=== PATIENT | male | born 1940 | race Caucasian/White ===

== ENCOUNTER 2017-11-25 04:02 | Inpatient (IN) | payer MEDICARE, OTHER ==
[~2017-11-25] VITALS: Ht 172.7 cm; Wt 97.3 kg
[~2017-11-25 04:02] MED LIST: ADVAIR HFA 230M12 GM INH; ALAVERT10 MG PO; ALBUTEROL2.5 MG/31 INH; ARTIFICIAL TEAR15 M2 OPHTHALMIC; ASPIR 8181 MG PO; ASPIRIN EC81 M1 PO; ATIVAN0.5 MG PO; AUGMENTIN 875875 MG PO; B-100 COMPLEX1 EAC1 PO; BUDESONIDE0.5 MG/2 M IH; BUMETANIDE0.25 MG/1 PO; CALCIUM + VIT1 EACH PO; CALCIUM 600 +1 EAC1 PO; CALCIUM PO; CARDIZEM CD240 MG PO; CARDIZEM CD360 MG PO; CEFPODOXIME PR200 M1 PO; CENTRUM SILVER1 EAC2 PO; COMPLETE M9 MG/15 ML PO; COUMADIN 2.5MG2.5 M1 PO; COUMADIN 3 MG TA3 MG PO; COUMADIN 5 MG TA5 M1 PO; COUMADIN7.5 MG PO; CRESTOR10 MG PO; CRESTOR20 MG PO; DEXILANT60 MG PO; DUONEB 2.5-0.5 M3 ML INH; ELIQUIS2.5 MG PO; FISH OIL 1,001000 M1 PO; FISH OIL SOFTG1 EACH PO; FLONASE 0.05%50 MCG NASAL; FLORASTOR250 MG PO; FLUNISOLIDE25 M1 NS; FUROSEMIDE 40 M40 M1 PO; GEMFIBROZIL 60600 MG PO; GLUCAGEN1 MG/1 ML IM; GLUCOSAMINE HC500 MG PO; GLUCOSAMINE-CH1 EA40 PO; GLUCOTROL5 MG PO; HUMALOG100 UNIT/1 SUBQ; HYDROCODONE-AP1 EA15 PO; HYDROCODONE-AP1 EAC6 PO; IBUPROFEN 200200 M1 PO; K-DUR 20 MEQ T20 MEQ PO; LANOXIN 0.250.25 M1 PO; LEVAQUIN 500 M500 M2 PO; LEVEMIR SUBQ; LORTAB 7.5-3251 EACH PO; LORTAB 7.5/5001 TA1 PO; LOSARTAN POTAS100 MG PO; LUBRICANT EYE D15 ML OPHTHALMIC; METAMUCIL PO; METFORMIN HCL500 MG PO; MUCINEX TA600 MG/TA1 PO; NEURONTIN600 MG PO; NEXIUM40 MG PO; NIASPAN 500 MG500 M1 PO; NIFEDIPINE PO; NORCO 7.5-3251 EACH PO; NOVOLIN R100 UNIT/1 SUBQ; OMEGA-31000 M1 PO; ONDANSETRON HCL4 M2 PO; POTASSIUM CHLO10 ME1 PO; PREDNISONE 10 M10 M1; PREDNISONE 10 M10 M1 PO; PREDNISONE 10 M10 MG PO; PREDNISONE 20 M20 MG PO; PRILOSEC 20 MG20 MG PO; PROTONIX40 M1 PO; PULMICORT0.5 MG/22 INH; REFRESH OPTIVE10 ML OP; ROCEPHIN 11 GM/1001 IV; SAW PALMETTO C1 EACH PO; SIMVASTATIN40 MG PO; SINGULAIR 10 MG10 M1 PO; SORINE 80 MG TA80 M1 PO; SUPER THERAVIT1 EACH PO; SYNTHROID125 MC1 PO; THERA-M CAPLET1 EAC1 PO; TRICOR145 MG PO; TYLENOL325 MG PO; VITAMIN B COMP1 EAC7 PO; VITAMIN C500 M1 PO; VITAMINC500 PO; VITCB500GO PO; ZOFRAN ODT4 MG DISSOLVE; ZYVOX600 MG PO
[2017-11-25 04:04] VITALS: BP 110/62
--- NOTE | 2017-11-25 04:11 | NUR ---
ACCUCHECK LEFT FOREFINGER - 61
[2017-11-25] MEDS ORDERED: SAW PALMETTO160 MG PO (04:26)
[2017-11-25] MEDS ORDERED: GEMFIBROZIL 60600 MG PO (04:27)
[2017-11-25] MEDS ORDERED: LANTUS SUBQ (04:27)
[2017-11-25] MEDS ORDERED: MAGNESIUM250 M1 PO (04:27)
[2017-11-25 04:28] LABS: HEMATOCRIT 39.7 % (42.0-52.0); HEMOGLOBIN 13.1 gm/dL (14.0-18.0); MCH 25.9 pg (26.0-34.0); MCHC 32.9 g/dL (28.0-37.0); MCV 78.7 fL (80.0-100.0); MPV 7.3 fl. (7.2-11.1); NUCLEATED RBCS 0 /100WBC; PLATELET COUNT* 493 thou/uL (150-400); RBC 5.05 mil/uL (4.50-6.00); RDW-CV 17.1 % (10.5-14.5); WBC 18.7 thou/uL (4.0-11.0)
[2017-11-25] MEDS ORDERED: OXYGEN MISCELL (04:28)
[2017-11-25] MEDS ORDERED: APIDRA100 U/ML SUBQ (04:28)
[2017-11-25] MEDS ORDERED: COUMADIN 1MG TAB1 M1 PO (04:29)
[2017-11-25] MEDS ORDERED: MUCINEX600 MG PO (04:29)
[2017-11-25] MEDS ORDERED: FLOMAX0.4 MG PO (04:29)
[2017-11-25] MEDS ORDERED: LASIX 80 MG TAB80 MG PO (04:29)
[2017-11-25 04:45] LABS: APTT 47.6 Seconds (25.0-31.3); PROTIME 28.4 Seconds (9.20-11.50)
[2017-11-25 05:04] LABS: ANION GAP 8 mmol/L (7-16); BUN 20 mg/dL (7-18); CALCIUM 9.4 mg/dL (8.5-10.1); CHLORIDE 99 mmol/L (98-107); CO2 29 mmol/L (21-32); GLUCOSE 61 mg/dL (70-99); POTASSIUM 3.9 mmol/L (3.5-5.1); SODIUM 136 mmol/L (136-145)
[2017-11-25 05:13] LABS: ALKALINE PHOSPHATASE 115 U/L (46-116); NT-PRO BRAIN NAT PEPTIDE 1299 pg/mL (<300); SGOT 27 U/L (15-37); SGPT 17 U/L (30-65); TOTAL BILIRUBIN 0.9 mg/dL (<0.1-1.0); TOTAL PROTEIN 7.2 g/dL (6.4-8.2); TROPONIN-I LEVEL <0.06 ng/mL (<0.06)
[2017-11-25 06:10] LABS: ABSOLUTE LYMPHOCYTES 2.2 thou/uL (0.8-5.3); ABSOLUTE MONOCYTES 0.6 thou/uL (0.0-1.2); ABSOLUTE NEUTROPHILS 15.9 thou/uL (1.6-8.1); ANISOCYTOSIS 1+; PLATELET ESTIMATE INCREASED
[2017-11-25 06:11] LABS: POIKILOCYTOSIS 1+
[2017-11-25 06:12] VITALS: BP 101/65
[2017-11-25 06:20] VITALS: BP 147/75
[2017-11-25 07:50] VITALS: BP 131/71
[2017-11-25 08:08] LABS: URINE BILIRUBIN NEGATIVE (Negative); URINE BLOOD NEGATIVE (Negative); URINE CLARITY CLEAR; URINE COLOR YELLOW; URINE GLUCOSE-RANDOM NEGATIVE (Negative); URINE KETONES NEGATIVE (Negative); URINE LEUKOCYTES-REFLEX NEGATIVE (Negative); URINE NITRITE-REFLEX NEGATIVE (Negative); URINE PROTEIN 1+ (Negative); URINE UROBILINOGEN 0.2 E.U./dl (0.2-1.0)
[2017-11-25 08:18] LABS: BACTERIA-REFLEX 1-9 Few /HPF (None Seen); CASTS None Seen /LPF (None Seen); MUCUS 0-3 Light strn/LPF (None Seen); SQUAMOUS 0-3 Few /LPF (0-3); URINE RBC 0-2 Rare /HPF (0-2); URINE WBC-REFLEX 0-5 Rare /HPF (0-5)
[2017-11-25 08:19] LABS: CRYSTALS None Seen /LPF (None Seen)
--- NOTE | 2017-11-25 12:07 | NUR ---
SW met with pt to complete initial assessment, introduce self, and SW role. Pt was sleeping soundly, unable to awaken after calling name and hello several times. SW called pt son Fritz who provided information. Pt have lives at home with son since last March and pt son is hopeful that pt will be able to return home with son again at dc. Pt has cane, RW, and Trilogy. Pt has hx of SNF at [facility]; pt/family preference would be [facility] if SNF needed. SW to continue to follow to assist with safe dc planning.
--- NOTE | 2017-11-25 15:25 | EKG ---
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: : 1940 Requested By: Beni Boyd Order Number: [id number] MD: Jam Cosby Measurements Intervals [place] Rate: 81 P: NM: QRS: -21 QRSD: 91 T: 7 QT: 340 QTc: 395 Interpretive Statements Atrial fibrillation Borderline left axis deviation Anterior infarct, old Baseline wander in lead(s) V2,V3,V4 Compared to ECG 01/24/2017 10:00:16 Early repolarization no longer present Myocardial infarct finding still present Electronically Signed On 11-25-2017 15:24:58 CDT by Jam Cosby [email or web address] <ELECTRONICALLY SIGNED> By: Jam Cosby MD, FACC 11/25/17 1524 0429 0429 Jam Cosby MD, FAC /EPI
[2017-11-25 16:00] VITALS: BP 112/58
--- NOTE | 2017-11-25 16:40 | NUR ---
PATIENT A&OX4, ON 2L O2 NC, HOME TRILOGY UNIT BROUGHT IN TO BE WORN AT NIGHT. MACHINE HAVING ISSUES, SPOKE WITH RT AND COMPANY WITH TRILOGY, WILL BE TAKING CARE OF ISSUE. IV LEFT HAND, INFILTRATED. IV NOW IN RIGHT AC, FLUIDS INFUSSING. PATIENT LETHARGIC, EASILY ARROUSABLE. UP WITH MAX ASSISTX1 WITH WALKER AND GAITBELT. PATIENT REFUSING TO TURN TODAY. C/O PAIN IN LEFT LEG, BEDSIDE ASPIRATION, FLUID SENT TO LAB. NO OTHER CONCERNS AT THIS TIME. APPROPRAITE AND COOPORATIVE WITH CARE.
[2017-11-25 20:00] VITALS: BP 104/59
--- NOTE | 2017-11-26 00:51 | NUR ---
ALERT AND ORIENTED WITH SOME STM LOSS. CONT. TO MONITOR LT ANKLE AND FOOT PAIN. ON SCHEDULED NARCOTIC WITH EFFECTIVE RELIEF. BED IN LOW POSIION, CALL LIGHT IN REACH. BED ALARM ON. NO SIGN OF DISTRESS AT THIS TIME.
[2017-11-26 04:02] LABS: HEMATOCRIT 35.6 % (42.0-52.0); HEMOGLOBIN 11.6 gm/dL (14.0-18.0); MCHC 32.6 g/dL (28.0-37.0); MCV 79.6 fL (80.0-100.0); MPV 8.1 fl. (7.2-11.1); RBC 4.46 mil/uL (4.50-6.00); WBC 14.2 thou/uL (4.0-11.0)
[2017-11-26 04:04] LABS: INR 2.7; PROTIME 25.9 Seconds (9.20-11.50)
[2017-11-26 04:15] LABS: ALBUMIN 2.5 g/dL (3.4-5.0); CALCIUM 9.2 mg/dL (8.5-10.1); CREATININE 1.4 mg/dL (0.6-1.3); MAGNESIUM 2.5 mg/dL (1.8-2.4); TOTAL BILIRUBIN 0.4 mg/dL (<0.1-1.0); TOTAL PROTEIN 6.9 g/dL (6.4-8.2)
[2017-11-26 04:18] LABS: POTASSIUM 5.2 mmol/L (3.5-5.1)
[2017-11-26 07:40] VITALS: BP 118/58
--- NOTE | 2017-11-26 09:56 | CON ---
[address] [address] CONSULTATION Name: ELLIOTT VALERA Room: [address] IN .R.#: [id number] Admission: 11/25/17 Attend Phys: Ramon Neal MD Discharge: Date of : 38 Report #: [id number] THIS REPORT FOR: //name// CC: Vineet Neal DATE OF SERVICE: 11/25/2017 HISTORY OF PRESENT ILLNESS: The patient at this point in time is a 77-year-old gentleman at [facility], was admitted through the Emergency Room of this institution, complaining of ankle pain on that left side, rather significant in nature. The patient, at this point in time, said it really started Friday, but it progressed where he had a very significant amount of difficulty walking on Friday, which was yesterday. Today, he cannot even barely put any weight or motion of his ankle. The patient says that he potentially twisted this ankle, although he is not quite sure as well when he was at home or out by the driveway. He only complains that this joint bother him. No other joints are bothering him when asked and he has not had any major other recent injuries prior to this. He does demonstrate on his physical examination, otherwise he shows pain is about 6/10 currently. PAST MEDICAL HISTORY: Remarkable for diabetes mellitus, COPD. He has a history of atrial fibrillation, hypertension. He has a history of arthritis and hypercholesterolemia as well. PAST SURGICAL HISTORY: This gentleman does demonstrate he has had previous hernia repair, right shoulder surgery x 3, right and left total knee arthroplasty, pilonidal cyst. He has had history of cataract surgery. MEDICATIONS: He is on multiple medication list. Digoxin. He is on hydrocodone, prednisone. He is on pantoprazole, ondansetron, aspirin, calcium supplementation. He is on gabapentin, Pulmicort inhalers. He is on Zofran p.r.n., insulin. At current time, he is on levothyroxine, glucagon, glipizide, montelukast, saw palmetto, gemfibrozil, magnesium, warfarin, Lasix, oxygen supplementation. ALLERGIES: He has allergies including EDIE INHIBITORS, LISINOPRIL, SULFA, MORPHINE. SOCIAL HISTORY: Otherwise, he used to smoke tobacco in the past. No alcohol consumption socially, is unremarkable. REVIEW OF SYSTEMS: Pain in the left ankle, otherwise he is normocephalic. His sclerae white. Mucous membranes are moist. Shows appropriate affect and judgment today. EYES: He demonstrates [place] [address] CONSULTATION Name: ELLIOTT VALERA Room: [address] IN ..#: [id number] Admission: 11/25/17 Attend Phys: Ramon Neal MD Discharge: Date of : 36 Report #: [id number] HEENT: Demonstrates no congestion or headaches currently. RESPIRATORY: Denies any cough, but he does have chronic COPD. CARDIOVASCULAR: He denies any chest pain history. GASTROINTESTINAL: Denies any abdominal pain or nausea. GENITOURINARY: There is no frequency or bloody hematuria. MUSCULOSKELETAL: He does have the musculoskeletal pain in the left inguinal region. Denies any other extremity or joint pains. SKIN: Warm and dry. LABORATORY DATA: The patient does demonstrate to show on his admission that he did have a white count of 18,700. Showing also an initial admit hemoglobin of 13.1, hematocrit of 39.7. His neutrophil count was up at 15.9. PHYSICAL EXAMINATION: VITAL SIGNS: He shows a BP of 110/62, his temperature is 37.1, pulse 84, respirations 16. GENERAL: The patient does demonstrate physically otherwise to be alert, oriented and cooperative. Shows appropriate affect and judgment. HEENT: Normocephalic. Sclerae white. Mucous membranes are moist. LUNGS: Does demonstrate no audible wheezes. ABDOMEN: Flat. EXTREMITIES: Demonstrates cicatrix to the right and left knees from previous total joint arthroplasty. Does demonstrate also to show full motion of the knees and hips without pain. The ankle on the left is extremely painful. It shows an effusion present to the ankle. Sensation is intact. Good pulses of the ankle bilaterally. His calves are soft posteriorly. NEUROLOGIC: Cranial nerves intact. IMAGING: X-ray of ankle demonstrates no gross bony destructive process changes. Alignment is appropriate. IMPRESSION: Left ankle pain with effusion. He does have an elevated uric acid, so he potentially has gout versus septic ankle. RECOMMENDATION: Simply go ahead and aspirate the ankle. Further recommendations pending that. The patient will have stat labs on that as well. The patient did sign a permit for aspiration of this left ankle, which was verified. The patient had a chlorhexidine prep of the left ankle. Timeout was called and verified. I aspirated with an 18 gauge needle, aspirated 4 mL of yellow synovial fluid, was appropriately sent off to the lab. Compression dressing was placed on the ankle. The patient tolerated the procedure well. A note was written for this as well. The patient will be followed in the hospital stay for results, possible [place] [address] CONSULTATION Name: ELLIOTT VALERA Carmen Room: [address]#: [id number] Admission: 11/25/17 Attend Phys: Ramon Neal MD Discharge: Date of : 38 Report #: [id number] All questions were answered, otherwise our pleasure seeing and taking care of the patient today. <ELECTRONICALLY SIGNED> By: Earnest Holm DO 11/26/17 0956 1051 1142Cemily Holm DO /nt
[2017-11-26 12:23] LABS: POTASSIUM 5.1 mmol/L (3.5-5.1)
--- NOTE | 2017-11-26 16:07 | NUR ---
ALVIN A&OX4, AWAKE, ALERT, PLEASANT. ON ROOM AIR, IV RIGHT OUTER AC, FLUIDS INFUSSING. UP WITH ASSISTX1 WITH WALKER AND GAITBELT. STEADY GAIT. C/O PAIN IN LEFT ANKLE, REPORTS PAIN IS DECREASING AND MOVEMENT IS INCREASING. NO OTHER CONCERNS AT THIS TIME. APPROPRIATE AND COOPORATIVE WITH CARE.
[2017-11-26 16:16] VITALS: BP 124/63
[2017-11-26 21:00] VITALS: BP 128/62
[2017-11-27 04:15] LABS: HEMATOCRIT 34.2 % (42.0-52.0); HEMOGLOBIN 11.1 gm/dL (14.0-18.0); MCH 25.8 pg (26.0-34.0); MCHC 32.4 g/dL (28.0-37.0); MCV 79.5 fL (80.0-100.0); MPV 7.7 fl. (7.2-11.1); RBC 4.3 mil/uL (4.50-6.00); WBC 12.9 thou/uL (4.0-11.0)
[2017-11-27 04:23] LABS: PROTIME 39.7 Seconds (9.20-11.50)
[2017-11-27 04:32] LABS: ALBUMIN 2.5 g/dL (3.4-5.0); CREATININE 1.2 mg/dL (0.6-1.3); MAGNESIUM 2.4 mg/dL (1.8-2.4); POTASSIUM 4.9 mmol/L (3.5-5.1); TOTAL BILIRUBIN 0.3 mg/dL (<0.1-1.0); TOTAL PROTEIN 6.7 g/dL (6.4-8.2)
[2017-11-27 04:41] LABS: INR 4.2
--- NOTE | 2017-11-27 05:18 | NUR ---
PATIENT SLEPT WELL DURING THIS SHIFT. PT IS ON ROOM AIR. PT USES HOME TRILOGY AT NIGHT. PT WITH FLUIDS INFUSING PER DR ORDER. PT WITH 2100 BLOOD SUGAR OF 274; HUMALOG 17 UNITS AND LANTUS 50 UNITS GIVEN. PT IN ISOLATION FOR MRSA. PT VOIDS PER URINAL. PT UP WITH STANDBY AND WALKER TO BATHROOM FOR BM. PT HAD LARGE, FIRM BOWEL MOVEMENT AT BEGINNING OF SHIFT. PT ABLE TO REPOSITION HIMSELF IN BED. FREQUENTLY USED ITEMS AND CALL LIGHT WITHIN REACH. SIDERAILS UPX3 AND BED ALARM ON. WILL CONTINUE TO MONITOR.
[2017-11-27 07:35] VITALS: BP 158/74
--- NOTE | 2017-11-27 10:44 | NUR ---
Possibility for need for SNF. Dr Shay anticipating pt to dc Wednesday 11/29. CLAUDIA faxed referral for SNF to pt/family preference of [facility] fax number [phone]. CLAUDIA spoke with Lily from [facility] admissions who will review the referral ph [phone]. CLAUDIA to continue to follow to assist with safe dc planning.
[2017-11-27 16:31] VITALS: BP 129/63
--- NOTE | 2017-11-27 18:52 | NUR ---
PATIENT RESTING UP IN RECLINER. PATIENT IS UP IN ROOM STANDBY ASSIST. PATIENT HAS HAD PAIN TO LEFT FOOT, TREATED ADEQUATELY WITH MEDICATION. PATIENT WORKED WITH PHYSICAL AND OCCUPATIONAL THERAPIES TODAY. PATIENT HAS GOOD APPETITE. PATIENT DENIES ANY NEEDS AT THIS TIME. CALL LIGHT WITHIN REACH. WILL CONTINUE TO MONITOR.
[2017-11-27 19:50] VITALS: BP 139/67
[2017-11-28 04:22] LABS: HEMOGLOBIN 11.6 gm/dL (14.0-18.0); MCH 25.6 pg (26.0-34.0); MCHC 32.3 g/dL (28.0-37.0); MCV 79.4 fL (80.0-100.0); MPV 7.6 fl. (7.2-11.1); RBC 4.54 mil/uL (4.50-6.00); RDW-CV 16.7 % (10.5-14.5); WBC 8.8 thou/uL (4.0-11.0)
[2017-11-28 04:35] LABS: PROTIME 26.1 Seconds (9.20-11.50)
[2017-11-28 04:38] LABS: CALCIUM 9.1 mg/dL (8.5-10.1); CREATININE 0.9 mg/dL (0.6-1.3); POTASSIUM 4.5 mmol/L (3.5-5.1)
[2017-11-28 04:44] LABS: INR 2.7
--- NOTE | 2017-11-28 05:10 | NUR ---
PT SLEPT AT INTERVALS DURING THE NIGHT, IV SALINE LOCKED, WORE CPAP WHILE SLEEPING, PLEASANT, PAIN PILL AT HS, USED URINAL AT BEDSIDE, BED ALARM ON FOR SAFETY, CALL LIGHT IN REACH, WILL CONTINUE TO MONITOR
[2017-11-28 08:00] VITALS: BP 159/75
--- NOTE | 2017-11-28 14:54 | NUR ---
SW followed up with admissions at [facility] and pt has been accepted for SNF for Friday if final recommendation is for SNF and if pt/pt son final choice is SNF vs home with HH. Final orders to be faxed to [phone]. To call Charge Nurse Iveth on Friday to finalize transition to SNF at phone number [phone].
[2017-11-28 17:09] VITALS: BP 143/71
--- NOTE | 2017-11-28 19:29 | NUR ---
RECEIVED REPORT. ASSUMED CARE AT 0730. PT A&O X4. VSS. O2 SAT 97% ON RA. AM ASSESSMENT AND VITALS COMPLETED CHARTED. IV SALINE LOCKED. PT HAS REPORTED LEFT FOOT/LEG AND RIGHT SHOULDER PAIN THROUGHOUT THE SHIFT THAT HAS BEEN MANAGED WITH PO PAIN MEDICATION WITH PARTIAL RELIEF. PT EATING AND DRINKING WITHOUT ISSUE THIS SHIFT. PT ABLE TO WORK WITH P.T. THIS AFTERNOON - WALKED UP AND DOWN SEVERAL STAIRS WITHOUT ISSUE, MUCH IMPROVED FROM YESTERDAY ACCODRING TO P.T. PT HAS SAT IN BEDSIDE CHAIR MOST OF SHIFT. PT VOIDING PER URINAL WITHOUT ISSUE. PT LOOKING FORWARD TO MAYBE GOING HOME TOMORROW. PT CURRENRTLY RESTING IN BED. FALL PRECAUTIONS ARE IN PLACE. CALL LIGHT IS WITHIN REACH. HOURLY ROUNDING PERFORMED.
[2017-11-28 20:00] VITALS: BP 131/60
[2017-11-29 04:43] LABS: INR 1.8; PROTIME 17.7 Seconds (9.20-11.50)
--- NOTE | 2017-11-29 05:14 | NUR ---
PT SLEPT AT INTERVALS DURING THE NIGHT, IV SALINE LOCKED, TRILOGY WHILE SLEEPING, BREATHING TREATMENTS BY RT, PLEASANT, PAIN MED GIVEN LAST NIGHT, UP SBA TO THE CHAIR, VOIDED PER URINAL. CALL LIGHT IN REACH, BED ALARM ON FOR SAFETY, WILL CONTINUE TO MONITOR
[2017-11-29] MEDS ORDERED: PREDNISONE 10 M10 MG PO (11:13)
--- NOTE | 2017-11-29 11:23 | NUR ---
ORDERS NOTED FOR DC HOME WITH HH. MET WITH PT, HE PREFERS TO GO HOME, NOT SNF. DISCUSSED HH OPTIONS AND CHOSE [facility]. CALLED AND FAXED ORDERS TO [facility]. PT STATES HIS SON WILL BE HERE TO PICK HIM UP. DISCUSSED [facility]ERSON RN
[2017-11-29 11:25] VITALS: BP 131/60
== END 2017-11-29 15:30 | disposition home health service (06) | DRG 553 ==
LOC: M.ERS 04:02 → M.TBA-ER 05:34 → M.3W 05:34
PROVIDERS: Family Medicine; Internal Medicine; ADMIT Internal Medicine
PROC: 0S9G0ZX Drainage of Left Ankle Joint, Open Approach, Diagnostic (ICD-10-PCS; principal; 2017-11-25)
DX: M11.272 Other chondrocalcinosis, left ankle and foot (principal); R65.11 Systemic inflammatory response syndrome (SIRS) of non-infectious origin with acute organ dysfunction; N17.9 Acute kidney failure, unspecified; E44.1 Mild protein-calorie malnutrition; M25.472 Effusion, left ankle; E78.5 Hyperlipidemia, unspecified; M19.90 Unspecified osteoarthritis, unspecified site; I48.91 Unspecified atrial fibrillation; J44.9 Chronic obstructive pulmonary disease, unspecified; G47.33 Obstructive sleep apnea (adult) (pediatric); Z87.891 Personal history of nicotine dependence; M10.9 Gout, unspecified; E78.00 Pure hypercholesterolemia, unspecified; Z96.653 Presence of artificial knee joint, bilateral; D72.829 Elevated white blood cell count, unspecified; I12.9 Hypertensive chronic kidney disease with stage 1 through stage 4 chronic kidney disease, or unspecified chronic kidney disease; E11.22 Type 2 diabetes mellitus with diabetic chronic kidney disease; N18.2 Chronic kidney disease, stage 2 (mild); M25.872 Other specified joint disorders, left ankle and foot; Z98.42 Cataract extraction status, left eye; Z98.41 Cataract extraction status, right eye; Z99.81 Dependence on supplemental oxygen; Z79.899 Other long term (current) drug therapy; Z79.82 Long term (current) use of aspirin; Z79.4 Long term (current) use of insulin; Z88.6 Allergy status to analgesic agent; Z88.2 Allergy status to sulfonamides; Z88.8 Allergy status to other drugs, medicaments and biological substances; Z68.32 Body mass index [BMI] 32.0-32.9, adult

== ENCOUNTER 2018-01-04 12:44 | Inpatient (IN) | payer MEDICARE, OTHER ==
[~2018-01-04] VITALS: Ht 172.7 cm; Wt 96.0 kg
[~2018-01-04 12:44] MED LIST changes: +APIDRA100 U/ML SUBQ; +COUMADIN 1MG TAB1 M1 PO; +FLOMAX0.4 MG PO; +LANTUS SUBQ; +LASIX 80 MG TAB80 MG PO; +MAGNESIUM250 M1 PO; +MUCINEX600 MG PO; +OXYGEN MISCELL; +SAW PALMETTO160 MG PO
[2018-01-04 12:46] VITALS: BP 96/47
[2018-01-04 13:07] LABS: HEMATOCRIT 36.2 % (42.0-52.0); HEMOGLOBIN 11.7 gm/dL (14.0-18.0); MCH 25.6 pg (26.0-34.0); MCHC 32.4 g/dL (28.0-37.0); MCV 79.2 fL (80.0-100.0); MPV 7.2 fl. (7.2-11.1); NUCLEATED RBCS 0 /100WBC; PLATELET COUNT* 373 thou/uL (150-400); RBC 4.58 mil/uL (4.50-6.00); RDW-CV 19.9 % (10.5-14.5); WBC 16.8 thou/uL (4.0-11.0)
[2018-01-04 13:19] LABS: APTT 39.7 Seconds (25.0-31.3); INR 1.9; PROTIME 18.1 Seconds (9.20-11.50)
[2018-01-04 13:22] LABS: ANION GAP 9 mmol/L (7-16); BUN 29 mg/dL (7-18); CALCIUM 8.7 mg/dL (8.5-10.1); CHLORIDE 97 mmol/L (98-107); CO2 31 mmol/L (21-32); CREATININE 1.4 mg/dL (0.6-1.3); GLUCOSE 191 mg/dL (70-99); POTASSIUM 3.8 mmol/L (3.5-5.1); SODIUM 137 mmol/L (136-145)
[2018-01-04 13:32] LABS: ALBUMIN 2.8 g/dL (3.4-5.0); ALKALINE PHOSPHATASE 95 U/L (46-116); LIPASE 63 U/L (73-393); MAGNESIUM 2.3 mg/dL (1.8-2.4); NT-PRO BRAIN NAT PEPTIDE 1379 pg/mL (<300); SGOT 13 U/L (15-37); SGPT 11 U/L (30-65); TOTAL BILIRUBIN 1.1 mg/dL (<0.1-1.0); TOTAL PROTEIN 7.4 g/dL (6.4-8.2); TROPONIN-I LEVEL <0.06 ng/mL (<0.06)
[2018-01-04 13:51] LABS: ABSOLUTE BASOPHILS 0.2 thou/uL (0.0-0.2); ABSOLUTE MONOCYTES 1.7 thou/uL (0.0-1.2); ABSOLUTE NEUTROPHILS 13.9 thou/uL (1.6-8.1)
[2018-01-04 13:52] LABS: ANISOCYTOSIS 1+; PLATELET ESTIMATE ADEQUATE
[2018-01-04 15:48] VITALS: BP 105/58; BP 118/57
--- NOTE | 2018-01-04 16:28 | NUR ---
PT ADMITTED TO UNIT AROUND 1600 PT IS ALERT AND ORIENTED X 4 PT IS UP WITH ASSIST X 1-2 WITH WALKER PT GAIT UNSTEADY PT USES URINAL PT IS A FALL RISK BED ALARM IS ON, PT IS ON 3L/NC NO SOA NOTED PT C/O CHRONIC PAIN IN FEET BILAT HAS PAIN MEDS SCHEDULED, PT IS AFIB ON THE MONITOR, PT HAS BREATHING TREATMENTS, WILL CONTINUE TO MONITOR
[2018-01-04] MEDS ORDERED: NEURONTIN600 MG PO (16:43)
[2018-01-04 20:29] VITALS: BP 121/52
[2018-01-04 23:33] VITALS: BP 107/50
[2018-01-05 03:46] VITALS: BP 120/60
--- NOTE | 2018-01-05 04:32 | NUR ---
Pt expressed concern over high BG (445 at 2030). Inquired if he had been given steroids, which he had and is getting q8h. Paged Dr. Shay, orders received. Pt uses Trilogy at home, and sone to bring machine in today. Pt on BIPAP overnight, tolerated well. VSS. Will continue to montior.
[2018-01-05 05:04] LABS: HEMATOCRIT 34.8 % (42.0-52.0); HEMOGLOBIN 11.1 gm/dL (14.0-18.0); MCH 25.4 pg (26.0-34.0); MCV 79.3 fL (80.0-100.0); MPV 7.8 fl. (7.2-11.1); RBC 4.39 mil/uL (4.50-6.00); RDW-CV 20.2 % (10.5-14.5); WBC 11.9 thou/uL (4.0-11.0)
[2018-01-05 05:10] LABS: INR 2.6; PROTIME 25.4 Seconds (9.20-11.50)
[2018-01-05 05:19] LABS: ALBUMIN 2.6 g/dL (3.4-5.0); CALCIUM 9.4 mg/dL (8.5-10.1); CREATININE 1.6 mg/dL (0.6-1.3); MAGNESIUM 2.5 mg/dL (1.8-2.4); POTASSIUM 4.2 mmol/L (3.5-5.1); TOTAL BILIRUBIN 0.5 mg/dL (<0.1-1.0); TOTAL PROTEIN 7.4 g/dL (6.4-8.2)
[2018-01-05 08:00] VITALS: BP 115/50
--- NOTE | 2018-01-05 10:33 | NUR ---
ASSUMED CARE OF PT AT 0730. PT SITTING UP IN THE CHAIR WAITING FOR BREAKFAST. PT A&0X4, [place], DENIES ANY PAIN OR SHORTNESS OF BREATH AT THIS TIME. PT IN CONTACT ISOLATION FOR HISTORY MRSA. 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 RATE CONTROLLED IN THE 70'S. PT ON 3L NC SAT 97%. PT WEARS OXYGEN AT HOME. PT HAS HOME TRILOGY AT [facility]. SON IS TO BRING TRILOGY IN. PT UP WITH 1 ASSIST AND WALKER TO BATHROOM, WEAKNESS NOTED. BLOOD SUGAR REMAINS IN THE 300'S. PT RECEIVING STEROIDS. PT STARTED ON LISPRO HIGH DOSE SSI ALONG WITH HOME INSULIN 10 UNITS WITH EACH MEAL. PT GOAL FOR TODAY IS TO INCREASE ACTIVITY, MAINTAIN BLOOD GLUCOSE BELOW 250 AND UP TO CHAIR FOR MEALS. AM ASSESSMENT CHARTED. MEDICATIONS PER OCT. SCHEDULED MAGNESIUM HELD MAGNESIUM 2.5 THIS AM. PT REPOSITIONS SELF IN BED WITH REMINDERS. HOURLY ROUNDING OBSERVED. BED IN LOW POSITION. BED ALARM IN PLACE. FALL PRECAUTIONS IN PLACE. CALL LIGHT WITHIN REACH. WILL CONTINUE PLAN OF CARE.
--- NOTE | 2018-01-05 11:23 | NUR ---
Pt is A&O. Resides at home with his son. States that he is independent with ADLs. Pt has a cane, walker and Trilogy at home. Pt wears home o2 also through [employer]. Hx of skilled at [facility]. Hx of [facility]. Pt is currently receiving outpt therapy at [facility] [phone], CM called and updated that Pt is currently inpt. Following for disposition.
[2018-01-05 11:36] VITALS: BP 144/59
--- NOTE | 2018-01-05 14:08 | EKG ---
[place] [address] ELECTROCARDIOGRAM REPORT Name: ELLIOTT VALERA Room: [address] IN R.#: [id number] Admission: 01/04/18 Attend Phys: Flavia Shay MD Discharge: Date of : 36 Report #: [id number] THIS REPORT FOR: //name// [facility] ED Test Date: 2018-01-04 Test Time: 12:49:48 Pat Name: ELLIOTT DAVEG Department: Room: Gender: Brass Sorter: Rocky HOWARD : 1940 Requested By: Beni Boyd Order Number: [id number] MD: Napoleon Danielle Measurements Intervals [employer] Rate: 90 P: CO: QRS: -26 QRSD: 93 T: 159 QT: 296 QTc: 362 Interpretive Statements Atrial fibrillation Ventricular premature complex Inferior infarct, old Anterior infarct, old Lateral leads are also involved Compared to ECG 11/25/2017 04:29:19 Ventricular premature complex(es) now present Myocardial infarct finding still present Electronically Signed On 01-05-2018 14:08:01 CDT by Napoleon Danielle [email or web address] <ELECTRONICALLY SIGNED> By: Napoleon Danielle MD, [facility] 01/05/18 1408 1249 1249 Napoleon Danielle MD, [facility] /EPI
--- NOTE | 2018-01-05 18:03 | NUR ---
NO ACUTE CHANGES THROUGHOUT SHIFT. REFER TO CHARTING. PT MADE MED SURG, TELEMETRY STOPPED PER DR KINCAID. CONTACT ISOLATION DISCONTINUED WELL PER INFECTION CONTROL NURSE. PT WORKED WITH PHYSICAL THERAPY TODAY, TOLERATED WELL. PT SAT UP IN CHAIR THROUGHOUT MOST OF DAY, TOLERATED WELL. PT SON AT BEDSIDE THROUGHOUT AFTERNOON. PT CONTINUES TO BE ON 3L NC SAT UPPER 90'S. PT UP WITH 1 ASSIST AND WALKER TO BATHROOM. PT BLOOD GLUCOSE SLOWLY TRENDING DOWN WITH ADDITION OF LISPRO SLIDING SCALE. PT SON BROUGHT HOME TRILOGY FOR PT TONIGHT. MEDICATIONS PER OCT. PT SLOWLY PROGRESSING TOWARDS GOALS. HOURLY ROUNDING OBSERVED. BED IN LOW POSITION. BED ALARM IN PLACE. FALL PRECAUTIONS IN PLACE. CALL LIGHT WITHIN REACH. WILL CONTINUE PLAN OF CARE.
[2018-01-05 21:30] VITALS: BP 127/65
[2018-01-06 04:26] LABS: PROTIME 39.8 Seconds (9.20-11.50)
[2018-01-06 04:40] LABS: INR 4.2
--- NOTE | 2018-01-06 05:48 | NUR ---
PT TRANSFERED UP TO ROOM 311 FROM TELE, PT ORIENTED TO ROOM, CALL LIGHT SHOWN. PT SLEPT ON AND OFF THIS SHIFT. ASSESSMENT DOCUMENTED. MEDS GIVEN PER E-MAR. NEW IV STARTED IN LEFT AC. PT VOIDING PER URINAL THIS SHIFT. PT STATES THAT HE WANTS TO MAKE SURE HE IS BETTER BEFORE HE IS DISCHARGED, PT STATES THAT HE IS AFRAID THE DOCTOR WANTS TO SEND HIM HOME TOO SOON.
[2018-01-06 07:30] VITALS: BP 120/60
[2018-01-06 16:00] VITALS: BP 120/56
--- NOTE | 2018-01-06 17:11 | NUR ---
PATEINT A&OX4, ON 3L O2 VIA NC, IV LT AC INFILTRATED. NEW IV IN RIGHT AC 2OG SALINE LOCK. UP WITH ASSISTX1 WITH WALKER AND GAITBELT. PT AND OT ORDERED. C/O PAIN GENERALIZED/FEET, PARTIAL RELEIF WITH MEDICATION. PATEINT AND FAMILY REQUESTING FOR PATIENT NOT TO BE D/C UNTIL HEALTH IMPROVES. STATES PREVIOUS HOSPITAL STAYS PATIENT IS D/C THEN IMMEDIATELY RIGHT BACK. NO OTHER CONCERNS AT THIS TIME. APPROPRAITE AND COOPORATIVE WITH CARE.
[2018-01-06 23:39] VITALS: BP 109/63
[2018-01-07 04:39] LABS: HEMATOCRIT 31.2 % (42.0-52.0); HEMOGLOBIN 10.3 gm/dL (14.0-18.0); MCH 26.3 pg (26.0-34.0); MCHC 33.1 g/dL (28.0-37.0); MCV 79.4 fL (80.0-100.0); MPV 8.4 fl. (7.2-11.1); RBC 3.94 mil/uL (4.50-6.00); RDW-CV 19.9 % (10.5-14.5); WBC 10.2 thou/uL (4.0-11.0)
[2018-01-07 04:51] LABS: INR 3.5; PROTIME 33.5 Seconds (9.20-11.50)
[2018-01-07 05:00] LABS: ALBUMIN 2.5 g/dL (3.4-5.0); CALCIUM 8.8 mg/dL (8.5-10.1); CREATININE 1.2 mg/dL (0.6-1.3); MAGNESIUM 2.3 mg/dL (1.8-2.4); POTASSIUM 4.9 mmol/L (3.5-5.1); TOTAL BILIRUBIN 0.3 mg/dL (<0.1-1.0)
--- NOTE | 2018-01-07 06:13 | NUR ---
ASSESSMENT COMPLETE. PT SLEPT MOST OF THE NIGHT WITHOUT ANY CONCERNS. PRN PAIN MEDICATION GIVEN TWICE DURING THE NIGHT FOR LEG PAIN. PT TITRATED TO ROOM AIR WITH JUNIOR BACK, HOME TRILOGY ON AT HS. PT USES URINAL NEEDED AND TURNS SELF IN BED. PT IS FALL RISK, BED ALARM ON. SEE ASSESSMENT AND VITALS FOR OTHER DETAILS. CALL LIGHT WITHIN REACH, WILL CONTINUE PLAN OF CARE
[2018-01-07 08:00] VITALS: BP 121/63
[2018-01-07 15:35] VITALS: BP 101/50
--- NOTE | 2018-01-07 19:52 | NUR ---
PATIENT A&OX4, ROOM AIR, IV RIGHT AC SALINE LOCK. UP WITH ASSISTX1 WITH WALKER, ENCOURAGED TO WALK IN HALLWAY WITH ASSIST, VERBALIZES UNDERSTANDING. C/O GENERALIZED PAIN, PARTIAL RELIEF WITH MEDICATION. REPEAT CHEST XRAY TODAY, NO IMPROVEMENT FROM THE 6TH. NO OTHER CONCERNS AT THIS TIME. APPROPRIATE AND COOPORATIVE WITH CARE.
[2018-01-08 00:23] VITALS: BP 128/62
[2018-01-08 04:40] LABS: INR 2.3
--- NOTE | 2018-01-08 05:56 | NUR ---
PATIENT SLEPT MOST OF THE NIGHT. IV REMAINS SALINE LOCKED. PATIENT WAS GIVEN PAIN MEDICINE ONCE THIS SHIFT. PATIENT WEARS TRILIOGY AT NIGHT. WILL CONTINUE TO MONITOR.
[2018-01-08 07:54] VITALS: BP 159/82
--- NOTE | 2018-01-08 09:02 | NUR ---
ASSUMED CARE AROUND 0730 THIS AM. REFER TO ASSESSMENT. PT CONTINUES ON RA WITH NO REPORTED SOA. C/O PAIN TO BLE FEET THAT IS CHRONIC. PT STATES HE DOESN'T FEEL READY TO DC HOME TODAY AND STATES THAT EVEN THOUGH HE IS DOING BETTER, HE COULD GET WORST AGAIN. NO OTHER CONCERNS AT THIS TIME. CLWR. WCTM.
[2018-01-08 15:35] VITALS: BP 144/48
--- NOTE | 2018-01-08 15:52 | NUR ---
CONTINUE TO FOLLOW, PT STILL PLANS TO RETURN HOME AT DC AND RESUME HIS OUTPT THERAPY AT [facility]. STATES FEELING SOME BETTER TODAY
--- NOTE | 2018-01-08 16:02 | NUR ---
PT PROGRESSING TOWARDS GOALS THIS SHIFT. CONTINUES ON RA. C/O COUGH. NO SOA NOTED. PAIN MANAGED WITH PRN HYDROCODONE AND PT STARTED ON GOUT MEDICATION THIS SHIFT. NO OTHER CONCERNS AT THIS TIME. CLWR. WCTM.
[2018-01-08 20:00] VITALS: BP 127/72
[2018-01-09] VITALS: BP 118/59
[2018-01-09 03:55] VITALS: BP 124/66
[2018-01-09 04:16] LABS: INR 1.8
--- NOTE | 2018-01-09 05:10 | NUR ---
PT CARE ASSUMED AFTER REPORT. ASSESSMENT COMPLETE. DENIES PAIN. TRILOGY IN PLACE WHILE RESTING. CALL LIGHT IN REACH. BED IN LOWEST POSITION. FALL PRECAUTIONS IN PLACE INCLUDING BED ALARM. PROGRESSING TOWARDS GOALS.
[2018-01-09 08:00] VITALS: BP 121/81
--- NOTE | 2018-01-09 12:12 | NUR ---
ASSUMED CARE OF PATIENT THIS AM AT 0730. PATIENT IS ALERT AND ORIENTED. HE C/O GENERALIZED PAIN THIS AM. HIS BLOOD SUGARS WERE LOW THIS AM. PATIENT ASSISTED UP TO THE CHAIR. MEDICATED FOR PAIN EARLY THIS AM, THEN REMEDICATED FOR C/O CONTINUED PAIN PER DR ORDER. PATIENT STATED. I THINK I WATED TO LONG TO TAKE SOMETHING FOR PAIN. PATIENT REMAINS UP IN THE CHAIR AT THIS TIME. HE SAID THAT PAIN WAS LESS AT THIS TIME. PATIENT HAS BEEN UP IN THE HALLS WITH PT TODAY. HE IS TAKING HIS DIET WELL.
[2018-01-09 15:36] VITALS: BP 102/51
[2018-01-09 23:22] VITALS: BP 128/72
[2018-01-10] VITALS: BP 135/79
[2018-01-10 05:25] LABS: INR 1.3; PROTIME 12.7 Seconds (9.20-11.50)
--- NOTE | 2018-01-10 06:06 | NUR ---
ASSESSMENT COMPLETE. PT SLEPT THROUGH THE NIGHT WITHOUT ANY CONCERNS. PRN PAIN MEDICATION GIVEN ONCE PER PT REQUEST. PT IS FALL RISK, BED ALARM ON. PT WEARS HOME TRILOGY AT HS, ROOM AIR DURING THE DAY WITH [place] SATS. PT IS UP STANDBY ASSIST WITH WALKER. PT HAS IV IN RIGHT AC, SALINE LOCKED AND FLUSHES WITHOUT DIFFICULTY. PT TURNS SELF DURING THE NIGHT. SEE ASSESSMENT AND VITALS FOR OTHER DETAILS. CALL LIGHT WITHIN REACH, WILL CONTINUE PLAN OF CARE
[2018-01-10 08:00] VITALS: BP 138/49
--- NOTE | 2018-01-10 12:34 | NUR ---
Pt plans to resume outpt therapy at [facility] at [place], outpt PT orders will need to be faxed to [phone]. Plan [place] tomorrow.
[2018-01-10 14:25] LABS: HEMATOCRIT 42.1 % (42.0-52.0); HEMOGLOBIN 13.6 gm/dL (14.0-18.0); MCH 25.7 pg (26.0-34.0); MCHC 32.3 g/dL (28.0-37.0); MCV 79.4 fL (80.0-100.0); MPV 7.8 fl. (7.2-11.1); RBC 5.3 mil/uL (4.50-6.00); RDW-CV 19.5 % (10.5-14.5); WBC 11.3 thou/uL (4.0-11.0)
[2018-01-10 14:35] LABS: CALCIUM 8.9 mg/dL (8.5-10.1); CREATININE 1.3 mg/dL (0.6-1.3); MAGNESIUM 2.2 mg/dL (1.8-2.4); POTASSIUM 4.6 mmol/L (3.5-5.1)
[2018-01-10 16:00] VITALS: BP 103/53
--- NOTE | 2018-01-10 19:23 | NUR ---
RESUMED CARE THIS AM. A/O X 4, PAIN CONTROLLED WITH NARCOTIC MEDICATION, ENEDINA DIET WELL, GLUCOSE LOW THIS AM, WNL THROUGHOUT SHIFT. WORKED WELL WITH THERAPY, MEETING DISCHARGE GOALS. DR. PIZARRO WANTS TO HOLD DISCHARGE UNTIL BLOOD SUGARS ARE MORE IN CONTROL. CALL LIGHT IN REACH, CONT POC.
[2018-01-10 20:00] VITALS: BP 125/69
[2018-01-10 23:30] VITALS: BP 108/61
[2018-01-11 03:45] LABS: HEMATOCRIT 39.4 % (42.0-52.0); HEMOGLOBIN 12.8 gm/dL (14.0-18.0); MCH 25.6 pg (26.0-34.0); MCHC 32.4 g/dL (28.0-37.0); MPV 7.3 fl. (7.2-11.1); RBC 4.99 mil/uL (4.50-6.00); WBC 12.7 thou/uL (4.0-11.0)
[2018-01-11 03:54] LABS: INR 1.2; PROTIME 12.1 Seconds (9.20-11.50)
[2018-01-11 04:08] LABS: CALCIUM 8.9 mg/dL (8.5-10.1); CREATININE 1.1 mg/dL (0.6-1.3); MAGNESIUM 2.5 mg/dL (1.8-2.4); POTASSIUM 4.5 mmol/L (3.5-5.1)
--- NOTE | 2018-01-11 05:14 | NUR ---
PATIENT HAS BEEL ASLEEP MOST OF THE NIGHT WEARS TRILOGY. VITAL SIGNS HAVE BEEN STABLE ON ROOM AIR. SOME COMPLAINTS OF PAIN THIS EVENING THAT WAS CONTROLLED WITH ORAL PAIN MEDICATIONS. CALL LIGHT IS IN REACH, WILL CONTINUE TO MONITOR.
[2018-01-11 08:00] VITALS: BP 114/66
[2018-01-11 16:25] VITALS: BP 117/63
--- NOTE | 2018-01-11 17:25 | NUR ---
RESUMED CARE THIS AM, CONT TO ATTEMPT TO NORMALIZE INR WITH COUMADIN AND LOVENOX, UP WITH WALKER, TOLERATING THERAPIES WELL, DENIES PAIN, VITALS STABLE, FAMILY AT BEDSIDE THIS AFTERNOON, SPOKE WITH DR. PIZARRO, PLAN IS TO RETURN TO HOME, POSSIBLY HOME HEALTH. CALL LIGHT IN REACH, CONT POC.
[2018-01-12 04:30] LABS: HEMOGLOBIN 12.4 gm/dL (14.0-18.0)
[2018-01-12 04:34] LABS: HEMATOCRIT 38.6 % (42.0-52.0); MCH 25.5 pg (26.0-34.0); MCHC 32.1 g/dL (28.0-37.0); MCV 79.3 fL (80.0-100.0); MPV 7.6 fl. (7.2-11.1); RBC 4.86 mil/uL (4.50-6.00); WBC 12.2 thou/uL (4.0-11.0)
[2018-01-12 04:40] LABS: CALCIUM 8.9 mg/dL (8.5-10.1); CREATININE 1.3 mg/dL (0.6-1.3); MAGNESIUM 2.4 mg/dL (1.8-2.4)
--- NOTE | 2018-01-12 05:58 | NUR ---
ASSESSMENT COMPLETE. PT SLEPT MOST OF THE NIGHT. PRN PAIN MEDICATION GIVEN NEEDED. PT WEARS HOME TRILOGY AT . PT TURNS SELF IN BED. USES URINAL NEEDED DURING THE NIGHT. PT IS FALL RISK, BED ALARM ON. SEE ASSESSMENT AND VITALS FOR OTHER DETAILS. CALL LIGHT WITHIN REACH, WILL CONTINUE PLAN OF CARE
[2018-01-12 08:00] VITALS: BP 126/69
[2018-01-12 11:14] LABS: INR 1.2; PROTIME 11.9 Seconds (9.20-11.50)
--- NOTE | 2018-01-12 13:33 | NUR ---
Nutrition: Pt seen for LOS. Possible discharge tomorrow. Pt was eating lunch at time of visit. Good appetite. Has had DM and low Na educ in past. H/o COPD, DM, HTN, gagandeep. CHO control diet ordered. Wt: 211#, usual wt is 200#. Low risk.
[2018-01-12 16:00] VITALS: BP 90/51
--- NOTE | 2018-01-12 16:38 | NUR ---
SW to continue to follow. Pt to dc home with son tomorrow and SW to fax orders to [facility] at fax [phone].
[2018-01-13 00:23] VITALS: BP 131/76
[2018-01-13 04:43] LABS: HEMATOCRIT 37.7 % (42.0-52.0); HEMOGLOBIN 12.3 gm/dL (14.0-18.0); MCH 25.8 pg (26.0-34.0); MCHC 32.5 g/dL (28.0-37.0); MCV 79.2 fL (80.0-100.0); MPV 7.6 fl. (7.2-11.1); RBC 4.75 mil/uL (4.50-6.00); RDW-CV 19.6 % (10.5-14.5); WBC 10.8 thou/uL (4.0-11.0)
[2018-01-13 04:46] LABS: INR 1.4; PROTIME 13.8 Seconds (9.20-11.50)
[2018-01-13 05:12] LABS: CREATININE 1.2 mg/dL (0.6-1.3); MAGNESIUM 2.4 mg/dL (1.8-2.4); POTASSIUM 4.4 mmol/L (3.5-5.1)
--- NOTE | 2018-01-13 05:48 | NUR ---
ASSESSMENT COMPLETE. PT SLEPT THROUGH MOST THE NIGHT, PRN PAIN MEDICATION GIVEN NEEDED. PT ON HOME TRILOGY AT . PT HAS [place] SATS, VITALS STABLE. PT UP ONE ASSIST. USES URINAL NEEDED. FALL RISK, BED ALARM ON. SEE ASSESSMENT AND VITALS FOR OTHER DETAILS. CALL LIGHT WITHIN REACH, WILL CONTINUE PLAN OF CARE
[2018-01-13 08:00] VITALS: BP 122/68; BP 131/76
[2018-01-13] MEDS ORDERED: LEVAQUIN 250 M250 MG PO (11:18)
[2018-01-13] MEDS ORDERED: PREDNISONE 10 M10 MG PO (11:18)
--- NOTE | 2018-01-13 13:33 | NUR ---
CLAUDIA received orders for HH for pt dc today. CLAUDIA spoke with pt about pt choice for HH services and then OP services after HH. Pt agreeable to HH and stated that he was aware wanted pt to have is INR checked by HH nursing for a while after pt dc home. Pt preference for [facility]. CLAUDIA called and spoke with [facility] regarding referral and faxed referral and orders to [facility], [facility] accepted referral. Pt family to provide pt ride home. No other dc needs expressed.
[2018-01-13 13:36] VITALS: BP 131/76
--- NOTE | 2018-01-13 16:38 | NUR ---
RESUMED CARE THIS AM, SEE ASSESSMENT FOR DETAILS. DISCHARGE ORDERS RECEIVED, DISCHARGE INSTRUCTIONS, FOLLOW UP APPOINTMENTS DISCUSSED WITH AND GIVEN TO PATIENT, DENIES QUESTIONS. IV ACCESS SITES REMOVED WITHOUT INCIDENT. PERSONAL EFFECTS GATHERED, ACCOUNTED FOR, IN COMPANY OF PATIENT. TRANSPORTED TO FRONT ENTRANCE VIA WHEELCHAIR IN STABLE CONDITION.
== END 2018-01-13 16:47 | disposition home health service (06) | DRG 177 ==
LOC: M.ERS 12:44 → M.TBA-ER 14:36 → M.2W 14:36 → M.3W 01-05 19:36
PROVIDERS: Family Medicine; ADMIT Internal Medicine
DX: J15.6 Pneumonia due to other Gram-negative bacteria (principal); J96.21 Acute and chronic respiratory failure with hypoxia; J44.1 Chronic obstructive pulmonary disease with (acute) exacerbation; J44.0 Chronic obstructive pulmonary disease with (acute) lower respiratory infection; N17.9 Acute kidney failure, unspecified; E78.5 Hyperlipidemia, unspecified; G47.33 Obstructive sleep apnea (adult) (pediatric); I48.91 Unspecified atrial fibrillation; I13.10 Hypertensive heart and chronic kidney disease without heart failure, with stage 1 through stage 4 chronic kidney disease, or unspecified chronic kidney disease; E11.22 Type 2 diabetes mellitus with diabetic chronic kidney disease; E11.649 Type 2 diabetes mellitus with hypoglycemia without coma; N18.9 Chronic kidney disease, unspecified; M10.9 Gout, unspecified; M19.90 Unspecified osteoarthritis, unspecified site; Z96.653 Presence of artificial knee joint, bilateral; Z90.49 Acquired absence of other specified parts of digestive tract; Z79.01 Long term (current) use of anticoagulants; Z98.42 Cataract extraction status, left eye; Z98.41 Cataract extraction status, right eye; Z98.890 Other specified postprocedural states; Z99.81 Dependence on supplemental oxygen; Z88.6 Allergy status to analgesic agent; Z88.2 Allergy status to sulfonamides; Z88.8 Allergy status to other drugs, medicaments and biological substances; Z87.891 Personal history of nicotine dependence; Z79.4 Long term (current) use of insulin; Z79.82 Long term (current) use of aspirin; Z79.899 Other long term (current) drug therapy

== ENCOUNTER 2018-01-23 21:16 | Inpatient (IN) | payer MEDICARE, OTHER ==
[~2018-01-23] VITALS: Ht 152.4 cm; Wt 92.9 kg
[~2018-01-23 21:16] MED LIST changes: +LEVAQUIN 250 M250 MG PO
[2018-01-23 21:26] VITALS: BP 131/65
[2018-01-23 21:54] LABS: HEMATOCRIT 36.4 % (42.0-52.0); HEMOGLOBIN 12.3 gm/dL (14.0-18.0); MCH 26.7 pg (26.0-34.0); MCHC 33.7 g/dL (28.0-37.0); MCV 79.3 fL (80.0-100.0); MPV 7.7 fl. (7.2-11.1); NUCLEATED RBCS 0 /100WBC; PLATELET COUNT* 252 thou/uL (150-400); RBC 4.58 mil/uL (4.50-6.00); RDW-CV 20.5 % (10.5-14.5); WBC 9.9 thou/uL (4.0-11.0)
[2018-01-23 21:58] LABS: ANION GAP 8 mmol/L (7-16); BUN 31 mg/dL (7-18); CALCIUM 8.8 mg/dL (8.5-10.1); CHLORIDE 95 mmol/L (98-107); CO2 31 mmol/L (21-32); CREATININE 1.2 mg/dL (0.6-1.3); GLUCOSE 287 mg/dL (70-99); POTASSIUM 4.4 mmol/L (3.5-5.1); SODIUM 134 mmol/L (136-145)
[2018-01-23 22:02] LABS: INR 2.4; PROTIME 22.7 Seconds (9.20-11.50)
[2018-01-23 22:09] LABS: ALBUMIN 2.7 g/dL (3.4-5.0); ALKALINE PHOSPHATASE 83 U/L (46-116); NT-PRO BRAIN NAT PEPTIDE 460 pg/mL (<300); SGOT 35 U/L (15-37); SGPT 18 U/L (30-65); TOTAL PROTEIN 6.7 g/dL (6.4-8.2); TROPONIN-I LEVEL <0.06 ng/mL (<0.06)
[2018-01-23 22:14] LABS: URINE BILIRUBIN NEGATIVE (Negative); URINE BLOOD NEGATIVE (Negative); URINE CLARITY CLEAR; URINE COLOR YELLOW; URINE GLUCOSE-RANDOM NEGATIVE (Negative); URINE KETONES NEGATIVE (Negative); URINE LEUKOCYTES-REFLEX NEGATIVE (Negative); URINE NITRITE-REFLEX NEGATIVE (Negative); URINE PROTEIN 1+ (Negative); URINE UROBILINOGEN 0.2 E.U./dl (0.2-1.0)
[2018-01-23 23:19] LABS: ABSOLUTE BASOPHILS 0.1 thou/uL (0.0-0.2); ABSOLUTE LYMPHOCYTES 0.2 thou/uL (0.8-5.3); ABSOLUTE MONOCYTES 0.1 thou/uL (0.0-1.2); ABSOLUTE NEUTROPHILS 9.5 thou/uL (1.6-8.1); PLATELET ESTIMATE ADEQUATE
[2018-01-23 23:20] LABS: ANISOCYTOSIS 2+
[2018-01-24] VITALS (7 sets, daily range): BP systolic 111–162; BP diastolic 44–69
--- NOTE | 2018-01-24 02:17 | NUR ---
PT IS ADMISTTED ON TELE FLOOR AT 0050 THIS AM. BROUGHT ON FLOOR ON A STRECHER ACCOMPANIED BY NURSE, ON 3 L NC SATURATION IS 95, PT HAS OWN TRIOLOGY MACHINE BROUGHT ALONG WITH HIM. VITAL SIGNS WITHIN NORMAL LIMIT. IRREGULAR HEART BEAT ON THE MONITOR CURRENTLY A FIB. CARDIAC SCRIPT WAS PRINTED AND PLACED IN CHART. HEART RATE IS CONTROLLED IN THE 70S. PT IS ALERT AWAKE ORIENTED X 4 HE SAYS THAT HE LIVES HOME WITH HIS TWO CHILDREN. THAT HE HAS BEEN FEELING SOB SINCE THIS AM, WHEN HE GOT HOME HE CHECKED HIS O2 SATURATION WHICH WAS IN THE 75S AND LOW 80S. SO HE DECIDED TO COME TO THE ER. PRESENTLY HIS RESPIRATORY PATTERN IS REGULAR, LUNG SOUNDS ARE CLEAR. FULL ADMISSION HX AND ASSESSMENT PERFORMED . REFER TO CHARTING. IV LINE IS PATENT, INFUSING NS AT 120CC/HR ALSO GETTING IV ANTIBIOTIC SCHEDULED. ORDERS PLACED ON THE COMPUTER. ON CARB CONTROL DIET. PT USES CANE TO AMBULATE. EEDUCATIO PROVIDED, SCDS ON, FALL PRECAUTION IN PLACE. PT CURRENTLY USING HIS TRILOGY MACHINE. LAYING IN BED. WILL CONTINUE TO MONITOR.
[2018-01-24 02:31] LABS: HEMOGLOBIN 11.4 gm/dL (14.0-18.0); MCH 26.5 pg (26.0-34.0); MCHC 33.5 g/dL (28.0-37.0); MCV 79.1 fL (80.0-100.0); MPV 7.5 fl. (7.2-11.1); RBC 4.29 mil/uL (4.50-6.00); RDW-CV 20.6 % (10.5-14.5); WBC 7.5 thou/uL (4.0-11.0)
[2018-01-24 02:50] LABS: CALCIUM 8.9 mg/dL (8.5-10.1); CREATININE 0.9 mg/dL (0.6-1.3); POTASSIUM 3.6 mmol/L (3.5-5.1)
--- NOTE | 2018-01-24 10:46 | NUR ---
RECEIVED REPORT FROM DANIEL AND ASSUMED CARE OF PT @ 1248.PT IS A/O X4,VSS,TRACING AFIB WITH PVC ON MONITOR.LUNG SOUNDS ARE CLEAR DIMINSHED.LAST BM WAS YESTERDAY.IV RIGHT HAND PATENT WITH NS RUNNING @ 120ML/HR.PT IS CALM AND COOPERATIVE BUT COMPLAINS ABOUT EVERYTHING.HAS C/O PAIN IN HANDS-MEDICATION GIVEN.PT IS UP WITH ONE ASSIST IN THE ROOM. LEFT RESTING IN BED WITH CALL LIGHT AND FALL PRECAUTIONS IN PLACE.WILL CONTINUE TO MONITOR.
--- NOTE | 2018-01-24 18:27 | NUR ---
VSS,CARDIAC MONITORING IN PLACE WITH NO CHANGES THIS SHIFT.PT REMAINS ON 3L O2 NC.PT PAIN MANAGED WELL WITH PAIN PO MEDICATIONS.IVF INFUSINGS PER ORDERS.PT INFORMED OF PLAN OF CARE AND COMMUNICATES UNDERSTANDING.HOURLY ROUNDING COMPLETED FOR PT SAFETY.CALL LIGHT AND FALL PRECAUTIONS IN PLACE. WILL CONTINUE TO MONITOR FOR DURATION OF SHIFT.
[2018-01-25] VITALS: BP 119/55
--- NOTE | 2018-01-25 01:13 | NUR ---
PT ALERT ORIENTED. UP AD COURT IN ROOM. PAIN MEDICATION GIVEN 5 XS TODAY WITH NONE LEFT FOR TUBE HEATER. DR PIZARRO NOTIFIED. ONE TIME HYDROCODON ORDER GIVEN FOR TONIGHT. TELMETRY SHOWS AFIB. O2 AT 3 LITERS NC DAY. TRILOGY FOR HS. VOIDS CL YELLOW. WILL CONTINUE TO MONITOR.
[2018-01-25 04:00] VITALS: BP 115/51
[2018-01-25 04:58] LABS: ABSOLUTE LYMPHOCYTES 0.3 thou/uL (0.8-5.3); ABSOLUTE MONOCYTES 0.1 thou/uL (0.0-1.2); BASOPHILS 0.1 %; EOSINOPHILS 0.1 %; HEMATOCRIT 32.5 % (42.0-52.0); HEMOGLOBIN 10.8 gm/dL (14.0-18.0); LYMPHOCYTES 3.8 %; MCH 26.2 pg (26.0-34.0); MCHC 33.1 g/dL (28.0-37.0); MONOCYTES 0.9 %; MPV 7.9 fl. (7.2-11.1); NUCLEATED RBCS 0 /100WBC; PLATELET COUNT* 212 thou/uL (150-400); POLYS 95.1 %; RBC 4.11 mil/uL (4.50-6.00); RDW-CV 20.5 % (10.5-14.5); WBC 7.3 thou/uL (4.0-11.0)
[2018-01-25 05:24] LABS: CALCIUM 8.7 mg/dL (8.5-10.1); POTASSIUM 4.8 mmol/L (3.5-5.1)
[2018-01-25 07:38] VITALS: BP 105/44
--- NOTE | 2018-01-25 11:02 | NUR ---
RECEIVED REPORT FROM JESSICA AND ASSUMED CARE OF PT @ 8961.PT IS A/O X4,BP SLIGHTLY LOW @ 105/44.TRACING AFIB ON THE MONITOR.LUNG SOUNDS ARE DIMINSHED.LAST BM WAS YESTERDAY.IV RIGHT HAND PATENT WITH NS RUNNING @ 120ML/HR.PT IS CALM AND COOPERATIVE WITH NO C/O PAIN AT TIME OF ASSESSMENT.PT IS UP WITH SBA TO BATHROOM.PT LEFT RESTING AT SIDE OF BED WITH CALL LIGHT AND FALL PRECAUTIONS IN PLACE.WILL CONTINUE TO MONITOR. PT ACCIDENTLY RIPPED IV OUT.NEW ONE STARTED.
[2018-01-25 13:14] LABS: INR 2.2; PROTIME 21.3 Seconds (9.20-11.50)
--- NOTE | 2018-01-25 15:49 | EKG ---
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: : 1940 Requested By: Portia Starr Order Number: [id number] MD: Jam Cosby Measurements Intervals [place] Rate: 89 P: CO: QRS: -14 QRSD: 90 T: 169 QT: 322 QTc: 392 Interpretive Statements Atrial fibrillation Probable anteroseptal infarct, recent Baseline wander in lead(s) V3,V4 Compared to ECG 01/04/2018 12:49:48 Ventricular premature complex(es) no longer present Myocardial infarct finding still present Electronically Signed On 01-25-2018 15:49:43 CDT by Jam Cosby [email or web address] <ELECTRONICALLY SIGNED> By: Jam Cosby MD, FACC 01/25/18 1549 28 28 Jam Cosby MD, [facility] /EPI
[2018-01-25 16:36] VITALS: BP 112/50
--- NOTE | 2018-01-25 18:44 | NUR ---
PT IS HAVING PICC LINE PLACED PER ORDERS.WORKED WITH PT TODAY WALKING IN HALLWAY.CARDIAC MONITORING IN PLACE STILL IN AFIB WITH EPISODES OF BRADYCARDIA IN THE 40'S.PT REMAINS ON 3L O2 NC.PT PAIN WELL MANAGED WITH PO MEDICATION.PT INFORMED OF PLAN OF CARE AND COMMUNICATES UNDERSTANDING.HOURLY ROUNDING COMPLETED FOR PT SAFETY.CALL LIGHT AND FALL PRECAUTIONS IN PLACE.WILL CONTINUE TO MONITOR FOR DURATION OF SHIFT.
--- NOTE | 2018-01-25 19:33 | NUR ---
NOTIFIED TO PLACE A PICC FOR PATIENT NEEDING ACCESS FOR IV MEDS AND ANTIBIOTICS. ORDER AND CONSENT NOTED. THE PROCEDURE WELL BENIFITS AND RISK FOR INFECTION AND DVT DISCUSSED WITH THE PATIENT AND HE VERBALIZED UNDERSTANDING. THE RIGHT UPPER ARM BASILIC WAS WIDLEY PATENT. A #5F DOUBLE LUMEN POWER PICC WAS PLACED AFTER A BEDSIDE TIMEOUT WAS COMPLETE PER HOSPITAL POLICY. LINE WAS TRIMMED TO 46CM AND ADVANCED WITHOUT DIFFICULTY TO 2 CM EXTERNAL. A LARGE HIDDEN PWAVE NOTED ON ECG, HOWEVER UNABLE TO PRINT FROM [address]. A STAT CHEST XRAY DONE TO VERIFY PLACEMENT. REPORT GIVEN TO RN- JORDAN RELEASED FOR USE
[2018-01-25 22:11] LABS: GLYCOHEMOGLOBIN (HGB A1C) 6.3 % (4.8-5.6)
--- NOTE | 2018-01-25 23:41 | NUR ---
PT ALERT ORIENTED. TELEMETRY SHOWS AFIB. PT TALKING OFTEN ABOUT PAIN MEDICATION AND WHEN HE HAD IT LAST AND WHEN HE CAN HAVE IT AGAIN. R UPPER ARM PICC WITH NS AT 120MLS/HR. VOIDS PER URINAL. WILL CONTINUE TO MONTIOR.
[2018-01-26 00:38] VITALS: BP 123/59
--- NOTE | 2018-01-26 03:39 | NUR ---
NO CHANGE IN PT STATUS. WILL CONTINUE TO MONITOR.
[2018-01-26 04:03] VITALS: BP 131/71
[2018-01-26 05:36] LABS: INR 2.8; PROTIME 26.8 Seconds (9.20-11.50)
[2018-01-26 08:00] VITALS: BP 138/57
[2018-01-26 11:20] VITALS: BP 117/55
[2018-01-26 15:19] VITALS: BP 110/52
--- NOTE | 2018-01-26 16:06 | NUR ---
ASSESSMENT COMPLETED REFER TO COMPUTER CHARTING. FIELD SERVICE SUPERVISOR TRACKINGS SR. PATIENT REPORTING NO PAIN, NAUSEA OR SHORTNESS OF BREATH. PATIENT RESTING IN BED. BED IN LOW AND LOCKED POSITION. CALL LIGHT WITHIN REACH. PATIENT UP TO A CHAIR WITH ASSISTANCE. IV SALINE LOCKED. ON O2 VIA NASAL CANNULA. PATIENT WORKING WITH THEARPY THIS SHIFT. WILL CONTINUE TO MONITOR.
[2018-01-26 20:00] VITALS: BP 100/53
[2018-01-27] VITALS: BP 160/80
[2018-01-27 04:00] VITALS: BP 125/45
--- NOTE | 2018-01-27 05:08 | NUR ---
ASSUMED PT CARE AT 19:15 REPORT RECEIVED FROM NURSE. PT ALERT AWAKE ORIENTED X 4. SITTING IN CHAIR WATCHING TV. ON O2 NC 1 L NC SAURATION IS 95 % ON RA, NO COMPLAIN ABOUT PAIN UNIL AFTER 22:00 WHEN PT ASKED FOR HIS PAIN. AFIB ON THE MONITOR WITH PVCS , HEART RATE IN CONTROLLED IN THE LOW 60S.. INSULIN WAS GIVEN 45 UNITS SCHEDULED. URINATED A LOT LAST NIGHT. SLEPT MOST OF THE [facility].
[2018-01-27 05:18] LABS: ABSOLUTE LYMPHOCYTES 0.7 thou/uL (0.8-5.3); ABSOLUTE MONOCYTES 0.4 thou/uL (0.0-1.2); ABSOLUTE NEUTROPHILS 5.6 thou/uL (1.6-8.1); BASOPHILS 0.1 %; EOSINOPHILS 0.5 %; HEMATOCRIT 32.8 % (42.0-52.0); HEMOGLOBIN 10.8 gm/dL (14.0-18.0); LYMPHOCYTES 10.5 %; MCH 26.5 pg (26.0-34.0); MCV 80.3 fL (80.0-100.0); MONOCYTES 6.4 %; MPV 7.8 fl. (7.2-11.1); NUCLEATED RBCS 0 /100WBC; PLATELET COUNT* 230 thou/uL (150-400); POLYS 82.5 %; RBC 4.08 mil/uL (4.50-6.00); RDW-CV 20.3 % (10.5-14.5); WBC 6.8 thou/uL (4.0-11.0)
[2018-01-27 05:33] LABS: PROTIME 43.8 Seconds (9.20-11.50)
[2018-01-27 05:36] LABS: ALBUMIN 2.7 g/dL (3.4-5.0); CALCIUM 9.1 mg/dL (8.5-10.1); CREATININE 1.1 mg/dL (0.6-1.3); POTASSIUM 3.8 mmol/L (3.5-5.1); TOTAL BILIRUBIN 0.4 mg/dL (<0.1-1.0); TOTAL PROTEIN 6.5 g/dL (6.4-8.2)
[2018-01-27 05:40] LABS: INR 4.6
[2018-01-27 06:26] LABS: ANISOCYTOSIS 1+; PLATELET ESTIMATE ADEQUATE
[2018-01-27 06:48] LABS: PROTIME 43.6 Seconds (9.20-11.50)
[2018-01-27 06:52] LABS: INR 4.6
[2018-01-27 08:00] VITALS: BP 176/92
--- NOTE | 2018-01-27 11:37 | NUR ---
Pt known to this CM from previous hospital stay. Pt recently dc on 01/13 to home with [facility], Pt is current with HH. Pt is A&O. Resides at home with his son, normally independent with ADLs. Pt has a cane, walker, home o2 and trilogy thru [employer]. Hx of skilled at [facility]. Pt plans to return home at tx. Supportive family that is involved in POC. CM to fax HH resumption orders at tx. p:[phone] f:[phone]
[2018-01-27 11:38] VITALS: BP 138/73
--- NOTE | 2018-01-27 11:49 | NUR ---
ASSUMED CARE OF PT AT 0730. PT SITTING UP IN THE CHAIR WAITING FOR BREAKFAST. PT A&0X4, COMPLAINS OF GENERALIZED PAIN 5/10. TREATED WITH SCHEDULED HYDROCODONE WITH PARTIAL RELIEF. PT STATES HE WOULD LIKE TO GET THIS PAIN MEDICATION SITUATION FIGURED OUT WITH THE DOCTOR, PT CLAIMS THAT HE IS NOT RECEIVING HIS MEDICATION WHEN HE WANTS/NEEDS IT. PT SPOKE WITH DR MEDLEY REGARDING SITUATION. WILL FOLLOW UP NEEDED. PT TRACING AFIB WITH PVC'S ON THE MACHINE OPERATOR GENERAL. ON 1L NC SAT 95%. PT DENIES ANY SHORTNESS OF BREATH. PT HAS HOME TRILOGY AT BEDSIDE. PT UP WITH 1 SBA AND CANE TO BATHROOM. PT INR THIS AM 4.6- COUMADIN DISCONTINUED. PT GOAL FOR TODAY IS TO MONITOR INR AND TITRATE OFF OXYGEN. AM ASSESSMENT CHARTED. MEDICATIONS PER MAR. PT REPOSITIONS SELF. HOURLY ROUNDING OBSERVED. BED IN LOW POSITION. CALL LIGHT WITHIN REACH. WILL CONTINUE PLAN OF CARE.
--- NOTE | 2018-01-27 16:42 | NUR ---
NO ACUTE CHANGES THROUGHOUT SHIFT. REFER TO CHARTING. PT TREATED FOR PAIN WITH HYDROCODONE WHEN HE REQUESTS. REFER TO EMAR. COUMADIN DISCONTINUED. PT WORKED WITH PHYSICAL AND OCCUPATIONAL THERAPY, AMBULATED IN THE HALLWAYS. TOLERATED WELL. CONTINUES TO TRACE AFIB WITH PVC'S ON THE DIRECTOR SPECIAL EDUCATION. TITRATED TO 1L NC SAT UPPER 90'S. DENIES ANY SHORTNESS OF BREATH. PT UP SBA TO BATHROOM WITH CANE. MEDICATIONS PER MAR. PT REPOSITIONS SELF. HOURLY ROUNDING OBSERVED. BED IN LOW POSITION. CALL LIGHT WITHIN REACH. WILL CONTINUE PLAN OF CARE.
--- NOTE | 2018-01-27 19:00 | NUR ---
SHILO, RECIEVED REPORT FROM BEKAH, WILL CONTIUNE WITH PLAN OF CARE AND REPORT.
[2018-01-27 20:00] VITALS: BP 130/79
[2018-01-28 00:16] VITALS: BP 126/67
[2018-01-28 04:26] VITALS: BP 138/69
[2018-01-28 05:43] LABS: PROTIME 43.4 Seconds (9.20-11.50)
[2018-01-28 05:48] LABS: INR 4.6
--- NOTE | 2018-01-28 06:49 | NUR ---
PATIENT PROGRESSING TOWARDS GOALS: PAIN MANAGED WITH HYDROCODONE PATIENT REQUESTS IT. PATIENT REMAINS ON 1L O2 NC WITH SATS >92%. PATIENT DENIES SHORTNESS OF AIR. COUMADIN CONTINUES TO BE DISCONTINUED DUE TO CRITICALLY HIGH INR AND PROTIME. HOURLY ROUNDING OBSERVED. CALL LIGHT WITHIN REACH.
[2018-01-28 08:00] VITALS: BP 153/75
--- NOTE | 2018-01-28 12:07 | NUR ---
ASSUMED CARE OF PATIENT THIS AM AT 0730. PATIENT IS ALERT AND ORIENTED X 4. HE C/O CONTINUED CHRONIC PAIN THIS AM. PATIENT IS TAKING HIS DIET WELL. TELE SHOWS AFIB WITH VENTRICULAR ECTOPIES. WILL CONTINUE TO MONITOR PATIENT COMFORT.
[2018-01-28 12:10] VITALS: BP 97/79
--- NOTE | 2018-01-28 13:27 | NUR ---
CONTINUE TO FOLLOW, PT STATES HE MAY BE READY TO GO HOME SOON, VOICED CONCERN ABOUT HIS HIGH INR AND PULMONARY CONSULT. STATES HE WAS DOING FAIRLY WELL AFTER DC BUT GOT SOB AFTER COMING HOME FROM GETTING A FEW GROCERIES AND SCRIPTS AT [facility]. PT HAS MACHINE TO CHECK HIS INR AT HOME AND CALLS IT TO DR LANE'S OFFICE. HE WOULD LIKE TO CONTINUE WITH [facility] AT [place]. HAS HOME O2 AND TRILOGY. WILL FOLLOW
--- NOTE | 2018-01-28 14:19 | NUR ---
Nutrition: Pt seen for high BMI. Wt: 206#. Admitted with pneumonia. H/o COPD, CHF, DJD. Eating well on CHO controlled diet. Has NC. Labs: BG 207-134, alb 2.7, prealb 36.6. BMI: 40.4 Consider low nutrition risk.
[2018-01-28 15:12] LABS: CALCIUM 8.9 mg/dL (8.5-10.1); CREATININE 1.3 mg/dL (0.6-1.3); MAGNESIUM 2.1 mg/dL (1.8-2.4); POTASSIUM 4.8 mmol/L (3.5-5.1)
--- NOTE | 2018-01-28 16:05 | 2DMMODE ---
[place] [address] 2 D/M-MODE ECHOCARDIOGRAM Name: ELLIOTT VALERA Room: [address] IN [facility]#: [id number] Admission: 01/23/18 Attend Phys: Jesu Coronado, Discharge: Date of : 36 Date of Service: 01/28/18 1605 Report #: [id number] THIS REPORT FOR: //name// APPROVED REPORT Study performed: 01/28/2018 14:28:25 EXAM: Comprehensive 2D, Doppler, and color-flow Echocardiogram Patient Location: In-Patient Room #: [facility] Status: routine BSA: 2.09 HR: 74 bpm BP: 97/79 mmHg Rhythm: Atrial Fibrillation Other Information Study Quality: Fair Indications Atrial Fibrillation Dyspnea S/P AVR 2D Dimensions IVSd: 14.10 (7-11mm) LVOT Diam: 21.74 (18-24mm) LVDd: 35.61 mm PWd: 12.31 (7-11mm) Ascending Ao: 32.87 (22-36mm) LVDs: 28.44 (25-40mm) Aortic Root: 35.56 mm Volumes Left Atrial Volume (Systole) LA ESV Index: 49.50 mL/m2 Aortic Valve AoV Peak Giacomo.: 1.68 m/s AO Peak Gr.: 11.30 mmHg LVOT Max P.16 mmHg AO Mean Gr.: 5.41 mmHg LVOT Mean P.23 mmHg LVOT Max V: 1.51 m/s AO V2 VTI: 26.09 cm LVOT Mean V: 0.94 m/s KESHIA (VTI): 3.22 cm2 LVOT V1 VTI: 22.61 cm Mitral Valve MV Decel. Time: 298.75 [place] [address] 2 D/M-MODE ECHOCARDIOGRAM Name: ELLIOTT VALERA Room: [address] IN ..#: [id number] Admission: 01/23/18 Attend Phys: Jesu Coronado, Discharge: Date of : 36 Date of Service: 01/28/18 1605 Report #: [id number] MV PHT: 86.64 ms MVA (PHT): 2.54 cm2 TDI Medial E' Giacomo.: 0.09 m/s Lateral E' Giacomo.: 0.14 m/s Pulmonary Valve PV Peak Giacomo.: 1.21 m/s PV Peak Gr.: 5.89 mmHg Left Ventricle The left ventricle is normal size. There is normal LV segmental wall motion. Mild concentric left ventricular hypertrophy. Left ventricular systolic function is normal. The left ventricular ejection fraction is within the normal range. LVEF is 60%. This study is not technically sufficient to allow evaluation of the LV diastolic function due to atrial fibrillation. Right Ventricle The right ventricle is normal size. The right ventricular systolic function is normal. Atria Left atrium is severely dilated. The right atrium size is normal. Aortic Valve Bioprosthetic aortic valve is present. No aortic regurgitation is present. There is no aortic valvular stenosis. Mitral Valve There is mitral annular calcification. Trace mitral regurgitation. No evidence of mitral valve stenosis. Tricuspid Valve The tricuspid valve is normal in structure. Trace tricuspid regurgitation. Unable to assess PA pressure. Pulmonic Valve Pulmonic valve is not well visualized. Trace pulmonic regurgitation. Great Vessels The aortic root is normal in size. IVC is normal in size and collapses with >50% [place] [address] 2 D/M-MODE ECHOCARDIOGRAM Name: ELLIOTT VALERA Room: [address] IN [facility].#: [id number] Admission: 01/23/18 Attend Phys: Jesu Coronado, Discharge: Date of : 36 Date of Service: 01/28/18 1605 Report #: [id number] Pericardium There is no pericardial effusion. <Conclusion> Mild concentric left ventricular hypertrophy. LVEF is 60%. Left atrium is severely dilated. Bioprosthetic aortic valve is present. <ELECTRONICALLY SIGNED> By: Sancho Branch MD, FACC 05/30/18 1605 1605 04 Sancho Branch MD, [facility] /INF
[2018-01-28 16:16] VITALS: BP 113/61
[2018-01-28 20:00] VITALS: BP 128/32
[2018-01-29] VITALS: BP 122/69
--- NOTE | 2018-01-29 00:57 | NUR ---
RECEIVED REPORT AND ASSUMED CARE OF PATIENT AT 1930. UNIT SUPERVISOR IN PLACE TRACING AFIB. COUMADIN REMAINS ON HOLD FOR ELEVATED INR. ASSESSMENT AND VITALS COMPLETED CHARTED, VSS. PATIENT ON 1L O2 NC WITH SATS MID 90'S. PATIENT DOES OCCASIONALLY REMOVE O2 AND NEEDS REMINDED TO PUT IN BACK IN PLACE. PATIENT HAS C/O CHRONIC PAIN, GENERALIZED. PATIENT IS RECEIVING HYDROCODONE PER PATIENT'S REQUESTED SCHEDULE. GOAL IS EFFECTIVE PAIN MANAGEMENT AND COLLECT SPUTUM SAMPLE IF PATIENT HAS PRODUCTIVE COUGH THIS SHIFT. CALL LIGHT WITHIN REACH.
[2018-01-29 04:00] VITALS: BP 114/75
[2018-01-29 05:20] LABS: ABSOLUTE EOSINOPHILS 0.1 thou/uL (0.0-0.7); ABSOLUTE MONOCYTES 0.4 thou/uL (0.0-1.2); ABSOLUTE NEUTROPHILS 4.1 thou/uL (1.6-8.1); BASOPHILS 0.8 %; EOSINOPHILS 1.8 %; HEMATOCRIT 35.4 % (42.0-52.0); HEMOGLOBIN 11.7 gm/dL (14.0-18.0); LYMPHOCYTES 17.2 %; MCH 26.3 pg (26.0-34.0); MCHC 33.1 g/dL (28.0-37.0); MCV 79.3 fL (80.0-100.0); MONOCYTES 7.6 %; MPV 7.6 fl. (7.2-11.1); NUCLEATED RBCS 0 /100WBC; POLYS 72.6 %; RBC 4.46 mil/uL (4.50-6.00); RDW-CV 20.5 % (10.5-14.5); WBC 5.6 thou/uL (4.0-11.0)
[2018-01-29 05:26] LABS: PROTIME 25.8 Seconds (9.20-11.50)
[2018-01-29 05:45] LABS: INR 2.7
[2018-01-29 05:49] LABS: ALBUMIN 2.8 g/dL (3.4-5.0); CALCIUM 8.9 mg/dL (8.5-10.1); CREATININE 1.1 mg/dL (0.6-1.3); MAGNESIUM 2.2 mg/dL (1.8-2.4); POTASSIUM 3.6 mmol/L (3.5-5.1); TOTAL BILIRUBIN 0.5 mg/dL (<0.1-1.0); TOTAL PROTEIN 6.5 g/dL (6.4-8.2)
[2018-01-29 05:51] LABS: PLATELET COUNT* 321 thou/uL (150-400)
[2018-01-29 06:46] LABS: ANISOCYTOSIS 1+; PLATELET ESTIMATE ADEQUATE
[2018-01-29 08:00] VITALS: BP 139/68
--- NOTE | 2018-01-29 08:22 | CON ---
[facility] [address] [place] [address] CONSULTATION Name: ELLIOTT VALERA Room: [address] IN .R.#: [id number] Admission: 01/23/18 Attend Phys: Jesu Coronado MD Discharge: Date of : 36 Report #: [id number] THIS REPORT FOR: //name// CC: Jesu Acosta DATE OF SERVICE: 01/28/2018 REQUESTING PHYSICIAN: Dr. Coronado. HISTORY OF PRESENT ILLNESS: This is a 77-year-old gentleman. His past medical history is as mentioned below. He does have a long history of COPD. The patient is on Trelegy as well as oxygen while asleep. He is not on long-term prednisone. He is also not on long-term oxygen during the daytime. The patient has had multiple admissions to this hospital. In fact, was recently admitted to [facility] and treated with Levaquin for pneumonia. We had also previously seen him in this hospital about a year ago. The patient at that time was also treated for pneumonia with fairly broad spectrum antibiotics. At that point, he was also significantly fluid overloaded and did have hemoptysis. 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 The patient reports that he has had an animal valve placed transcutaneously as he had aortic stenosis. He, however, reports having continued to have had respiratory issues. He says that he saw me in the office about 6 months ago. I do not, however, recall the same, although I do recall seeing him in the hospital here more recently. He has also seen Dr. Pacheco in September 2017 and I do have his note available, which is in the records. The patient at this time reports that he has ongoing issues with shortness of breath and cough. He also reports small amounts of hemoptysis, which is longstanding. He essentially does not have any other respiratory complaints including no upper respiratory complaints. While he has coughed up small amounts of blood, he does not have any other sputum production. No fever. Swelling of lower extremities is under control, although he is on fairly large dose of Lasix. There is no calf pain. The patient is fairly limited in providing a history, although he is alert, awake and oriented, but he answers to the negative for 12 questions for review of systems except as mentioned above. PAST MEDICAL HISTORY: COPD. Per office notes, his last FEV1 was 73% with significant reversibility. I do not have the PFTs themselves available at this time. 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 Aortic valve replacement transcutaneously at a few months ago per the patient. Several admissions with infiltrates to this hospital. Chronic atrial fibrillation, on anticoagulation with Coumadin. INR on admission is in fact on the higher side. Previous echos have shown a normal [place] [address] CONSULTATION Name: ELLIOTT VALERA Room: [address] IN [facility].#: [id number] Admission: 01/23/18 Attend Phys: Jesu Coronado MD Discharge: Date of : 36 Report #: [id number] PAST SURGICAL HISTORY: Surgery for incarcerated hernia with exploratory laparotomy last year requiring a subsequent stay on the ventilator, perforated bowel in the past, shoulder surgery, appendectomy, pilonidal cyst surgery, bilateral knee replacement, cataract surgery. SOCIAL HISTORY: Extensive history of smoking more than a pack a day for several decades, discontinued about 2 years ago. No known history of heavy alcohol use or illegal drug use. ALLERGIES: SULFONAMIDE ANTIBIOTICS, MORPHINE AND LISINOPRIL. CURRENT MEDICATIONS: List in [employer] reviewed. HOME MEDICATIONS: List also in [employer] reviewed. Note that he recently received Levaquin. FAMILY HISTORY: Heart disease and diabetes. PHYSICAL EXAMINATION: GENERAL: He is alert, awake and oriented; however, provides only a limited history. VITAL SIGNS: In the records reviewed. He is on 2 liters nasal cannula and is saturating in the high 90s. He is afebrile. HEENT: Head is normocephalic, atraumatic. Pupils equal, reactive. No throat erythema, but there are some white spots noted at the back of the throat, more in the right side. He did have some white cheese in front of him and he had just finished his lunch. When I asked him to drink some tea, which he was also having in front of him, his spots did not change as the result of drinking tea. NECK: Does not show raised JVP, asymmetry, mass or lymph nodes. CHEST: Symmetrical expansion on inspection and palpation. On auscultation, breath sounds are bilaterally equal, decreased, but I do not hear any added sounds. Breath sounds are bilaterally equal. HEART: Irregular. There is a minimal systolic murmur. ABDOMEN: Soft and nontender. EXTREMITIES: Lower extremities show no edema. There is no calf tenderness, but lower extremities do appear to be cold and clammy. There are changes consistent with peripheral vascular disease/chronic venous insufficiency noted in bilateral lower extremities. SKIN: However, is dry and intact. NEUROLOGICAL: Moves all extremities bilaterally equally and spontaneously with no focal deficit identified. LABORATORY DATA: The patient's CT chest does show bilateral infiltrates. See further discussion below regarding his CT chest. His lab work is also in [employer] [place] [address] CONSULTATION Name: ELLIOTT VALERA Room: [address] IN .R.#: [id number] Admission: 01/23/18 Attend Phys: Jesu Coronado MD Discharge: Date of : 36 Report #: [id number] ASSESSMENT AND PLAN: 1. Shortness of breath and cough. The definite etiology of current decompensation is not fully defined at this time. It does appear that he has chronic obstructive pulmonary disease with significant reversibility in the past. Also as discussed below, he does appear to have had pneumonia recently, but there is no definite evidence of a new pneumonia now. The patient also has had aortic valve replacement and I do not have an echo since his aortic valve replacement available. 2. Pulmonary infiltrates. A CT chest shows bilateral pulmonary infiltrates. At first glance, I considered to the possibility that this could be secondary to underlying scarring alone; however, noted that while significantly improved compared with the CT performed last year, these do appear to have changed in position and therefore, it appears likely that these are secondary to pneumonia. The patient already was admitted to this hospital recently and treated with Levaquin. This may have already been adequately treated. There is no definite evidence of a new pneumonia now. Considering that he has already been treated with Levaquin as an outpatient, I have switched him over to doxycycline. More cultures and nasal swab for MRSA are also ordered. I recommend following these infiltrates with a CT chest without contrast in 3 months as these are not visible clearly on x-rays. 3. Chronic obstructive pulmonary disease. He does not appear to be actively bronchospastic. He is currently on prednisone, we will taper off gradually. He does have significant reversibility reported on his last PFTs. He is noted to be on long-term Trelegy as well as oxygen while asleep. We will plan to continue the same. 4. Obstructive sleep apnea, on Trelegy as mentioned above. 5. Aortic valve replacement. The last available echo was from prior to his aortic valve replacement. We will do an echo now and see where we stand. 6. Rule out aspiration. Considering multiple episodes of respiratory decompensation, we will go ahead and do a video swallow. 7. Thrush. There are white spots in the back of his throat. For now, we will treat as thrush. If these disappear with time, could discontinue nystatin, but I would see him now. 8. Atrial fibrillation, remains on anticoagulation. INR is noted to be on the higher side. 9. Hemoptysis. This appears to be minor. Hopefully, will resolve with the reduction in INR. 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 If hemoptysis persists on Coumadin, then switching him over to low dose of Eliquis can be a possible consideration. 10. Fluid overload. He is on a large dose of Lasix. This appears to be well controlled with this. He is not on scheduled potassium supplementation possibly because his potassium was on the higher side earlier. It may have dropped since. I will go ahead and repeat labs and see where we stand. [facility] [address] [place] [address] CONSULTATION Name: ELLIOTT VALERA Room: [address] IN M.R.#: [id number] Admission: 01/23/18 Attend Phys: Jesu Coronado MD Discharge: Date of : 36 Report #: [id number] Thanks for this consultation. <ELECTRONICALLY SIGNED> By: Nancy Whitfield MD 01/29/18 0822 1342 [id number] Luo MD /nt
--- NOTE | 2018-01-29 11:00 | NUR ---
ASSUMED PT CARE AT 0730, FULL ASSESMENT DONE CHARTED. PT A/O X4, UP TO CHAIR THIS AM. REQUESTING METAMUCIL. PTS VSS, AFIB/PVC'S ON THE MONITOR. PT UPDATED ON PLAN OF CARE. DR MEDLEY DISCUSSED PLAN WITH PT AT LENGTH. POSSIBLE DC TOMORROW. WILL CONTINUE TO MONITOR.
[2018-01-29 11:30] VITALS: BP 125/95
[2018-01-29 16:16] VITALS: BP 109/59
--- NOTE | 2018-01-29 18:34 | NUR ---
PT DOING WELL TODAY, STAYED OFF O2 MOST OF THE SHIFT, DOES APPEAR TO NEED O2 WHEN AMBULATING AND RECOVERING FROM ACTIVITY PER RT. PT WALKED WITH STAFF TODAY, GETS TIRED QUICKLY. PT C/O SOME GENERALIZED PAIN, NORCO GIVEN PER OCT. PT HAD VIDEO SWALLOW THIS AFTERNOON, DID WELL. NO NEW RECCOMENDATIONS PER SPEECH. PT USES CALL LIGTH APPROPRIALTY FOR NEEDS. REMAINS AFIB ON THE MONITOR. WILL CONTINUE TO MONITOR.
[2018-01-29 20:00] VITALS: BP 125/62
--- NOTE | 2018-01-29 23:06 | NUR ---
RECEIVED REPORT AND ASSUMED CARE OF PATIENT AT 1930. STONE ROUGHER IN PLACE TRACING AFIB. ASSESSMENT AND VITALS COMPLETED SHILO MARTINEZ. PATIENT A&OX4. PATIENT HAS C/O GENERALIZED PAIN, WHICH IS CHRONIC, RATED 3/10, HOWEVER PATIENT OPTED TO HOLD OF ON PAIN MEDICATION UNTIL AROUND MIDNIGHT. PATIENT ON ROOM AIR UPON ASSESSMENT, O2 SATS 95%. PATIENT HAS BEEN USING 2-3L O2 NC WITH ACTIVITY AND RECOVERY, WELL 3L BLED INTO TRILOGY MACHINE AT HS. GOAL IS TO MAINTAIN SATS >92% WITH CURRENT OXYGEN REGIMEN AND PAIN MANAGEMENT WITH ORAL MEDS PER EMAR. CALL LIGHT WITHIN REACH
[2018-01-30] VITALS (7 sets, daily range): BP systolic 93–138; BP diastolic 45–75
[2018-01-30 05:02] LABS: INR 1.9; PROTIME 17.9 Seconds (9.20-11.50)
--- NOTE | 2018-01-30 08:30 | NUR ---
PATIENT PROGRESSING TOWARDS GOALS: PATIENT ON ROOM AIR WHILE AT REST, TRILOGY WHILE SLEEPING, AND 2L WITH ACTIVITY, SATS MAINTAINED >92%. PATIENT REQUESTED A BREATHING TX AT MIDNIGHT AND STATED HE "HADN'T HAD ONE SINCE 0900." RT NOTIFIED AND INFORMED PATIENT THEY ARE ORDERED FOR PRN. PATIENT BECAME VERY ANGRY AT THIS TIME AND STATES "THEY NEVER TOLD ME THEY WERE SWITCHED TO NEEDED. I AM SUPPOSED TO TAKE THEM SCHEDULED EVERY FOUR HOURS. NOW I AM NOT READY TO BE DISCHARGED. THIS IS PROBABLY WHY I AM COUGHING UP BROWN SPUTUM. SKIPPING BREATHING TREATMENTS WILL CAUSE ME TO WIND UP BACK IN THE EMERGENCY ROOM. IF THEY TRY TO DISCHARGE ME TOMORROW, I AM GOING TO TELL THEM I AM NOT READY." PATIENT ENCOURAGED THAT IT IS PROGRESSION TO NOT REQUIRE BREATHING TREATMENTS OFTEN AND THAT HIS OXYGEN SATURATION HAS MAINTAINED >92% THIS SHIFT. PATIENT SAID HE CHECKED HIS OXYGEN ON HIS PERSONAL OXIMETRY AND SATS READ 87%. THIS WAS NOT OBSERVED BY STAFF. REASSURANCE PROVIDED, PLAN MADE WITH PATIENT REGARDING BREATHING TREATMENTS AND OXYGEN. CALL LIGHT WITHIN REACH
--- NOTE | 2018-01-30 11:32 | NUR ---
CONTINUE TO FOLLOW, PT VOICING CONCERN ABOUT HIS BREATHING TX AND SCHEDULE CHANGE, DR AND NURSE AWARE. PLAN NOW IS FOR [place] TOMORROW WITH [facility]. CALLED AND UPDATED [facility]. MET [facility] PT AND SPOKE WITH SON/JOSELYN OVER THE PHONE. NO OTHER NEEDS ID'D. ORDERS WILL NEED CALLED AND FAXED TO [facility] AT [facility] [phone] FAX [phone]
--- NOTE | 2018-01-30 19:04 | NUR ---
assumed pt care at 0730,full assesment done as charted. pt a/o x4, s/o generalized pain, meds scheduled, given per oct. pt on 2l o2 this am, was weaned off to ra. pt uses 2l o2 when ambulating. pt sitting in chair for the shift, walked with staff in [place] this afternoon. scheduled breathing treatments restarted. pt using call light approprialty. fall precatuioins in place. will continue to monitor.
[2018-01-31 00:11] VITALS: BP 131/72
[2018-01-31 04:11] VITALS: BP 137/77
--- NOTE | 2018-01-31 04:35 | NUR ---
ASSUMED CARE OF PATIENT AT 1900 THE PATIENT REMAINS ON THE MONITOR AFIB O2 SAT MAINTAINED ON 1-2 L AT REST 3 L WHILE AMBULATING HOME TRILOGY UNIT UTILIZED AT BEDTIME CONTINUES TO BE UP AD COURT IN ROOM GAIT STEADY THE ROUTINE REGIMEN CONTINUES TO BE EFFECTIVE FOR SX MANAGEMENT PATIENT PROGRESSING TOWARDS GOALS OF DISCHARGE NIGHT UNEVENTFUL SAFETY INTERVENTIONS CONTINUE BED LOWERED WHEELS LOCKED CALL LIGHT IN REACH SIDE RAILS UP REPORT TO BE GIVEN TO SEAN HUTTON
[2018-01-31 05:05] LABS: INR 2.6
[2018-01-31 08:15] VITALS: BP 139/69
[2018-01-31 12:19] VITALS: BP 119/58
[2018-01-31 16:24] VITALS: BP 119/60
[2018-01-31 20:00] VITALS: BP 122/51
[2018-02-01] VITALS: BP 130/71
[2018-02-01 04:00] VITALS: BP 120/72
[2018-02-01 04:53] LABS: INR 2.2; PROTIME 21.1 Seconds (9.20-11.50)
[2018-02-01 08:00] VITALS: BP 135/77
[2018-02-01 12:00] VITALS: BP 127/61
[2018-02-01] MEDS ORDERED: DOXYCYCLINE 10100 MG PO (12:07)
[2018-02-01] MEDS ORDERED: PREDNISONE 10 M10 MG PO (12:07)
--- NOTE | 2018-02-01 12:23 | NUR ---
ASSUMED PT CARE AT 0700 PT IS ALERT AND ORIENTED X [address] PT IS NOT A FALL RISK, PT IS AFIB ON THE MONITOR, PT DENIES PAIN OR SOA ON RA, GAVE PT ANTIBIOTIC, VSS, PT IS CLEARED FOR DISCHARGE
[2018-02-01] MEDS ORDERED: METAMUCIL MULT660 GM PO (13:57)
[2018-02-01] MEDS ORDERED: TYLENOL325 MG PO (13:58)
[2018-02-01] MEDS ORDERED: COLACE100 MG PO (13:59)
[2018-02-01] MEDS ORDERED: MIRALAX17 GM PO (14:00)
[2018-02-01 14:14] VITALS: BP 97/51
[2018-02-01] MEDS ORDERED: ALBUTEROL2.5 MG/31 INH (15:51)
== END 2018-02-01 16:30 | disposition home health service (06) | DRG 177 ==
LOC: M.ERS 21:16 → M.2W 23:03 → M.TBA-ER 23:03 → M.2W 01-24 00:52
PROVIDERS: Emergency Medicine; Internal Medicine; Internal Medicine Critical Care Medicine; ADMIT Internal Medicine
PROC: 02HV33Z Insertion of Infusion Device into Superior Vena Cava, Percutaneous Approach (ICD-10-PCS; principal; 2018-01-25)
DX: J15.6 Pneumonia due to other Gram-negative bacteria (principal); J96.21 Acute and chronic respiratory failure with hypoxia; I50.32 Chronic diastolic (congestive) heart failure; J44.0 Chronic obstructive pulmonary disease with (acute) lower respiratory infection; J44.1 Chronic obstructive pulmonary disease with (acute) exacerbation; D68.9 Coagulation defect, unspecified; G89.29 Other chronic pain; M19.90 Unspecified osteoarthritis, unspecified site; E11.9 Type 2 diabetes mellitus without complications; M10.9 Gout, unspecified; I11.0 Hypertensive heart disease with heart failure; B37.9 Candidiasis, unspecified; E87.70 Fluid overload, unspecified; I48.2 Chronic atrial fibrillation; G47.33 Obstructive sleep apnea (adult) (pediatric); E78.5 Hyperlipidemia, unspecified; Z96.653 Presence of artificial knee joint, bilateral; Z96.1 Presence of intraocular lens; Z90.49 Acquired absence of other specified parts of digestive tract; Z98.890 Other specified postprocedural states; Z79.01 Long term (current) use of anticoagulants; Z88.6 Allergy status to analgesic agent; Z88.2 Allergy status to sulfonamides; Z88.8 Allergy status to other drugs, medicaments and biological substances; Z99.81 Dependence on supplemental oxygen; Z98.42 Cataract extraction status, left eye; Z98.41 Cataract extraction status, right eye; Z95.2 Presence of prosthetic heart valve; Z79.2 Long term (current) use of antibiotics; Z79.82 Long term (current) use of aspirin; Z79.4 Long term (current) use of insulin; Z79.899 Other long term (current) drug therapy; Z87.891 Personal history of nicotine dependence; Z83.3 Family history of diabetes mellitus; Z82.49 Family history of ischemic heart disease and other diseases of the circulatory system

== ENCOUNTER 2018-03-22 22:39 | Inpatient (IN) | payer MEDICARE, OTHER ==
[~2018-03-22] VITALS: Ht 172.7 cm; Wt 108.0 kg
[2018-03-22 01:30] VITALS: BP 137/58
[~2018-03-22 22:39] MED LIST changes: +COLACE100 MG PO; +DOXYCYCLINE 10100 MG PO; +METAMUCIL MULT660 GM PO; +MIRALAX17 GM PO
[2018-03-22 22:49] VITALS: BP 140/62
[2018-03-22 23:09] LABS: HEMOGLOBIN 10.2 gm/dL (14.0-18.0); MPV 7.2 fl. (7.2-11.1)
[2018-03-22 23:13] LABS: HEMATOCRIT 32.5 % (42.0-52.0); MCH 22.6 pg (26.0-34.0); MCHC 31.3 g/dL (28.0-37.0); MCV 72.3 fL (80.0-100.0); NUCLEATED RBCS 0 /100WBC; PLATELET COUNT* 555 thou/uL (150-400); RBC 4.49 mil/uL (4.50-6.00); RDW-CV 20.5 % (10.5-14.5); WBC 8.5 thou/uL (4.0-11.0)
[2018-03-22 23:19] LABS: ANION GAP 8 mmol/L (7-16); BUN 24 mg/dL (7-18); CHLORIDE 97 mmol/L (98-107); CO2 30 mmol/L (21-32); CREATININE 1.2 mg/dL (0.6-1.3); GLUCOSE 149 mg/dL (70-99); POTASSIUM 3.8 mmol/L (3.5-5.1); SODIUM 135 mmol/L (136-145)
[2018-03-22 23:22] LABS: APTT 34.8 Seconds (25.0-31.3); INR 2.5; PROTIME 24.1 Seconds (9.20-11.50)
[2018-03-22 23:30] LABS: ALBUMIN 3.1 g/dL (3.4-5.0); ALKALINE PHOSPHATASE 149 U/L (46-116); NT-PRO BRAIN NAT PEPTIDE 1032 pg/mL (<300); SGOT 19 U/L (15-37); SGPT 16 U/L (30-65); TOTAL BILIRUBIN 0.6 mg/dL (<0.1-1.0); TOTAL PROTEIN 7.2 g/dL (6.4-8.2); TROPONIN-I LEVEL <0.06 ng/mL (<0.06)
[2018-03-23 00:30] LABS: ABSOLUTE EOSINOPHILS 0.3 thou/uL (0.0-0.7); ABSOLUTE LYMPHOCYTES 1.2 thou/uL (0.8-5.3); ABSOLUTE MONOCYTES 0.8 thou/uL (0.0-1.2); ABSOLUTE NEUTROPHILS 6.2 thou/uL (1.6-8.1)
[2018-03-23 00:31] LABS: ANISOCYTOSIS 2+; HYPOCHROMASIA 2+; MICROCYTES 1+; PLATELET ESTIMATE INCREASED; POLYCHROMASIA 1+
[2018-03-23 00:41] VITALS: BP 140/62
[2018-03-23] MEDS ORDERED: COUMADIN 2.5MG2.5 M1 PO (01:22)
[2018-03-23] MEDS ORDERED: NEURONTIN600 MG PO (01:35)
[2018-03-23 04:00] VITALS: BP 145/56
[2018-03-23 08:00] VITALS: BP 137/53
[2018-03-23 12:09] VITALS: BP 120/50
[2018-03-23 15:32] VITALS: BP 118/48
--- NOTE | 2018-03-23 19:33 | EKG ---
[place] [address] ELECTROCARDIOGRAM REPORT Name: ELLIOTT VALERA Room: [address] IN R.#: [id number] Admission: 03/22/18 Attend Phys: Flavia Shay MD Discharge: Date of : 36 Report #: [id number] THIS REPORT FOR: //name// [facility] ED Test Date: 2018-03-22 Test Time: 22:51:42 Pat Name: ELLIOTT VALERA Department: Room: Gender: M Can Capper: : 1940 Requested By: Babatunde Lazaro Order Number: [id number] MD: Jam Cosby Measurements Intervals [place] Rate: 85 P: SD: QRS: -9 QRSD: 91 T: 169 QT: 331 QTc: 394 Interpretive Statements Atrial fibrillation Anterior infarct, old Nonspecific repol abnormality, diffuse leads Compared to ECG 01/23/2018 21:29:26 Early repolarization now present Myocardial infarct finding still present Electronically Signed On 03-23-2018 19:33:25 CDT by Jam Cosby [email or web address] <ELECTRONICALLY SIGNED> By: Jam Cosby MD, [facility] 03/23/18 193 [id number] 225 Jam Cosby MD, [facility] /EPI
[2018-03-23 20:05] VITALS: BP 130/54
[2018-03-24] VITALS (7 sets, daily range): BP systolic 105–138; BP diastolic 40–57
[2018-03-25 04:00] VITALS: BP 111/67
[2018-03-25 08:00] VITALS: BP 89/66
[2018-03-25 12:00] VITALS: BP 131/42
[2018-03-25 15:56] VITALS: BP 135/64
[2018-03-25 20:00] VITALS: BP 132/46
[2018-03-26] VITALS: BP 136/51
[2018-03-26 04:00] VITALS: BP 170/68
[2018-03-26 08:00] VITALS: BP 135/60
[2018-03-26 11:51] VITALS: BP 109/64
[2018-03-26 15:24] VITALS: BP 123/51
[2018-03-26 20:53] VITALS: BP 134/50
[2018-03-27] VITALS: BP 127/52
[2018-03-27 04:00] VITALS: BP 130/57
[2018-03-27 08:00] VITALS: BP 134/77
[2018-03-27 12:00] VITALS: BP 122/50
[2018-03-27] MEDS ORDERED: DOXYCYCLINE 10100 MG PO ×3 (12:18→14:23)
[2018-03-27] MEDS ORDERED: PREDNISONE 10 M10 MG PO ×2 (12:18→12:24)
[2018-03-27 14:56] VITALS: BP 122/50
[2018-03-27 15:06] VITALS: BP 122/50
== END 2018-03-27 18:30 | disposition home health service (06) | DRG 178 ==
LOC: M.ERS 22:39 → M.2W 23:49 → M.TBA-ER 23:49 → M.2W 03-23 00:29
PROVIDERS: Emergency Medicine Emergency Medical Services; ADMIT Internal Medicine
DX: J15.6 Pneumonia due to other Gram-negative bacteria (principal); J44.1 Chronic obstructive pulmonary disease with (acute) exacerbation; I50.32 Chronic diastolic (congestive) heart failure; E11.9 Type 2 diabetes mellitus without complications; M10.9 Gout, unspecified; I11.0 Hypertensive heart disease with heart failure; M19.90 Unspecified osteoarthritis, unspecified site; E78.5 Hyperlipidemia, unspecified; I48.91 Unspecified atrial fibrillation; Z96.1 Presence of intraocular lens; Z96.653 Presence of artificial knee joint, bilateral; Z88.6 Allergy status to analgesic agent; Z88.2 Allergy status to sulfonamides; Z88.8 Allergy status to other drugs, medicaments and biological substances; Z79.2 Long term (current) use of antibiotics; Z87.891 Personal history of nicotine dependence; Z79.82 Long term (current) use of aspirin; Z79.4 Long term (current) use of insulin; Z79.899 Other long term (current) drug therapy; Z79.01 Long term (current) use of anticoagulants; Z98.42 Cataract extraction status, left eye; Z98.41 Cataract extraction status, right eye; Z82.49 Family history of ischemic heart disease and other diseases of the circulatory system; Z83.3 Family history of diabetes mellitus

== ENCOUNTER → 2018-05-14 | Outpatient (CLI) | payer MEDICARE, OTHER ==
[~2018-05-14] MED LIST changes: +ALLOPURINOL 10100 M1 PO; +AUGMENTIN 875-1 EACH PO; +DYNACIN100 MG PO; +ENOXAPARIN100 MG/11 SUBQ; +IRON325 PO; +KLOR-CON M1010 MEQ PO; +MAGOX 400400 MG PO; +VENOFER200 MG/10 IVPB; +ZAROXOLYN 5MG TA5 MG PO
== END ==
LOC: M.CT 10:40
DX: S22.43XA Multiple fractures of ribs, bilateral, initial encounter for closed fracture (principal); N28.1 Cyst of kidney, acquired; I25.10 Atherosclerotic heart disease of native coronary artery without angina pectoris; J98.4 Other disorders of lung; E11.9 Type 2 diabetes mellitus without complications; J44.9 Chronic obstructive pulmonary disease, unspecified; E78.5 Hyperlipidemia, unspecified; I48.91 Unspecified atrial fibrillation; I10 Essential (primary) hypertension; X58.XXXA Exposure to other specified factors, initial encounter; Y93.89 Activity, other specified; Y92.89 Other specified places as the place of occurrence of the external cause; Y99.8 Other external cause status; Z79.4 Long term (current) use of insulin

== ENCOUNTER 2018-05-16 21:49 | Inpatient (IN) | payer MEDICARE, OTHER ==
[~2018-05-16] VITALS: Ht 175.3 cm; Wt 99.3 kg
--- NOTE | ~2018-05-16 | PROC ---
[facility] [address] [place] [place] [address] PROCEDURE REPORT Name: ELLIOTT VALERA Room: [address] IN .R.#: [id number] Admission: 05/16/18 Attend Phys: Akash Solorzano, Discharge: 05/28/18 Date of : 38 Report #: [id number] THIS REPORT FOR: //name// For GI report, please see the Provation report in Perceptive 7 content. By: [id number] Records Staff EMILI /JIM
--- NOTE | ~2018-05-16 | PROC ---
[facility] [address] [place] [address] PROCEDURE REPORT Name: ELLIOTT VALERA Room: [address] IN M.R.#: [id number] Admission: 05/16/18 Attend Phys: Akash Solorzano, Discharge: Date of : 38 Report #: [id number] THIS REPORT FOR: //name// For GI report, please see the Provation report in Perceptive 7 content. By: [id number] Records Staff ANAM /JIM
[~2018-05-16 21:49] MED LIST changes: -ALLOPURINOL 10100 M1 PO; -AUGMENTIN 875-1 EACH PO; -DYNACIN100 MG PO; -ENOXAPARIN100 MG/11 SUBQ; -IRON325 PO; -KLOR-CON M1010 MEQ PO; -MAGOX 400400 MG PO; -VENOFER200 MG/10 IVPB; -ZAROXOLYN 5MG TA5 MG PO
[2018-05-16 21:52] VITALS: BP 124/58
[2018-05-16 22:22] LABS: ABSOLUTE BASOPHILS 0.1 thou/uL (0.0-0.2); ABSOLUTE EOSINOPHILS 0.2 thou/uL (0.0-0.7); ABSOLUTE LYMPHOCYTES 1.1 thou/uL (0.8-5.3); ABSOLUTE MONOCYTES 0.7 thou/uL (0.0-1.2); ABSOLUTE NEUTROPHILS 8.3 thou/uL (1.6-8.1); BASOPHILS 1.1 %; EOSINOPHILS 2.3 %; HEMATOCRIT 31.7 % (42.0-52.0); LYMPHOCYTES 10.2 %; MCH 20.5 pg (26.0-34.0); MCHC 31.4 g/dL (28.0-37.0); MCV 65.3 fL (80.0-100.0); MONOCYTES 6.9 %; MPV 6.9 fl. (7.2-11.1); NUCLEATED RBCS 0 /100WBC; PLATELET COUNT* 548 thou/uL (150-400); POLYS 79.5 %; RBC 4.86 mil/uL (4.50-6.00); RDW-CV 21.2 % (10.5-14.5); WBC 10.5 thou/uL (4.0-11.0)
[2018-05-16 22:28] LABS: ANION GAP 10 mmol/L (7-16); BUN 39 mg/dL (7-18); CALCIUM 9.1 mg/dL (8.5-10.1); CHLORIDE 78 mmol/L (98-107); CO2 37 mmol/L (21-32); CREATININE 1.4 mg/dL (0.6-1.3); GLUCOSE 145 mg/dL (70-99); SODIUM 125 mmol/L (136-145)
[2018-05-16 22:29] LABS: INR 2.5; PROTIME 25.6 Seconds (9.20-11.50)
[2018-05-16 22:30] LABS: POTASSIUM 2.7 mmol/L (3.5-5.1)
[2018-05-16 22:38] LABS: ALBUMIN 3.2 g/dL (3.4-5.0); ALKALINE PHOSPHATASE 126 U/L (46-116); LIPASE 173 U/L (73-393); NT-PRO BRAIN NAT PEPTIDE 2010 pg/mL (<300); SGOT 21 U/L (15-37); SGPT 15 U/L (30-65); TOTAL BILIRUBIN 0.6 mg/dL (<0.1-1.0); TOTAL PROTEIN 7.3 g/dL (6.4-8.2); TROPONIN-I LEVEL <0.06 ng/mL (<0.06)
[2018-05-16 23:55] VITALS: BP 124/51
[2018-05-17 00:07] LABS: HYPOCHROMASIA 2+; PLATELET ESTIMATE INCREASED
[2018-05-17 00:09] LABS: ANISOCYTOSIS 2+; MICROCYTES 2+
[2018-05-17 04:00] VITALS: BP 108/48
--- NOTE | 2018-05-17 05:19 | NUR ---
PT TO FLOOR APROX 0005 AND ASUMED CARE. PT 2L O2 NC. ASSESSMENT DONE. ORDERS TAKEN. SEE MAR. SEE CHARTING. VITALS WNL. FALL PRECAUTIONS IN PLACE. HOURLY ROUNDING FOR SAFETY.
[2018-05-17 08:20] VITALS: BP 126/52
--- NOTE | 2018-05-17 08:59 | NUR ---
pt IV infiltrated, multiple attempts made including nursing gardening supervisor with no success. Call made to Dr. Rolle, received order for PICC line placement. nursing gardening supervisor making contact to set up.
--- NOTE | 2018-05-17 12:27 | NUR ---
NOTIFIED TO PLACE A PICC FOR A PATIENT NEEDING ADDITIONAL ACCESS. ORDER AND CONSENT NOTED. THE PROCEDURE WELL BENIFITS AND RISKS DISCUSSED WITH THE PATIENT AND HE VERBALIZED UNDERSTANING. THE RIGHT UPPER ARM BASILIC WAS WIDLEY PATENT. A #5F DOUBLE LUMEN POWER PICC WAS PLACED PER HOSPITAL POLICY AFTER A BEDSIDE TIMEOUT WAS COMPLETE. LINE WAS TRIMMED TO 45CM AND ADVANCED WITHOUT DIFFICULTY. A STAT CHEST XRAY WAS ORDERED FOR CONFIRMATION
[2018-05-17 13:20] VITALS: BP 137/62
--- NOTE | 2018-05-17 16:07 | NUR ---
1250 pt back on unit from PICC placement, X-Ray back and placement is good, flushed and aspirated both lumens, K+ infusing as ordered, waiting on orders for pain medication, will cont to monitor
[2018-05-17 16:13] VITALS: BP 115/42
--- NOTE | 2018-05-17 17:05 | EKG ---
[place] [address] ELECTROCARDIOGRAM REPORT Name: ELLIOTT VALERA Room: [address] ADM IN M.R.#: [id number] Admission: 05/16/18 Attend Phys: Akash Solorzano, Discharge: Date of : 36 Report #: [id number] THIS REPORT FOR: //name// [facility] ED Test Date: 2018-05-16 Test Time: 21:52:37 Pat Name: ELLIOTT VALERA Department: Room: [facility] Gender: M Animal Ride Manager: VERÓNICA : 1940 Requested By: Babatunde Lazaro Order Number: [id number] MD: Jam Cosby Measurements Intervals [place] Rate: 62 P: CT: QRS: -20 QRSD: 109 T: 182 QT: 367 QTc: 373 Interpretive Statements Junctional rhythm Anterior infarct, old Repol abnrm suggests ischemia, lateral leads Compared to ECG 03/22/2018 22:51:42 Junctional rhythm now present Possible ischemia now present Atrial fibrillation no longer present Myocardial infarct finding still present Electronically Signed On 05-17-2018 17:04:51 CDT by Jam Cosby [email or web address] <ELECTRONICALLY SIGNED> By: Jam Cosby MD, FACC 05/17/18 1704 2152 [id number] Jam Cosby MD, FAC /EPI
[2018-05-17 20:00] VITALS: BP 120/49
--- NOTE | 2018-05-17 20:18 | NUR ---
ASSUMED CARE OF PT AT 0700, ASSESSMENT COMPLETE, MULTIPLE ATTEMPTS MADE FOR NEW IV ACCESS INCLUDING NURSING RETURN AGENT, PICC LINE PLACED IN RUE 2 LUMENS, PT HAS NWE ORDERS FOR PRN PAIN MEDICATION, ADMINISTERED ORDERED, UP TO RECLINER THIS EVENING WITHOUT DIFFICUTLY, HOURLY ROUNDING MAINTAINED,.
[2018-05-18] VITALS: BP 106/53
[2018-05-18 04:00] VITALS: BP 122/55
[2018-05-18 05:06] LABS: HEMATOCRIT 30.4 % (42.0-52.0); HEMOGLOBIN 9.5 gm/dL (14.0-18.0); MCH 20.9 pg (26.0-34.0); MCHC 31.2 g/dL (28.0-37.0); MCV 66.8 fL (80.0-100.0); MPV 7.2 fl. (7.2-11.1); RBC 4.55 mil/uL (4.50-6.00); WBC 7.9 thou/uL (4.0-11.0)
[2018-05-18 05:32] LABS: ALBUMIN 2.8 g/dL (3.4-5.0); ALKALINE PHOSPHATASE 112 U/L (46-116); ANION GAP 5 mmol/L (7-16); BUN 34 mg/dL (7-18); CALCIUM 8.9 mg/dL (8.5-10.1); CHLORIDE 87 mmol/L (98-107); CO2 38 mmol/L (21-32); CREATININE 1.1 mg/dL (0.6-1.3); GLUCOSE 125 mg/dL (70-99); MAGNESIUM 2.4 mg/dL (1.8-2.4); SGOT 25 U/L (15-37); SGPT 13 U/L (30-65); SODIUM 130 mmol/L (136-145); TOTAL BILIRUBIN 0.7 mg/dL (<0.1-1.0); TOTAL PROTEIN 6.5 g/dL (6.4-8.2); TROPONIN-I LEVEL <0.06 ng/mL (<0.06)
[2018-05-18 05:38] LABS: POTASSIUM 2.6 mmol/L (3.5-5.1)
[2018-05-18 06:47] LABS: CALCIUM 8.9 mg/dL (8.5-10.1); CREATININE 1.1 mg/dL (0.6-1.3)
[2018-05-18 06:48] LABS: POTASSIUM 2.9 mmol/L (3.5-5.1)
--- NOTE | 2018-05-18 08:16 | NUR ---
VITALS WNL. CRIT K PROTOCOL ORDERED AND STARTED. SEE MAR. SEE CHARTING. FALL PRECAUTIONS IN PLACE. HOURLY ROUNDING FOR SAFETY.
[2018-05-18 08:19] VITALS: BP 131/55
--- NOTE | 2018-05-18 09:53 | NUR ---
Pt is A&O. Resides at home with his son and MERLIN. Pt stated that he just finished HH services with [facility], and was planning to begin outpt therapy, but ended up getting sick and returning to the hospital. Pt is independent with ADLs. DIL does majority of the cooking and cleaning, Pt is able to drive. Pt stated that he started feeling bad this past Friday. Pt has home o2 and a trilogy, provided through [employer]. Pt also has a walker and cane at home that he can use for mobility. Pt's goal is to return home at [place], he would like to start outpt therapy. Following for disposition.
[2018-05-18 13:12] VITALS: BP 114/45
--- NOTE | 2018-05-18 13:46 | NUR ---
DC IV AND TELE. PT UNDERSTANDS ALL DISCAHRGE ORDERS WILL DC TO HOME.
[2018-05-18 16:00] VITALS: BP 106/61
[2018-05-18 20:00] VITALS: BP 114/50
[2018-05-19] VITALS (8 sets, daily range): BP systolic 104–128; BP diastolic 40–67
[2018-05-19 05:11] LABS: HEMATOCRIT 28.3 % (42.0-52.0); HEMOGLOBIN 8.8 gm/dL (14.0-18.0); MCH 21.1 pg (26.0-34.0); MCHC 31.2 g/dL (28.0-37.0); MCV 67.6 fL (80.0-100.0); RBC 4.19 mil/uL (4.50-6.00); RDW-CV 21.3 % (10.5-14.5); WBC 8.3 thou/uL (4.0-11.0)
[2018-05-19 05:17] LABS: INR 1.4; PROTIME 14.3 Seconds (9.20-11.50)
[2018-05-19 05:25] LABS: ALBUMIN 2.8 g/dL (3.4-5.0); CALCIUM 8.8 mg/dL (8.5-10.1); CREATININE 1.3 mg/dL (0.6-1.3); POTASSIUM 3.4 mmol/L (3.5-5.1); TOTAL BILIRUBIN 0.4 mg/dL (<0.1-1.0); TOTAL PROTEIN 6.4 g/dL (6.4-8.2)
--- NOTE | 2018-05-19 07:08 | NUR ---
VITALS WNL. SEE MAR. SEE CHARTING. FALL PRECAUTIONS IN PLACE. HOURLY ROUNDING FOR SAFETY.
--- NOTE | 2018-05-19 10:30 | NUR ---
ASSUMED CARE OF PATIENT AFTER RECEIVING REPORT FROM NOC RN. PT IS A & O X4. LOGISTICS PROJECT MANAGER IN PLACE, AFIB. O2 SATS 98%, 2L NC. IV SL. PT IS ABLE TO COMMUNICATE NEEDS TO STAFF. ASSESSMENT COMPLETE, DOCUMENTED. MEDS PER OCT. CALL LIGHT IN PLACE.
--- NOTE | 2018-05-19 11:40 | NUR ---
SUMMONED TO ROOM FOR LAB DRAW FROM PT'S PICC LINE. PT C/O BITING HIS LIP AND THAT IS NEW FOR HIM. BRIEF NIH PERFORMED WITH NOTED L SIDE FACIAL DROOP (EYE AND LIP). REPORTED FINDING TO DR. KINCAID WHO PLACED STAT MRI ORDERS.
--- NOTE | 2018-05-19 11:55 | NUR ---
CONTINUE TO FOLLOW, PT UP IN CHAIR, C/O OF 'BITING MY UPPER LIP', NURSE/JHOAN IN ROOM AND HAS NOTIFIED DR KINCAID. WILL FOLLOW
--- NOTE | 2018-05-19 18:40 | NUR ---
PT RETURNED TO ROOM FROM MRI. NIH SCALE SCREEN TO BE DONE EVERY 1 HOUR X4 AND THEN EVERY FOUR HOURS PER DR. GARZA. NIH SCALE SCREENS COMPLETE AND DOCUMENTED. NOTED CHANGE IN BEST GAZE WITH SIGNIFICANT DIFFERENCE IN PT'S ABILITY IN L EYE TO TRACK SAME R EYE. CALL TO DR. GARZA WHO WILL COME TO BS TO ASSESS PT. PER DR. GARZA, CALL TO HOSPITALIST TEAM TO ADDRESS ANTICOAGULANT AND INR. PAGED DR. APPLE WHO GAVE ORDER FOR WARFARIN 4 MG DAILY AND LOVENOX 1 MG/KG BID.
[2018-05-20] VITALS: BP 117/60
[2018-05-20 04:00] VITALS: BP 126/60
[2018-05-20 05:14] LABS: HEMATOCRIT 28.2 % (42.0-52.0); HEMOGLOBIN 8.7 gm/dL (14.0-18.0); MCV 67.9 fL (80.0-100.0); MPV 7.2 fl. (7.2-11.1); RBC 4.15 mil/uL (4.50-6.00); RDW-CV 21.8 % (10.5-14.5); WBC 8.6 thou/uL (4.0-11.0)
--- NOTE | 2018-05-20 05:16 | NUR ---
PT AAOX4 RESP REG AND UNLABORED SKIN W/D NO ACUTE DISTRESS NOTED. O2 2L BNC INTACT WHILE PT WAS SITTING IN CHAIR. PT RETURNED TO BED AND TRIOLOGY APPLIES. SLIGHT FACIAL DROOP AROUND MOUTH ON LEFT SIDE NOTED AND UNABLE TO RAISE LEFT EYEBROW COMPLETELY. TELEMETRY PACK ITNACT WITH ALARMS SET. LEFT SPECIFICATIONS CHECKER SLIGHTLY WEAKER THAN RIGHT. PT STATED HE FELT FINE. DENIES NUMBNESS AND TINGLING ANY WHERE, VSS NO ACUTE CHANGES DURING SHIFT WILL CONTINUE TO MONITOR
[2018-05-20 05:25] LABS: INR 1.7; PROTIME 16.9 Seconds (9.20-11.50)
[2018-05-20 05:32] LABS: ALBUMIN 2.8 g/dL (3.4-5.0); CALCIUM 9.1 mg/dL (8.5-10.1); CREATININE 1.3 mg/dL (0.6-1.3); TOTAL BILIRUBIN 0.5 mg/dL (<0.1-1.0); TOTAL PROTEIN 6.6 g/dL (6.4-8.2)
[2018-05-20 05:34] LABS: POTASSIUM 4.9 mmol/L (3.5-5.1)
[2018-05-20 07:45] VITALS: BP 133/66
--- NOTE | 2018-05-20 09:00 | NUR ---
ASSUMED CARE OF PATIENT AFTER RECEIVING REPORT FROM NOC RN. LARD TUB WASHER IN PLACE, TRACING AFIB. O2 SATS: 98% 2L NC. PICC IN KOREY REYNOLDS. NIH SCALE ASSESSMENT SCORE 1, DOCUMENTED. PT IS ABLE TO COMMUNICATE NEEDS TO PT. CALL LIGHT IN REACH.
[2018-05-20 11:20] VITALS: BP 127/54
[2018-05-20 16:00] VITALS: BP 134/54
--- NOTE | 2018-05-20 18:08 | NUR ---
PT UP IN RECLINER MOST OF DAY. A & O X4 AND IS ABLE TO COMMUNICATE NEEDS TO STAFF. NIH SCALE ASSESSMENTS CONTINUE EVERY 3 HOURS AND PT IS SCORING 1 ON NIH FOR FACIAL DROOP ON L SIDE. NEUROLOGIST TO BS TODAY. SPEECH THERAPY COMPLETED EVALUATION. PT OFF UNIT TO MRI FOR ORDERED IMAGING. PT STATES THAT HE HAS MORE ENERGY THAN YESTERDAY.
[2018-05-20 19:30] VITALS: BP 123/51
[2018-05-21] VITALS: BP 126/55
[2018-05-21 04:49] LABS: HEMOGLOBIN 8.2 gm/dL (14.0-18.0); MCH 20.7 pg (26.0-34.0); MCHC 30.4 g/dL (28.0-37.0); MCV 68.1 fL (80.0-100.0); MPV 7.1 fl. (7.2-11.1); RBC 3.97 mil/uL (4.50-6.00); WBC 12.8 thou/uL (4.0-11.0)
[2018-05-21 05:00] LABS: CALCIUM 9.3 mg/dL (8.5-10.1); CREATININE 1.3 mg/dL (0.6-1.3); MAGNESIUM 2.1 mg/dL (1.8-2.4); POTASSIUM 4.7 mmol/L (3.5-5.1)
--- NOTE | 2018-05-21 05:25 | NUR ---
VITALS WNL. SEE MAR. SEE CHARTING. FALL PRECAUTIONS IN PLACE. HOURLY ROUNDING FOR SAFETY.
[2018-05-21 05:44] LABS: PROTIME 20.7 Seconds (9.20-11.50)
--- NOTE | 2018-05-21 07:08 | NUR ---
I have reviewed the documentation by VINCE IZAGUIRRE from T to 05/20 and I concur with it. JIM PHILLIPS
[2018-05-21 08:30] VITALS: BP 149/56
[2018-05-21 11:38] VITALS: BP 131/65
[2018-05-21 12:00] VITALS: BP 136/81
--- NOTE | 2018-05-21 13:24 | NUR ---
CONTINUE TO FOLLOW, MET WITH PT. HE STATES HE WOULD LIKE TO HAVE HH WITH [facility] AGAIN AT [place] NOW SINCE THIS ADMIT AND HOW HE'S FEELING. CALLED AND FAXED INITIAL REFERRAL TO [facility]. WILL FOLLOW
[2018-05-21 16:00] VITALS: BP 119/54
--- NOTE | 2018-05-21 16:28 | NUR ---
PATIENT SITTING UP IN RECLINER MOST OF SHIFT, REPOSITIONED SELF. UP AMBULATING IN HALLS WITH PT UTILZING WALKER AND 02. CXR DONE THIS AFTERNOON, DR. KINCAID AWARE OF RESULTS. IV LASIX ORDERED AND GIVEN X 1. PATIENT TOTAL OUTPUT THIS SHIFT 1225 VIA URINAL. RIGHT PICC SL, FLUSHING WITHOUT DIFFICULTY AND GOOD BLOOD RETURN NOTED. ELECTROLYTES DRAWN THIS EVENING, AWAITING RESULTS. SCHED VICODIN GIVEN FOR CHRONIC PAIN. INSULIN GIVEN WITH MEALS ORDERED. DISCHARGE PLANNING. M/S STATUS.
[2018-05-21 16:40] LABS: POTASSIUM 4.5 mmol/L (3.5-5.1)
[2018-05-21 19:30] VITALS: BP 124/55
[2018-05-22 04:00] VITALS: BP 131/60
[2018-05-22 04:46] LABS: HEMATOCRIT 27.9 % (42.0-52.0); HEMOGLOBIN 8.6 gm/dL (14.0-18.0); MCH 21.1 pg (26.0-34.0); MCHC 30.9 g/dL (28.0-37.0); MCV 68.3 fL (80.0-100.0); MPV 7.2 fl. (7.2-11.1); RBC 4.09 mil/uL (4.50-6.00); RDW-CV 21.7 % (10.5-14.5); WBC 13.1 thou/uL (4.0-11.0)
--- NOTE | 2018-05-22 04:52 | NUR ---
PT AAOX4, RESP REG AND UNALBORED AT THIS ITME. NO ACUTE DISTRESS NOTED. PT UTILIZED HIS TRIOLOGY ALL NIGHT AND TOLERATED WELL. TELEMETRY PACK INTACT WITH ALARMS SET. O2 3L BNC INTACT. PT DENIES SOB AT THIS TIME. PT STATED HE WAS FEELING BETTR THAN HE WAS PRIOR TO BEDTIME. VSS AND NO ACUTE CHANGES DURIGN SHIFT WILL CONTINUE TO MONITOR
[2018-05-22 05:01] LABS: INR 2.5; PROTIME 25.5 Seconds (9.20-11.50)
[2018-05-22 05:05] LABS: ALBUMIN 2.8 g/dL (3.4-5.0); CALCIUM 8.9 mg/dL (8.5-10.1); CREATININE 1.1 mg/dL (0.6-1.3); TOTAL BILIRUBIN 0.4 mg/dL (<0.1-1.0); TOTAL PROTEIN 6.6 g/dL (6.4-8.2)
[2018-05-22 09:15] VITALS: BP 141/67
--- NOTE | 2018-05-22 09:32 | CON ---
[facility] [address] [place] [address] CONSULTATION Name: ELLIOTT VALERA Room: [address] IN .R.#: [id number] Admission: 05/16/18 Attend Phys: Akash Solorzano, Discharge: Date of : 36 Report #: [id number] THIS REPORT FOR: //name// CC: Vineet Solorzano DATE OF SERVICE: 05/19/2018 HISTORY OF PRESENT ILLNESS: This is an 78-year-old male patient whose consultation was kindly requested by Dr. Shya. I talked to Dr. Shay earlier today. I discussed with the nurse looking after this patient multiple times. When the nurse examined him today around 10:00, it was noticed that the patient had facial weakness. He did not notice this, so he does not know when it started. They have examined the patient earlier, but they did not examine the face. So the time of onset is completely unknown. He continues to have moderate amount of facial weakness on the left side. There was some question of tracking problem or speech problem on multiple occasions, but the patient does not have any deficit on my exam or on his history in that regard. REVIEW OF SYSTEMS: Indicate that this patient's concerning feature is he is complaining of pain in the left forehead, which he says is associated with present symptomatology. He does have cardiac history and he does have aortic stenosis and he is already on anticoagulation. He does have a history of chronic atrial fibrillation. He is on multiple medications and he is a diabetic. He is on gabapentin for his chronic pain. PAST MEDICAL HISTORY: Positive for cardiac problem. FAMILY HISTORY: Negative for early age stroke. SOCIAL HISTORY: He has multiple family members and I discussed the patient with them in great detail. He does drink alcohol. He does have a past history of smoking. PHYSICAL EXAMINATION: Indicate this patient is alert, responsive. He is oriented. His higher function is just baseline. 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 He still can close his eyes mostly. He is weak in the left arm, but that is longstanding and he says that has not changed. Rest of the neuromuscular examination is affected, but is unchanged from baseline. Cardiac examination does appear to be showing murmur. He does have some scattered rhonchi. He is on . 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 The concern is he is having pain in the forehead, so we need to closely watch him for development of any shingles. The possibility of stroke is there, but is considered less likely with the normal MRI. [place] [address] CONSULTATION Name: ELLIOTT VALERA Room: [address] IN .R.#: [id number] Admission: 05/16/18 Attend Phys: Akash Solorzano, Discharge: Date of : 36 Report #: [id number] is real, that does not explain his symptoms. RECOMMENDATIONS: I discussed in detail with the patient his option. We talked about doing a CT angiogram. His BUN is high, is a low yield for seizure. So we held it for the time being. I did talk about Medrol Dosepak and I am going to start him on antiviral also until for next few days if shingles does not appear. His hemoglobin is low and is on anticoagulation and that may have to be further addressed. I do not believe this patient has temporal arteritis. His last sed rate was 41. We will check it up again. I did not order a CT angiogram in this patient because has a high BUN and the symptom looks more like [place]enegro's palsy, but I did give that option to him and he is agreeable with this. More than 50 minutes of time was spent taking care of this patient today and majority of that time was spent counseling the patient and the family about multiple options and coordinating his care. Thank you very much for this referral and if you have any question, please feel free to contact me. <ELECTRONICALLY SIGNED> By: Erasmo Dumont MD 05/22/18931 19 0453Pchris Dumont MD /nt
--- NOTE | 2018-05-22 10:00 | NUR ---
ASSUMED PT CARE AT 0730, FULL ASSESMENT DONE CHARTED. PT A/O X4,VSS, ANXIOUS, WANTS TO EAT AND HAVE SOME ICE CHIPS. NPO AT THIS TIME FOR EGD TODAY. PT UP WITH ASSIST, FALL PRECAUIOTN IN PLACE. WILL CONTINUE WITH PLAN OF CARE.
[2018-05-22 13:08] LABS: PROTIME 20.2 Seconds (9.20-11.50)
--- NOTE | 2018-05-22 15:09 | NUR ---
PT PLANS TO RETURN HOME AT [place] WITH FAMILY AND [facility]. [facility] [phone] FAX [phone]
[2018-05-22 17:35] VITALS: BP 131/63
--- NOTE | 2018-05-22 18:35 | NUR ---
PT HAD EGD THIS AFTERNOON, SCHEDULED FOR COLONOSCOPY TOMORROW. PT ABLE TO TOLERATE CLEAR LIQUID DINNER TONIGHT. VSS. UP WITH ASSIST. WILL CONTINUE TO MONITOR.
[2018-05-22 20:00] VITALS: BP 116/69
[2018-05-23] VITALS: BP 110/46
--- NOTE | 2018-05-23 05:18 | NUR ---
PATIENT PROGRESSING TOWARDS GOALS: PATIENT HAS COMPLETED BOWEL PREP AND STOOL IS NOW CLEAR. PATIENT REMAINS NPO SINCE MIDNIGHT FOR COLONOSCOPY TODAY. MOUTH SWABS PROVIDED FOR ORAL CARE AND MOISTENING. PATIENT'S PAIN PARTIALLY RELIEVED WITH SCHEDULED HYDROCODONE AND RELAXATION. PATIENT REMAINS ON 2L O2 NC WITH SATS >92%. PATIENT DENIES CHEST PAIN AND DISCOMFORT THIS SHIFT. HOURLY ROUNDING OBSERVED. CALL LIGHT WITHIN REACH
[2018-05-23 05:26] LABS: INR 1.3; PROTIME 13.5 Seconds (9.20-11.50)
[2018-05-23 05:29] LABS: ALBUMIN 2.9 g/dL (3.4-5.0); CALCIUM 8.6 mg/dL (8.5-10.1); HEMATOCRIT 29.3 % (42.0-52.0); MAGNESIUM 1.9 mg/dL (1.8-2.4); MCH 20.8 pg (26.0-34.0); MCHC 30.7 g/dL (28.0-37.0); MCV 67.9 fL (80.0-100.0); MPV 7.1 fl. (7.2-11.1); POTASSIUM 4.2 mmol/L (3.5-5.1); RBC 4.32 mil/uL (4.50-6.00); RDW-CV 21.6 % (10.5-14.5); TOTAL BILIRUBIN 0.7 mg/dL (<0.1-1.0); TOTAL PROTEIN 6.8 g/dL (6.4-8.2); WBC 8.3 thou/uL (4.0-11.0)
[2018-05-23 08:00] VITALS: BP 138/63
[2018-05-23 10:39] VITALS: BP 138/63
--- NOTE | 2018-05-23 18:41 | NUR ---
RECEIVED REPORT. ASSUMED CARE OF PT AROUND O730. PT A&O X4. VSS. O2 SAT 93% ON 2L PER NC. PT REQUIRING MORE OXYGEN WITH ACTIVITY - 3 TO 4 LITERS PER NC. PT M/S STATUS. NIH'S THIS SHIFT SCORING 2 FOR RIGHT SIDE FACIAL DROOP AND RIGHT SIDE FACIAL NUMBNESS. PT COMPLETED COLONOSCOPY THIS SHIFT, SEE REPORT. GI HAS SIGNED OFF. PT'S SON, YUMI, VISITED THIS SHIFT AND EXPRESSEE CONCERN ABOUT PT'S LOW HEMOGLOBIN LEVELS - WOULD LIKE MORE TESTING DONE TO DETERMINE CAUSE. REASSURANCE GIVEN. PROVIDED INFORMATION THAT PT IS UNDERGOING WORK UP FOR ANEMIA. PT AND SON COMMUNICATED UNDERSTANDING. PT EATING AND DRINKING WITHOUT ISSUE POST COLONOSCOPY. PT VOIDING PER URINAL WITHOUT ISSUE. PT HAS REPORTED PAIN "ALL OVER" THROUGHOUT THE SHIFT THAT HAS BEEN MANAGED WITH PO PAIN MEDICATION WITH PARTIAL RELIEF. RIGHT UPPER ARM PIC INTACT, BOTH LUMENS ASPIRATED FOR BLOOD. PT HAS BEEN VISITED BY HIS SISTER AND SON THIS SHIFT. PT HAS EXPRESSED NO COMPLAINTS OTHER THAN FEELINGS OF FATIGUE. PT CURRENTLY RESTING IN BEDSIDE CHAIR. CALL LIGHT IS WITHIN REACH. FALL PRECAUTIONS IN PLACE. HOURLY ROUNDING PERFORMED. WCTM FOR DURATION OF SHIFT.
[2018-05-23 20:00] VITALS: BP 133/64
[2018-05-24] VITALS: BP 103/61
[2018-05-24 04:51] LABS: HEMOGLOBIN 8.6 gm/dL (14.0-18.0); MCH 21.1 pg (26.0-34.0); MCHC 30.9 g/dL (28.0-37.0); MCV 68.2 fL (80.0-100.0); RBC 4.1 mil/uL (4.50-6.00); WBC 7.7 thou/uL (4.0-11.0)
[2018-05-24 04:53] LABS: INR 1.1; PROTIME 11.6 Seconds (9.20-11.50)
[2018-05-24 04:59] LABS: ALBUMIN 2.7 g/dL (3.4-5.0); CALCIUM 8.5 mg/dL (8.5-10.1); POTASSIUM 4.3 mmol/L (3.5-5.1); TOTAL BILIRUBIN 0.5 mg/dL (<0.1-1.0); TOTAL PROTEIN 6.3 g/dL (6.4-8.2)
--- NOTE | 2018-05-24 05:38 | NUR ---
PATIENT REMAINS STABLE THIS SHIFT, VSS ON 2L O2 NC. PATIENT DOES REQUIRE MORE OXYGEN WITH ACTIVITY: 3-4L. PATIENT DID NOT WEAR HOME TRILOGY THIS SHIFT. PATIENT C/O "GENERALIZED" PAIN, PARTIALLY RELIEVED WITH SCHEDULED PO MEDICATION, ICE PACKS, AND RELAXATION TECHNIQUES. PATIENT CONTINUES TO TOLERATE PO DIET POST COLONOSCOPY WITH NO C/O NAUSEA. HOURLY ROUNDING OBSERVED. CALL LIGHT WITHIN REACH.
[2018-05-24 08:00] VITALS: BP 145/71
[2018-05-24 15:55] VITALS: BP 114/53
--- NOTE | 2018-05-24 18:50 | NUR ---
RECEIVED REPORT. ASSUMED CARE OF PT AROUND 729. PT A&O X4. VSS. O2 SAT 98% ON 2L PER NC. PT M/S STATUS. AM ASSESSMENT AND VITALS COMPLETED CHARTED. NIH'S 2 THIS SHIFT FOR LEFT SIDED FACIAL DROOP AND LEFT SIDE FACIAL NUMBNESS. PT REPORTED GENERALIZED BODY PAIN AND HEADACHE PAIN (BACK OF SKULL) THAT HAS BEEN MANAGED WITH PO PAIN MEDICATION, COLD PACKS, AND A LIDOCANE PATCH WITH PARTIAL RELIEF. PT VISITED BY FAMILY THIS SHIFT. PT EATING AND DRINKING WITHOUT ISSUE. RIGHT UPPER ARM 2 LUMEN PICC INTACT AND ASPIRATES FOR BLOOD. PT VOIDING FREQUENTLY PER URINAL THIS SHIFT AFTER LASIX ADMINISTRATION. PT CURRENTLY SITTING UP IN BEDSIDE CHAIR WATCHING TV. FALL PRECAUTIONS IN PLACE. CALL LIGHT IS WITHIN REACH. HOURLY ROUNDING PERFORMED. WCTM FOR DURATION OF SHIFT.
[2018-05-24 20:00] VITALS: BP 105/56
[2018-05-25] VITALS: BP 135/75
[2018-05-25 03:47] LABS: HEMATOCRIT 28.7 % (42.0-52.0); HEMOGLOBIN 8.8 gm/dL (14.0-18.0); MCH 20.8 pg (26.0-34.0); MCHC 30.8 g/dL (28.0-37.0); MCV 67.6 fL (80.0-100.0); MPV 6.6 fl. (7.2-11.1); RBC 4.24 mil/uL (4.50-6.00); RDW-CV 21.3 % (10.5-14.5); WBC 7.3 thou/uL (4.0-11.0)
[2018-05-25 04:00] VITALS: BP 103/54
[2018-05-25 04:05] LABS: CALCIUM 8.6 mg/dL (8.5-10.1); POTASSIUM 4.5 mmol/L (3.5-5.1)
[2018-05-25 05:07] LABS: PROTIME 10.9 Seconds (9.20-11.50)
--- NOTE | 2018-05-25 05:51 | NUR ---
PATIENT RESTED IN BED, NO ACUTE CHANGES. PATIENT DID NOT SHOW SIGNS OF DISTRESS. FALL PRECAUTIONS IN PLACE, CALL LIGHT WITH IN REACH, HOURLY ROUNDING OBSERVED.
--- NOTE | 2018-05-25 07:15 | NUR ---
CHANGE OF SHIFT, BEDISDE REPORT GIVEN PATIENT SEEN AT BEDSIDE, IN BED ASLEEP ASSUMED PATIENT CARE
[2018-05-25 08:00] VITALS: BP 136/61
--- NOTE | 2018-05-25 12:28 | CON ---
[facility] [address] [place] [address] CONSULTATION Name: ELLIOTT VALERA Room: [address] IN .R.#: [id number] Admission: 05/16/18 Attend Phys: Akash Solorzano, Discharge: Date of : 38 Report #: [id number] THIS REPORT FOR: //name// CC: Vineet Solorzano INDICATION: Shortness of breath and chest pain. HISTORY OF PRESENT ILLNESS: The patient is a very pleasant 78-year-old gentleman who is well known to myself. He is status post transcutaneous aortic valve replacement on 07/01/2017. He underwent cardiac catheterization on 05/30/2017 that showed no significant stenoses. He had mild plaquing. He has a long history of diastolic heart failure and respiratory failure. The patient states that he had increasing shortness of breath beginning on Friday. He states he did not feel well in general. He presented to the hospital yesterday. In addition, he noted a single episode of left upper chest pain lasting a few minutes that did not recur. The pain occurred while he was at rest and was not exertional. He had no diaphoresis, nausea or vomiting with the discomfort. The patient has a history of chronic atrial fibrillation for which he is on a rate control strategy. He is anticoagulated and having no bleeding problems. PAST MEDICAL HISTORY: 1. Aortic stenosis, status post transcutaneous aortic valve replacement. 2. Chronic atrial fibrillation. 3. Mild nonocclusive coronary artery disease. 4. Hypertension. 5. Hyperlipidemia. 6. Chronic obstructive pulmonary disease. 7. Type 2 diabetes mellitus. 8. Gout. PAST SURGICAL HISTORY: 1. Perforated bowel with resection. 2. Cataract surgeries bilaterally. 3. Bilateral knee surgeries. 4. Transcutaneous aortic valve replacement as outlined above. FAMILY HISTORY: Positive for heart disease and diabetes. SOCIAL HISTORY: The patient quit smoking remotely. He drinks alcohol occasionally. HOME MEDICATIONS: Tylenol 650 mg p.o. q.6 hours p.r.n., albuterol inhaler q.4 hours p.r.n., vitamin C 500 mg daily, aspirin 81 mg daily, [place] [address] CONSULTATION Name: ELLIOTT VALERA Room: [address]#: [id number] Admission: 05/16/18 Attend Phys: Akash Solorzano, Discharge: Date of : 38 Report #: [id number], Caltrate with D one tablet daily, digoxin 0.25 mg daily, diltiazem 240 mg daily, Colace 100 mg daily, doxycycline 100 mg b.i.d., Flonase nasal spray daily, furosemide 80 mg daily, gabapentin 600 mg b.i.d., gemfibrozil 600 mg b.i.d., glipizide 5 mg 2 tablets b.i.d., glucagon p.r.n., glucosamine 1000 mg daily, Mucinex 600 mg b.i.d., hydrocodone/acetaminophen 7.5/325 five times daily as needed, Lantus 50 units subq at bedtime, insulin 10 units subq t.i.d., Synthroid 125 mcg daily, magnesium supplement daily, Singulair 10 mg daily, multivitamin 1 tablet daily, fish oil 1000 mg daily, Zofran 4 mg q.8 hours p.r.n., Protonix 40 mg daily, MiraLax 17 grams daily, prednisone 50 mg daily, Metamucil daily, Florastor 250 mg 2 tablets b.i.d., saw palmetto 160 mg daily, Flomax 0.4 mg daily, warfarin 5 mg Friday, Friday, Friday and 2.5 mg Friday, Friday, , Friday. ALLERGIES: EDIE INHIBITORS, SULFA, LISINOPRIL, MORPHINE. REVIEW OF SYSTEMS: GENERAL: He denies convulsions, seizures or focal paralysis. In general, there is no unexplained weight loss or fever. RESPIRATORY: He has a chronic cough productive of clear sputum. He has underlying chronic obstructive pulmonary disease. CARDIAC: As outlined above. In addition, he notes no significant edema. He has a heart murmur. ENDOCRINE: He has hypothyroidism and diabetes. GASTROINTESTINAL: Some mild nausea, no vomiting, hematemesis, melena, or hematochezia. GENITOURINARY: No dysuria or hematuria. He does have urinary hesitancy. HEMATOLOGIC AND LYMPHATIC: No history of anemia, bleeding disorder, cancer, or blood clots. ALLERGY AND IMMUNOLOGIC: He has medical allergies outlined above. PSYCHIATRIC: Mild depression and anxiety. MUSCULOSKELETAL: He has arthritis without connective tissue diseases. SKIN: No recent rashes, hives or chronic skin conditions. EYES: He does wear glasses. He has no acute loss in vision. EARS, NOSE, MOUTH, AND THROAT: He has decreased hearing. He denies epistaxis. PHYSICAL EXAMINATION: VITAL SIGNS: Blood pressure 126/52, pulse is in the 50s and irregular. GENERAL: This is a pleasant gentleman who is in no distress. HEENT: Head normocephalic, atraumatic. Extraocular muscles are intact. Mucous membranes are moist. NECK: Shows no jugular venous distention. There are no carotid bruits. CHEST: Reveals diminished breath sounds throughout without wheezes or rales. CARDIAC: Reveals an irregularly irregular rhythm with grade 2/6 systolic ejection murmur. ABDOMEN: Reveals a protuberant abdomen without tenderness. There is a reducible hernia noted along the incision in the lower abdomen. [address] [address] CONSULTATION Name: ELLIOTT VALERA Room: [address] IN [facility].#: [id number] Admission: 05/16/18 Attend Phys: Akash Solorzano, Discharge: Date of : 38 Report #: [id number] EXTREMITIES: Shows trace pedal and ankle edema. SKIN: Warm and dry. LABORATORY DATA: Labs are reviewed. Sodium 125, potassium 2.5, chloride 78, bicarbonate 37, BUN 39, creatinine 1.4, serum glucose 145. LFTs are within normal limits. Troponin less than 0.06 on 3 separate occasions. NT-proBNP 2009. White blood cell count 10.5, hemoglobin 10.0, platelet count 548,000. Chest x-ray shows heart size and pulmonary vascularity to be within normal limits. There are some chronic interstitial changes from chronic lung disease noted. IMPRESSION AND RECOMMENDATIONS: 1. Aortic stenosis, status post transcutaneous aortic valve replacement. The patient is having some increased shortness of breath at this time. I doubt there are any abnormalities with the valve. We will check an echocardiogram to be sure. 2. Mild nonocclusive coronary artery disease with atypical chest pain. This does not sound like angina. No further workup at this time. 3. Hypertension, adequately controlled. 4. Hyperlipidemia. Continue gemfibrozil and fish oil at current doses. 5. Electrolyte abnormalities including hyponatremia and hypokalemia, likely due to diuresis without supplement. Would hold Lasix transiently and correct sodium and potassium. Once these are corrected, I would resume moderate dose Lasix as needed. The patient will need potassium supplementation. 6. Diabetes per primary physician. 7. Chronic obstructive pulmonary disease per primary physician. 8. Chronic atrial fibrillation. Continue rate control and chronic anticoagulation with warfarin. We will check digoxin level and continue serial INRs. <ELECTRONICALLY SIGNED> By: Jam Cosby MD, FACC 05/25/18 1228 1249 1930[facility] Cosby MD, FACC /nt
--- NOTE | 2018-05-25 14:52 | NUR ---
Nutrition: Pt was busy with RT, breathing TX, 11:45. Per chart, he is eating 80% of meals, wt stable at 224#, SOA upon exertion, BG 106-185, alb 2.7, prealb 22.3. CHO controlled diet. No nutrition interventions needed at this time. Low risk.
[2018-05-25 15:19] VITALS: BP 112/53
[2018-05-25 20:00] VITALS: BP 109/43
[2018-05-26 05:51] LABS: HEMATOCRIT 29.3 % (42.0-52.0); HEMOGLOBIN 9.1 gm/dL (14.0-18.0); MCH 21.2 pg (26.0-34.0); MCV 68.3 fL (80.0-100.0); MPV 6.9 fl. (7.2-11.1); RBC 4.29 mil/uL (4.50-6.00); RDW-CV 21.7 % (10.5-14.5); WBC 7.3 thou/uL (4.0-11.0)
[2018-05-26 06:11] LABS: ALBUMIN 2.9 g/dL (3.4-5.0); CALCIUM 8.6 mg/dL (8.5-10.1); MAGNESIUM 1.9 mg/dL (1.8-2.4); POTASSIUM 4.2 mmol/L (3.5-5.1); TOTAL BILIRUBIN 0.5 mg/dL (<0.1-1.0); TOTAL PROTEIN 6.5 g/dL (6.4-8.2)
--- NOTE | 2018-05-26 07:01 | NUR ---
PT UP IN CHAIR WATCHING TV UNTIL ABOUT MIDNIGHT, THEN TO BED AND USING TRILOGY WHILE ASLEEP. O2 2L NC WHILE AWAKE. PT TO HAVE REST AND EXERCISE STUDY TODAY. HS ACCUCHECK 115. AM LABS DRAWN. R PICC DL SL. LOVENOX GIVEN ORDERED. HYDROCODONE GIVEN SCHEDULED FOR GENERALIZED PAIN WITH FAIR RESULT. AOX4, ABLE TO USE CALL LITE AND MAKE NEEDS KNOWN. POSSIBLE DC TODAY, VS FURTHER GI PROCEDURE FOR LARGE POLYP.
[2018-05-26 07:55] VITALS: BP 122/62
--- NOTE | 2018-05-26 11:10 | NUR ---
PT. ADAMANTLY REFUSED A CHAIR ALARM. RN AND NURSING STAFF NOTIFIED.
--- NOTE | 2018-05-26 13:53 | NUR ---
SPOKE WITH DR LOPEZ ABOUT POSSIBLE REPEAT COLONSOCOPY. PHYSICIAN WILL PLACE ORDERS IN FOR PREP TODAY FOR REPEAT COLONOSCOPY IN AM. WILL UPDATE DR KINCAID.
--- NOTE | 2018-05-26 19:42 | NUR ---
PATIENT HAS BEEN A/O X 4 THIS SHIFT. CONTINUES ON SCHEDULED PAIN MEDS FOR NECK/BACK PAIN WITH GOOD RELIEF. PATIENT UP IN CHAIR FOR MOST OF SHIFT. WORKED WITH PT/OT. PATIENT STARTED ON BOWEL PREP THIS AFTERNOON. PATIENT'S CONSENT SIGNED FOR COLONOSCOPY IN AM. PATIENT BLOOD SUGARS MONITORED, INSULIN GIVEN FOR COVERAGE. FAMILY IN THIS SHIFT TO VISIT. UPDATED ON ALL NEW ORDERS. CALL LIGHT WITHIN REACH. WILL CONTINUE WITH PLAN OF CARE.
[2018-05-27] VITALS: BP 119/58
--- NOTE | 2018-05-27 05:37 | NUR ---
ASSESSMENT COMPLETE. PT UP MOST OF THE NIGHT WITH BOWEL PREP FOR COLONOSCOPY IN AM. PT NPO SINCE MIDNIGHT. PT IS UP WITH ONE ASSIST TO BSC. PT USES URINAL NEEDED. PT DENIES N/V. SCHEDULED PAIN MEDICATION GIVEN. PT IS SITTING IN CHAIR AT THIS TIME. SEE ASSESSMENT AND VITALS FOR OTHER DETAILS. CALL LIGHT WITHIN REACH, WILL CONTINUE PLAN OF CARE
[2018-05-27 06:04] LABS: PROTIME 10.6 Seconds (9.20-11.50)
--- NOTE | 2018-05-27 11:06 | NUR ---
SW received consult yesterday to check coverage for home Lovenox for pt. CLAUDIA discussed with group director who needed information for script and she discussed with Nurse Wallace who apparently sent a message to Dr Shay for details of the script. CLAUDIA spoke with Dr Shay today to follow up on Lovenox script and received script and information. CLAUDIA called pt son and discussed pt pharmacy is [facility] in [place] but they also use [place] [facility] for more expensive meds bc pt may be in between Rx insurance coverage. CLAUDIA called pharmacist at [facility] in [place] and she checked script and verified pt does not have prescription coverage so best cost with a discount card would be $290. CLAUDIA called [place] [facility] and discussed situation and script with pharmacist at [facility] who said that since [facility] did not send pt to hospital, then CLAUDIA would need to speak with clinic and possibly [facility] Dr Kurtis Greco to review and write to be able to have pt receive through [place] pharmacy. CLAUDIA was transferred to the clinic where CLAUDIA spoke with Christie in scheduling who said that CLAUDIA could fax progress note and script to [facility] and Dr Greco would review to approve to provide to pt. CLAUDIA faxed info to [phone] and will follow up at number [phone] to confirm approval for [facility] to provide script. CLAUDIA called pt son again and provided update. CLAUDIA to continue to follow to assist with safe dc planning.
[2018-05-27 17:13] VITALS: BP 150/71
--- NOTE | 2018-05-27 20:06 | NUR ---
ENEDINA COLONOSCOPY WELL THIS AM, MASS REMOVED. FRUSTRATED WITH CONTINUED CLD, BUT TOLERANT.NO BLEEDING NOTED, NO DISTRESS NOTED, ANTICIPATE DIETARY ADVANCEMENT TOMORROW, POSSIBLE DISCHARGE.
[2018-05-27 23:31] VITALS: BP 143/66
--- NOTE | 2018-05-28 04:26 | NUR ---
ASSESSMENT COMPLETE. PT SLEPT THROUGH THE NIGHT WITHOUT ANY CONCERNS. PT DENIES N/V. PT IS ON HOME TRILOGY AT . PT USES URINAL NEEDED. PT IS UP ONE ASSIST WITH WALKER. PT IS FALL RISK, BED ALARM ON. PICC IN RIGHT UPPER ARM. SKIN INTACT, TURNS SELF IN BED. SEE ASSESSMENT AND VITALS FOR OTHER DETAILS. CALL LIGHT WITHIN REACH, WILL CONTINUE PLAN OF CARE
[2018-05-28 05:45] LABS: HEMATOCRIT 27.1 % (42.0-52.0); HEMOGLOBIN 8.3 gm/dL (14.0-18.0); MCH 20.8 pg (26.0-34.0); MCHC 30.4 g/dL (28.0-37.0); MCV 68.4 fL (80.0-100.0); MPV 6.8 fl. (7.2-11.1); RBC 3.96 mil/uL (4.50-6.00); RDW-CV 21.6 % (10.5-14.5); WBC 9.4 thou/uL (4.0-11.0)
[2018-05-28 05:54] LABS: PROTIME 10.7 Seconds (9.20-11.50)
[2018-05-28 06:00] LABS: ALBUMIN 2.5 g/dL (3.4-5.0); CALCIUM 8.7 mg/dL (8.5-10.1); CREATININE 0.7 mg/dL (0.6-1.3); POTASSIUM 3.8 mmol/L (3.5-5.1); TOTAL BILIRUBIN 0.5 mg/dL (<0.1-1.0); TOTAL PROTEIN 5.7 g/dL (6.4-8.2)
[2018-05-28 07:55] VITALS: BP 107/74
--- NOTE | 2018-05-28 10:05 | NUR ---
PAGED GI PHYSICIAN AGAIN DUE TO DR KINCAID WANTING TO ADVANCE PT DIET SO THAT HE CAN BE DISCHARGED. WILL AWAIT A CALL BACK FROM PHYSICIAN
--- NOTE | 2018-05-28 13:22 | CON ---
[address] [address] CONSULTATION Name: ELLIOTT VALERA Room: [address] IN [facility].#: [id number] Admission: 05/16/18 Attend Phys: Akash Solorzano, Discharge: Date of : 38 Report #: [id number] THIS REPORT FOR: //name// CC: Vineet Solorzano HISTORY OF PRESENT ILLNESS: This is a pleasant 78-year-old male with past medical history significant for CAD, COPD on home oxygen, diabetes and hyperlipidemia who presented to the hospital for evaluation of chest pain and shortness of breath. The patient was subsequently diagnosed with atypical chest pain. Of note, the patient also has a history of aortic stenosis, status post transcutaneous aortic valve replacement and the GI service has been consulted for evaluation of iron deficiency anemia. The patient denies any significant abdominal pain, nausea, vomiting, diarrhea, weight loss or change in bowel habits. He does report having an EGD and colonoscopy performed 3 years back both of which were unremarkable per him. The patient reports that he had colonic perforation in 1990, had required emergency surgery. Subsequent to this, he developed several episodes of ventral herniations, which required mesh repair. PAST MEDICAL HISTORY: Significant for COPD, diabetes, hypertension, hyperlipidemia and aortic valve replacement. PAST SURGICAL HISTORY: Transcutaneous aortic valve replacement, colon surgery and as mentioned before hernia repairs. FAMILY HISTORY: Significant for coronary artery disease in father. SOCIAL HISTORY: The patient quit smoking in 1979. Continues to consume alcohol, two 8 ounce of beer per day. Denies any recreational drug use. REVIEW OF SYSTEMS: A comprehensive 10-point review of systems is negative except for what is mentioned above. PHYSICAL EXAMINATION: VITAL SIGNS: Temperature 36.4, pulse rate 59, respirations 16 and blood pressure 119/54. GENERAL: The patient is alert, awake and oriented x 3. Mucous membranes are moist. There is no congestion. LUNGS: Clear to auscultation bilaterally. ABDOMEN: Soft. There is no distention. There is a large midline incision noted. Next to the incision, a paraincisional hernia is seen 5.25 cm in size. This is easily reducible and nontender. Bowel sounds are present. There is no organomegaly. NECK: Supple. There is no supraclavicular lymphadenopathy. HEENT: Pupils are equal, round, reactive to light and accommodation. EXTREMITIES: There is bilateral pitting edema. Extrem[place] [address] CONSULTATION Name: ELLIOTT VALERA Room: [address]#: [id number] Admission: 05/16/18 Attend Phys: Akash Solorzano, Discharge: Date of : 38 Report #: [id number] perfused. NEUROLOGIC: There is no focal neurological deficit. LABORATORY DATA: Hemoglobin 8.2, hematocrit 27.0, MCV of 68, platelets 500 and WBC count 12.8. Sodium 129, potassium 4.5, chloride 92, bicarbonate 31, BUN 40 and creatinine 1.3. Iron 19, percent saturation 3, TIBC 600. Bilirubin 0.5, AST 19, ALT 12, alkaline phosphatase 105. ASSESSMENT AND PLAN: 1. This is a pleasant 78-year-old male with past medical history significant for aortic valve replacement, COPD, diabetes and hypertension was presenting with atypical chest pain and was found to have profound iron deficiency anemia. 2. Iron deficiency anemia. 3. Atypical chest pain. 4. I offered the patient EGD and colonoscopy for evaluation of iron deficiency anemia; however, he refused a colonoscopy at this time and would only like to proceed with EGD. I suspect the patient may have small bowel angioectasia from his aortic valve disease. An outpatient capsule endoscopy would be recommended. Further recommendations will be based on the EGD tomorrow. <ELECTRONICALLY SIGNED> By: Ivan Chu MD 05/28/18 1322 [id number] Chu MD /nt
[2018-05-28 15:03] VITALS: BP 128/57
[2018-05-28] MEDS ORDERED: IRON325 PO (15:13)
[2018-05-28] MEDS ORDERED: ENOXAPARIN100 MG/11 SUBQ (15:15)
[2018-05-28] MEDS ORDERED: KLOR-CON M1010 MEQ PO (15:30)
[2018-05-28 15:36] VITALS: BP 128/57
--- NOTE | 2018-05-28 17:18 | NUR ---
SW followed up with [place] pharmacy and they confirmed that Lovenox medication was approved and would be waiting for pt bulk picker ready today. Pt discussed with pt son and discussed pt to dc home today. SW faxed orders and med list to pt/family preference of [facility], initial referral was already sent to [facility]. Pt son to provide pt ride home.
--- NOTE | 2018-05-28 17:48 | NUR ---
PT AND FAMILY VERBALIZED UNDERSTANDING REGARDING DISCHARGE INSTRUCTIONS AND MEDICATIONS. DR COLLIER GAVE TELEPHONE ORDER TO REMOVE PICC LINE AND IT WAS REMOVED AT 1725 INTACT, PRESSURE WAS HELD FOR 5+ MINUTES AND DRESSING WAS PLACED. PT TOLERATED WELL. PT VSS THIS SHIFT. PT ABLE TO ASSIST WITH AMBULATORY NEEDS AT THIS TIME. PT GIVEN RX AND LAB ORDER AT TIME OF DISCHARGE. NO CONCERNS OR QUESTIONS FROM THE FAMILY AT THIS TIME. WILL ASSIST PT OUT OF HOSPITAL WITH WHEELCHAIR.
--- NOTE | 2018-05-29 09:09 | PATH ---
[facility] [address] [place] [address] PATHOLOGY RPT PROCEDURE Name: CARL VALERA Room: [address] IN M.R.#: [id number] Admission: 05/16/18 Date of : 38 Discharge: 05/28/18 Report #: [id number] Path Case #: [id number] [facility] Accession Number: [id number] . 01 Material submitted: . PART A: CECAL POLYP PART B: ASCENDING COLON POLYP . 01 Clinician provided ICD-10: D64.9 . 01 Clinical history: . Cecal, ascending colon and splenic flexure polyps . 02 Diagnosis: A. Cecal polyp: - Tubular adenoma, negative for high grade dysplasia. . B. Ascending colon polyp: - Tubular adenoma, negative for high grade dysplasia. . (URSULA:nataly; 05/27/18) [facility]/05/27/2018 . 02 Electronically signed: . Fabian Montenegro MD, Pathologist NPI- [id number] . 01 Gross description: . A. The specimen is received in formalin, labeled "Carl Valera, cecal polyp". Received is a segment of pale nicole soft tissue measuring 0.3 cm in maximum dimensions. The specimen is submitted entirely in cassette A1. . B. The specimen is received in formalin, labeled "Carl Valera, ascending colon polyp". Received are two segments of pale nicole soft tissue measuring 0.5 and 0.7 cm in maximum dimensions. The specimen is submitted entirely in cassette B1. (CAA; 05/25/2018) QAC/QAC . 02 Pathologist provided ICD-10: D12.0, D12.2 . 02 CPT . 432722, 101481 Specimen Comment: A courtesy copy of this report has been sent to Specimen Comment: [phone], , . Specimen Comment: Report sent to , [place] [address] PATHOLOGY RPT PROCEDURE Name: CARL VALERA Room: [address] IN ..#: [id number] Admission: 05/16/18 Date of : 36 Discharge: 05/28/18 Report #: [id number] Path Case #: [id number] Specimen Comment: Specimen Comment: A duplicate report has been generated due to demographic updates. Performed at: 01 [facility] [address], [place], [place] [address] MD Lui Mercer MD Phone: [phone] Performed at: 02 [facility] [address], [place], [place] [id number] MD Fabian Montenegro MD Phone: [phone]
--- NOTE | 2018-06-01 14:07 | PATH ---
[facility] [address] [place] [address] PATHOLOGY RPT PROCEDURE Name: CARL VALERA Room: [address] IN M.R.#: [id number] Admission: 05/16/18 Date of : 36 Discharge: 05/28/18 Report #: [id number] Path Case #: [id number] [facility] Accession Number: [id number] . 01 Material submitted: . PART A: CECUM POLYP PART B: SIGMOID POLYP PART C: SIGMOID COLON POLYPS . 01 Clinical history: . None provided . 02 Diagnosis: A. Colon, cecum, biopsy: - Hyperplastic polyp. . B. Colon, sigmoid, biopsy: - Adenomatous polyps, two. . C. Colon, sigmoid, biopsy: - Adenomatous colonic mucosa, multiple fragments. (MEERA:isabel 05/29/2018) QTP/05/29/2018 . 02 Electronically signed: . Olu Hope MD, Pathologist NPI- [id number] . 01 Gross description: . A. Received in formalin labeled "Carl Valera, cecum polyp," is a 1.5 x 0.6 x 0.5 cm polypoid piece of nicole soft tissue. The margin is inked and the specimen is sectioned perpendicular to the margin and entirely submitted in cassette A1. . B. Received in formalin labeled "Carl Valera, sigmoid polyps," is a 1.6 x 0.6 x 0.6 cm polypoid piece of nicole soft tissue. The margin is inked and the specimen is sectioned perpendicular to the margin and entirely submitted in cassette B1. Additionally received in the same container is a 0.9 x 0.5 x 0.6 cm polypoid piece of nicole soft tissue. The margin is inked and the specimen is sectioned perpendicular to the margin and entirely submitted in cassette B2. . C. Received in formalin labeled "Pio, Carl, sigmoid colon polyp," and additionally labeled on the requisition as "polyps," are multiple segments of nicole soft tissue admixed with vegetative material measuring 2.5 x 1.8 x 0.4 cm in aggregate dimensions. The specimen is filtered and entirely submitted in cassette C1. (TSD; 05/27/2018) [place] [address] PATHOLOGY RPT PROCEDURE Name: CARL VALERA Room: [address] IN [facility].#: [id number] Admission: 05/16/18 Date of : 36 Discharge: 05/28/18 Report #: [id number] Path Case #: [id number] TOB/TOB . 02 Pathologist provided ICD-10: K63.5, D12.5 . 02 CPT . 898523, 516503, 948027 Specimen Comment: A courtesy copy of this report has been sent to Specimen Comment: [phone], , . Specimen Comment: Report sent to , and Specimen Comment: Specimen Comment: A duplicate report has been generated due to demographic updates. Performed at: [address], [place], [place] [id number] MD Lui Mercer MD Phone: [phone] Performed at: 02 [facility] [address], [place], [place] [id number] MD Fabian Montenegro MD Phone: [phone]
== END 2018-05-28 18:00 | disposition home health service (06) | DRG 193 ==
LOC: M.ERS 21:49 → M.2W 23:01 → M.TBA-ER 23:01 → M.2W 05-17 00:06 → M.3W 05-25 19:56
PROVIDERS: Emergency Medicine Emergency Medical Services; Internal Medicine; Internal Medicine Gastroenterology; Psychiatry & Neurology Neuromuscular Medicine; ADMIT Family Medicine
PROC: 5A09357 Assistance with Respiratory Ventilation, Less than 24 Consecutive Hours, Continuous Positive Airway Pressure (ICD-10-PCS; 2018-05-17)
PROC: 02HV33Z Insertion of Infusion Device into Superior Vena Cava, Percutaneous Approach (ICD-10-PCS; 2018-05-17)
PROC: 5A09357 Assistance with Respiratory Ventilation, Less than 24 Consecutive Hours, Continuous Positive Airway Pressure (ICD-10-PCS; principal; 2018-05-21)
PROC: 0DJ08ZZ Inspection of Upper Intestinal Tract, Via Natural or Artificial Opening Endoscopic (ICD-10-PCS; 2018-05-22)
PROC: 0DBH8ZZ Excision of Cecum, Via Natural or Artificial Opening Endoscopic (ICD-10-PCS; 2018-05-23)
PROC: 0DBK8ZZ Excision of Ascending Colon, Via Natural or Artificial Opening Endoscopic (ICD-10-PCS; 2018-05-23)
PROC: 0DBN8ZZ Excision of Sigmoid Colon, Via Natural or Artificial Opening Endoscopic (ICD-10-PCS; 2018-05-23)
PROC: 0DBL8ZZ Excision of Transverse Colon, Via Natural or Artificial Opening Endoscopic (ICD-10-PCS; 2018-05-23)
PROC: 5A09357 Assistance with Respiratory Ventilation, Less than 24 Consecutive Hours, Continuous Positive Airway Pressure (ICD-10-PCS; 2018-05-26)
PROC: 0DBH8ZZ Excision of Cecum, Via Natural or Artificial Opening Endoscopic (ICD-10-PCS; 2018-05-27)
PROC: 0D5N8ZZ Destruction of Sigmoid Colon, Via Natural or Artificial Opening Endoscopic (ICD-10-PCS; 2018-05-27)
DX: R09.1 Pleurisy (principal); I50.33 Acute on chronic diastolic (congestive) heart failure; K57.31 Diverticulosis of large intestine without perforation or abscess with bleeding; K25.4 Chronic or unspecified gastric ulcer with hemorrhage; E44.1 Mild protein-calorie malnutrition; E87.1 Hypo-osmolality and hyponatremia; I13.0 Hypertensive heart and chronic kidney disease with heart failure and stage 1 through stage 4 chronic kidney disease, or unspecified chronic kidney disease; D50.9 Iron deficiency anemia, unspecified; N18.3 Chronic kidney disease, stage 3 (moderate); E78.5 Hyperlipidemia, unspecified; M19.90 Unspecified osteoarthritis, unspecified site; J44.9 Chronic obstructive pulmonary disease, unspecified; I48.2 Chronic atrial fibrillation; I25.10 Atherosclerotic heart disease of native coronary artery without angina pectoris; I35.0 Nonrheumatic aortic (valve) stenosis; E87.6 Hypokalemia; E66.01 Morbid (severe) obesity due to excess calories; G47.33 Obstructive sleep apnea (adult) (pediatric); K63.5 Polyp of colon; M10.9 Gout, unspecified; G51.0 Bell's palsy; D12.0 Benign neoplasm of cecum; D12.5 Benign neoplasm of sigmoid colon; K64.4 Residual hemorrhoidal skin tags; Z96.659 Presence of unspecified artificial knee joint; Z98.42 Cataract extraction status, left eye; E11.22 Type 2 diabetes mellitus with diabetic chronic kidney disease; Z98.41 Cataract extraction status, right eye; Z95.2 Presence of prosthetic heart valve; Z88.6 Allergy status to analgesic agent; Z88.2 Allergy status to sulfonamides; Z88.8 Allergy status to other drugs, medicaments and biological substances; Z87.891 Personal history of nicotine dependence; Z90.49 Acquired absence of other specified parts of digestive tract; Z83.49 Family history of other endocrine, nutritional and metabolic diseases; Z68.32 Body mass index [BMI] 32.0-32.9, adult; Z82.49 Family history of ischemic heart disease and other diseases of the circulatory system; Z83.3 Family history of diabetes mellitus

== ENCOUNTER 2018-06-03 05:18 | Inpatient (IN) | payer MEDICARE, OTHER ==
[~2018-06-03] VITALS: Ht 182.9 cm; Wt 102.5 kg
[~2018-06-03 05:18] MED LIST changes: +ENOXAPARIN100 MG/11 SUBQ; +IRON325 PO; +KLOR-CON M1010 MEQ PO
[2018-06-03 05:22] VITALS: BP 115/55
[2018-06-03 05:50] LABS: HEMATOCRIT 30.3 % (42.0-52.0); HEMOGLOBIN 9.1 gm/dL (14.0-18.0); MCH 21.1 pg (26.0-34.0); MCHC 30.2 g/dL (28.0-37.0); MCV 69.8 fL (80.0-100.0); MPV 8.7 fl. (7.2-11.1); NUCLEATED RBCS 0 /100WBC; PLATELET COUNT* 133 thou/uL (150-400); RBC 4.34 mil/uL (4.50-6.00); RDW-CV 23.6 % (10.5-14.5); WBC 16.8 thou/uL (4.0-11.0)
[2018-06-03 05:53] LABS: CREATININE 1.1 mg/dL (0.6-1.3); POTASSIUM 4.1 mmol/L (3.5-5.1)
[2018-06-03 05:57] LABS: ALBUMIN 2.9 g/dL (3.4-5.0); MAGNESIUM 1.7 mg/dL (1.8-2.4); TOTAL BILIRUBIN 0.7 mg/dL (<0.1-1.0); TOTAL PROTEIN 6.7 g/dL (6.4-8.2)
[2018-06-03 05:59] LABS: BE 0.7 mmol/L (-2 to +3); HCO3 24.4 mmol/L (22.0-26.0); PCO2 35.5 mmHg (35.0-45.0); PO2 75.4 mmHg (75.0-100.0); pH 7.455 (7.340-7.450)
[2018-06-03 06:05] LABS: URINE BILIRUBIN NEGATIVE (Negative); URINE BLOOD 1+ (Negative); URINE CLARITY CLEAR; URINE COLOR YELLOW; URINE GLUCOSE-RANDOM NEGATIVE (Negative); URINE KETONES NEGATIVE (Negative); URINE PROTEIN TRACE (Negative); URINE SPECIFIC GRAVITY 1.015 (1.005-1.030); URINE UROBILINOGEN 0.2 E.U./dl (0.2-1.0)
[2018-06-03 06:06] LABS: URINE LEUKOCYTES-REFLEX 2+ (Negative); URINE NITRITE-REFLEX POSITIVE (Negative)
[2018-06-03 06:13] LABS: BACTERIA-REFLEX >30 Many /HPF (None Seen); CASTS None Seen /LPF (None Seen); CRYSTALS None Seen /LPF (None Seen); MUCUS 0-3 Light strn/LPF (None Seen); SQUAMOUS 0-3 Few /LPF (0-3); URINE RBC 0-2 Rare /HPF (0-2); URINE WBC-REFLEX 6-15 Few /HPF (0-5)
[2018-06-03 06:15] LABS: ABSOLUTE BASOPHILS 0.2 thou/uL (0.0-0.2); ABSOLUTE EOSINOPHILS 0.3 thou/uL (0.0-0.7); ABSOLUTE LYMPHOCYTES 0.8 thou/uL (0.8-5.3); ABSOLUTE MONOCYTES 0.5 thou/uL (0.0-1.2)
[2018-06-03 06:17] LABS: POLYCHROMASIA 2+
[2018-06-03 06:20] LABS: MICROCYTES 2+
[2018-06-03 06:21] LABS: HYPOCHROMASIA 2+
[2018-06-03 06:22] LABS: PLATELET ESTIMATE ADEQUATE
[2018-06-03 06:23] LABS: LARGE PLATELETS RARE
[2018-06-03 06:41] LABS: APTT 30.3 Seconds (25.0-31.3); INR 1.2; PROTIME 12.2 Seconds (9.20-11.50)
[2018-06-03 08:55] VITALS: BP 107/46
[2018-06-03 12:00] VITALS: BP 137/65
[2018-06-03 16:00] VITALS: BP 137/50
--- NOTE | 2018-06-03 17:26 | EKG ---
[place] [address] ELECTROCARDIOGRAM REPORT Name: ELLIOTT VALERA Room: [address] ADM IN M.R.#: [id number] Admission: 06/03/18 Attend Phys: Ramon Neal MD Discharge: Date of : 36 Report #: [id number] THIS REPORT FOR: //name// [facility] ED Test Date: 2018-06-03 Test Time: 05:36:35 Pat Name: ELLIOTT VALERA Department: Room: [address] [place] [address] Gender: M Copy Holder: : 1940 Requested By: Estela Bowers Order Number: [id number] Dino MD: Napoleon Danielle Measurements Intervals [place] Rate: 113 P: [place]: QRS: -24 QRSD: 92 T: 145 QT: 301 QTc: 413 Interpretive Statements Atrial fibrillation Borderline left axis deviation Anterior infarct, old Borderline repolarization abnormality Baseline wander in lead(s) V2 Compared to ECG 05/16/2018 21:52:37 Junctional rhythm no longer present Possible ischemia no longer present Myocardial infarct finding still present Electronically Signed On 06-03-2018 17:26:40 CDT by Napoleon Danielle [email or web address] <ELECTRONICALLY SIGNED> By: Napoleon Danielle MD, [facility] 06/03/18 1726 0536 0536 Napoleon Danielle MD, [facility] /EPI
[2018-06-04] VITALS: BP 113/42
[2018-06-04 04:00] VITALS: BP 122/67
[2018-06-04 07:49] VITALS: BP 114/48
[2018-06-04 12:16] VITALS: BP 107/48
[2018-06-04 16:00] VITALS: BP 102/50
[2018-06-04 20:00] VITALS: BP 104/49
[2018-06-05] VITALS: BP 113/51
[2018-06-05 04:00] VITALS: BP 118/50
[2018-06-05 07:57] VITALS: BP 129/69
--- NOTE | 2018-06-05 08:08 | CON ---
[address] [address] CONSULTATION Name: ELLIOTT VALERA Room: [address] IN M.R.#: [id number] Admission: 06/03/18 Attend Phys: Ramon Neal MD Discharge: Date of : 36 Report #: [id number] THIS REPORT FOR: //name// CC: Vineet Acosta Ramon Neal DATE OF SERVICE: 06/04/2018 Infectious Disease Consultation ATTENDING PHYSICIAN: Ramon Neal MD REASON FOR EVALUATION: Gram-negative septicemia in the setting of complicated urinary tract infection, probable pyelonephritis. HISTORY OF PRESENT ILLNESS: Chart reviewed, patient examined. This is an 78-year-old with extensive medical history including diabetes mellitus type 2. He has also got O2 requiring COPD, which I am familiar with. He has been hospitalized, though it has been in excess of a year, typically with pulmonary-related complaints. He was admitted with fever and chills and sounds as may well have been rigors with worsening encephalopathy. Denied significant change in his overall pulmonary status. On evaluation, he was found to have moderate pyuria. Urine culture is in progress. Blood culture 1 out of 2 with Gram-negative rods, however. He was empirically placed on antimicrobials, piperacillin and tazobactam. He has clinically improved this a.m. ALLERGIES: Listed to SULFA, LISINOPRIL, MORPHINE, EDIE INHIBITORS. CURRENT MEDICATIONS: Include Zosyn, gabapentin, ferrous sulfate, prednisone, tamsulosin, furosemide, budesonide, ascorbic acid, diltiazem, fish oil, calcium carbonate, aspirin, pantoprazole, montelukast, insulin, hydrocodone, gabapentin, gemfibrozil, glipizide, albuterol, saccharomyces, guaifenesin, p.r.n. analgesics, and antiemetics. PAST MEDICAL HISTORY: As described above, history of diabetes mellitus; COPD, O2 requiring; gout, atrial fibrillation, hypertension, hyperlipidemia, degenerative joint disease with arthritis. SOCIAL HISTORY: Nonsmoker, occasional ethanol. FAMILY HISTORY: Noncontributory. REVIEW OF SYSTEMS: Denies any significant change in her overall pulmonary status. He has had some degree of abdominal related discomfort. PHYSICAL EXAMINATION: [place] [address] CONSULTATION Name: ELLIOTT VALERA Room: [address]#: [id number] Admission: 06/03/18 Attend Phys: Ramon Neal MD Discharge: Date of : 38 Report #: [id number] GENERAL: He appears somewhat chronically ill, undernourished. He is actually alert, cooperative, perhaps mildly encephalopathic, in vkbo-zo-bpsewppp distress. VITAL SIGNS: T-max today 101.1, more recently 97.7, pulse 88, respirations 18, blood pressure 107/48. SKIN: Warm, moist. HEENT: Otherwise unremarkable. NECK: Supple. LUNGS: Diminished breath sounds. Few scattered crackles at the bases. Overall diminished. HEART: Irregular. I do not appreciate a murmur. ABDOMEN: Distended, obese. There are no peritoneal signs. I do not believe there is any palpable flank pain. GENITOURINARY: Deferred. RECTAL: Deferred. LABORATORY DATA: ABGs on admission: pH 7.455, pCO2 of 35.5, pO2 of 75.4 on 2 L. Electrolytes: Sodium 132, potassium 4.1, chloride 98, bicarbonate is 27, BUN and creatinine 21 and 1.1. LFTs unremarkable. Albumin of 29, total protein of 6.7. Estimated GFR of 64. Urinalysis: 6-15 white cells, greater than 30 bacteria. CBC: White count of 16.8, H and H 9.1 and 30.3, platelets of 133. Lactic acid 1.6, repeat was 1.3. Blood cultures 1 out of 2 with Gram-negative rods. IMAGING DATA: Chest x-ray: Minor left basilar atelectasis or infiltrate. ASSESSMENT: Gram-negative septicemia, I think on the basis of genitourinary tract source. We will continue empiric therapy, 2% of tazobactam. Some evidence is that this has at least stopped the worsening progression, perhaps slightly improved. We will await those results and monitor expectantly. Certainly at risk for other nosocomial related infectious complications as well, can entirely exclude an early pneumonitis. We will have to monitor how he does clinically. <ELECTRONICALLY SIGNED> By: Ignacio Shane MD 06/05/18 0808 [id number] [id number] Shane MD /nt
[2018-06-05 12:21] LABS: ABSOLUTE EOSINOPHILS 0.1 thou/uL (0.0-0.7); ABSOLUTE LYMPHOCYTES 0.4 thou/uL (0.8-5.3); ABSOLUTE MONOCYTES 0.4 thou/uL (0.0-1.2); ABSOLUTE NEUTROPHILS 6.9 thou/uL (1.6-8.1); BASOPHILS 0.4 %; EOSINOPHILS 0.9 %; HEMATOCRIT 27.6 % (42.0-52.0); HEMOGLOBIN 8.4 gm/dL (14.0-18.0); LYMPHOCYTES 5.4 %; MCH 21.5 pg (26.0-34.0); MCHC 30.4 g/dL (28.0-37.0); MCV 70.6 fL (80.0-100.0); MONOCYTES 4.7 %; MPV 8.8 fl. (7.2-11.1); NUCLEATED RBCS 0 /100WBC; PLATELET COUNT* 137 thou/uL (150-400); POLYS 88.6 %; RBC 3.91 mil/uL (4.50-6.00); RDW-CV 23.8 % (10.5-14.5); WBC 7.8 thou/uL (4.0-11.0)
[2018-06-05 15:47] VITALS: BP 117/55
[2018-06-05 20:00] VITALS: BP 109/61
[2018-06-06] VITALS (7 sets, daily range): BP systolic 115–144; BP diastolic 50–71
[2018-06-07 08:30] VITALS: BP 127/60
[2018-06-07 11:21] VITALS: BP 129/75
[2018-06-07 15:31] VITALS: BP 123/60
[2018-06-07 20:02] VITALS: BP 135/61
[2018-06-08 00:21] VITALS: BP 131/71
[2018-06-08 04:43] VITALS: BP 141/75
[2018-06-08 08:14] VITALS: BP 160/80
[2018-06-08 11:45] VITALS: BP 127/56
[2018-06-08 16:07] VITALS: BP 127/50
[2018-06-08 20:09] VITALS: BP 140/62
[2018-06-09] VITALS: BP 113/61
[2018-06-09 04:00] VITALS: BP 130/73
[2018-06-09 08:30] VITALS: BP 157/80
[2018-06-09 11:43] VITALS: BP 111/46
[2018-06-09 11:52] VITALS: BP 111/46
[2018-06-09] MEDS ORDERED: AUGMENTIN 875-1 EACH PO (12:43)
== END 2018-06-09 17:30 | disposition home health service (06) | DRG 871 ==
LOC: M.ERS 05:18 → M.2W 06:30 → M.TBA-ER 06:30 → M.2W 09:09
PROVIDERS: Internal Medicine; Personal Emergency Response Attendant; ADMIT Internal Medicine
PROC: 5A09357 Assistance with Respiratory Ventilation, Less than 24 Consecutive Hours, Continuous Positive Airway Pressure (ICD-10-PCS; principal; 2018-06-06)
PROC: 5A09357 Assistance with Respiratory Ventilation, Less than 24 Consecutive Hours, Continuous Positive Airway Pressure (ICD-10-PCS; 2018-06-07)
PROC: 5A09357 Assistance with Respiratory Ventilation, Less than 24 Consecutive Hours, Continuous Positive Airway Pressure (ICD-10-PCS; 2018-06-08)
DX: A41.50 Gram-negative sepsis, unspecified (principal); I50.23 Acute on chronic systolic (congestive) heart failure; J18.9 Pneumonia, unspecified organism; G93.40 Encephalopathy, unspecified; N12 Tubulo-interstitial nephritis, not specified as acute or chronic; N39.0 Urinary tract infection, site not specified; R31.9 Hematuria, unspecified; E78.5 Hyperlipidemia, unspecified; M19.90 Unspecified osteoarthritis, unspecified site; J44.9 Chronic obstructive pulmonary disease, unspecified; E11.65 Type 2 diabetes mellitus with hyperglycemia; M10.9 Gout, unspecified; Y95 Nosocomial condition; Z96.653 Presence of artificial knee joint, bilateral; Z79.84 Long term (current) use of oral hypoglycemic drugs; I48.91 Unspecified atrial fibrillation; Z98.41 Cataract extraction status, right eye; Z98.42 Cataract extraction status, left eye; Z79.82 Long term (current) use of aspirin; Z83.3 Family history of diabetes mellitus; Z79.01 Long term (current) use of anticoagulants; Z79.4 Long term (current) use of insulin; Z88.2 Allergy status to sulfonamides; Z88.5 Allergy status to narcotic agent; Z88.8 Allergy status to other drugs, medicaments and biological substances; Z87.891 Personal history of nicotine dependence; Z82.49 Family history of ischemic heart disease and other diseases of the circulatory system

== ENCOUNTER 2018-06-11 17:03 | Emergency (ER) | payer MEDICARE, OTHER ==
[~2018-06-11] VITALS: Ht 175.3 cm; Wt 100.8 kg
[~2018-06-11 17:03] MED LIST changes: +AUGMENTIN 875-1 EACH PO
[2018-06-11 18:03] LABS: ABSOLUTE BASOPHILS 0.1 thou/uL (0.0-0.2); ABSOLUTE EOSINOPHILS 0.3 thou/uL (0.0-0.7); ABSOLUTE LYMPHOCYTES 1.6 thou/uL (0.8-5.3); ABSOLUTE MONOCYTES 0.6 thou/uL (0.0-1.2); ABSOLUTE NEUTROPHILS 7.2 thou/uL (1.6-8.1); BASOPHILS 1.3 %; EOSINOPHILS 2.8 %; HEMATOCRIT 33.3 % (42.0-52.0); HEMOGLOBIN 10.3 gm/dL (14.0-18.0); LYMPHOCYTES 16.8 %; MCH 21.5 pg (26.0-34.0); MCHC 30.9 g/dL (28.0-37.0); MCV 69.6 fL (80.0-100.0); MONOCYTES 5.9 %; MPV 8.8 fl. (7.2-11.1); NUCLEATED RBCS 0 /100WBC; PLATELET COUNT* 450 thou/uL (150-400); POLYS 73.2 %; RBC 4.79 mil/uL (4.50-6.00); RDW-CV 21.9 % (10.5-14.5); WBC 9.8 thou/uL (4.0-11.0)
[2018-06-11 18:12] LABS: ANION GAP 7 mmol/L (7-16); APTT 23.4 Seconds (25.0-31.3); BUN 43 mg/dL (7-18); CALCIUM 9.1 mg/dL (8.5-10.1); CHLORIDE 99 mmol/L (98-107); CO2 33 mmol/L (21-32); CREATININE 1.2 mg/dL (0.6-1.3); GLUCOSE 117 mg/dL (70-99); INR 1.1; POTASSIUM 4.6 mmol/L (3.5-5.1); PROTIME 11.1 Seconds (9.20-11.50); SODIUM 139 mmol/L (136-145)
[2018-06-11 18:28] LABS: ALBUMIN 3.1 g/dL (3.4-5.0); ALKALINE PHOSPHATASE 75 U/L (46-116); NT-PRO BRAIN NAT PEPTIDE 624 pg/mL (<300); SGOT 28 U/L (15-37); SGPT 18 U/L (30-65); TOTAL BILIRUBIN 0.4 mg/dL (<0.1-1.0); TOTAL PROTEIN 6.5 g/dL (6.4-8.2); TROPONIN-I LEVEL <0.06 ng/mL (<0.06)
[2018-06-11 18:32] LABS: URINE BILIRUBIN NEGATIVE (Negative); URINE BLOOD NEGATIVE (Negative); URINE CLARITY CLEAR; URINE COLOR YELLOW; URINE GLUCOSE-RANDOM NEGATIVE (Negative); URINE KETONES NEGATIVE (Negative); URINE LEUKOCYTES NEGATIVE (Negative); URINE NITRITE NEGATIVE (Negative); URINE PROTEIN NEGATIVE (Negative); URINE UROBILINOGEN 0.2 E.U./dl (0.2-1.0)
[2018-06-11 18:40] LABS: AMP/METHAMP Negative (Negative); BARBITURATES Negative (Negative); BENZODIAZEPINES Negative (Negative); COCAINE Negative (Negative); METHADONE Negative (Negative); OPIATES POSITIVE (Negative); PCP Negative (Negative); THC Negative (Negative)
[2018-06-11 18:41] LABS: ANISOCYTOSIS 2+; HYPOCHROMASIA 2+; MICROCYTES 2+; PLATELET ESTIMATE INCREASED
[2018-06-11 19:30] VITALS: BP 100/52
--- NOTE | 2018-06-12 10:18 | EKG ---
[place] [address] ELECTROCARDIOGRAM REPORT Name: ELLIOTT VALERA Room: [facility]#: [id number] Admission: 06/11/18 Attend Phys: Discharge: 06/11/18 Date of : 38 Report #: [id number] THIS REPORT FOR: //name// [facility] ED Test Date: 2018-06-11 Test Time: 17:17:05 Pat Name: GALLAGHER SOTO Department: Room: Gender: M Information Technology Security Analyst: Rocky HOWARD : 1940 Requested By: Trice Perrin Order Number: [id number] MD: Sancho Branch Measurements Intervals [place] Rate: 88 P: CT: QRS: -18 QRSD: 90 T: 144 QT: 329 QTc: 398 Interpretive Statements Atrial fibrillation with aberrant beat noted Borderline left axis deviation Low voltage, extremity leads Borderline repolarization abnormality Compared to ECG 06/03/2018 05:36:35 rate slowed Electronically Signed On 06-12-2018 10:18:19 CDT by Sancho Branch [email or web address] <ELECTRONICALLY SIGNED> By: Sancho Branch MD, [facility] 06/12/18 1018 16 16 Sancho Branch MD, [facility] /EPI
== END 2018-06-11 19:32 | disposition home or self-care (01) ==
LOC: M.ERS 17:03
PROVIDERS: Nurse Practitioner Family
DX: M25.511 Pain in right shoulder (principal); M25.512 Pain in left shoulder; R79.1 Abnormal coagulation profile; E78.5 Hyperlipidemia, unspecified; M19.90 Unspecified osteoarthritis, unspecified site; I10 Essential (primary) hypertension; I48.91 Unspecified atrial fibrillation; J44.9 Chronic obstructive pulmonary disease, unspecified; E11.9 Type 2 diabetes mellitus without complications; M10.9 Gout, unspecified; Z87.891 Personal history of nicotine dependence; Z88.2 Allergy status to sulfonamides; Z88.5 Allergy status to narcotic agent; Z88.8 Allergy status to other drugs, medicaments and biological substances; Z96.653 Presence of artificial knee joint, bilateral

== ENCOUNTER 2018-06-14 20:16 | Inpatient (IN) | payer MEDICARE, OTHER ==
[~2018-06-14] VITALS: Ht 175.3 cm; Wt 103.4 kg
--- NOTE | ~2018-06-14 | EKG ---
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
[2018-06-14 20:36] VITALS: BP 115/53
[2018-06-14 20:37] LABS: HEMATOCRIT 33.3 % (42.0-52.0); MCH 20.7 pg (26.0-34.0); MCHC 30.2 g/dL (28.0-37.0); MCV 68.5 fL (80.0-100.0); MPV 8.5 fl. (7.2-11.1); NUCLEATED RBCS 0 /100WBC; PLATELET COUNT* 292 thou/uL (150-400); RBC 4.86 mil/uL (4.50-6.00); RDW-CV 21.4 % (10.5-14.5); WBC 16.6 thou/uL (4.0-11.0)
[2018-06-14 20:43] LABS: URINE BILIRUBIN NEGATIVE (Negative); URINE BLOOD NEGATIVE (Negative); URINE CLARITY CLEAR; URINE COLOR YELLOW; URINE GLUCOSE-RANDOM NEGATIVE (Negative); URINE KETONES NEGATIVE (Negative); URINE LEUKOCYTES-REFLEX NEGATIVE (Negative); URINE NITRITE-REFLEX NEGATIVE (Negative); URINE PROTEIN NEGATIVE (Negative); URINE UROBILINOGEN 0.2 E.U./dl (0.2-1.0)
[2018-06-14 20:47] LABS: INR 1.4; PROTIME 14.7 Seconds (9.20-11.50)
[2018-06-14 20:55] LABS: ANION GAP 6 mmol/L (7-16); BUN 24 mg/dL (7-18); CALCIUM 8.8 mg/dL (8.5-10.1); CHLORIDE 98 mmol/L (98-107); CO2 31 mmol/L (21-32); CREATININE 1.3 mg/dL (0.6-1.3); GLUCOSE 129 mg/dL (70-99); POTASSIUM 4.7 mmol/L (3.5-5.1); SODIUM 135 mmol/L (136-145)
[2018-06-14 21:00] LABS: ALBUMIN 2.9 g/dL (3.4-5.0); ALKALINE PHOSPHATASE 74 U/L (46-116); LIPASE 84 U/L (73-393); NT-PRO BRAIN NAT PEPTIDE 1538 pg/mL (<300); SGOT 19 U/L (15-37); SGPT 12 U/L (30-65); TOTAL BILIRUBIN 0.7 mg/dL (<0.1-1.0); TROPONIN-I LEVEL <0.06 ng/mL (<0.06)
[2018-06-14 21:41] LABS: ABSOLUTE LYMPHOCYTES 1.8 thou/uL (0.8-5.3); ABSOLUTE MONOCYTES 0.8 thou/uL (0.0-1.2); ABSOLUTE NEUTROPHILS 13.9 thou/uL (1.6-8.1); ATYPICAL LYMPHS 4 %; PLATELET ESTIMATE ADEQUATE
[2018-06-14 21:42] LABS: ANISOCYTOSIS 2+; HYPOCHROMASIA 2+; MICROCYTES 2+
[2018-06-14 23:21] VITALS: BP 113/44
[2018-06-15] VITALS (8 sets, daily range): BP systolic 110–151; BP diastolic 41–80
[2018-06-16 05:14] VITALS: BP 139/60
--- NOTE | 2018-06-16 07:54 | CON ---
[address] [address] CONSULTATION Name: ELLIOTT VALERA Room: [address] IN M.R.#: [id number] Admission: 06/14/18 Attend Phys: Flavia Shay MD Discharge: Date of : 38 Report #: [id number] THIS REPORT FOR: //name// CC: Vineet Shay DATE OF SERVICE: 06/15/2018 INFECTIOUS DISEASE CONSULTATION ATTENDING PHYSICIAN: Dr. Shay. REASON FOR EVALUATION: Possible right shoulder septic arthritis. HISTORY OF PRESENT ILLNESS: Chart reviewed, patient examined. This is an 78-year-old well known to myself. I have seen him on several occasions. He was actually hospitalized within the last week for a complicated urinary tract infection, complicated by septicemia due to Escherichia coli. He does have underlying COPD and has been hospitalized several times, underlying lower respiratory tract infections. He apparently was at home and had an episode of incontinence that was at one point fairly profoundly encephalopathic with unresponsiveness and weakness. He also complained of right shoulder pain, which I am not aware of he had complained previously. He was evaluated in the Emergency Room including imaging, which raised question of possible fluid collection within the right glenohumeral joint or the subdeltoid bursa. He was placed empirically on ceftriaxone. At this point, he is generally fairly lucid, denies significant change in his pulmonary status. He states he had some recent anorexia with poor p.o. intake. ALLERGIES: EDIE INHIBITORS, SULFA, LISINOPRIL, MORPHINE. CURRENT MEDICATIONS: Include ceftriaxone, fentanyl, ipratropium and albuterol inhaler, hydrocodone, ondansetron. PAST MEDICAL HISTORY: As noted above, history of hyperlipidemia, COPD, has diabetes mellitus type 2, gout, atrial fibrillation, bilateral cataracts, bilateral total knee arthroplasties, previous right shoulder surgery and hernia repair. SOCIAL HISTORY: Former smoker. Occasional ethanol. No illicit drug use. FAMILY HISTORY: Noncontributory. REVIEW OF SYSTEMS: As above. PHYSICAL EXAMINATION: [place] [address] CONSULTATION Name: ELLIOTT VALERA Room: [address]#: [id number] Admission: 06/14/18 Attend Phys: Flavia Shay MD Discharge: Date of : 38 Report #: [id number] GENERAL: He is alert, cooperative, appears chronically ill, undernourished, is in rakj-ij-gcygetpr distress. He is sitting up in a chair. VITAL SIGNS: Temperature 97.8, pulse 81, respirations 18, blood pressure 151/78. SKIN: Warm and dry, no rashes. NECK: Supple. LUNGS: Diminished breath sounds, has bilateral rales at the bases posteriorly. HEART: Regular. Does have soft systolic murmur. ABDOMEN: Obese, soft, mildly distended. There are no peritoneal signs. EXTREMITIES: Right shoulder, there is some asymmetry with an apparent inflammatory changes noted superficially. He notes it is tender to touch. He does splint it, resists movement about the joint. GENITOURINARY AND RECTAL: Deferred. LABORATORY DATA: Blood cultures sterile thus far. CTA chest, COPD without infiltrates and the noted changes in the right shoulder. CT of the pelvis, no acute or abnormal abdominal or pelvic signs. CBC: White count of 16.6, H and H 10.0 and 33.3, platelets 292. Uric acid 6.7. Lactic acid 1.2. Electrolytes: Sodium 135, potassium 4.7, chloride 98, bicarbonate is 31, anion gap of 6, BUN and creatinine 24 and 1.3 and glucose of 129. Albumin 269, total protein of 7.0. Urinalysis unremarkable. ASSESSMENT AND PLAN: Right shoulder inflammatory process, noted recent history of septicemia, it would be somewhat unusual to have Escherichia coli ____ but it is not entirely probable. We will continue the ceftriaxone. Surgery evaluation for possible aspiration of these or residual changes from previous surgery or some sort of injury is not clear. He is certainly at risk for nosocomial-related infectious complications. We will follow. <ELECTRONICALLY SIGNED> By: Ignacio Shane MD 06/16/18 0754 1149 [id number] Shane MD /nt
[2018-06-16 08:00] VITALS: BP 121/47
[2018-06-16 11:41] LABS: HEMATOCRIT 27.3 % (42.0-52.0); HEMOGLOBIN 8.2 gm/dL (14.0-18.0); MCH 20.7 pg (26.0-34.0); MCHC 30.1 g/dL (28.0-37.0); MPV 8.2 fl. (7.2-11.1); RBC 3.96 mil/uL (4.50-6.00); RDW-CV 21.4 % (10.5-14.5); WBC 13.8 thou/uL (4.0-11.0)
[2018-06-16 11:53] LABS: ALBUMIN 2.5 g/dL (3.4-5.0); CALCIUM 9.1 mg/dL (8.5-10.1); CREATININE 1.2 mg/dL (0.6-1.3); POTASSIUM 4.7 mmol/L (3.5-5.1); TOTAL BILIRUBIN 0.2 mg/dL (<0.1-1.0); TOTAL PROTEIN 6.9 g/dL (6.4-8.2)
[2018-06-16 12:39] VITALS: BP 106/61
[2018-06-16 16:24] VITALS: BP 111/52
[2018-06-16 20:00] VITALS: BP 127/53
[2018-06-17] VITALS: BP 134/50
[2018-06-17 04:00] VITALS: BP 130/47
[2018-06-17 07:53] VITALS: BP 147/64
[2018-06-17 12:00] VITALS: BP 134/76
[2018-06-17 16:00] VITALS: BP 137/63
[2018-06-17 20:00] VITALS: BP 129/54
[2018-06-18] VITALS: BP 136/95; BP 151/59
[2018-06-18 04:00] VITALS: BP 151/59
[2018-06-18 07:48] VITALS: BP 138/61
[2018-06-18] MEDS ORDERED: DYNACIN100 MG PO (10:21)
[2018-06-18 11:13] VITALS: BP 138/61
[2018-06-18 11:47] VITALS: BP 129/69
== END 2018-06-18 18:30 | disposition home health service (06) | DRG 866 ==
LOC: M.ERS 20:16 → M.2W 22:36 → M.TBA-ER 22:36 → M.2W 23:31
PROVIDERS: Family Medicine; Internal Medicine; ADMIT Internal Medicine
PROC: 5A09357 Assistance with Respiratory Ventilation, Less than 24 Consecutive Hours, Continuous Positive Airway Pressure (ICD-10-PCS; principal; 2018-06-18)
DX: B34.9 Viral infection, unspecified (principal); J96.10 Chronic respiratory failure, unspecified whether with hypoxia or hypercapnia; R65.10 Systemic inflammatory response syndrome (SIRS) of non-infectious origin without acute organ dysfunction; E44.1 Mild protein-calorie malnutrition; S43.421A Sprain of right rotator cuff capsule, initial encounter; E78.5 Hyperlipidemia, unspecified; J44.9 Chronic obstructive pulmonary disease, unspecified; E11.9 Type 2 diabetes mellitus without complications; M10.9 Gout, unspecified; Z96.653 Presence of artificial knee joint, bilateral; R33.9 Retention of urine, unspecified; M19.90 Unspecified osteoarthritis, unspecified site; I10 Essential (primary) hypertension; I48.91 Unspecified atrial fibrillation; Z98.42 Cataract extraction status, left eye; Z98.41 Cataract extraction status, right eye; Z88.6 Allergy status to analgesic agent; Z88.2 Allergy status to sulfonamides; Z88.8 Allergy status to other drugs, medicaments and biological substances; Z87.891 Personal history of nicotine dependence; Z82.49 Family history of ischemic heart disease and other diseases of the circulatory system; Z83.3 Family history of diabetes mellitus; Z79.82 Long term (current) use of aspirin; Z79.899 Other long term (current) drug therapy; Z68.33 Body mass index [BMI] 33.0-33.9, adult; X58.XXXA Exposure to other specified factors, initial encounter; Y93.89 Activity, other specified; Y92.89 Other specified places as the place of occurrence of the external cause; Y99.8 Other external cause status

== ENCOUNTER 2018-07-08 10:54 | Inpatient (IN) | payer MEDICARE, OTHER ==
[~2018-07-08] VITALS: Ht 172.7 cm; Wt 94.8 kg
[~2018-07-08 10:54] MED LIST changes: +DYNACIN100 MG PO
[2018-07-08 11:03] VITALS: BP 132/62
[2018-07-08 11:45] LABS: ABSOLUTE BASOPHILS 0.1 thou/uL (0.0-0.2); ABSOLUTE EOSINOPHILS 0.2 thou/uL (0.0-0.7); ABSOLUTE LYMPHOCYTES 0.9 thou/uL (0.8-5.3); ABSOLUTE MONOCYTES 0.6 thou/uL (0.0-1.2); ABSOLUTE NEUTROPHILS 5.4 thou/uL (1.6-8.1); BASOPHILS 1.3 %; EOSINOPHILS 2.8 %; HEMATOCRIT 30.8 % (42.0-52.0); HEMOGLOBIN 9.1 gm/dL (14.0-18.0); LYMPHOCYTES 12.8 %; MCH 19.7 pg (26.0-34.0); MCHC 29.7 g/dL (28.0-37.0); MCV 66.5 fL (80.0-100.0); MONOCYTES 8.2 %; MPV 7.4 fl. (7.2-11.1); NUCLEATED RBCS 0 /100WBC; PLATELET COUNT* 276 thou/uL (150-400); POLYS 74.9 %; RBC 4.64 mil/uL (4.50-6.00); RDW-CV 20.1 % (10.5-14.5); WBC 7.3 thou/uL (4.0-11.0)
[2018-07-08 11:53] LABS: INR 2.3; PROTIME 23.6 Seconds (9.20-11.50)
[2018-07-08 12:03] LABS: ALKALINE PHOSPHATASE 111 U/L (46-116); ANION GAP 5 mmol/L (7-16); BUN 13 mg/dL (7-18); CALCIUM 8.9 mg/dL (8.5-10.1); CHLORIDE 100 mmol/L (98-107); CO2 34 mmol/L (21-32); GLUCOSE 58 mg/dL (70-99); NT-PRO BRAIN NAT PEPTIDE 1456 pg/mL (<300); POTASSIUM 3.9 mmol/L (3.5-5.1); SGOT 18 U/L (15-37); SGPT 12 U/L (30-65); SODIUM 139 mmol/L (136-145); TOTAL BILIRUBIN 0.6 mg/dL (<0.1-1.0); TOTAL PROTEIN 6.9 g/dL (6.4-8.2); TROPONIN-I LEVEL <0.06 ng/mL (<0.06)
[2018-07-08 12:57] LABS: HYPOCHROMASIA 3+
[2018-07-08 12:59] LABS: ANISOCYTOSIS 3+; MICROCYTES 3+; PLATELET ESTIMATE ADEQUATE; POLYCHROMASIA Occasional
[2018-07-08 16:05] VITALS: BP 101/48
[2018-07-08 16:15] VITALS: BP 121/47
--- NOTE | 2018-07-08 16:39 | EKG ---
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 Room: Rocky GARNER : 1940 Requested By: Babatunde Lazaro Order Number: [id number] MD: Sancho Branch Measurements Intervals [place] Rate: 72 P: [place]: QRS: -37 QRSD: 98 T: 113 QT: 367 QTc: 402 Interpretive Statements Atrial fibrillation Inferior infarct, old Anterior infarct, old Lateral leads are also involved Compared to ECG 06/14/2018 20:23:56 No significant changes Electronically Signed On 07-08-2018 16:39:27 SWING TYPE LATHE OPERATOR by Sancho Branch [email or web address] <ELECTRONICALLY SIGNED> By: Sancho Branch MD, [facility] 07/08/18 1639 1114 1114 Sancho Branch MD, [facility] /EPI
[2018-07-08 20:00] VITALS: BP 132/61
[2018-07-09] VITALS (7 sets, daily range): BP systolic 91–142; BP diastolic 39–61
[2018-07-09 12:23] LABS: CREATININE 1.1 mg/dL (0.6-1.3); POTASSIUM 3.8 mmol/L (3.5-5.1)
[2018-07-09 15:04] LABS: BE 4.4 mmol/L (-2 to +3); HCO3 28.3 mmol/L (22.0-26.0); PCO2 39.7 mmHg (35.0-45.0); pH 7.471 (7.340-7.450)
[2018-07-10] VITALS: BP 116/69
[2018-07-10 04:00] VITALS: BP 146/51
[2018-07-10 08:29] VITALS: BP 125/70
[2018-07-10 09:25] LABS: INFLUENZA A ANTIGEN None Detected (None Detect); INFLUENZA B ANTIGEN None Detected (None Detect)
--- NOTE | 2018-07-10 09:46 | CON ---
[address] [address] CONSULTATION Name: ELLIOTT VALERA Room: [address] IN .R.#: [id number] Admission: 07/08/18 Attend Phys: Usha López Discharge: Date of : 38 Report #: [id number] THIS REPORT FOR: //name// CC: Caden Mcneill Infectious Disease Consultation ATTENDING PHYSICIAN: Caden Becerra MD REASON FOR EVALUATION: Febrile illness with encephalopathy. HISTORY OF PRESENT ILLNESS: The patient with extensive medical history and multiple recent hospitalizations for infectious complications including complicated urinary tract infection. He does have history of chronic obstructive pulmonary disease with recurrent lower respiratory tract infections as well who was just discharged within the last 2 weeks, had over the course of last 3-4 days, prior to admission, developed worsening encephalopathy per spouse, was felt to have fever complicated by chills. He notes he had generalized joint pains, muscle aches. He notes his pulmonary status was overall little changed. He is on supplemental oxygen at home. His pO2 on 2 L is 60s. Followup chest x-ray was otherwise stable, chronic changes. Chest CT PE protocol showed nothing acute with centrilobular emphysema. He is generally lucid at this point. He is in moderate distress. ALLERGIES: EDIE INHIBITORS, SULFA, LISINOPRIL, MORPHINE. CURRENT MEDICATIONS: Include insulin, tamsulosin, ipratropium, albuterol inhaler, gabapentin, guaifenesin, gemfibrozil, warfarin, insulin, diltiazem, pantoprazole, montelukast, digoxin, hydrocodone, albuterol, furosemide. PAST MEDICAL HISTORY: History of hyperlipidemia, arthritis, hypertension, atrial fibrillation, bilateral total knee, COPD, diabetes mellitus, gout, has got bilateral shoulder injuries. SOCIAL HISTORY: Former smoker. Occasional ethanol, no illicit drug use. FAMILY HISTORY: Noncontributory. REVIEW OF SYSTEMS: Ten-point otherwise unremarkable with exception of the above described. There are no new pulmonary complaints. Denies any abdominal pain, no diarrhea. He does admit to some generalized weakness. PHYSICAL EXAMINATION: GENERAL: He is somewhat lethargic. He does respond appropriate, seems to be oriented to person, place, and time. He is chronically ill appearing and undernourished, [place] [address] CONSULTATION Name: ELLIOTT VALERA Room: [address]#: [id number] Admission: 07/08/18 Attend Phys: Usha López Discharge: Date of : 38 Report #: [id number] VITAL SIGNS: Temperature 101.0, pulse 87, respirations 17, blood pressure 127/56. SKIN: Warm. No rashes. NECK: Supple. There are no oral lesions. LUNGS: Diminished overall, few scattered coarse breath sounds, some crackles at the bases. HEART: Regular with some ectopy. I do not appreciate murmur. ABDOMEN: Soft. It is obese, nontender. There are no peritoneal signs. EXTREMITIES: Bilateral lower extremities have venous stasis insufficiency with some mild erythema. He is somewhat mildly tender to palpation on the right mid portion. There are no bullous lesions. No fluctuance. GENITOURINARY AND RECTAL: Deferred. LABORATORY DATA: His recent ABG: pH 7.471, pCO2 of 39.7, pO2 of 61 and that was on 2 liters. Sed rate of 45. Electrolytes: Sodium 137, potassium 3.8, chloride 97, bicarbonate is 34, anion gap of 16 and creatinine 14 and 1.1. CRP of 102.2. CBC: White count of 7.3, H and H 9.1 and 30.8, platelets of 276. Differential fairly unremarkable. Liver function is unremarkable. Albumin of 3.0, total protein 6.9. PT of 23.6, INR of 2.3. ASSESSMENT AND PLAN: Febrile illness. The patient has high degree of his medical diseases burden, multiple hospitalizations recently, seemingly has different sites of infection. At this point, there is no overt evidence of pneumonitis or complicated urinary tract infection. We would consider skin and soft tissue infection with lower extremity, inflammatory eruption, primarily on the left side. Certainly has ongoing issues with bilateral shoulder pain. He has been evaluated by orthopedic surgery. This is also thought to be internal derangement, does have history of gout as well. We will start empiric therapy with cefepime, going to get blood cultures, also check influenza antigen. <ELECTRONICALLY SIGNED> By: Ignacio Shane MD 07/10/18 0946 1543 [id number] Shane MD /patrizia
[2018-07-10 11:55] VITALS: BP 113/42
[2018-07-10 15:05] LABS: HEMATOCRIT 32.7 % (42.0-52.0); HEMOGLOBIN 9.7 gm/dL (14.0-18.0); MCHC 29.7 g/dL (28.0-37.0); MCV 67.4 fL (80.0-100.0); MPV 8.3 fl. (7.2-11.1); NUCLEATED RBCS 0 /100WBC; RBC 4.85 mil/uL (4.50-6.00); RDW-CV 20.5 % (10.5-14.5); WBC 14.3 thou/uL (4.0-11.0)
[2018-07-10 15:06] LABS: PLATELET COUNT* 371 thou/uL (150-400)
[2018-07-10 15:25] LABS: CALCIUM 8.8 mg/dL (8.5-10.1); CREATININE 1.4 mg/dL (0.6-1.3); MAGNESIUM 2.1 mg/dL (1.8-2.4); POTASSIUM 4.4 mmol/L (3.5-5.1)
[2018-07-10 15:36] VITALS: BP 98/36
[2018-07-10 15:41] LABS: ABSOLUTE EOSINOPHILS 0.1 thou/uL (0.0-0.7); ABSOLUTE MONOCYTES 1.4 thou/uL (0.0-1.2); ABSOLUTE NEUTROPHILS 10.7 thou/uL (1.6-8.1); ANISOCYTOSIS 2+; PLATELET ESTIMATE ADEQUATE
[2018-07-10 15:42] LABS: HYPOCHROMASIA 1+; MICROCYTES 3+; POLYCHROMASIA 1+
[2018-07-10 20:00] VITALS: BP 101/42
[2018-07-11] VITALS: BP 115/43
[2018-07-11 04:14] VITALS: BP 117/49
[2018-07-11 04:34] LABS: CALCIUM 8.7 mg/dL (8.5-10.1); CREATININE 1.3 mg/dL (0.6-1.3)
[2018-07-11 04:37] LABS: INR 1.5; PROTIME 15.4 Seconds (9.20-11.50)
[2018-07-11 08:00] VITALS: BP 123/44
--- NOTE | 2018-07-11 09:08 | CON ---
[address] [address] CONSULTATION Name: ELLIOTT VALERA Room: [address] IN .R.#: [id number] Admission: 07/08/18 Attend Phys: Usha López Discharge: Date of : 38 Report #: [id number] THIS REPORT FOR: //name// CC: Caden Mcneill DATE OF SERVICE: 07/10/2018 TYPE OF REPORT: Cardiology consultation. HISTORY OF PRESENT ILLNESS: The patient is an 78-year-old single white male who I was asked to see in the hospital after he complained of being short of breath. The patient has an extensive past medical history. He has a history of paroxysmal atrial fibrillation, although he has never been cardioverted. It was decided to aim for rate control eventually. He has been chronically anticoagulated. Previous heart catheterization showed no significant coronary artery disease. He was found to have evidence of severe aortic stenosis. He eventually underwent transcatheter aortic valve replacement at [facility] a year ago. He apparently tolerated the surgery well. His last echocardiogram in December of this year actually showed left ventricular hypertrophy, ejection fraction 60%, left atrial dilatation and the TAVR valve appeared to be functioning normally. The patient notes he is scheduled to follow up at [facility] in the next few weeks. He actually saw my partner, Dr. Cosby in April. No changes were made in his medications at that time. The patient states that recently he has had increasing shortness of breath and edema. He has had a cough. He denied any chest pain, palpitations, syncope or bleeding. He finally came to the hospital yesterday and was admitted. I was asked to see him for further evaluation and treatment. PAST MEDICAL HISTORY: Otherwise significant for surgery on a pilonidal cyst. He had a laparotomy for a colon perforation in the past. He has had shoulder surgery, both knees replaced. He has diabetes, hypertension, hyperlipidemia, sleep apnea and he is also obese. MEDICATIONS: On admission consisted of aspirin, digoxin, diltiazem, Neurontin, Lopid, glipizide, hydrocodone, nebulizer, Synthroid, Singulair, Flomax and warfarin. ALLERGIES: He has intolerance to EDIE INHIBITORS and MORPHINE. FAMILY HISTORY: His father had congestive heart failure. SOCIAL HISTORY: He is , lives with his son in [place], [place]. 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 He has a history of alcohol abuse, drinking a quart of whiskey a day at one point. No longer abuses alcohol. He used to smoke, [place] [address] CONSULTATION Name: ELLIOTT VALERA Room: [address] IN ..#: [id number] Admission: 07/08/18 Attend Phys: Usha López Discharge: Date of : 38 Report #: [id number] REVIEW OF SYSTEMS: He has sleep apnea. No history of stroke. He does have COPD. No history of GI bleed. He has chronic kidney disease and skin cancer removed. No psychiatric illness. PHYSICAL EXAMINATION: GENERAL: Revealed a large, elderly male, sitting in a chair. He appeared in no acute distress. VITAL SIGNS: He had a blood pressure of 120/70 and pulse 80. He is afebrile. HEENT: He was anicteric. Conjunctivae pink. Mucous members moist. NECK: Supple. CHEST: Clear to auscultation. CARDIOVASCULAR: Regular rate and rhythm, grade 2 systolic ejection murmur. ABDOMEN: Obese. EXTREMITIES: Had trace pedal edema. SKIN: Warm and dry. NEUROLOGICAL: Nonfocal. PSYCHIATRIC: Mood is appropriate. RADIOLOGICAL DATA: His ECG on admission showed atrial fibrillation with nonspecific T-wave changes. His x-rays, he had portable chest x-ray on admission that showed left basilar atelectasis and tortuous aortic arch. No pulmonary edema. CT scan of the chest using a PE protocol showed no pulmonary embolus, hyperinflated lung monique and some atelectasis. LABORATORY DATA: He had a sodium 137, BUN 14, creatinine 1.1 and glucose 132. His troponin 0.06. His INR was 2.3. His white blood cell count 7.3 and hemoglobin 9.1, which is unchanged from May. IMPRESSION AND RECOMMENDATIONS: 1. Shortness of breath. Suspect chronic obstructive pulmonary disease. 2. Previous transcatheter aortic valve replacement. Valve appears to be functioning normally. 3. Atrial fibrillation. Rate controlled with digoxin and diltiazem. I would continue anticoagulation, maintain an INR of 2-3. 4. History of alcohol abuse. 5. Diabetes. 6. Sleep apnea. 7. Anemia. No history of bleeding. <ELECTRONICALLY SIGNED> By: Jam Cosby MD, FACC 07/11/18 0908 0935 [id number] Branch MD, FACC /nt
[2018-07-11] MEDS ORDERED: ALLOPURINOL 10100 M1 PO (11:57)
[2018-07-11 12:00] VITALS: BP 123/48
[2018-07-11 16:34] LABS: URINE BILIRUBIN NEGATIVE (Negative); URINE BLOOD NEGATIVE (Negative); URINE CLARITY CLEAR; URINE COLOR YELLOW; URINE GLUCOSE-RANDOM NEGATIVE (Negative); URINE KETONES NEGATIVE (Negative); URINE LEUKOCYTES-REFLEX NEGATIVE (Negative); URINE NITRITE-REFLEX NEGATIVE (Negative); URINE PROTEIN NEGATIVE (Negative); URINE UROBILINOGEN 0.2 E.U./dl (0.2-1.0)
[2018-07-11 20:00] VITALS: BP 136/61
[2018-07-12 00:03] VITALS: BP 104/42
[2018-07-12 04:53] LABS: ABSOLUTE EOSINOPHILS 0.2 thou/uL (0.0-0.7); ABSOLUTE MONOCYTES 0.7 thou/uL (0.0-1.2); BASOPHILS 0.1 %; EOSINOPHILS 1.6 %; HEMATOCRIT 26.8 % (42.0-52.0); LYMPHOCYTES 9.1 %; MCH 20.2 pg (26.0-34.0); MCHC 29.7 g/dL (28.0-37.0); MCV 67.8 fL (80.0-100.0); MONOCYTES 6.8 %; NUCLEATED RBCS 0 /100WBC; PLATELET COUNT* 363 thou/uL (150-400); POLYS 82.4 %; RBC 3.96 mil/uL (4.50-6.00); RDW-CV 20.4 % (10.5-14.5); WBC 10.9 thou/uL (4.0-11.0)
[2018-07-12 05:04] LABS: ALBUMIN 2.3 g/dL (3.4-5.0); CALCIUM 8.8 mg/dL (8.5-10.1); CREATININE 1.4 mg/dL (0.6-1.3); POTASSIUM 4.3 mmol/L (3.5-5.1); TOTAL BILIRUBIN 0.6 mg/dL (<0.1-1.0); TOTAL PROTEIN 6.8 g/dL (6.4-8.2)
[2018-07-12 05:13] VITALS: BP 154/60
[2018-07-12 08:30] VITALS: BP 112/53
[2018-07-12 12:29] VITALS: BP 103/56
[2018-07-12 16:16] LABS: BF RBC 170460 /mm3
[2018-07-12 16:22] LABS: CLARITY TURBID; COLOR RED
[2018-07-12 16:23] LABS: TOTAL VOLUME 3 ml
[2018-07-12 16:26] LABS: TOTAL CELL COUNT 18115 /mm3
[2018-07-12 16:30] LABS: INR 1.8; PROTIME 18.4 Seconds (9.20-11.50)
[2018-07-12 16:36] LABS: SOURCE SYNOVIAL
[2018-07-12 16:39] LABS: BF LYMPHOCYTES 2 %; BF MONOCYTES 4 %; BF POLYS 94 %
[2018-07-12 16:50] VITALS: BP 130/52
[2018-07-12 20:00] VITALS: BP 132/60
[2018-07-13] VITALS: BP 138/40
[2018-07-13 04:52] VITALS: BP 158/71
[2018-07-13 06:03] LABS: ABSOLUTE BASOPHILS 0.1 thou/uL (0.0-0.2); ABSOLUTE LYMPHOCYTES 0.4 thou/uL (0.8-5.3); ABSOLUTE MONOCYTES 0.3 thou/uL (0.0-1.2); ABSOLUTE NEUTROPHILS 8.6 thou/uL (1.6-8.1); BASOPHILS 0.9 %; HEMATOCRIT 25.5 % (42.0-52.0); HEMOGLOBIN 7.6 gm/dL (14.0-18.0); LYMPHOCYTES 4.1 %; MCH 20.1 pg (26.0-34.0); MCHC 29.8 g/dL (28.0-37.0); MCV 67.4 fL (80.0-100.0); MONOCYTES 2.9 %; MPV 8.1 fl. (7.2-11.1); NUCLEATED RBCS 0 /100WBC; PLATELET COUNT* 378 thou/uL (150-400); POLYS 92.1 %; RBC 3.78 mil/uL (4.50-6.00); RDW-CV 20.1 % (10.5-14.5); WBC 9.3 thou/uL (4.0-11.0)
[2018-07-13 06:12] LABS: CALCIUM 9.2 mg/dL (8.5-10.1); CREATININE 1.6 mg/dL (0.6-1.3); MAGNESIUM 2.2 mg/dL (1.8-2.4); POTASSIUM 4.2 mmol/L (3.5-5.1)
[2018-07-13 06:14] LABS: INR 1.9; PROTIME 19.1 Seconds (9.20-11.50)
[2018-07-13 06:19] LABS: PREALBUMIN 10.1 mg/dL (18.0-35.7)
[2018-07-13 08:15] VITALS: BP 123/63
[2018-07-13 11:32] VITALS: BP 135/59
--- NOTE | 2018-07-13 12:42 | CON ---
[address] [address] CONSULTATION Name: ELLIOTT VALERA Room: [address] IN .R.#: [id number] Admission: 07/08/18 Attend Phys: Usha López Discharge: Date of : 36 Report #: [id number] THIS REPORT FOR: //name// CC: Caden Mcneill DATE OF SERVICE: 07/11/[address] Solorzano. INDICATION FOR CONSULTATION: Shortness of breath. HISTORY OF PRESENT ILLNESS: An 78-year-old gentleman. Past medical history does include a history of COPD as well as obstructive sleep apnea. The patient is on Trilogy while asleep long-term. He is also on oxygen long-term. He is not on prednisone long-term. The patient is anticoagulated with Coumadin long-term due to a history of atrial fibrillation. He has had multiple previous admissions to this hospital. At this time, the patient is initially admitted on 07/08. Presentation is with a high-grade fever and the patient has had a high-grade fever for several days prior to admission, which in fact has persisted since admission as well including temperature rising yesterday to 38.7 degrees Celsius. The patient also reports having had significant increase in swelling of lower extremities recently. He does complain of more shortness of breath than usual as well. However, he has only had small amounts of yellow or white sputum. There is no chest pain. He does not have any new upper respiratory complaints. He has had shoulder pain on the right side, which is long-standing. He answers to the negative for 12 questions for review of systems except as mentioned above. PAST MEDICAL HISTORY: COPD, on oxygen long-term; Trilogy while asleep long-term, not on long-term prednisone; obstructive sleep apnea. He is on anticoagulation with Coumadin at one point; anticoagulation had to be held due to hemoptysis. He is back on anticoagulation now. He is not having any current hemoptysis. Aortic valve replacement, which was done transcutaneously at . Surgery for incarcerated hernia, status post exploratory laparotomy. The patient had to be on a ventilator after this surgery, perforated bowel in the past, appendectomy, pilonidal cyst surgery, bilateral knee replacement, cataract surgery. SOCIAL HISTORY: There is an extensive history of smoking more than a pack a day for several decades, discontinued around 2-3 years ago. No known history of heavy alcohol use or illegal drug use. ALLERGIES: SULFONAMIDE ANTIBIOTICS, MORPHINE AND LISINOPRIL [place] [address] CONSULTATION Name: ELLIOTT VALERA Room: [address] IN [facility]#: [id number] Admission: 07/08/18 Attend Phys: Usha López Discharge: Date of : 38 Report #: [id number] FAMILY HISTORY: Heart disease and diabetes. PHYSICAL EXAMINATION: GENERAL: He is alert, awake and oriented, does not appear to be in any distress at this time. He is on 2 liters nasal cannula. VITAL SIGNS: He is saturating around 95%. His blood pressure is on the lower side at 123/44. He has a heart rate of 85, irregular; respiratory rate is 18. He is afebrile now with a temperature of 36.4. He had a high-grade fever yesterday up to 38.7. Body mass index is elevated to 32. HEENT: Head is normocephalic and atraumatic. Pupils are equal and reactive. The patient does have mild throat erythema. There is thrush present in his throat. NECK: Does not show raised JVP, asymmetry, mass or lymph nodes. CHEST: Symmetrical expansion on inspection and palpation. On auscultation, breath sounds are bilaterally equal, decreased. I do not hear any added sounds. HEART: Irregular. There is a minimal systolic murmur. ABDOMEN: Soft and nontender. Lower extremities show 3+ edema bilaterally. There is no calf tenderness. SKIN: Dry and intact. NEUROLOGICAL: Moves all extremities bilaterally equally and spontaneously with no focal deficit identified. LABORATORY DATA: The patient's CTA chest performed on admission is reviewed. There is no pulmonary emboli. He has vague radiopaque densities bilaterally, which could indicate interstitial infiltrates. These findings are new compared with the previous CT. Some of this could also be secondary to fluid overload; however, I do not see any discrete large infiltrates. The patient's CBC as well as chemistries are in [facility] and these are reviewed. Some elevation in creatinine compared with his baseline from 1.0 to 1.3 today. It was 1.4 yesterday in [facility], reviewed and noted that he has been on diuresis. Arterial blood gas consistent with acute on chronic hypoxemic respiratory failure in [facility], reviewed. His INR was initially therapeutic and is now subtherapeutic. ASSESSMENT AND PLAN: 1. Acute on chronic hypoxemic respiratory failure. The patient's decompensation at this time appears to be secondary to a high-grade fever as well as fluid overload. Why he has a high-grade fever at this time does not appear to be fully defined. He does have some interstitial infiltrates on the CT chest; however, some of this could also be secondary to fluid overload; therefore, I am not completely certain if the high-grade fever is from a lung etiology, although certainly it is possible that this is secondary to pneumonia. We will continue with Trilogy while asleep. We will also continue with oxygen and titrate according to response. 2. High-grade fever/pulmonary infiltrates. Discussion as above. I ordered [address] [place] [address] CONSULTATION Name: ELLIOTT VALERA Room: [address] IN [facility].#: [id number] Admission: 07/08/18 Attend Phys: Usha López Discharge: Date of : 38 Report #: [id number] more cultures and serologies. Suggest watching his creatinine closely while he is on vancomycin. He also has limited peripheral access. Consideration could be given to switch vancomycin to linezolid. I would defer to the infectious disease service. If the patient is to remain febrile, then one option could be to consider switching cefepime over to Levaquin, which will add atypical coverage. 3. Chronic obstructive pulmonary disease. He is on nebulized bronchodilators. He is not currently on systemic steroids. The same could be considered if his shortness of breath worsens; however, I decided to hold off for now. 4. Congestive heart failure/fluid overload. He is on diuretics prescribed by the Cardiology Service. I will add albumin, which may make the diuresis more effective and we will also protect his kidneys. Suggest watching his electrolytes closely. 5. Obstructive sleep apnea, remains on Trilogy while asleep as discussed above and will continue. 6. Thrush. I added fluconazole. 7. Atrial fibrillation. Remains on anticoagulation. INR is currently subtherapeutic, but was therapeutic on initial presentation. Thanks for this consultation. <ELECTRONICALLY SIGNED> By: Nataliia Duenas MD 07/13/18 [id number] Luo MD /nt
[2018-07-13 15:34] VITALS: BP 121/85
[2018-07-13 20:00] VITALS: BP 126/56
[2018-07-14] VITALS: BP 129/57
[2018-07-14 04:00] VITALS: BP 126/56
[2018-07-14 05:56] LABS: INR 2.7
[2018-07-14 06:09] LABS: CALCIUM 9.3 mg/dL (8.5-10.1); CREATININE 1.7 mg/dL (0.6-1.3); POTASSIUM 3.9 mmol/L (3.5-5.1)
[2018-07-14 09:00] VITALS: BP 133/52
[2018-07-14 11:13] VITALS: BP 127/74
[2018-07-14 13:39] LABS: URINE BILIRUBIN NEGATIVE (Negative); URINE BLOOD NEGATIVE (Negative); URINE CLARITY CLEAR; URINE COLOR YELLOW; URINE GLUCOSE-RANDOM NEGATIVE (Negative); URINE KETONES NEGATIVE (Negative); URINE LEUKOCYTES NEGATIVE (Negative); URINE NITRITE NEGATIVE (Negative); URINE PROTEIN NEGATIVE (Negative); URINE UROBILINOGEN 0.2 E.U./dl (0.2-1.0)
[2018-07-14 15:48] VITALS: BP 130/59
[2018-07-14] MEDS ORDERED: HUMALOG100 UNIT/1 SUBQ (16:29)
[2018-07-14] MEDS ORDERED: VENOFER200 MG/10 IVPB (16:35)
[2018-07-14] MEDS ORDERED: DYNACIN100 MG PO (18:43)
[2018-07-14] MEDS ORDERED: MAGOX 400400 MG PO (18:46)
== END 2018-07-14 17:26 | DRG 291 ==
LOC: M.ERS 10:54 → M.TBA-ER 13:56 → M.2W 13:56
PROVIDERS: Emergency Medicine Emergency Medical Services; Family Medicine; Internal Medicine Cardiovascular Disease; Internal Medicine Critical Care Medicine; Orthopaedic Surgery; Specialist; ADMIT Internal Medicine
PROC: 5A09357 Assistance with Respiratory Ventilation, Less than 24 Consecutive Hours, Continuous Positive Airway Pressure (ICD-10-PCS; principal; 2018-07-11)
PROC: 02HV33Z Insertion of Infusion Device into Superior Vena Cava, Percutaneous Approach (ICD-10-PCS; principal; 2018-07-11)
PROC: 0R9J4ZZ Drainage of Right Shoulder Joint, Percutaneous Endoscopic Approach (ICD-10-PCS; 2018-07-12)
PROC: 5A09357 Assistance with Respiratory Ventilation, Less than 24 Consecutive Hours, Continuous Positive Airway Pressure (ICD-10-PCS; 2018-07-12)
PROC: 5A09357 Assistance with Respiratory Ventilation, Less than 24 Consecutive Hours, Continuous Positive Airway Pressure (ICD-10-PCS; 2018-07-13)
PROC: 5A09357 Assistance with Respiratory Ventilation, Less than 24 Consecutive Hours, Continuous Positive Airway Pressure (ICD-10-PCS; 2018-07-14)
DX: I11.0 Hypertensive heart disease with heart failure (principal); J15.9 Unspecified bacterial pneumonia; R65.11 Systemic inflammatory response syndrome (SIRS) of non-infectious origin with acute organ dysfunction; J96.21 Acute and chronic respiratory failure with hypoxia; J98.11 Atelectasis; G93.40 Encephalopathy, unspecified; J44.0 Chronic obstructive pulmonary disease with (acute) lower respiratory infection; I50.33 Acute on chronic diastolic (congestive) heart failure; M75.51 Bursitis of right shoulder; M12.811 Other specific arthropathies, not elsewhere classified, right shoulder; M25.411 Effusion, right shoulder; E78.5 Hyperlipidemia, unspecified; Z96.653 Presence of artificial knee joint, bilateral; E11.9 Type 2 diabetes mellitus without complications; M10.9 Gout, unspecified; I48.0 Paroxysmal atrial fibrillation; D64.9 Anemia, unspecified; G47.33 Obstructive sleep apnea (adult) (pediatric); B37.9 Candidiasis, unspecified; F10.10 Alcohol abuse, uncomplicated; Z93.3 Colostomy status; Z79.1 Long term (current) use of non-steroidal anti-inflammatories (NSAID); Z79.4 Long term (current) use of insulin; Z79.899 Other long term (current) drug therapy; Z88.8 Allergy status to other drugs, medicaments and biological substances; Z88.5 Allergy status to narcotic agent; Z88.2 Allergy status to sulfonamides; Z99.81 Dependence on supplemental oxygen; Z87.891 Personal history of nicotine dependence; Z79.82 Long term (current) use of aspirin; Z82.49 Family history of ischemic heart disease and other diseases of the circulatory system; Z79.01 Long term (current) use of anticoagulants

== ENCOUNTER 2018-07-14 15:56 | Inpatient (IN) | payer MEDICARE, OTHER ==
[~2018-07-14] VITALS: Ht 172.7 cm; Wt 99.3 kg
--- NOTE | ~2018-07-14 | PLAN ---
[address] [address] REHAB UNIT PLAN OF CARE Name: ELLIOTT VALERA Room: [address] IN [facility]#: [id number] Admission: 07/14/18 Attend Phys: Josephine Frye DO Discharge: Date of : 38 Report #: [id number] THIS REPORT FOR: //name// CC: Josephine Frye DATE OF SERVICE: 07/16/2018 This is an 78-year-old male admitted to inpatient rehabilitation with severe debility, status post acute hospitalization beginning on 07/08/2018 with COPD exacerbation. He was also diagnosed with pneumonia and a shoulder infection. He did have a fever. He was also started on IV antibiotics. He does have a pacemaker. He is currently on O2 at night. He does have a right shoulder rotator cuff tear, also impeding his function. His previous level of function was modified independent to independent with activities of daily living. Current level of function is minimum assistance of 1-2 depending on therapy, activity and time of day. He is ambulating 20 feet with front-wheeled walker and assistance of therapy. He has got mild to moderate impairment of his speech language pathology and memory. MEDICAL PROGNOSIS: Good. REHABILITATION PROGNOSIS: Good. Estimated length of stay is 10-12 days with discharge disposition to the home setting where he has an appropriate house. Physical therapy will see the patient 60-90 minutes per day, 5 days per week, working on upper and lower body strength, balance, coordination, navigation, bathing, dressing and toileting. Occupational therapy will see the patient 60-90 minutes per day, 5 days per week working on upper and lower body strength, balance, coordination, navigation, bathing, dressing and toileting. Speech language pathology will work with the patient 60-90 minutes per day, 5 days per week working on comprehension, expression, social interaction, problem solving, memory. This is an overall plan of care, may change from time to time, will team weekly and make changes to plan of care as needed. By: [id number] Frye DO /patrizia
[~2018-07-14 15:56] MED LIST changes: +ALLOPURINOL 10100 M1 PO
[2018-07-14] MEDS ORDERED: HUMALOG100 UNIT/1 SUBQ (16:29)
[2018-07-14] MEDS ORDERED: VENOFER200 MG/10 IVPB (16:35)
[2018-07-14] MEDS ORDERED: DYNACIN100 MG PO (18:43)
[2018-07-14] MEDS ORDERED: MAGOX 400400 MG PO (18:46)
[2018-07-14 19:15] VITALS: BP 129/61
[2018-07-14 20:00] VITALS: BP 151/62
[2018-07-15 04:11] LABS: HEMATOCRIT 26.6 % (42.0-52.0); HEMOGLOBIN 7.9 gm/dL (14.0-18.0); MCHC 29.7 g/dL (28.0-37.0); MCV 67.3 fL (80.0-100.0); MPV 8.3 fl. (7.2-11.1); RBC 3.96 mil/uL (4.50-6.00); WBC 9.8 thou/uL (4.0-11.0)
[2018-07-15 04:13] LABS: INR 3.2; PROTIME 32.9 Seconds (9.20-11.50)
[2018-07-15 04:25] LABS: CALCIUM 8.9 mg/dL (8.5-10.1); CREATININE 1.7 mg/dL (0.6-1.3); POTASSIUM 4.2 mmol/L (3.5-5.1)
--- NOTE | 2018-07-15 05:27 | NUR ---
PT ARRIVED TO FLOOR AT APPROX 1900. PT SITTING UP IN RECLINER WATCHING TELEVISION. PT IS UNGA BUT LEFT HEARING AIDES AT HOME. ADMISSION PAPERWORK AND ADMISSION DATABASES COMPLETED. PT IS ALERT AND ORIENTED X4, POLITE AND COOPERATIVE WITH CARES. PT TRANSFERRED TO BED WITH GAIT BELT, CANE AND MIN ASSIST. PT VOIDS PER URINAL, STAFF EMPTIES. PT HAS RIGHT SHOULDER WEAKNESS R/T TORN ROTATOR CUFF BUT PT IS NOT A SURGICAL CANDIDATE. DOUBLE LUMEN PICC TO LEFT UPPER ARM, FLUSHES WELL, IRON INFUSED WITHOUT DIFFICULTY AND LABS OBTAINED. 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 SCHEDULED AND S/S INSULIN GIVEN AFTER SNACK OF MEÑO CRACKERS AND PEANUT BETTER. PT HAS LARGE HERNIA TO LEFT LOWER ABDOMEN. EDEMA TO BLE. PT WEARS TRILOGY BIPAP AT NIGHT AND WAS ON 2L NC UPON ARRIVAL FROM TELEMETRY. PT TAKES PRN HYDROCODONE FOR CHRONIC BACK PAIN. CALL LIGHT AND FREQUENTLY USED ITEMS WITHIN REACH. BED ALARM ON FOR SAFETY. HOURLY ROUNDING IN PROGRESS, WILL CONTINUE TO MONITOR.
[2018-07-15 08:09] VITALS: BP 127/53
--- NOTE | 2018-07-15 09:44 | NUR ---
Nutrition: Pt admitted to Rehab w/ COPD exacerbation. H/o COPD, DM, afib, CHF. Pt has emphysema. RD has provided pt, in past, with low Na diet education. Wt is stable since October 2016, 227#. RX: lasix, insulin, glipizide, MVI. Labs: BUN 74, cr 1.7, alb 2.3, prealb 10.1, BG 192. CHO controlled diet is ordered. Will follow weekly for po intake, labs, wt. Low nutrition risk.
--- NOTE | 2018-07-15 15:59 | NUR ---
SW met with pt to complete initial assessment, introduce self, and SW role. SW and med student, Shaq, met with pt to review team conference summary and plan for pt to continue therapies and team to reassess pt length of stay during team conference next Friday. Pt alert, oriented. Pt lives at home with his son and dtr in law. Pt known to CM due to previous acute hospital stays. Pt has needed DME and has hx with [facility] HH services. Pt received meds through [facility]. SW to continue to follow to assist with safe dc planning.
--- NOTE | 2018-07-15 18:15 | NUR ---
PT HAS PARTICIPATED WITH THERAPIES AND AMBULATES WITH WALKER,GAITBELT AND MIN ASSIST TO BATHROOM FOR BM.PT USES URINAL AT BEDSIDE. PRN FOR GENERALIZED ACHES GIVEN PER REQUEST WITH GOOD EFFECT.PT CONTINUES TO WEAR O2 AT 2L PER NC AT ALL TIMES.PICC LINE INTACT TO LT UPPER ARM.PT ON FLUID RESTRICTION AND EATS ICE AND DRINKS FLUIDS ON TRAYS. PT CONTINUES TO PROGRESS TOWARDS GOALS AND HOURLY ROUNDING CONTINUES.
[2018-07-15 21:00] VITALS: BP 127/65
--- NOTE | 2018-07-16 01:48 | NUR ---
ASSUMED CARE @ 1941-07/15-FRI.SITS IN RECLINER W/ O2 2L/NC.WATCHING TV. RED PORT PICC LINE-DOES NOT HAVE BLOOD RETURN BUT FLUSHES SLUGGISHLY. PURPLE PORT HAS GOOD BLOOD RETURN & FLUSHES GOOD @ 2099.FEET ELEVATED WHILE IN BED DUE TO EDEMA-+1 PITTING LEGS,FEET & ANKLES.WBAT RUE OBSERVED DURING TRANSFER.BED ALARM PUT ON @ 2224.TRILOGY W/ O2 2L BLED PUT ON BY RESP THERAPIST @ FOR NIGHT USE.ORAL FLIUDS LIMITED.WANTS ONLY ICE ON PITCHER. NURSE EMPTIES URINALS @ NIGHT.URINALS W/IN REACH.ON HOURLY ROUNDS.
[2018-07-16 05:41] LABS: CALCIUM 8.6 mg/dL (8.5-10.1); CREATININE 1.5 mg/dL (0.6-1.3); POTASSIUM 4.2 mmol/L (3.5-5.1)
--- NOTE | 2018-07-16 06:28 | NUR ---
SLEEPING SINCE 2300 & SLEPT GOOD ALL NIGHT.TOOK ALL VANILLA ICE CREAM HS SNACK.USED URINAL X6.SPILLED URINE X1 @ 0500.CLOTHES & COMPLETE BED CHANGED. MT @ 2100-55/MIN-REGULAR.[facility] HAS BLOOD RETURN NOW @ 0300 WHEN BLOOD FOR LAB DRAWN.TRILOGY OFF @ 0620-PER PT'S REQUEST.O2 2L/NC PUT ON.SEE PAIN MANAGEMENT @ 0624.
--- NOTE | 2018-07-16 07:30 | NUR ---
SLEEPING SINCE 2300 & SLEPT CONTINOUSLY THROUGH OUT NIGHT.TOOK ALL MEÑO CRACKERS X2 PACKAGES & 120 ML ORANGE JUICE HS SNACKS.AWAKENED @ 0640 FOR AM MEDS & TO REMOVE SCHAFFER.SCHAFFER CATHETER REMOVED @ 0640.GOMEZ CARE DONE AFTER REMOVING SCHAFFER.URINAL GIVEN TO PATIENT.PATIENT TRIED IF HE CAN REACH TO BE ABLE TO USE URINAL BY SELF.UNABLE TO REACH.INSTRUCTED TO CALL NURSE FOR ASSIST TO PLACE URINAL.RESP THERAPIST TOOK AL 150 @ 0645 BEFORE GIVING RESP.TX.RN CHECKED AL @ 0655-136/MIN-REGULAR.AT 0725-AL [id number]/MIN-REGULAR.
[2018-07-16 09:48] VITALS: BP 123/60
--- NOTE | 2018-07-16 18:57 | NUR ---
PT HAS PATIRCIPATED WITH THERAPIES AND IS REMINDED THIS AFTERNOON TO CALL FOR ASSIST WITH ALL AMBULATION. PT WAS FOUND IN DINNINGROOM GETTING SELF ICE AND WATER.AFTER SUPPER PT WENT TO BATHROOM BUT DID NOT CALL FOR ASSIST BACK TO RECLINER.PRN FOR PAIN GIVEN TODAY WITH GOOD EFFECT. PT HAS VISITED WITH AND SON THIS EVENING.BILAT NEAL HOSE ON. BG'S LOW THIS EVENING. HAS ADJUSTED INSULINS TODAY. PT WMBULATES WITH GAITBELT, WALKER AND MIN ASSIST OF 1 WITH GAIT STEADIER TODAY. PT REMAINS CONTINENT OF B+B AND CALLS FOR ASSIST TO BATHROOM.PT CONTINUES TO PROGRESS TOWARDS GOALS AND HOURLY ROUNDING CONTINUES.
[2018-07-16 20:00] VITALS: BP 133/64
--- NOTE | 2018-07-17 05:31 | NUR ---
ASSUMED CARES AT 1920. ALERT AND ORIENTED, PLEASANT. ON O2 2L NC. TRILOGY AT NIGHT. BLE EDEMA 2+. TEDS OFF. LEGS UP ONTO PILLOW. MIN ASSIST WITH GAIT BELT AND WALKER. BELL PICC FLUSHING. PT USES URINAL AND RN EMPTIED. SLEPT WELL. CALL LIGHT IN REACH. BED ALARM ON.
[2018-07-17 08:00] VITALS: BP 146/63
[2018-07-17 08:55] VITALS: BP 146/63
--- NOTE | 2018-07-17 15:41 | NUR ---
ASSUMED CARE AT 0730. ALERT ORIENTED PLEASANT COOPERATIVE. HX OF COPD EXCACERBATION AND SHOULDER ASPIRATION. HAS PICC IN L UPPER ARM FOR IV IRON INFUSIONS. TRANSFERS WITH SBA G BELT WALKER AND AMBULATES WITH THERAPIES IN HALLS. WAS MEDICATED X 1 THIS A.M. FOR C/O ACHING ALL OVER WITH SOME RELIEF STATED. VOIDS PER URINAL LARGE AMTS CLEAR YELLOW URINE. USES CALL LIGHT APPROPRIATELY FOR ASSIST. O2 ON AT 2L/M PER N/C CONTINOUS. FEEDS SELF AND HAS A GOOD APPETITE TAKES MEDS WITH WATER WITHOUT DIFFICULTY. DR. LANE HERE EARLY A.M. EDEMA BLES ELEVATED IN RECLINER WHEN NOT IN THERAPIES.
[2018-07-17 20:15] VITALS: BP 118/51
--- NOTE | 2018-07-18 01:52 | NUR ---
ASSUMED CARE @ 1936-07/17-FRIDAY.SITS IN RECLINER W/ O2 2L/NC.LE'S UP.URINALS W/IN REACH.SPILLED H20 ON FLOOR.HOUSEKEEPING MOPPED FLOOR.SEE PAIN MANAGEMENT @ 2057.ORAL FLUIDS LIMITED.TWO PORTS PICC LINE BOTH HAVE GOOD BLOOD RETURN & FLUSHES GOOD @ 2129.HAS UMBILICAL HERNIA LEFT UPPER ABD.WANTS HS RESP TX BEFORE GOING TO BED & GIVEN @ 2354.HOB UP & FEET UP WHILE IN BED.TRILOGY W/ 02 2L BLED PUT ON BY RESP THERAPIST @ 14-07/18-SAT.BED ALARM PUT ON @ 14. EDEMA-+1 PITTING RIGHT ANKLE & RIGHT FOOT.THIGH TEDS BOTH OFF @ 14.ON HOURLY ROUNDS.NURSE EMPTIES URINALS @ NIGHT.
--- NOTE | 2018-07-18 05:31 | NUR ---
SLEEPING EARLY SINCE 1937 WHILE IN RECLINER.WBAT RUE DURING TRANSFER.TOOK ALL VANILLA ICE CREAM HS SNACKS.VODED FREQUENTLY DURING NIGHT .USED URINAL X9.
[2018-07-18 08:30] VITALS: BP 129/62
[2018-07-18 11:21] LABS: INR 3.9; PROTIME 39.5 Seconds (9.20-11.50)
--- NOTE | 2018-07-18 18:13 | NUR ---
pt has participated with therapies. prn for pain given with good effect. pt alert and orientated but can be forgetfull. picc line to lt upper arm intact with both lines flushing well.pt voids large amounts per urinal,clear yellow urine. pt follows fluid restriction drinking fluids on meal trays otherwise eats ice. pt ambulates to dinningroom with gaitbelt,walker and sba. o2 continues at 2l per nc.hourly rounding continues.
[2018-07-18 20:00] VITALS: BP 134/59
[2018-07-19 05:37] LABS: INR 3.1; PROTIME 31.7 Seconds (9.20-11.50)
--- NOTE | 2018-07-19 05:56 | NUR ---
ASSUMED PT CARE AT 1930. PT SITTING UP IN RECLINER WATCHING TELEVISION. ALERT AND ORIENTED, POLITE AND COOPERATIVE WITH CARES. ON 2L 02 PER NC. PT UP WITH MIN ASSIST, GAIT BELT AND CANE TO TRANSFER TO BED. NEAL HOSE OFF. BELL PICC FLUSHES EASILY BUT CANNOT DRAW LABS FROM EITHER PORT, LAB ADVISED. PT USES URINAL OVERNIGHT, STAFF EMPTIES. PRN PAIN MEDICATION GIVEN WITH EVENING MEDS. PT WEARS TRILOGY AT NIGHT. PT SLEPT WELL. USES CALL LIGHT APPROPRIATELY. CALL LIGHT AND FREQUENTLY USED ITEMS WITHIN REACH. BED ALARM ON FOR SAFETY. HOURLY ROUNDING IN PROGRESS, WILL CONTINUE TO MONITOR.
--- NOTE | 2018-07-19 10:39 | NUR ---
DR GRAY UPDATED TO PT PICC NOT DRAWING BACK BLOOD AT THIS TIME IN EITHER LUMEN. VERBAL ORDER FOR CATHFLO UP TO 2 DOSES PER LUMEN UNTIL BLOOD RETURN IS OBTAINED PROVIDED. ORDER PLACED. WILL PROVIDE WHEN CATHFLO ARRIVES ON UNIT
--- NOTE | 2018-07-19 18:29 | NUR ---
PICC LINE WAS ABLE TO DRAW BACK 10+ML IN EACH LUMEN AT THIS TIME. NEW CAPS WERE PLACED AND LINE AND THE 10ML FROM EACH LUMEN WAS WASTED AND EACH LUMEN WAS VIGEROUSLY FLUSHED WITH 20+ML NS. LINE IS STILL SLUGGISH IN EACH LUMEN BUT THAT CAN BE ADDRESSED ON DAY SHIFT. AT THIS TIME PT HAS 2 PATENT LUMENS IN PICC LINE THAT CAN BE USED. WILL PASS ON TO NOC SHIFT
[2018-07-19 20:00] VITALS: BP 116/45
[2018-07-20 03:38] LABS: HEMATOCRIT 31.9 % (42.0-52.0); HEMOGLOBIN 9.9 gm/dL (14.0-18.0); MCH 21.2 pg (26.0-34.0); MCHC 30.8 g/dL (28.0-37.0); MCV 68.8 fL (80.0-100.0); MPV 8.5 fl. (7.2-11.1); RBC 4.65 mil/uL (4.50-6.00); RDW-CV 20.5 % (10.5-14.5); WBC 7.3 thou/uL (4.0-11.0)
[2018-07-20 03:47] LABS: CALCIUM 8.6 mg/dL (8.5-10.1); CREATININE 1.2 mg/dL (0.6-1.3); MAGNESIUM 1.9 mg/dL (1.8-2.4); PROTIME 30.4 Seconds (9.20-11.50)
--- NOTE | 2018-07-20 05:39 | NUR ---
ASSUMED PT CARE AT 1930. PT ALREADY IN BED AT SHIFT CHANGE. ALERT AND ORIENTED X4, POLITE AND COOPERATIVE WITH CARES. ON 2L 02 PER NC. NEAL HOSE OFF. IRON INFUSED PER PICC, BOTH LUMENS FLUSH WELL AND HAVE BLOOD RETURN. PT USES URINAL OVERNIGHT, STAFF EMPTIES. PRN PAIN MEDICATION THREE TIMES THIS SHIFT. PT WEARS TRILOGY AT NIGHT. PT SLEPT WELL. USES CALL LIGHT APPROPRIATELY. BED ALARM ON FOR SAFETY. CALL LIGHT AND FREQUENTLY USEDITEMS WITHIN REACH. HOURLY ROUNDING IN PROGRESS, WILL CONTINUE TO MONITOR.
[2018-07-20 07:30] VITALS: BP 130/63
--- NOTE | 2018-07-20 15:54 | NUR ---
ASSUMED CARE AT 0730. ALERT ORIENTED PLEASANT COOPERATIVE. HX OF COPD EXCACERBATION. WEARS O2 AT 2L/M PER N/C CONTINOUSLY. TRANSFERS SBA G BELT WALKER AMBULATED TO DR FOR LUNCH MEAL. APPETITE GOOD FEEDS SELF TAKES MEDS WITH WATER WITHOUT DIFFICULTY. USES CALL LIGHT APPROPRIATELY FOR ASSISTANCE. DENIES PAIN OR REQUESTS. ON FLUID RESTRICTION LIKES ICE CHIPS. PARTICIPATING IN THERAPIES THROUGHOUT THE DAY. PICC 2 LUMEN BELL FLUSHES WELL DRESSING C/D/I. UP IN RECLINER WITH BLES ELEVATED. VOIDS PER URINAL LARGE AMTS CLEAR YELLOW URINE.
[2018-07-20 20:00] VITALS: BP 120/55
[2018-07-21 05:35] LABS: INR 2.7; PROTIME 27.3 Seconds (9.20-11.50)
--- NOTE | 2018-07-21 05:39 | NUR ---
ASSUMED PT CARE AT 1930. PT ALERT AND ORIENTED X4, P0LITE AND COOPERATIVE WITH CARES. PT SITTING UP IN RECLINER AT SHIFT CHANGE. TRANSFERS WITH SBA, GAIT BELT AND WALKER. ON 2L 02 PER NC WHILE AWAKE, WEARS TRILOGY AT NIGHT. TAKES MEDS WHOLE WITH SIPS OF WATER WITHOUT DIFFICULTY. PT ON FLUID RESTRICTION, LIKES ICE CHIPS. IRON INFUSED PER PICC, BOTH LUMENS FLUSH WELL AND HAVE BLOOD RETURN. PRN PAIN MEDICATION THREE TIMES THIS SHIFT. PT SLEPT WELL. VOIDS PER URINAL, STAFF EMPTIES. NO STOOL THIS SHIFT. USES CALL LIGHT APPROPRIATELY. CALL LIGHT AND FREQUENTLY USED ITEMS WITHIN REACH. BED ALARM ON FOR SAFETY. HOURLY ROUNDING IN PROGRESS, WILL CONTINUE TO MONITOR.
[2018-07-21 08:00] VITALS: BP 113/56
--- NOTE | 2018-07-21 16:59 | NUR ---
pt has participated with therapies and ambulates with gaitbelt,walker and min assist of 1. prn for generalized pAIN given with good effect. pt does go to dinningroom for meals. pt continent of b+b ,uses urinal or toilet for bm's. o2 at 2l per nc. pt alert andorientated with occasional forgetfullness.
[2018-07-21 20:00] VITALS: BP 124/63
--- NOTE | 2018-07-22 05:47 | NUR ---
ASSUMED CARES AT 1920. ALERT AND ORIENTED. PLEASANT. O2 2L NC. TRILOGY AT NIGHT. BLE EDEMA IMPROVED. LIKES ICE CHIPS. MIN ASSIST WITH GAIT BELT AND WALKER. USED URINAL AND RN EMPTIED. BELL PICC FLUSHING WITH BLOOD RETURN. DRESSING TO PICC CHANGED. SLEPT MOST OF THE NIGHT. CALL LIGHT IN REACH AND BED ALARM ON.
[2018-07-22 06:33] LABS: PROTIME 30.5 Seconds (9.20-11.50)
[2018-07-22 08:14] VITALS: BP 153/69
--- NOTE | 2018-07-22 16:51 | NUR ---
CLAUDIA, Dr Frye, and med hortensia New met with pt to review team conference summary and plan for pt to remain on rehab unit one more week with team to reteam next Friday and to dc next Friday after team. Pt in agreement with plan. SW to continue to follow to assist with safe dc planning. Pt is standby assist to mod i with adls and mobility tasks. SW to contact pt son to offer Family Training prior to dc.
--- NOTE | 2018-07-22 17:36 | NUR ---
ASSUMED CARE AT 0730 PATIENT ALERT/ORIENTED, PAIN MEDS GIVEN FOR GENERALIZED PAIN WITH FAIR RELIEF, UP WITH WALKER/GAIT BELT STANDBY ASSIST 02 AT 2L PER NC CONTINUOUS. PARTICIPATED IN ALL THERAPIES TODAY, BED/CHAIR ALARMS IN PLACE, CALL LIGHT IN REACH, HOURLY ROUNDING COMPLETED. TO DINING ROOM FOR MEALS.
[2018-07-22 20:06] VITALS: BP 140/56
--- NOTE | 2018-07-23 00:38 | NUR ---
ASSUMED CARE AT 1929. PATIENT RESTING IN RECLINER UNTIL AROUND 2129. UP WITH SBA, GAIT BELT, WALKER, VOIDS PER URINAL AND NURSING EMPTIES. PICC LINE TO LUE PATENT AND FLUSHES WELL. O2 2L/NC CONTINUOUS. TURNS SELF. MEDICATED FOR PAIN ON PRIOR SHIFT, NO C/O PAIN AT THIS TIME. HOURLY ROUNDS CONTINUE, BED ALARM ON, CALL LITE IN REACH.
--- NOTE | 2018-07-23 05:36 | NUR ---
SLEPT MOST OF THE NIGHT EXCEPT TO VOID. TURNS SELF. VOIDS PER URINAL, NURSING EMPTIES. NO C/O PAIN. HOURLY ROUNDS CONTINUE. BED ALARM ON. CALL LITE IN REACH.
[2018-07-23 06:29] LABS: INR 2.9; PROTIME 29.4 Seconds (9.20-11.50)
[2018-07-23 08:00] VITALS: BP 115/40
--- NOTE | 2018-07-23 15:27 | NUR ---
ASSUMED CARE AT 0730. ALERT ORIENTED PLEASANT COOPERATIVE. HX OF COPD EXCACERBATION SHOULDER ASPIRATION. TRANSFERS WITH SBA G BELT WALKER WEARS O2@ 2L/M PER N/C CONTINOUSLY. FEEDS SELF AND TAKES MEDS WITHOUT DIFFICULTY. VOIDS PER URINAL LARGE AMTS. CLEAR YELLOW URINE AND AMBULATED TO BR VOIDED AND HAD LARGE BM ABLE TO DO HYGEINE AND CLOTHING ADJUSTMENTS. USES CALL LIGHT APPROPRIATELY FOR ASSIST. SITTING UP IN RECLINER AT BEDSIDE. MEDICATED X 1 FOR C/O PAIN SHOULDERS HANDS WITH SOME RELIEF STATED. ON FLUID RESTRICTION LIKES ICE CHIPS.
[2018-07-23 19:55] VITALS: BP 114/55
[2018-07-24 04:57] LABS: INR 3.9; PROTIME 39.4 Seconds (9.20-11.50)
--- NOTE | 2018-07-24 05:22 | NUR ---
ASSUMED CARE AT 1920. ALERT AND ORIENTED. PLEASANT. C/O ALL OVER PAIN. NORCO GIVEN PER REQUEST. ON O2 2L NC. TRILOGY AT NIGHT. DOUBLE LUMEN PICC TO BELL. PT USES URINAL AND NURSING EMPTIES. SLEPT OFF AND ON. CALL LIGHT IN REACH AND BED ALARM ON.
[2018-07-24 07:30] VITALS: BP 161/66
--- NOTE | 2018-07-24 17:01 | NUR ---
ASSUMED CARE AT 0730 PATIENT ALERT/ORIENTED, UP WITH WALKER/GAIT BELT ASSIST OF ONE. USES URINAL AT BEDSIDE, PARTICIPATED IN ALL THERAPIES TODAY, BED/CHAIR ALARMS IN PLACE, CALL LIGHT IN REACH, HOURLY ROUNDING COMPLETED.
[2018-07-24 19:09] VITALS: BP 133/49
--- NOTE | 2018-07-24 20:50 | NUR ---
SITTING UP IN RECLINER WATCHING TV. STATES PAIN AT A 7 BUT WILL BE OKAY WITH WAITING UNTIL CAN HAVE ANOTHER VICODIN. GOOD BLOOD RETURN FROM DOUBLE LUMEN UPPER LEFT ARM PICC LINE. TRANSFERRED FROM CHAIR TO BED WITH SBA, NO DEVICE. DIDN'T WANT TO USE THE CANE OR THE WALKER TO TRANSFER. VOIDS CLEAR/YELLOW URINE PER URINAL. TOOK MEDICATIONS WHOLE WITH WATER. SNACK PROVIDED.
--- NOTE | 2018-07-25 05:27 | NUR ---
RESTED QUIETLY WITH TRIOLOGY. UNABLE TO DRAW BLOOD FROM EITHER OF THE 2 PICC LUMENS FOR AM LAB DRAW. ATTEMPTING TO DECLOT THE TWO LUMENS PER PROTOCOL WITH CATH BRITTANIE. STARTED PROCESS AT 0438. NO RESULTS YET. WILL CONTINUE TO MONITOR. PATIENT USED URINAL THROUGHOUT THE NIGHT. CURRENTLY ON 02 2 LITERS NC. NO FURTHER COMPLAINTS OF PAIN VOICED. HOURLY ROUNDING IN PROGRESS.
[2018-07-25 07:33] VITALS: BP 130/64
--- NOTE | 2018-07-25 12:48 | NUR ---
ASSUMED CARE AT 0730. ALERT ORIENTED PLEASANT COOPERATIVE. HX OF COPD EXCACERBATION SHOULDER ASPIRATION. WEARS O2 AT 2L/M PER N/C CONTINOUSLY PARTICPATING IN THERAPIES. USES CALL LIGHT APPROPRIATELY FOR ASSISTANCE. VOIDS PER URINAL CLEAR YELLOW URINE. TRANSFERS WITH SBA G BELT WALKER AMBULATING WITH P.T. IN HALLS. FEEDS SELF APPETITE GOOD TAKES MEDS WITHOUT DIFFICULTY. WEARING NEAL HOSE BILATERALLY. FLUID RESTICTION LIKES ICE CHIPS. UP IN RECLINER AT BEDSIDE.
--- NOTE | 2018-07-25 16:59 | NUR ---
PT. REQUESTED PRN PAIN MEDS X 2 FOR C/O HANDS AND SHOULDERS PAIN. SLEEPING AT INTERVALS IN RECLINER THIS AFTERNOON AFTER THERAPIES COMPLETED. COUGHS PRODUCTIVELY AT TIMES RECEIVING BREATHING TREATMENTS PER R.T.
[2018-07-25 19:39] VITALS: BP 113/50
--- NOTE | 2018-07-26 05:50 | NUR ---
ASSUMED CARES AT 1920. ALERT AND ORIENTED. PLEASANT. ON O2 2L NC. TRILOGY AT NIGHT. NORCO GIVEN FOR PAIN. TAKES PILLS WHOLE. SBA WITH GAIT BELT AND WALKER. USED URINAL AND NURSING EMPTIED. PICC BELL WAS FLUSHED WITH BLOOD RETURN EARLIER IN THE NIGHT. BUT THIS AM WAS UNABLE TO GET ANY BLOOD RETURN. PT SLEPT WELL OTHERWISE. CALL LIGHT IN REACH AND BED ALARM ON.
[2018-07-26 07:48] VITALS: BP 128/52
--- NOTE | 2018-07-26 18:34 | NUR ---
AM ASSESSMENT AND VITAL SIGNS COMPLETED DOCUMENTED. PT ENJOYED THE DAY WATCHING FOOTBALL AND RESTING AFTER HE TOOK A SHOWER THIS AM. PT AMBULATED TO THE SHOWER AND BACK TO HIS ROOM WITH 2L/NC. PRN HYDROCODONE GIVEN AT 1730 FOR GENERALIZED PAIN. HOURLY ROUNDING AND FALL PRECAUTIONS IN PLACE.
[2018-07-26 19:40] VITALS: BP 137/57
--- NOTE | 2018-07-27 01:03 | NUR ---
ASSUMED CARE @ 1924-07/26-FRIDAY.SITTING ON RECLINER W/ O2 ON @ 2L/NC.CALLED NURSE -SPILLED ICE H20 ON FLOOR.FLOOR DRIED.SMALL FAN ON.WANTS ONLY ICE ON HIS PITCHER.TWO PORTS PICC LINE HAS GOOD BLOOD RETURN @ 2019 & FLUSHED GOOD.TWO URINALS W/IN REACH.NURSE EMPTIES URINALS @ NIGHT.BRP W/ SBA @ 1939 W/ O2 ON. HAD LARGE BM.WBAT RUE.SBA FOR ALL TRANSFERS & TOILETING.TO BED @ 2139.HOB UP.WANTS ONLY SIDERAILS X3 UP.WANTS TV ON & LIGHT ABOVE BED BOTH ON ALL NIGHT. BED ALARM PUT ON @ 2139.EDEMA-+1 PITTING FEET & ANKLES PRESENT.SEE PAIN MANAGEMENT @ 2145..ON HOURLY ROUNDS.CALLED RESP THERAPIST FOR LAST RESP TX FOR TODAY 07/26 & TO PUT PATIENT'S TRILOGY ON W/ O2 2L BLED FOR NIGHT USE.
--- NOTE | 2018-07-27 05:19 | NUR ---
SLEEPING SINCE 0 & SLEPT GOOD ALL NIGHT.AWAKENED @ 0000-07/2716-[id number] RESP TX & TO PUT ON TRILOGY W/ O2 BLED & @ 0300-TO DRAW BLOOD FROM PICC LINE FOR LAB.TOOK ALL VANILLA ICE CREAM & ONE PACKAGE MEÑO CRACKERS W/ PEANUT BUTTER HS SNACKS.BRP W/ SBA X1 @ 1940 FOR LARGE BM.USED URINAL X5 DURING NIGHT.
[2018-07-27 07:30] VITALS: BP 126/60
--- NOTE | 2018-07-27 09:35 | NUR ---
SW attempted to call pt son in preparation for team conference and to discuss plan for pt to dc home with family on Friday. No answer so SW left a detailed message to return call with any questions or comments. SW to continue to follow to assist with safe dc planning.
--- NOTE | 2018-07-27 14:09 | NUR ---
ASSUMED CARE AT 0730. ALERT ORIENTED PLEASANT COOPERATIVE. HX OF COPD EXCACERBATION. TRANSFERS WITH SBA G BELT WALKER AND AMBULATES TO BR HAD A BM ABLE TO DO HYGEINE AND CLOTHING ADJUSTMENTS. WEARS O2 AT 2/L M PER N/C CONTINOUS. USES CALL LIGHT APPROPRIATELY FOR ASSISTANCE. MEDICATED WITH PRN MED FOR NEUROPATHY HANDS ACHES X 1. VOIDS PER URINAL LARGE QUANTITIES URINE. FEEDS SELF TAKES MEDS WITHOUT DIFFICULTY.
[2018-07-27 19:50] VITALS: BP 130/56
[2018-07-28 04:12] LABS: HEMATOCRIT 32.3 % (42.0-52.0); HEMOGLOBIN 10.3 gm/dL (14.0-18.0); MCH 23.2 pg (26.0-34.0); MCHC 31.9 g/dL (28.0-37.0); MCV 72.8 fL (80.0-100.0); MPV 8.8 fl. (7.2-11.1); RBC 4.43 mil/uL (4.50-6.00); RDW-CV 31.3 % (10.5-14.5); WBC 5.2 thou/uL (4.0-11.0)
[2018-07-28 04:46] LABS: CREATININE 1.2 mg/dL (0.6-1.3); DIRECT BILIRUBIN 0.1 mg/dL (<0.1-0.3); POTASSIUM 3.5 mmol/L (3.5-5.1); TOTAL BILIRUBIN 0.4 mg/dL (<0.1-1.0); TOTAL PROTEIN 6.4 g/dL (6.4-8.2)
[2018-07-28 05:07] LABS: % SATURATION 21 % (20-39); IRON 93 ug/dL (50-175)
--- NOTE | 2018-07-28 05:20 | NUR ---
ASSUMED CARE AT 1920. ALERT AND ORIENTED. PLEASANT. C/O ALL OVER PAIN BUT MORE SO WITH HANDS. PAIN MEDS GIVEN REQUESTED. ON O2 2L NC AND TRILOGY AT NIGHT. PICC BELL IS FLUSHING WITH GOOD BLOOD RETURN. LIKES TO EAT ICE CHIPS. BLE EDEMA 1+. SBA WITH GAIT BELT AND WALKER. USED URINAL AND NURSING EMPTIED. NO ISSUES OVERNIGHT. SLEPT OFF AND ON. CALL LIGHT IN REACH AND BED ALARM ON.
[2018-07-28 08:01] VITALS: BP 125/55
--- NOTE | 2018-07-28 17:01 | NUR ---
SW met with pt son today to follow up in preparation for pt to dc home with family tomorrow and team conference. Pt son in agreement with plan and said he spoke with PT about family training. SW to continue to follow to assist with finalizing safe dc plan and arranging HH follow up services.
[2018-07-28 19:50] VITALS: BP 132/57
--- NOTE | 2018-07-29 01:11 | NUR ---
ASSUMED CARE @ 1934-07/28-.SITS IN RECLINER W/ O2 2L/NC ON.CHAIR ALARM PUT ON @ 1934.TWO PORTS PICC LINE HAS GOOD BLOOD RETURN & FLUSHED GOOD.THIGH HIGH TEDS OFF @ 2109.SBA FOR ALL TRANSFERS & TOILETING.HOB UP WHILE IN BED.WBAT RUE OBSERVED.WANTS SIDERAILS X3 UP,TV ON & LIGHT ON ALL NIGHT.TWO URINALS W/IN REACH.NURSE EMPTIES URINALS @ NIGHT.ORAL FLUIDS LIMITED.EDEMA-+1 PITTING FEET & ANKLES.PUL TX GIVEN @ 2349 & RESP.THERAPIST PUT ON TRILOGY W/ O2 2L BLED FOR NIGHT USE.ON HOURLY ROUNDS.
--- NOTE | 2018-07-29 05:23 | NUR ---
SLEEPING SINCE 2199 & SLEPT GOOD ALL NIGHT.BRP X1 FOR LARGE BM @ 1940.USED URINAL X 6.TOOK ALL VANILLA ICE CREAM W/ ONE PACKAGE MEÑO CRACKERS W/ PEANUT BUTTER HS SNACKS.FOR DISCHARGE TODAY-07/29-FRI.
[2018-07-29 08:00] VITALS: BP 138/55
[2018-07-29 13:53] VITALS: BP 146/63
--- NOTE | 2018-07-29 13:55 | NUR ---
Team conference held; CLAUDIA, Dr Frye, and med student Shaq met with pt to review team conference summary and plan for pt to dc home with family today and services to follow. Pt preference for [facility] as he had in the past; CLAUDIA called and spoke with intake of [facility] who declined referral. CLAUDIA spoke with pt who said he would have second choice of [facility]. CLAUDIA faxed referral and orders to [facility]. [phone] fax [phone]. Pt son to provide pt ride home.
[2018-07-29] MEDS ORDERED: ZAROXOLYN 5MG TA5 MG PO (15:52)
--- NOTE | 2018-07-29 17:47 | NUR ---
AM ASSESSMENT AND VITAL SIGNS COMPLETED DOCUMENTED. PT HAS BEEN PROVIDED WITH DISCHARGE INSTRUCTIONS. PICC LINE WAS DC'D AT 1430, LINE FOUND TO BE INTACT. PT IS CURRENTLY WAITNG FOR HIS SON TO PICK HIM UP.
--- NOTE | 2018-07-29 18:44 | NUR ---
PT's SON HERE, DISCHARGE INSTRUCTIONS REVIEWED WITH HIM. PT AND HIS BELONGINGS TRANSPORTED TO EXIT, ASSISTED INTO SON's CAR, DISCHARGED HOME IN STABLE CONDITION. HOME HEALTH WILL FOLLOW.
--- NOTE | 2018-08-04 13:59 | D ---
[facility] [address] [place] [address] DISCHARGE SUMMARY Name: ELLIOTT VALERA Room: [address] IN M.R.#: [id number] Admission: 07/14/18 Attend Phys: Josephine Frye DO Discharge: 07/29/18 Date of : 36 Report #: [id number] THIS REPORT FOR: //name// CC: Josephine Frye DATE OF SERVICE: 07/29/2018 DICTATED BY: ____. HOSPITAL COURSE: The patient is being discharged with a diagnosis of COPD exacerbation. He will be discharged home. He will be discharged with home health services, nursing, OT, PT and speech therapy. The patient will continue O2 per nasal cannula at home, keeping saturations above 90%. He already has his oxygen equipment at home. The patient will follow up with his PCP in 1 week. Physician notifications were given. The patient will continue on his carb controlled diet. Monitor weight gain. His limitations include fall precautions and has a forward-wheeled walker for ambulation at home. The patient will be discharged today, 07/29/2018. Medications were reviewed and reconciled by myself and are available in the MAR. Specifically, his diabetic regimen will remain as before. His furosemide 40 mg b.i.d. was changed from original 80 mg q. day furosemide prescription. The patient was started on metolazone 5 mg p.o. q. day. Prescription was given. In addition, the [facility] has an in-house Medicine team that suggested the patient decrease his glipizide dose and also try Lyrica. The patient to follow up with PCP regarding the glipizide and Lyrica. DISCHARGE PHYSICAL EXAMINATION: The patient is alert and oriented. Normal breathing movements. No cyanosis in extremities. The patient's heart rate is irregularly irregular. The patient's PICC line will be removed before discharge with current PICC line in his left upper extremity. Further physical exam findings, no focal neurologic deficits. Skin normal for race. The patient moved towards goals. The patient is modified independent for almost all activities. His son is coming in for family training later today. <ELECTRONICALLY SIGNED> By: Josephine Frye DO 08/04/18 1359 [id number] Frye DO /nt
== END 2018-07-29 18:46 | disposition home health service (06) | DRG 291 ==
LOC: M.REH 15:56
PROVIDERS: Family Medicine; Internal Medicine; Internal Medicine Cardiovascular Disease; ADMIT Physical Medicine & Rehabilitation
DX: I50.33 Acute on chronic diastolic (congestive) heart failure (principal); J96.01 Acute respiratory failure with hypoxia; N17.9 Acute kidney failure, unspecified; I13.0 Hypertensive heart and chronic kidney disease with heart failure and stage 1 through stage 4 chronic kidney disease, or unspecified chronic kidney disease; D68.59 Other primary thrombophilia; J44.1 Chronic obstructive pulmonary disease with (acute) exacerbation; M10.9 Gout, unspecified; R53.81 Other malaise; R53.1 Weakness; E11.22 Type 2 diabetes mellitus with diabetic chronic kidney disease; E78.5 Hyperlipidemia, unspecified; M19.90 Unspecified osteoarthritis, unspecified site; I48.91 Unspecified atrial fibrillation; Z96.653 Presence of artificial knee joint, bilateral; N18.3 Chronic kidney disease, stage 3 (moderate); G47.33 Obstructive sleep apnea (adult) (pediatric); D50.9 Iron deficiency anemia, unspecified; Z88.8 Allergy status to other drugs, medicaments and biological substances; Z95.2 Presence of prosthetic heart valve; Z88.2 Allergy status to sulfonamides; Z88.6 Allergy status to analgesic agent; Z79.84 Long term (current) use of oral hypoglycemic drugs; Z95.0 Presence of cardiac pacemaker; E87.70 Fluid overload, unspecified; Z79.01 Long term (current) use of anticoagulants; Z82.49 Family history of ischemic heart disease and other diseases of the circulatory system; Z83.3 Family history of diabetes mellitus; Z87.891 Personal history of nicotine dependence

== ENCOUNTER 2018-08-28 14:29 | Inpatient (IN) | payer MEDICARE, OTHER ==
[~2018-08-28] VITALS: Ht 172.7 cm; Wt 85.2 kg
--- NOTE | ~2018-08-28 | D ---
[facility] [address] [place] [address] DISCHARGE SUMMARY Name: ELLIOTT VALERA Room: [address] IN M.R.#: [id number] Admission: 08/28/18 Attend Phys: Josephine Frye DO Discharge: Date of : 36 Report #: [id number] THIS REPORT FOR: //name// CC: Josephine Mcneill DISCHARGE DIAGNOSIS: Toxic encephalopathy. DISCHARGE DISPOSITION: To home with home health, PT, OT and nursing. He also has 24/03 supervision by his sister. The patient did participate and successfully complete a modified independent level of care prior to discharge in the transitional living apartment. Home health, PT, OT and nursing. Follow up with primary care physician within 1 week. Notifications for physician were given. Maintain the same current diet. Maintain fall precautions. Medications were reviewed, reconciled by myself and available in the MAR. No new medications were started during this hospital stay. DISCHARGE PHYSICAL EXAMINATION: GENERAL: Alert, oriented, in no apparent distress. VITAL SIGNS: Reviewed and are stable. HEENT: Head atraumatic, normocephalic. Pupils equal, round, reactive. ABDOMEN: Soft, nontender, nondistended. NEUROLOGIC: Cranial nerves 2-12 are grossly intact with no focal neuro deficits, 5/5 strength in bilateral upper and lower extremities. SKIN: Warm and dry. No rashes or lesions noted. By: [id number] Frye DO /patrizia
[~2018-08-28 14:29] MED LIST changes: -CENTRUM SILVER1 EAC2 PO; +CYMBALTA30 MG PO; +MAGOX 400400 MG PO; +MULTIPLE VITAM1 EAC2 PO; +VENOFER200 MG/10 IVPB; +ZAROXOLYN 5MG TA5 MG PO
[2018-08-28] MEDS ORDERED: LIDOCAINE PAIN1 EACH TOP (14:43)
[2018-08-28] MEDS ORDERED: REFRESH CLASSI1 EACH OPHTHALMIC (14:46)
[2018-08-28] MEDS ORDERED: PREDNISONE 10 M10 MG PO (14:48)
[2018-08-28] MEDS ORDERED: AMOXICILLIN875 MG PO (14:49)
[2018-08-28 17:30] VITALS: BP 107/58
--- NOTE | 2018-08-28 18:29 | NUR ---
78 YR OLD MALE PATIENT ADMITTED TO ROOM 333 WITH TOXIC ENCEPHALOPATHY. PT HAS AN EXTENSIVE HEALTH HISTORY AND HAS BEEN HOSPITALIZED SEVERAL TIMES IN THE LAST YEAR. PT's RECENT HOSPITALIZATION WAS FOR AMS POSSIBLY CAUSED BY RECENT MEDICATION CHANGES. PT HAS BEEN BEEN A PATIENT ON REHAB WELL. PT ORIENTED TO ROOM, CALL LIGHT, BED CONTROLS AND PLAN OF CARE. ADMISSION ASSESSMENT AND HX COMPLETED. PT ORIENTED TO ROOM, BED CONTROLS AND CALL LIGHT.
[2018-08-28 20:33] VITALS: BP 114/49
--- NOTE | 2018-08-29 03:27 | NUR ---
ASSUMED CARE @ -FRIDAY.SITS IN W/C TALKING W/ SISTER.SISTER STAYING ALL NIGHT.HOB UP WHEN IN BED.TWO URINALS @ W/IN REACH.BED ALARM PUT ON @ 2199.UNDERWEAR OFF @ 2209 FOR EASE IN USING URINALS @ NIGHT.DC @ 2032-53/MIN. DC CHECKED @ 2224-72/MIN-IRREG.RECEIVING RESP.TX @ 2224.TRILOGY PUT ON BY RESP THERAPIST W/ O2 2L BLED AFTER RESP.TX.RN EMPTIES URINALS @ NIGHT.ON HOURLY ROUNDS.TECHNOLOGIST DEVELOPMENT DOING ODD HOUR ROUNDS.
[2018-08-29 05:09] LABS: INR 1.1; PROTIME 11.5 Seconds (9.20-11.50)
[2018-08-29 05:11] LABS: CALCIUM 9.2 mg/dL (8.5-10.1); CREATININE 1.1 mg/dL (0.6-1.3); POTASSIUM 3.3 mmol/L (3.5-5.1)
--- NOTE | 2018-08-29 05:22 | NUR ---
SLEPT LATE @ 2300 & SLEEPING GOOD ALL NIGHT.USED URINAL X3.BRP PER W/C W/ LOCOMOTIVE CRANE ENGINEER ASSISTING X1 BEFORE HS.TOOK ALL VANILLA ICE CREAM & MEÑO CRACKERS X1 PACKAGE W/ PEANUT BUTTER HS SNACKS.
[2018-08-29 07:01] LABS: HEMATOCRIT 37.9 % (42.0-52.0); HEMOGLOBIN 12.6 gm/dL (14.0-18.0); MCH 27.5 pg (26.0-34.0); MCHC 33.2 g/dL (28.0-37.0); MPV 8.3 fl. (7.2-11.1); RBC 4.57 mil/uL (4.50-6.00); RDW-CV 25.8 % (10.5-14.5); WBC 10.7 thou/uL (4.0-11.0)
[2018-08-29 08:20] VITALS: BP 130/58
--- NOTE | 2018-08-29 17:03 | NUR ---
PT VSS THIS SHIFT. ORDERS CHANGED BY DR BATRES AND DR MEDLEY TO REFLECT THE PT REQUEST FOR METAMUCIL AND ULTRAM FOR PAIN. PT TOLERATING AMBULATION WITH 1 WITH GAIT BELT AND WALKER. PT ON RA THIS SHIFT BUT USES TRILOGY AT [facility]. PT TOLERATING DM DIET AND HAS NO C/O REGARDING INSULIN AND BLOOD SUGAR CHECKS. PT HAS NO IV ACCESS AT THIS TIME. PT SISTER IN ROOM WITH PT THIS SHIFT. PT AND FAMILY PLESANT THIS SHIFT. PT POTASSIUM 3.3 THIS MORNING, PT RECIEVED A DOSE OF POTASSIUM OF 10MEQ THIS SHIFT. HOURLY ROUNDING MAINTAINED THIS SHIFT. WILL CONTINUE TO MONITOR AND ASSESS.
[2018-08-29 21:20] VITALS: BP 135/74
--- NOTE | 2018-08-30 02:31 | NUR ---
ASSUMED CARE @ 1939-08/29-SAT.AWAKE IN BED W/ HOB UP.BED ALARM PUT ON @ 1939. WANTS ONLY SIDERAILS X3 UP.TWO URINALS W/IN REACH.SISTER STAYING ALL NIGHT. SEE PAIN MANAGEMENT @ 2116.TRILOGY PUT ON BY RESP.THERAPIST @ 2304.SHORTS & UNDERWEAR BOTH OFF @ HS FOR EASE TO USE URINALS @ NIGHT.NURSE EMPTIES URINALS @ NIGHT.EATS ICE ALL NIGHT.ON HOURLY ROUNDS.
[2018-08-30 05:37] LABS: INR 1.1
--- NOTE | 2018-08-30 05:56 | NUR ---
SLEEPING @ 2200,0200 & 0300-1230-SUN.AWAKE MOST OF TIME.USED URINAL X9. TOOK ALL VANILLA ICE CREAM & ONE PACKAGE MEÑO CRACKERS W/ PEANUT BUTTER HS SNACKS.SEE 2ND PAIN MANAGEMENT @ 0612.
[2018-08-30 07:47] VITALS: BP 118/73
--- NOTE | 2018-08-30 17:17 | NUR ---
PATIENT REMAINS ALERT AND ORIENTED. PAIN CONTROLLED WITH TRAMADOL. LARGE BM THIS AM. METAMUCIL STARTED. AMBULATES AND TRANSFERS WITH ASSIST OF 1, GAITBELT AND WALKER. VOIDING PER URINAL. SISTER AT BEDSIDE. PATIENT INSTRUCTED TO CALL FOR ASSISTANCE WITH TRANSFERS AND AMBULATION. CALL LIGHT WITHIN REACH. WILL CONTINUE TO MONITOR.
[2018-08-30 18:34] VITALS: BP 113/63
--- NOTE | 2018-08-31 01:45 | NUR ---
ASSUMED CARE @ 1927-08/30-FRIDAY.HOB UP.WANTS ONLY SIDERAILS X3 UP.TWO URINALS W/IN REACH.BED ALARM PUT ON @ 1927.SISTER STAYING ALL NIGHT & SLEEPS IN RECLINER.RESP THERAPIST GAVE RESP.TX & PUT ON TRILOGY @ 2200-FOR NIGHT USE. NC @ 1853-50/MIN.NC-IRREG.HX-ATRIAL FIB.NC CHECKED @ 2300-68/MIN.ON HOURLY ROUNDS.DIRECTOR OF TEACHER EDUCATION STARTS ODD HOUR ROUNDS @ 0100.
--- NOTE | 2018-08-31 05:29 | NUR ---
SLEEPING @ 1927 & SINCE 0000-08/31-FRIDAY.USED URINAL X4.NURSE EMPTIES URINAL @ NIGHT.TOOK ALL VANILLA ICE CREAM & ONE PACKAGE MEÑO CRACKERS W/ PEANUT BUTTER HS SNACKS.
[2018-08-31 07:45] LABS: INR 1.1
[2018-08-31 08:00] VITALS: BP 124/69
--- NOTE | 2018-08-31 10:25 | NUR ---
Nutrition: RD familiar with ptNicolasa Rivera trilogy. Admitted to Rehab. H/o DM II, gout, CHF, ETOHism, DJD. Eating 100% of CHO count diet. Alb 2.6, prealb 16.3. +BM. Wt stable, ~200#. Will follow weekly on Rehab. Low risk.
--- NOTE | 2018-08-31 15:20 | NUR ---
Pt admitted to rehab on 08/28 from acute rehab. Pt normally resides at home with his son, Pt's sister is here from [place] to assist Pt at home. Pt is normally fairly independent at home, when he feels well. Pt has a walker, cane and trilogy at home, trilogy provided through [employer]. Pt is current with [facility]. Hx of skilled at [place]. [place]
--- NOTE | 2018-08-31 18:58 | NUR ---
AM ASSESSMENT AND VITAL SIGNS COMPLETED DOCUMENTED. PT HAS BEEN PLEASANT AND COOPERATIVE. DR MEDLEY CONTINUES TO MAKE SMALL ADJUSTMENTS IN MEDICATION REGIME TO MANAGE PAIN. PT AMBULATED TO AND FROM THE DINING ROOM FOR MEALS TODAY, TOLERATED WELL. PT REMINDED THE BREATHING TREATMENTS ARE ON AN NEEDED BASIS. FALL PRECAUTIONS AND HOURLY ROUNDING CONTINUE.
[2018-08-31 19:40] VITALS: BP 123/57
--- NOTE | 2018-09-01 01:18 | NUR ---
ASSUMED CARE @ 1936-08/31-FRIDAY.AWAKE IN BED W/ HOB UP.WATCHING TV.BED ALARM PUT ON @ 1936.WANTS ONLY SIDERAILS X3 UP.WANTS LIGHT ON & TV ALL NIGHT.URINALS W/IN REACH.SISTER STAYING ALL NIGHT.RECEIVING RESP.TX @ 2044.WANTS ULTRAM 2 TABLETS & TAKEN @ 2304 INSTEAD OF 2100.TRILOGY PUT ON BY RESP.THERAPIST @ 2335.ON HOURLY ROUNDS.
--- NOTE | 2018-09-01 05:19 | NUR ---
SLEPT LATE @ 0000-09/01/18-TU.TOOK ALL VANILLA ICE CREAM & ONE PACKAGE MEÑO CRACKERS W/ PEANUT BUTTER HS SNACKS.USED URINAL X7 DURING NIGHT. URINE ACCIDENT X1 ONLY @ 0200.GOMEZ CARE GIVEN.NOTED PINK-LEFT GROIN.MOISTURE BARRIER CREAM APPLIED @ 0200.TRILOGY OFF ALREADY @ 0400.
[2018-09-01 08:41] VITALS: BP 107/54
[2018-09-01 09:06] LABS: INR 1.1; PROTIME 11.6 Seconds (9.20-11.50)
--- NOTE | 2018-09-01 16:43 | NUR ---
ASSUMED CARE AT 0730. ALERT AND ORIENTED PLEASANT COOPERATIVE. HX OF ENCEPHALOPATHY COPD AND AFIB. TRANSFERS WITH SBA G BELT WALKER. AMBULATED TO DR KITCHEN A.M. AFTER FINISHING BREAKFAST APPETITE GOOD. SISTER HERE FROM [place] VISITING. FEEDS SELF TAKES MEDS WITH WATER WITHOUT DIFFICULTY. PARTICIPATING IN THERAPIES THROUGHOUT THE DAY. USES CALL LIGHT APPROPRIATELY FOR ASSIST. VOIDS LARGE AMTS YELLOW URINE PER URINAL ON LASIX BID. SITTING UP IN RECLINER AT BEDSIDE MUCH OF THE DAY WHEN NOT IN THERAPIES. Barb SLATER THIS A.M.
[2018-09-01 20:00] VITALS: BP 117/75
--- NOTE | 2018-09-01 23:18 | NUR ---
ASSUMED CARE AT 1930. PATIENT RESTING IN BED. SISTER IN ROOM IN RECLINER. TAKES PILLS WHOLE ALL AT ONE TIME. VOIDS PER URINAL. TURNS SELF. NO C/O PAIN. HAD VANILLA ICE CREAM, MEÑO CRACKERS, AND PEANUT BUTTER FOR HS SNACK. NOT WEARING BIPAP AT THIS WRITING BECAUSE HE WAS WAITING FOR R.T FOR HIS LAST BREATHING TX, R.T NOTIFIED. HOURLY ROUNDS CONTINUE. BED ALARM ON. CALL LITE IN REACH.
[2018-09-02 04:52] LABS: INR 1.3; PROTIME 13.4 Seconds (9.20-11.50)
--- NOTE | 2018-09-02 05:35 | NUR ---
SLEPT MOST OF THE NIGHT. VOIDED YELLOW URINE PER URINAL IN LARGE AMOUNTS. TURNS SELF. WORE TRILOGY AFTER 2330. NO C/O PAIN. SISTER SPENT THE NIGHT. HOURLY ROUNDS CONTINUE. BED ALARM ON. CALL LITE IN REACH.
[2018-09-02 08:50] VITALS: BP 115/67
--- NOTE | 2018-09-02 15:57 | NUR ---
CLAUDIA and Dr Frye met with pt and pt sister to review team conference summary and plan for pt to remain on rehab unit another week and for team to reassess pt length of stay during team conference next Friday with possibility for pt to dc home next Friday after team 09/09. Pt and pt sister in agreement with plan. Also discussed pt to work towards mod I by Friday or Friday and pt option to move to [facility] as well. SW to continue to follow to assist with safe dc planning.
[2018-09-02 20:34] VITALS: BP 100/55
--- NOTE | 2018-09-03 01:06 | NUR ---
ASSUMED CARE @ 1939-09/02-FRI.SITS IN RECLINER W/ CHAIR ALARM ON ALREADY @ 1939. SISTER STAYING ALL NIGHT.PIE CRIMPING MACHINE OPERATOR ASSISTED TO BED @ 1999.HOB UP WHILE IN BED.WANTS SIDERAILS X3 UP ONLY & LIGHT ON ALL NIGHT ABOVE HEAD.TWO URINALS W/IN REACH. RESP.TX GIVEN @ 2215 & THEN,TRILOGY PUT ON.NURSE EMPTIES URINALS @ NIGHT. LEFT GROIN-INCREASE PINK.WASHED LEFT GROIN,DRIED WELL & MOISTURE BARRIER CREAM APPLIED @ 0000-09/03-.WILL ASK DR BATRES IN AM TO ORDER NYSTATIN POWDER. SLEEPING @ 0100 & FOUND TRILOGY OFF.REFUSED TRILOGY.ON HOURLY ROUNDS.PIE CRIMPING MACHINE OPERATOR DOING ODD HOUR ROUNDS.
[2018-09-03 04:30] LABS: INR 1.6; PROTIME 16.1 Seconds (9.20-11.50)
--- NOTE | 2018-09-03 05:20 | NUR ---
SLEPT LATE @ 0100-09/03- & SLEEPING GOOD REST OF NIGHT.TOOK ALL VANILLA ICE CREAM & ONE PACKAGE MEÑO CRACKERS W/ PEANUT BUTTER HS SNACKS.USED URINAL X6.BRP W/ SBA X1 @ 9730 FOR BM.
[2018-09-03 08:42] VITALS: BP 113/77
--- NOTE | 2018-09-03 16:53 | NUR ---
PT HAS WORKED WITH THERAPIES AND CALLS FOR ASSIST TO BATHROOM NEEDS. SCHEDUALED PAIN MEDICATION GIVEN WITH GOOD EFFECT. PT CONTINENT OF B+B AND CALLS FOR ASSIST TO TOILET OR USES URINAL. PT EATS MEALS IN DINNINGROOM.PT IS ALERT AND ORIENTATED AND PROGRESSES TOWARDS GOALS. HOURLY ROUNDING CONTINUES.
[2018-09-03 20:00] VITALS: BP 122/68
[2018-09-03 20:41] VITALS: BP 122/68
--- NOTE | 2018-09-04 04:15 | NUR ---
ASSESSMENT: PT REMAIN ALERT AND ORIENT TIMES THREE, SLEEPY ALL SHIFT LONG. AT THE BEDSIDE ALL NIGHT. REQUESTED TO HAVE TRILOGY ON AT 0400. RECEIVED A HS SNACK, BS WAS 129 AT 2100. SLOW PROGRESS, WILL CONTINUE TO MONITOR.
[2018-09-04 07:34] VITALS: BP 121/76
[2018-09-04 09:11] LABS: PROTIME 20.2 Seconds (9.20-11.50)
[2018-09-04 20:20] VITALS: BP 102/64
--- NOTE | 2018-09-05 05:37 | NUR ---
ASSUMED PATIENT CARE AT 1900. PATIENT ALERT AND ORIENTED TIMES FOUR. RESTING IN BED. REQUESTED A HOSPITAL GOWN AND WAS ABLE TO UNDRES UPPER HALF OF BODY INDEPENDENTLY, ONLY REQUIRING HELP WITH TYING GOWN. MINOR COMPLAINTS OF PAIN, CONTROLLED WITH ORAL MEDICATION. HOURLY ROUNDING AND AERONAUTICAL ENGINEERING TEACHER COMPLETED DOCUMENTED.
[2018-09-05 15:08] LABS: INR 2.5; PROTIME 25.1 Seconds (9.20-11.50)
[2018-09-05 20:00] VITALS: BP 144/85
--- NOTE | 2018-09-06 05:28 | NUR ---
ASSUMED CARES AT 1920. ALERT AND ORIENTED. PLEASANT. C/O GENERALIZED PAIN. SCHEDULED TRAMADOL GIVEN. TAKES PILLS WHOLE WITHOUT ISSUES. MIN ASSIST WITH GAIT BELT AND WALKER. UP TO BATHROOM. DOES OWN CARES. USES URINAL AND NURSING EMPTIED. TRILOGY WITH O2 2L AT NIGHT. SISTER STAYED OVERNIGHT. CALL LIGHT IN REACH AND BED ALARM ON.
[2018-09-06 08:00] VITALS: BP 108/61
--- NOTE | 2018-09-06 17:18 | NUR ---
AM ASSESSMENT AND VITAL SIGNS COMPLETED DOCUMENTED. PT HAS BEEN PLEASANT AND COOPERATIVE. AM CARES DONE SITTING IN A CHAIR AT THE SINK. PT IS ABLE TO DRESS HIMSELF AND IS MOD I WITH TOILETING. PT AMBULATED AROUND THE THIRD FLOOR TWO DIFFERENT TIMES WITH NURSING, TOLERATED WELL. FALL PRECAUTIONS AND HOURLY ROUNDING CONTINUE.
[2018-09-06 22:40] VITALS: BP 118/69
--- NOTE | 2018-09-07 01:32 | NUR ---
ASSUMED CARE @ 1949-09/06-FRIDAY.AWAKE IN BED W/ HOB UP.BED ALARM PUT ON @ 1949. TWO URINALS W/IN REACH.WANTS ONLY SIDERAILS X3 UP.SEE SCHEDULED PAIN MANAGEMENT @ 2052.SISTER STAYING ALL NIGHT & SLEEPING IN RECLINER.RESP TX GIVEN & THEN TRILOGY PUT ON @ 2299 BY RESP.THERAPIST.
[2018-09-07 04:57] LABS: INR 1.8; PROTIME 18.1 Seconds (9.20-11.50)
--- NOTE | 2018-09-07 06:03 | NUR ---
SLEEPING SINCE 2099 & SLEPT GOOD ALL NIGHT.TOOK ALL VANILLA ICE CREAM & ONE PACKAGE MEÑO CRACKERS W/ PEANUT BUTTER HS SNACKS.USED URINAL X6.BRP W/ SBA X1 @ 2144 & HAD LARGE BM.
[2018-09-07 07:30] VITALS: BP 100/64
--- NOTE | 2018-09-07 12:35 | NUR ---
Nutrition: Per RN, pt had questions/concerns about his low-purine diet for when he returns home. RD educated pt on this diet last week. RD saw pt again today, in dining room, to discuss and reinforce diet. All questions answered.
--- NOTE | 2018-09-07 12:54 | NUR ---
I ASSUMED CARE OF THE PATIENT AT 0700. HE IS ALERT AND ORIENTED X4 AND IS UP WITH STAND BY ASSIST, GAIT BELT AND WALKER. HOURLY ROUNDING WAS COMPLETED AND PATIENT NEEDS ARE MET. PAIN IS MANAGED WITH PRN MEDS. BED IS IN THE LOW LOCKED POSITION WITH CALL LIGHT IN REACH. HE IS COMPLIANT WITH THERAPY AND IS PROGRESSING TOWARD GOALS. WILL CONTINUE TO MONITOR. REPORT GIVEN TO PARESH.
--- NOTE | 2018-09-07 18:23 | NUR ---
ASSUMED CARE AT 1300. PARTICIPATING IN THERAPIES THROUGHOUT THE DAY. SISTER HERE. PT. IS MOD I IN ROOM THIS AFTERNOON. DENIES CONCERNS. HOURLY ROUNDING COMPLETED.
[2018-09-07 19:16] VITALS: BP 113/67
--- NOTE | 2018-09-08 01:58 | NUR ---
ASSUMED CARE @ 1904-09/07-FRIDAY.SITS IN BSCHAIR BY WINDOW.RECEIVING PUL TX @ 2036.BRP W/ WALKER #1 @ 1999.HAD LARGE BM.MODIFIED IND NOW.SISTER STAYING ALL NIGHT.SON VISITING @ 2144.HOB UP IN BED.TWO URINALS W/IN REACH.TRILOGY PUT ON BY RESP.THERAPIST @ 5605.ON HOURLY ROUNDS.SEE SCHEDULED PAIN MANAGEMENT @ HS.NURSE EMPTIES URINALS @ NIGHT.
[2018-09-08 04:22] LABS: INR 1.8; PROTIME 17.9 Seconds (9.20-11.50)
--- NOTE | 2018-09-08 05:32 | NUR ---
SLEPT LATE @ 2300 BUT SLEPT GOOD ALL NIGHT FROM 2300 TO 0500.REQUESTED TO TURN OFF TRILOGY @ 0500.DONE.BRP X1 FOR BM @ 1999.USED URINAL X7 DURING NIGHT. TOOK ALL VANILLA ICE CREAM & ONE PACKAGE MEÑO CRACKERS W/ PEANUT BUTTER HS SNACKS.
[2018-09-08 07:59] VITALS: BP 106/58
[2018-09-08 20:27] VITALS: BP 135/54
--- NOTE | 2018-09-09 01:13 | NUR ---
ASSUMED CARE @ 1944-09/08-FRIDAY.AWAKE IN BED W/ HOB UP.TWO URINALS W/IN REACH. SEE SCHEDULED PAIN MANAGEMENT @ 2032.WANTS ONLY SIDERAILS X3 UP.SISTER STAYING ALL NIGHT & SLEEPING IN RECLINER.NYSTATIN CREAM APPLIED TO PINK LEFT GROIN @ 2139-AFTER WASHING AREA & DRYING WELL.TRILOGY PUT ON BY RESP.THERAPIST @ 2199- AFTER GIVING RESP.TX.ON HOURLY ROUNDS.INSURANCE PROCESSOR DOING ODD HOUR ROUNDS.
[2018-09-09 03:01] VITALS: BP 135/54
[2018-09-09] MEDS ORDERED: FISH OIL 1,001000 M2 PO (03:32)
[2018-09-09] MEDS ORDERED: NEURONTIN 300300 M1 PO (03:44)
[2018-09-09 04:53] LABS: INR 1.9; PROTIME 19.5 Seconds (9.20-11.50)
--- NOTE | 2018-09-09 05:29 | NUR ---
SLEPT LATE @ 2300 & SLEEPING GOOD ALL NIGHT.USED URINAL X5 DURING NIGHT. URINE ACCIDENT X1.TOOK ALL VANILLA ICE CREAM & ONE PACKAGE MEÑO CRACKERS W/ PEANUT BUTTER HS SNACKS.FOR DISCHARGE THIS PM AROUND 1500.
[2018-09-09 07:30] VITALS: BP 112/63
[2018-09-09] MEDS ORDERED: NORCO 7.5-3251 EACH PO (14:10)
--- NOTE | 2018-09-09 16:09 | NUR ---
Pt to dc home today with family and HH services to follow. SW provided referral and dc orders and med list to pt preference [facility]. Pt family to provide pt ride home.
--- NOTE | 2018-09-09 16:23 | PLAN ---
[facility] [address] [place] [address] REHAB UNIT PLAN OF CARE Name: ELLIOTT VALERA Room: [address] IN [facility].#: [id number] Admission: 08/28/18 Attend Phys: Josephine Frye DO Discharge: Date of : 36 Report #: [id number] THIS REPORT FOR: //name// CC: Josephine Mcneill This is an 78-year-old male admitted to inpatient rehabilitation to facilitate safe discharge home, status post acute hospitalization for toxic encephalopathy, both medication and metabolic in nature, bilateral gram-negative pneumonia as well as multiple medical comorbidities. Previous level of function was modified independent to independent with activities of daily living. Current level of function is minimum to moderate assistance of 1-2 depending on therapy, activity and time of day, front-wheeled walker 100 feet, ambulating, mild impairment of comprehension, expression, social interaction, problem solving and memory. Estimated length of stay is 12-14 days. MEDICAL PROGNOSIS: Good. REHABILITATION PROGNOSIS: Good. Physical therapy will see the patient 60-90 minutes per day, 5 days per week, working on upper and lower body strength, balance, coordination, navigation. Occupational therapy will work with the patient 60-90 minutes per day, 5 days per week, working on upper and lower body strength, balance, coordination, navigation, bathing, dressing, and toileting. Speech language pathology will work with the patient on memory, cognition, expression and strategies thereof. This will be for 30-90 minutes per day, 5 days per week. This is an overall plan of care, may change from time to time, we will team weekly and make changes to plan of care as needed. <ELECTRONICALLY SIGNED> By: Josephine Frye DO 09/09/18 1623 [id number] Frye DO /nt
--- NOTE | 2018-09-09 16:23 | H ---
[address] [address] HISTORY AND PHYSICAL Name: ELLIOTT VALERA Room: [address] IN M.R.#: [id number] Admission: 08/28/18 Attend Phys: Josephine Frye DO Discharge: Date of : 38 Report #: [id number] THIS REPORT FOR: //name// CC: Josephine Mcneill DATE OF SERVICE: 08/28/2018 Rehabilitation IGC is 2.1. HISTORY OF PRESENT ILLNESS: This is an 78-year-old male, admitted to inpatient rehabilitation to facilitate safe discharge home, status post acute hospitalization for toxic encephalopathy. He was noted to have confusion, altered mental status, bilateral effusions, bilateral infiltrates, encephalopathy from medication induced for his bilateral hand neuropathy and bilateral lower extremity polyneuropathy, pneumonia was found to be Gram-negative. IV antibiotics were initiated. He does have MASON, on Trilogy. His brought in his mechanical things. He is significantly debilitated, medically stable and appropriate to start with physical therapy. He is in occupational therapy, he is participating. No changes since the preadmission screening. Previous level of function was modified independent to independent with activities of daily living. Current level of function is minimum to moderate assistance of 2 depending on therapy, activity and time of day. He is ambulating 100 feet with front-wheeled walker with min assist, mild impairment of comprehension, expression, social interaction, problem solving and memory. Estimated length of stay is 12-14 days with discharge disposition to the home setting where he has a supportive spouse and an accessible housing situation. PAST MEDICAL HISTORY: Hypertension; AFib; hyperlipidemia; COPD; gout; anemia with a hemoglobin of 12.6; diabetes, uncontrolled with a random glucose of 120; right-sided cataract; bilateral shoulder OA; MASON, using Trilogy; altered mental status; CHF; bronchitis; colonic obstruction; aortic stenosis; pneumonia; history of UTI; debility; frequent hospitalizations; coronary artery disease. PAST SURGICAL HISTORY: Right shoulder surgery and a hernia repair, bilateral total knee replacements. ALLERGIES: EDIE INHIBITORS, LISINOPRIL, SULFA AND MORPHINE. SOCIAL HISTORY: Former smoker. Alcohol, weekly 1-2 beers. REVIEW OF SYSTEMS: A 14-point review of systems is done [place] [address] HISTORY AND PHYSICAL Name: ELLIOTT VALERA Room: [address]#: [id number] Admission: 08/28/18 Attend Phys: Josephine Frye DO Discharge: Date of : 38 Report #: [id number] as mentioned in the HPI, specifically no fever, chest pain, shortness of breath, abdominal pain or distention, change in bowel or change in bladder. PHYSICAL EXAMINATION: GENERAL: Alert, oriented, in no apparent distress. VITAL SIGNS: Reviewed and are stable. HEENT: Head atraumatic, normocephalic. Pupils equal, round, reactive. ABDOMEN: Soft, nontender, nondistended. NEUROLOGIC: Cranial nerves 2-12 are grossly intact with no focal neuro deficits, 5/5 strength in bilateral upper and lower extremities. SKIN: Warm and dry. No rashes or lesions noted. ASSESSMENT: 1. Toxic encephalopathy likely medication induced as well as metabolic. 2. Pneumonia with Gram-negative. 3. Bilateral upper and lower extremity polyneuropathy. 4. Uncontrolled diabetes. 5. Multiple medical comorbidities. PLAN: 1. Admission to inpatient rehabilitation to facilitate safe discharge home. 2. PT, OT, speech, language, case management, nursing and HIMS to make evaluations and recommendations. 3. Plan of care is pending. 4. We will team him weekly. 5. Pain control if that arises. <ELECTRONICALLY SIGNED> By: Josephine Frye DO 09/09/18 1623 1511 [id number] Frye DO /nt
[2018-09-09 17:06] VITALS: BP 135/54
--- NOTE | 2018-09-09 17:34 | NUR ---
PT DC HOME WITH ALL BELONGINGS. PT GIVEN 2 RX. DC INSTRUCTIONS DISCUSSED WITH PT AND SON. PT PAIN MANAGED WELL WITH ORDERED PAIN MEDS. PT UP AD COURT WITH WALKER IN ROOM.
== END 2018-09-09 17:30 | disposition home health service (06) | DRG 91 ==
LOC: M.REH 14:29
PROVIDERS: Internal Medicine; ADMIT Physical Medicine & Rehabilitation
PROC: 5A1935Z Respiratory Ventilation, Less than 24 Consecutive Hours (ICD-10-PCS; principal; 2018-08-29)
PROC: 5A09357 Assistance with Respiratory Ventilation, Less than 24 Consecutive Hours, Continuous Positive Airway Pressure (ICD-10-PCS; 2018-08-31)
PROC: 5A09357 Assistance with Respiratory Ventilation, Less than 24 Consecutive Hours, Continuous Positive Airway Pressure (ICD-10-PCS; 2018-09-01)
PROC: 5A09357 Assistance with Respiratory Ventilation, Less than 24 Consecutive Hours, Continuous Positive Airway Pressure (ICD-10-PCS; 2018-09-05)
PROC: 5A09357 Assistance with Respiratory Ventilation, Less than 24 Consecutive Hours, Continuous Positive Airway Pressure (ICD-10-PCS; 2018-09-06)
PROC: 5A09357 Assistance with Respiratory Ventilation, Less than 24 Consecutive Hours, Continuous Positive Airway Pressure (ICD-10-PCS; 2018-09-07)
PROC: 5A09357 Assistance with Respiratory Ventilation, Less than 24 Consecutive Hours, Continuous Positive Airway Pressure (ICD-10-PCS; 2018-09-09)
DX: G92 Toxic encephalopathy (principal); J69.0 Pneumonitis due to inhalation of food and vomit; G47.33 Obstructive sleep apnea (adult) (pediatric); R53.81 Other malaise; E78.5 Hyperlipidemia, unspecified; I48.91 Unspecified atrial fibrillation; J44.9 Chronic obstructive pulmonary disease, unspecified; M10.9 Gout, unspecified; D64.9 Anemia, unspecified; E11.42 Type 2 diabetes mellitus with diabetic polyneuropathy; E11.36 Type 2 diabetes mellitus with diabetic cataract; M19.012 Primary osteoarthritis, left shoulder; M19.011 Primary osteoarthritis, right shoulder; M19.90 Unspecified osteoarthritis, unspecified site; I11.0 Hypertensive heart disease with heart failure; I50.9 Heart failure, unspecified; G89.29 Other chronic pain; E11.65 Type 2 diabetes mellitus with hyperglycemia; I25.10 Atherosclerotic heart disease of native coronary artery without angina pectoris; Z96.653 Presence of artificial knee joint, bilateral; Z87.440 Personal history of urinary (tract) infections; Z88.2 Allergy status to sulfonamides; Z88.8 Allergy status to other drugs, medicaments and biological substances; Z87.891 Personal history of nicotine dependence; Z83.3 Family history of diabetes mellitus; Z82.49 Family history of ischemic heart disease and other diseases of the circulatory system; Z79.4 Long term (current) use of insulin; F10.20 Alcohol dependence, uncomplicated; Y90.9 Presence of alcohol in blood, level not specified; Z79.891 Long term (current) use of opiate analgesic

== ENCOUNTER 2018-09-18 16:27 | Inpatient (IN) | payer MEDICARE, OTHER ==
[~2018-09-18] VITALS: Ht 172.7 cm; Wt 86.0 kg
--- NOTE | ~2018-09-18 | EEG ---
[facility] [address] [place] [address] EEG STUDY REPORT Name: ELLIOTT VALERA Room: [address] IN M.R.#: [id number] Admission: 09/18/18 Attend Phys: Jesu Coronado MD Discharge: Date of : 38 Report #: [id number] THIS REPORT FOR: //name// CC: Jesu Mcneill The patient is being evaluated for altered mental status. EEG was done by placing the electrode by standard 10-20 system of electrode placement. Both referential and sequential montages were used for recording. Background activity in this patient's EEG is about 7-8 Hz and 30 microvolt. This EEG becomes slower intermittently especially frontally. Some triphasic wave also may be present. Some sharper activity is present. The patient became drowsy that is associated with bilateral slowing. Photic stimulation is unremarkable. Throughout the record, no active epileptiform activity was noticed. IMPRESSION: This is an abnormal electroencephalogram, which would be consistent with a diagnosis of encephalopathy if clinically correlated. Finding is nonspecific and can occur in multiple other etiologies and hence clinical correlation is recommended. Some tendency to have seizure activity was also noticed. Thank you very much for this referral. By: [id number] Dumont MD /nt
--- NOTE | ~2018-09-18 | EEG ---
[address] [address] EEG STUDY REPORT Name: ELLIOTT VALERA Room: [address] IN M.R.#: [id number] Admission: 09/18/18 Attend Phys: Jesu Coronado MD Discharge: Date of : 38 Report #: [id number] THIS REPORT FOR: //name// CC: Jesu Mcneill DATE OF SERVICE: 09/22/2018 This patient is being evaluated for altered mental status. EEG was done by placing the electrode by standard 10-20 system of electrode placement. Both referential and sequential montages were used for recording. Background activity in this patient's EEG is about 8-9 Hz and 30 microvolt. This is a symmetrical activity. The patient became drowsy and that is associated with bilateral slowing and vertex sharp waves. Photic stimulation is unremarkable. Throughout the record, no active epileptiform activity was noticed. This EEG is much improved since last EEG the patient had. IMPRESSION: Significant improvement in this patient's EEG since last EEG. That finding will be consistent with resolving encephalopathy. However, the finding is nonspecific and therefore, clinical correlation is recommended. By: [id number] Dumont MD /nt
[~2018-09-18 16:27] MED LIST changes: +AMOXICILLIN875 MG PO; +FISH OIL 1,001000 M2 PO; +LIDOCAINE PAIN1 EACH TOP; +NEURONTIN 300300 M1 PO; +REFRESH CLASSI1 EACH OPHTHALMIC
[2018-09-18 16:44] VITALS: BP 123/63
[2018-09-18 17:08] LABS: HEMATOCRIT 42.6 % (42.0-52.0); HEMOGLOBIN 14.5 gm/dL (14.0-18.0); MCHC 34.1 g/dL (28.0-37.0); MCV 85.1 fL (80.0-100.0); MPV 7.3 fl. (7.2-11.1); NUCLEATED RBCS 0 /100WBC; PLATELET COUNT* 292 thou/uL (150-400); RBC 5.01 mil/uL (4.50-6.00); RDW-CV 23.5 % (10.5-14.5); WBC 12.5 thou/uL (4.0-11.0)
[2018-09-18 17:17] LABS: INR 1.6; PROTIME 16.3 Seconds (9.20-11.50)
[2018-09-18 17:18] LABS: ANION GAP 7 mmol/L (7-16); BUN 39 mg/dL (7-18); CALCIUM 9.8 mg/dL (8.5-10.1); CHLORIDE 92 mmol/L (98-107); CO2 40 mmol/L (21-32); CREATININE 1.3 mg/dL (0.6-1.3); GLUCOSE 158 mg/dL (70-99); POTASSIUM 3.2 mmol/L (3.5-5.1); SODIUM 139 mmol/L (136-145)
[2018-09-18 17:29] LABS: ALKALINE PHOSPHATASE 132 U/L (46-116); LIPASE 100 U/L (73-393); NT-PRO BRAIN NAT PEPTIDE 1319 pg/mL (<300); SGOT 23 U/L (15-37); SGPT 14 U/L (30-65); TOTAL BILIRUBIN 0.9 mg/dL (<0.1-1.0); TOTAL PROTEIN 7.4 g/dL (6.4-8.2); TROPONIN-I LEVEL <0.06 ng/mL (<0.06)
[2018-09-18 17:32] LABS: URINE BILIRUBIN NEGATIVE (Negative); URINE BLOOD 1+ (Negative); URINE COLOR YELLOW; URINE GLUCOSE-RANDOM NEGATIVE (Negative); URINE KETONES NEGATIVE (Negative); URINE LEUKOCYTES-REFLEX 3+ (Negative); URINE NITRITE-REFLEX NEGATIVE (Negative); URINE PROTEIN 1+ (Negative); URINE UROBILINOGEN 0.2 E.U./dl (0.2-1.0)
[2018-09-18 17:33] LABS: URINE CLARITY HAZY
[2018-09-18 17:37] LABS: ABSOLUTE LYMPHOCYTES 0.5 thou/uL (0.8-5.3); ABSOLUTE MONOCYTES 0.6 thou/uL (0.0-1.2); ABSOLUTE NEUTROPHILS 11.4 thou/uL (1.6-8.1)
[2018-09-18 17:38] LABS: ANISOCYTOSIS 1+; MACROCYTES 1+; PLATELET ESTIMATE ADEQUATE
[2018-09-18 17:39] LABS: BACTERIA-REFLEX >30 Many /HPF (None Seen); CASTS None Seen /LPF (None Seen); CRYSTALS None Seen /LPF (None Seen); SQUAMOUS NONE SEEN /LPF (0-3); URINE RBC >20 Many /HPF (0-2); URINE WBC-REFLEX >25 Many /HPF (0-5)
[2018-09-18 19:31] VITALS: BP 124/55
[2018-09-18 19:52] VITALS: BP 93/61
[2018-09-19 00:14] VITALS: BP 111/67
[2018-09-19 03:32] VITALS: BP 130/62
[2018-09-19 04:11] LABS: ABSOLUTE LYMPHOCYTES 0.6 thou/uL (0.8-5.3); ABSOLUTE MONOCYTES 0.5 thou/uL (0.0-1.2); ABSOLUTE NEUTROPHILS 7.4 thou/uL (1.6-8.1); BASOPHILS 0.5 %; EOSINOPHILS 0.3 %; HEMATOCRIT 38.5 % (42.0-52.0); HEMOGLOBIN 13.2 gm/dL (14.0-18.0); LYMPHOCYTES 7.5 %; MCH 29.4 pg (26.0-34.0); MCHC 34.2 g/dL (28.0-37.0); MONOCYTES 5.3 %; MPV 7.4 fl. (7.2-11.1); NUCLEATED RBCS 0 /100WBC; PLATELET COUNT* 266 thou/uL (150-400); POLYS 86.4 %; RBC 4.48 mil/uL (4.50-6.00); RDW-CV 22.2 % (10.5-14.5); WBC 8.6 thou/uL (4.0-11.0)
[2018-09-19 04:36] LABS: CALCIUM 9.2 mg/dL (8.5-10.1)
[2018-09-19 04:38] LABS: POTASSIUM 2.9 mmol/L (3.5-5.1)
--- NOTE | 2018-09-19 07:30 | NUR ---
PT ADMITTED TO UNIT. ADMISSION DOCUMENTED. PT ORIENTED TO SELF ONLY, SISTER AT BEDSIDE TO HELP ANSWER QUESTIONS. PT STATES THAT HE IS IN PAIN BUT IS NOT ABLE TO STATE WHERE AND REFUSED TO TAKE ANYTHING FOR THE PAIN. PT OFFERED HEAT AND COLD AND REFUSED BOTH. PT REFUSED TO TAKE ANY MEDICATIONS. IV PATENT, FLUIDS INFUSING. POTASSIUM CAME BACK CRITICALLY LOW, NOTIFIED, ORDERS RECIEVED. POTASSIUM BEING REPLACED PER E-MAR. WILL CONTINUE WITH PLAN OF CARE.
[2018-09-19 08:00] VITALS: BP 150/69
--- NOTE | 2018-09-19 11:37 | NUR ---
INITIAL ASSESSMENT: Pt evaluated for d/c planning needs. Reviewed chart and spoke with nurse, pt and pt's sister. Pt was hospitalized at [facility] and returned home from rehab on 09/09/18 with [facility]. Pt lives with son. Sister is visiting from out of state to assist with cares. Pt has walker, cane and trilogy ([employer]). Pt is hopeful he will be able to return home on d/c from hospital. Will remain available to assist as needed.
[2018-09-19 14:43] LABS: INR 1.3; PROTIME 13.4 Seconds (9.20-11.50)
[2018-09-19 14:46] LABS: AMP/METHAMP Negative (Negative); BARBITURATES Negative (Negative); BENZODIAZEPINES Negative (Negative); COCAINE Negative (Negative); METHADONE Negative (Negative); OPIATES Negative (Negative); PCP Negative (Negative); THC Negative (Negative)
[2018-09-19] MEDS ORDERED: LEVAQUIN 500 M500 M2 PO (15:05)
--- NOTE | 2018-09-19 16:26 | NUR ---
SHIFT NOTE - PT ALERT TO SELF ONLY. PT THIS AM WAS CONSTANTLY YELLING "IT HURTS, HORSES, HORSES." PT UNABLE TO VERBALIZE ANY RATIONALE COMMENTS AT ALL THIS SHIFT. SISTER AT BEDSIDE FOR ALL OF THIS SHIFT. PT OFF UNIT THIS AM FOR CT SCAN. WILL CONTINUE TO MONITOR.
[2018-09-19 16:43] VITALS: BP 143/63
[2018-09-19 19:45] VITALS: BP 136/58
[2018-09-20 03:54] LABS: ABSOLUTE EOSINOPHILS 0.1 thou/uL (0.0-0.7); ABSOLUTE LYMPHOCYTES 0.8 thou/uL (0.8-5.3); ABSOLUTE MONOCYTES 0.7 thou/uL (0.0-1.2); ABSOLUTE NEUTROPHILS 5.6 thou/uL (1.6-8.1); BASOPHILS 0.2 %; EOSINOPHILS 0.7 %; HEMATOCRIT 38.7 % (42.0-52.0); HEMOGLOBIN 13.2 gm/dL (14.0-18.0); LYMPHOCYTES 11.3 %; MCH 29.5 pg (26.0-34.0); MCHC 34.2 g/dL (28.0-37.0); MCV 86.3 fL (80.0-100.0); MONOCYTES 9.5 %; MPV 7.3 fl. (7.2-11.1); NUCLEATED RBCS 0 /100WBC; PLATELET COUNT* 282 thou/uL (150-400); POLYS 78.3 %; RBC 4.49 mil/uL (4.50-6.00); RDW-CV 23.7 % (10.5-14.5); WBC 7.1 thou/uL (4.0-11.0)
[2018-09-20 04:05] LABS: INR 1.2
[2018-09-20 04:18] LABS: ALBUMIN 2.6 g/dL (3.4-5.0); CALCIUM 9.4 mg/dL (8.5-10.1); POTASSIUM 3.6 mmol/L (3.5-5.1); TOTAL BILIRUBIN 0.8 mg/dL (<0.1-1.0); TOTAL PROTEIN 6.8 g/dL (6.4-8.2)
--- NOTE | 2018-09-20 05:40 | NUR ---
PT AWAKE MOST OF SHIFT. ASSESSMENT DOCUMENTED. MEDS GIVEN PER E-OCT. IV PATENT, FLUIDS INFUSING. PAIN MEDS GIVEN PER E-OCT. PT YELLING OUT THIS SHIFT, BUT MORE COOPERATIVE. PT INCONTINENT THIS SHIFT. PT HAD LARGE BOWEL MOVEMENT AND SMEARED IT ALL OVER HIMSELF AND BED. PT CLEANED UP. WILL CONTINUE WITH PLAN OF CARE.
[2018-09-20 06:23] LABS: ANISOCYTOSIS 1+; PLATELET ESTIMATE ADEQUATE
[2018-09-20 08:00] VITALS: BP 148/74
--- NOTE | 2018-09-20 10:10 | NUR ---
POC GLUCOSE AT 0900 RESULT OF 32 IS INCORRECT. THIS WAS ON A DIFFERENT PATIENT.
[2018-09-20 12:00] VITALS: BP 122/70
--- NOTE | 2018-09-20 12:26 | EKG ---
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: Rocky HOWARD : 1940 Requested By: Eliecer Rincon Order Number: [id number] MD: Jam Cosby Measurements Intervals Baldwin Rate: 93 P: RI: QRS: -49 QRSD: 95 T: 92 QT: 299 QTc: 372 Interpretive Statements Atrial fibrillation Inferior infarct, old Anterior infarct, old Lateral leads are also involved Baseline wander in lead(s) V3,V4 Compared to ECG 08/23/2018 21:42:12 No significant changes Electronically Signed On 09-20-2018 12:26:15 TWILL CUTTER by Jam Cosby [email or web address] <ELECTRONICALLY SIGNED> By: Jam Cosby MD, FACC 09/20/18 1226 1649 1649 Jam Cosby MD, [facility] /EPI
--- NOTE | 2018-09-20 16:40 | NUR ---
SHIFT NOTE - PT ALERT BUT DISORIENTED X 4. GIVEN GEODON 10MG X 1 IM PER THIS SHIFT. PT SLEPT FOR 2-3 HOURS THIS SHIFT. SISTER AT BEDSIDE. BED ALARM SET.
[2018-09-20 16:45] VITALS: BP 122/60
[2018-09-20 20:30] VITALS: BP 139/73
[2018-09-21 00:04] VITALS: BP 137/81
[2018-09-21 03:44] VITALS: BP 135/73
[2018-09-21 04:24] LABS: ABSOLUTE EOSINOPHILS 0.1 thou/uL (0.0-0.7); ABSOLUTE LYMPHOCYTES 0.9 thou/uL (0.8-5.3); ABSOLUTE MONOCYTES 0.6 thou/uL (0.0-1.2); ABSOLUTE NEUTROPHILS 6.2 thou/uL (1.6-8.1); BASOPHILS 0.4 %; EOSINOPHILS 1.5 %; LYMPHOCYTES 11.5 %; MCH 29.7 pg (26.0-34.0); MCHC 34.4 g/dL (28.0-37.0); MCV 86.3 fL (80.0-100.0); MONOCYTES 7.5 %; MPV 7.6 fl. (7.2-11.1); NUCLEATED RBCS 0 /100WBC; PLATELET COUNT* 331 thou/uL (150-400); POLYS 79.1 %; RBC 4.05 mil/uL (4.50-6.00); RDW-CV 22.2 % (10.5-14.5); WBC 7.8 thou/uL (4.0-11.0)
[2018-09-21 04:40] LABS: INR 1.2; PROTIME 12.5 Seconds (9.20-11.50)
[2018-09-21 04:43] LABS: PREALBUMIN 14.2 mg/dL (18.0-35.7)
[2018-09-21 05:02] LABS: ALBUMIN 2.5 g/dL (3.4-5.0); CALCIUM 9.3 mg/dL (8.5-10.1); CREATININE 1.1 mg/dL (0.6-1.3); POTASSIUM 3.6 mmol/L (3.5-5.1); TOTAL BILIRUBIN 0.6 mg/dL (<0.1-1.0); TOTAL PROTEIN 6.8 g/dL (6.4-8.2)
[2018-09-21 05:58] LABS: PLATELET ESTIMATE ADEQUATE
[2018-09-21 05:59] LABS: ANISOCYTOSIS 1+; POIKILOCYTOSIS 1+; POLYCHROMASIA 1+
--- NOTE | 2018-09-21 06:09 | NUR ---
PT SLEPT ON AND OFF THIS SHIFT. ASSESSMENT DOCUMENTED. MEDS GIVEN PER E-MAR. IV PATENT, FLUIDS INFUSING. ATTEMPTED TO GIVE PILLS WHOLE IN APPLESAUCE AND PT CHEEKED PILLS. TELE MONITOR IN PLACE READING AFIB WITH PVC'S. PT INCONTINENT THORUGH NIGHT. PT WORE TRILOGY ON AND OFF THROUGH NIGHT. WILL CONTINUE WITH PLAN OF CARE.
--- NOTE | 2018-09-21 06:47 | NUR ---
ATTEMTED TO GIVE AM PROTONIX, PT SPIT IT BACK OUT.
[2018-09-21 08:20] VITALS: BP 149/80
[2018-09-21 12:00] VITALS: BP 114/75
[2018-09-21 16:00] VITALS: BP 110/65
--- NOTE | 2018-09-21 19:02 | NUR ---
PATIENT WAS AWAKE AND DISORIENTED THIS AM. PATIENT HAS SLOWLY BECAME MORE ALERT THIS AFTERNOON, STILL HAS PERIODS OF CONFUSION. CONTINUES ON LICENSED ESTHETICIAN, TRACING AFIB WITH OCCASIONAL PVCs. AFEBRILE THIS SHIFT. CONTINUES ON IV ANTIBIOTICS AND IV FLUIDS. URINE CULTURE RESULTED, ANTIBIOTICS SUSCEPTIBLE. PATIENT INCONTINENT OF URINE AT TIMES AND ABLE TO USE URINAL THIS AFTERNOON. PATIENT'S COCCYX RED, BARRIER CREAM APPLIED, SKIN BLANCHES. PATIENT ENCOURAGED TO TURN, EDUCATION PROVIDED AND HEELS ELEVATED. PATIENT'S BLOOD SUGARS MONITORED, NO SS INSULIN NEEDED THIS SHIFT. PATIENT HAD EEG AND MRI COMPLETED THIS SHIFT. PATIENT REFUSED AND SPIT MOST OF MEDICINES OUT THIS AM, ABLE TO TAKE AFTERNOON AND EVENING MEDS WITHOUT DIFFICULTY. PATIENT'S SISTER AT BEDSIDE THROUGHOUT THE SHIFT. FALL PRECAUTIONS IN PLACE. HOURLY ROUNDING COMPLETED. CALL LIGHT WITHIN REACH. WILL CONTINUE WITH PLAN OF CARE.
[2018-09-21 20:30] VITALS: BP 131/82
[2018-09-22 00:19] VITALS: BP 117/56
[2018-09-22 03:49] VITALS: BP 116/64
[2018-09-22 05:06] LABS: HEMATOCRIT 35.3 % (42.0-52.0); HEMOGLOBIN 12.1 gm/dL (14.0-18.0); MCH 29.6 pg (26.0-34.0); MCHC 34.4 g/dL (28.0-37.0); MPV 7.8 fl. (7.2-11.1); NUCLEATED RBCS 0 /100WBC; PLATELET COUNT* 359 thou/uL (150-400); RBC 4.11 mil/uL (4.50-6.00); RDW-CV 21.7 % (10.5-14.5); WBC 6.8 thou/uL (4.0-11.0)
[2018-09-22 05:19] LABS: CALCIUM 8.9 mg/dL (8.5-10.1); CREATININE 1.1 mg/dL (0.6-1.3); POTASSIUM 3.9 mmol/L (3.5-5.1)
[2018-09-22 05:22] LABS: INR 1.2; PROTIME 12.7 Seconds (9.20-11.50)
--- NOTE | 2018-09-22 06:10 | NUR ---
PT SLEPT MOST OF SHIFT. ASSESSMENT DOCUMENTED. MEDS GIVEN PER E-OCT. IV PATENT, FLUIDS INFUSING. PT REPORTED HIS NORMAL PAIN. PT MORE ALERT AND ORIENTED THIS SHIFT AND CONVERSING MORE. PT INCONTINENT OF URINE BUT ABLE TO SAY WHEN HE NEEDS TO HAVE A BOWEL MOVEMENT THIS SHIFT. PT USING CALL LIGHT APPRORIATLY THIS MORNING. SISTER REMAINED AT BEDSIDE. WILL CONTINUE WITH PLAN OF CARE.
[2018-09-22 07:15] LABS: ABSOLUTE LYMPHOCYTES 0.5 thou/uL (0.8-5.3); ABSOLUTE MONOCYTES 0.3 thou/uL (0.0-1.2); ABSOLUTE NEUTROPHILS 6.1 thou/uL (1.6-8.1); ANISOCYTOSIS 1+; PLATELET ESTIMATE ADEQUATE
[2018-09-22 12:00] VITALS: BP 119/55
--- NOTE | 2018-09-22 16:32 | CON ---
[facility] [address] [place] [address] CONSULTATION Name: ELLIOTT VALERA Room: [address] IN .R.#: [id number] Admission: 09/18/18 Attend Phys: Jesu Coronado MD Discharge: Date of : 38 Report #: [id number] THIS REPORT FOR: //name// CC: Jesu Mcneill HISTORY OF PRESENT ILLNESS: The patient is an 78-year-old male who we have been asked to see in neurological consultation for altered mental status. The patient is unable to provide any history. His sister who is visiting from [place] is at the bedside. She states that in 2017 he was in and out of the hospital, each time it seemed like he was in and out of the hospital for something different. It was after that that his family physician told him not to drive anymore. I asked his sister if he has any difficulty with his memory and she told me no. I asked her why he was not allowed to drive, but she was not certain about that. I spoke to the nurses who have taken care of the patient before and they state that when he becomes sick, he becomes agitated. However, he seems to know where he is, but then may sometimes say inappropriate things. The patient was admitted on 09/18/2018, at that time he was admitted for fever and generalized weakness. PAST MEDICAL HISTORY: Hyperlipidemia, arthritis, COPD, hypertension, atrial fibrillation, diabetes mellitus, gout. PAST SURGICAL HISTORY: Hernia repair, right shoulder surgery, small bowel resection, bilateral total knee replacements, bilateral cataracts. MEDICATIONS AT HOME: Flomax 0.4 mg daily, Lantus insulin 50 units at night, Mucinex 600 mg b.i.d., Lasix 80 mg daily, potassium 20 mEq daily, allopurinol 300 mg daily, Singulair 10 mg daily, fluticasone nasal spray daily, artificial tears b.i.d., Protonix 40 mg daily, aspirin 81 mg daily, Caltrate daily, glucosamine 1000 mg daily, multivitamin daily, vitamin C 500 mg daily, Cardizem CD 240 mg daily, Pulmicort daily, probiotic b.i.d., levothyroxine 125 mcg daily, gemfibrozil 600 mg b.i.d., insulin 10 units subcutaneous with meals, warfarin 3 mg daily, albuterol inhaler p.r.n., Humalog insulin, magnesium oxide 400 mg daily, Zaroxolyn 5 mg daily, duloxetine 30 mg daily, fish oil daily, gabapentin 300 mg t.i.d., hydrocodone 7.5 mg q.4 hours p.r.n. pain. ALLERGIES: EDIE INHIBITORS, LISINOPRIL, SULFA, MORPHINE. VITAL SIGNS: Temperature is 37, pulse rate 95, respiratory rate 16, blood pressure 112/70, bedside pulse oximetry 98% on 2 liters nasal cannula. LABORATORY DATA: White blood cell count 7.1, hemoglobin 13.2, hematocrit 38.7, MCV 86.3, platelet count 282,000. INR 1.2. Urinalysis: 1+ protein, 1+ blood, [address] [place] [address] CONSULTATION Name: ELLIOTT VALERA Room: [address]#: [id number] Admission: 09/18/18 Attend Phys: Jesu Coronado MD Discharge: Date of : 38 Report #: [id number] 3+ leukocyte esterase. Chemistry: Sodium 143, potassium 3.6, chloride 102, carbon dioxide 35, BUN 21, creatinine 1, glucose 135. Liver functions normal. On 08/21/2018, the B12 level was 611 and on 08/18/2018 the TSH was 0.580. IMAGING STUDIES: CT scan of the head demonstrates no acute intracranial abnormalities. NEUROLOGIC EXAMINATION: The patient is sedated and unresponsive. His pupils are very small. However, he does move all four extremities with tactile stimulation. In fact, he has a tremor, a supination-pronation tremor of the right upper extremity. I tried to check him for cogwheel rigidity, but he grimaced in pain. IMPRESSION: This patient is encephalopathic. Earlier today, he had a glucose level of 32. Hypoglycemia should be avoided. I am going to discontinue some of his medications as he has such an extensive medication list. At this point, I am going to discontinue Geodon, reduce the dose of tramadol and discontinue duloxetine. I would also be cautious about administering fentanyl, although he has only received one dose at approximately 2:00 a.m. today. An electroencephalogram will be ordered to evaluate for seizure disorder as tramadol can lower the seizure threshold. An MRI of the head will also be ordered. I also called his son on the home and mobile number. I left a message on the home number asking that he call back and discussed with the nurses that I would like for him to try and find out how the patient is doing at home. Could there possibly be an underlying dementia? The patient has not driven for over a year and his sister did not seem to be clear on why he was no longer driving. Dr. Dumont will follow the patient as of Friday morning. <ELECTRONICALLY SIGNED> By: Adela Sandoval DO 09/22/18 1632 1070 [id number] Sandoval DO /patrizia
[2018-09-22 18:06] VITALS: BP 130/63
[2018-09-23] VITALS: BP 124/66
[2018-09-23 04:00] VITALS: BP 104/71
[2018-09-23 04:46] LABS: ABSOLUTE EOSINOPHILS 0.1 thou/uL (0.0-0.7); ABSOLUTE LYMPHOCYTES 1.2 thou/uL (0.8-5.3); ABSOLUTE MONOCYTES 0.5 thou/uL (0.0-1.2); ABSOLUTE NEUTROPHILS 5.2 thou/uL (1.6-8.1); BASOPHILS 0.3 %; EOSINOPHILS 0.9 %; HEMATOCRIT 33.2 % (42.0-52.0); HEMOGLOBIN 11.3 gm/dL (14.0-18.0); MCH 29.6 pg (26.0-34.0); MCHC 34.1 g/dL (28.0-37.0); MCV 86.9 fL (80.0-100.0); MPV 7.7 fl. (7.2-11.1); NUCLEATED RBCS 0 /100WBC; PLATELET COUNT* 330 thou/uL (150-400); POLYS 74.8 %; RBC 3.82 mil/uL (4.50-6.00); RDW-CV 21.6 % (10.5-14.5)
[2018-09-23 05:03] LABS: INR 1.3; PROTIME 13.4 Seconds (9.20-11.50)
[2018-09-23 05:07] LABS: ALBUMIN 2.2 g/dL (3.4-5.0); CALCIUM 8.5 mg/dL (8.5-10.1); POTASSIUM 3.6 mmol/L (3.5-5.1); TOTAL BILIRUBIN 0.3 mg/dL (<0.1-1.0); TOTAL PROTEIN 5.9 g/dL (6.4-8.2)
[2018-09-23 05:58] LABS: LARGE PLATELETS RARE; PLATELET ESTIMATE ADEQUATE
[2018-09-23 05:59] LABS: ANISOCYTOSIS 1+; POIKILOCYTOSIS 1+; POLYCHROMASIA 1+
[2018-09-23 08:05] VITALS: BP 124/61
[2018-09-23 10:25] VITALS: BP 96/55
--- NOTE | 2018-09-23 12:34 | NUR ---
CALLED AND SPOKE WITH SON BY PHONE TO EXPLAIN MEDICARE COVERAGE. PT IS NOW IN HIS LIFETIME RESERVE DAYS. AFTER EXPLANATION, SON DOES WISH TO CONTINUE TO USE LIFETIME RESERVE DAYS. IF PT NEEDS REHAB AT DISCHARGE, INPT REHAB WOULD BE COVERED UNDER THE SAME HOSPITAL LIFETIME RESERVE DAYS. PT HAS NOT BEEN AT SNF SINCE 2017 ACCORDING TO SON, HE UNDERSTANDS THAT IF PT GOES TO SNF, THAT IS PAID UNDER THE SNF BENEFIT AND DOES NOT COME OUT OF HIS LIFETIME RESERVE DAYS.
[2018-09-23 14:30] VITALS: BP 97/54
[2018-09-23 21:08] VITALS: BP 125/65
[2018-09-24 04:49] LABS: HEMATOCRIT 33.7 % (42.0-52.0); HEMOGLOBIN 11.7 gm/dL (14.0-18.0); MCH 29.5 pg (26.0-34.0); MCHC 34.7 g/dL (28.0-37.0); MCV 85.1 fL (80.0-100.0); MPV 7.7 fl. (7.2-11.1); RBC 3.96 mil/uL (4.50-6.00); RDW-CV 21.3 % (10.5-14.5)
[2018-09-24 05:06] LABS: INR 1.4; PROTIME 14.1 Seconds (9.20-11.50)
[2018-09-24 05:08] LABS: CALCIUM 8.5 mg/dL (8.5-10.1); POTASSIUM 3.7 mmol/L (3.5-5.1)
--- NOTE | 2018-09-24 06:14 | NUR ---
PT HAD C/O GENERALIZED PAIN AT THE BEGINNING OF THE SHIFT WHICH WAS RELIEVED BY ONE DOSE OF PAIN MEDICATION. PT REMAINED FULLY ORIENTED THE WHOLE SHIFT. HE HAD ONE CONTINENT BOWEL MOVEMENT. PT SLEPT THE ENTIRE NIGHT. SISTER AT BEDSIDE.
[2018-09-24 08:00] VITALS: BP 129/67
[2018-09-24 16:00] VITALS: BP 156/85
[2018-09-24 21:40] VITALS: BP 105/52
--- NOTE | 2018-09-25 05:29 | NUR ---
PT SLEPT MOST OF SHIFT. ASSESSMENT DOCUMENTED. MEDS GIVEN PER E-MAR. IV PATENT. PAIN MEDS GIVEN PER E-MAR WITH RELIEF. TRILOGY WORN THOUGH NIGHT. PT REFUSED REPOSITIONS THORUGH NIGHT. WILL CONTINUE WITH PLAN OF CARE.
[2018-09-25 05:41] LABS: ABSOLUTE EOSINOPHILS 0.1 thou/uL (0.0-0.7); ABSOLUTE LYMPHOCYTES 1.1 thou/uL (0.8-5.3); ABSOLUTE MONOCYTES 0.4 thou/uL (0.0-1.2); ABSOLUTE NEUTROPHILS 4.8 thou/uL (1.6-8.1); BASOPHILS 0.7 %; EOSINOPHILS 1.9 %; HEMATOCRIT 35.2 % (42.0-52.0); LYMPHOCYTES 16.4 %; MCH 29.2 pg (26.0-34.0); MCHC 34.2 g/dL (28.0-37.0); MCV 85.6 fL (80.0-100.0); MONOCYTES 6.5 %; MPV 7.6 fl. (7.2-11.1); NUCLEATED RBCS 0 /100WBC; PLATELET COUNT* 408 thou/uL (150-400); POLYS 74.5 %; RBC 4.11 mil/uL (4.50-6.00); RDW-CV 21.2 % (10.5-14.5); WBC 6.5 thou/uL (4.0-11.0)
[2018-09-25 05:49] LABS: CALCIUM 8.8 mg/dL (8.5-10.1); POTASSIUM 3.7 mmol/L (3.5-5.1)
[2018-09-25 05:51] LABS: INR 1.7; PROTIME 17.3 Seconds (9.20-11.50)
[2018-09-25 07:50] VITALS: BP 132/60
[2018-09-25] MEDS ORDERED: CIPRO500 MG PO (13:43)
[2018-09-25] MEDS ORDERED: TRAMADOL 50 MG50 MG PO (13:43)
[2018-09-25] MEDS ORDERED: METAMUCIL1 EAC1 PO (13:56)
[2018-09-25 13:59] VITALS: BP 132/60
[2018-09-25 14:26] VITALS: BP 132/60
--- NOTE | 2018-09-25 14:28 | NUR ---
CLAUDIA met with pt earlier and provided information about Medicare lifetime reserve days; CLAUDIA picked up letter that pt son signed and put in pt chart under self determination. Pt has copies of those documents/letters as well. Pt discussed possible dc home today and then after Dr grimm, CLAUDIA spoke with pt and pt sister about pt dc home today. Pt preference for [facility] services and CLAUDIA faxed referral and orders and med list to resume HH services.
--- NOTE | 2018-09-25 14:42 | NUR ---
Nutrition: Pt assessed for LOS. Admitted with UTI. Wt: 189#. RD recently provided pt with low purine diet educ. Possible dementia, per progress note. CHO controlled diet. BG 129, alb 2.2, prealb 19.5. Lisinopril, cipro, warfarin, fish oil. +BM. Hopeful for good meal intake. GOALS: >75% of meals consumed, good BG control. Low to mild risk.
[2018-09-25 16:00] VITALS: BP 112/69
--- NOTE | 2018-09-25 17:29 | NUR ---
PATIENT UP TO CHAIR MOST OF SHIFT. UP TO BATHROOM AND AMBULATING AROUND ROOM WITH A WALKER. IV DC'D THIS AM IT WAS LEAKING. IV ABX CHANGED TO PO, GIVEN ORDERED. PRN TRAMADOL GIVEN FOR GENERALIZED PAIN, GOOD RELIEF NOTED. PATIENT DISCHARGE TO HOME WITH HH. VERBALIZES UNDERSTANDING OF PAPERWORK AND SCRIPTS. PATIENT TAKEN OUT VIA WHEELCHAIR WITH ALL BELONGINGS. PATIENT DID NEED EXTRA ASSISTANCE GETTING INTO [facility].
== END 2018-09-25 17:20 | disposition home health service (06) | DRG 871 ==
LOC: M.ERS 16:27 → M.3W 17:50 → M.TBA-ER 17:50 → M.3W 19:52
PROVIDERS: Emergency Medicine; ADMIT Internal Medicine
DX: A41.59 Other Gram-negative sepsis (principal); G92 Toxic encephalopathy; N39.0 Urinary tract infection, site not specified; F11.20 Opioid dependence, uncomplicated; I13.0 Hypertensive heart and chronic kidney disease with heart failure and stage 1 through stage 4 chronic kidney disease, or unspecified chronic kidney disease; E78.5 Hyperlipidemia, unspecified; M19.90 Unspecified osteoarthritis, unspecified site; J44.9 Chronic obstructive pulmonary disease, unspecified; M10.9 Gout, unspecified; Z96.653 Presence of artificial knee joint, bilateral; E11.65 Type 2 diabetes mellitus with hyperglycemia; I50.9 Heart failure, unspecified; G89.29 Other chronic pain; N18.9 Chronic kidney disease, unspecified; E11.22 Type 2 diabetes mellitus with diabetic chronic kidney disease; B96.1 Klebsiella pneumoniae [K. pneumoniae] as the cause of diseases classified elsewhere; I48.91 Unspecified atrial fibrillation; Z98.42 Cataract extraction status, left eye; Z98.41 Cataract extraction status, right eye; Z88.6 Allergy status to analgesic agent; Z88.2 Allergy status to sulfonamides; Z88.8 Allergy status to other drugs, medicaments and biological substances; Z87.891 Personal history of nicotine dependence; Z82.49 Family history of ischemic heart disease and other diseases of the circulatory system; Z83.3 Family history of diabetes mellitus

== ENCOUNTER 2018-10-12 01:38 | Inpatient (IN) | payer MEDICARE, OTHER ==
[~2018-10-12] VITALS: Ht 172.7 cm; Wt 84.4 kg
[~2018-10-12 01:38] MED LIST changes: +CIPRO500 MG PO; +METAMUCIL1 EAC1 PO; +TRAMADOL 50 MG50 MG PO
[2018-10-12 01:51] VITALS: BP 120/70
[2018-10-12 02:20] LABS: ABSOLUTE BASOPHILS 0.1 thou/uL (0.0-0.2); ABSOLUTE EOSINOPHILS 0.3 thou/uL (0.0-0.7); ABSOLUTE LYMPHOCYTES 1.1 thou/uL (0.8-5.3); ABSOLUTE MONOCYTES 0.6 thou/uL (0.0-1.2); ABSOLUTE NEUTROPHILS 6.8 thou/uL (1.6-8.1); BASOPHILS 0.8 %; EOSINOPHILS 2.9 %; HEMOGLOBIN 14.9 gm/dL (14.0-18.0); LYMPHOCYTES 12.1 %; MCH 30.1 pg (26.0-34.0); MCHC 33.8 g/dL (28.0-37.0); MCV 88.9 fL (80.0-100.0); MONOCYTES 7.1 %; MPV 7.5 fl. (7.2-11.1); NUCLEATED RBCS 0 /100WBC; PLATELET COUNT* 317 thou/uL (150-400); POLYS 77.1 %; RBC 4.95 mil/uL (4.50-6.00); WBC 8.8 thou/uL (4.0-11.0)
[2018-10-12 02:24] LABS: CALCIUM 10.2 mg/dL (8.5-10.1); CREATININE 1.4 mg/dL (0.6-1.3); POTASSIUM 3.2 mmol/L (3.5-5.1)
[2018-10-12 02:26] LABS: URINE BILIRUBIN NEGATIVE (Negative); URINE BLOOD NEGATIVE (Negative); URINE CLARITY CLEAR; URINE COLOR YELLOW; URINE GLUCOSE-RANDOM NEGATIVE (Negative); URINE KETONES NEGATIVE (Negative); URINE LEUKOCYTES-REFLEX NEGATIVE (Negative); URINE NITRITE-REFLEX NEGATIVE (Negative); URINE PROTEIN NEGATIVE (Negative); URINE SPECIFIC GRAVITY 1.015 (1.005-1.030); URINE UROBILINOGEN 0.2 E.U./dl (0.2-1.0)
[2018-10-12 02:28] LABS: ALBUMIN 3.5 g/dL (3.4-5.0); TOTAL BILIRUBIN 0.5 mg/dL (<0.1-1.0); TOTAL PROTEIN 8.1 g/dL (6.4-8.2)
[2018-10-12 02:45] LABS: BE 16.1 mmol/L (-2 to +3); pH 7.531 (7.340-7.450)
[2018-10-12 02:48] LABS: PCO2 50.7 mmHg (35.0-45.0); PO2 56.4 mmHg (75.0-100.0)
[2018-10-12 03:11] LABS: NT-PRO BRAIN NAT PEPTIDE 566 pg/mL (<300); TROPONIN-I LEVEL <0.06 ng/mL (<0.06)
[2018-10-12 03:29] LABS: INR 3.2; PROTIME 32.1 Seconds (9.20-11.50)
[2018-10-12 04:35] VITALS: BP 128/59
[2018-10-12 04:51] VITALS: BP 151/43
--- NOTE | 2018-10-12 06:50 | NUR ---
RECEIVED REPORT FROM PHYSICIANS AND SURGEONSANNI ROY AT 0410. PT ARRIVED TO UNIT AT 0440 VIA CART. PT AAOX4 UPON ARRIVAL TO UNIT. HAIR MIXER IN PLACE, TRACING AFIB WITH OCCASIONAL PVCS. PT ORIENTED TO ROOM AND CALL LIGHT. SISTER AT BEDSIDE. VSS, AFEBRILE. HOURLY ROUNDING COMPLETED. FALL PRECAUTIONS IN PLACE, CALL LIGHT WITHIN REACH.
[2018-10-12 06:55] LABS: AMP/METHAMP Negative (Negative); BARBITURATES Negative (Negative); BENZODIAZEPINES Negative (Negative); COCAINE Negative (Negative); METHADONE Negative (Negative); OPIATES Negative (Negative); PCP Negative (Negative); THC Negative (Negative)
--- NOTE | 2018-10-12 08:00 | NUR ---
ASSUMED PT CARE AT 0700. PT LYING IN BED, CALL LIGHT IN REACH, SISTER AT BEDSIDE. FISHING VESSEL MATE TRACING SINUS RHYTHM, DENIES ANY PAIN AT THIS TIME. LS DIMINISHED IN ALL LOBES, O2 SAT 100% ON 2LPM, WILL TITRATE OFF OF O2 THIS SHIFT. FALL PRECAUTIONS IN PLACE. WILL CONT POC.
--- NOTE | 2018-10-12 10:33 | EKG ---
[place] [address] ELECTROCARDIOGRAM REPORT Name: ELLIOTT VALERA Room: [address] M.R.#: [id number] Admission: 10/12/18 Attend Phys: Jesu Coronado MD Discharge: Date of : 36 Report #: [id number] THIS REPORT FOR: //name// [facility] ED Test Date: 2018-10-12 Test Time: 02:09:10 Pat Name: ELLIOTT VALERA Department: Room: [address] Gender: M Transportation Logistics Internship: : 1940 Requested By: Estela Bowers Order Number: [id number] Dino MD: Sancho Branch Measurements Intervals [place] Rate: 58 P: NE: QRS: -45 QRSD: 106 T: 70 QT: 539 QTc: 530 Interpretive Statements Atrial fibrillation Ventricular premature complex Inferior infarct, old Anterior infarct, old Prolonged QT interval Compared to ECG 09/18/2018 16:49:04 Ventricular premature complex(es) now present Prolonged QT interval now present Myocardial infarct finding still present Electronically Signed On 10-12-2018 10:33:45 COOPER HELPER by Sancho Branch [email or web address] <ELECTRONICALLY SIGNED> By: Sancho Branch MD, [facility] 10/12/18 1033 8 8 Sancho Branch MD, [facility] /EPI
[2018-10-12 11:19] VITALS: BP 129/62
[2018-10-12 11:24] LABS: CALCIUM 9.3 mg/dL (8.5-10.1); CREATININE 1.2 mg/dL (0.6-1.3); MAGNESIUM 1.9 mg/dL (1.8-2.4)
[2018-10-12 11:26] LABS: POTASSIUM 2.9 mmol/L (3.5-5.1)
--- NOTE | 2018-10-12 13:40 | NUR ---
Nutrition: Pt is diabetic. Pt requested CHo controlled diet - RD changed diet order. Kitchen is serving CHO count trays.
--- NOTE | 2018-10-12 13:41 | NUR ---
Pt is A&O. Resides at home with his son. Sister continues to be in town from [place] and is with Pt in room. Pt has a walker, cane and trilogy at home. Pt is current with [facility]. Hx of acute rehab and SNF at [facility]. Pt wants to dc to home once medically stable, son wants Pt to go to skilled. Pt attempted to contact son via phone, left VM regarding disposition. CM following.
[2018-10-12 20:00] VITALS: BP 131/46
--- NOTE | 2018-10-12 20:11 | NUR ---
PT SITTING UP IN CHAIR, CALL LIGHT IN REACH, SISTER AT BEDSIDE. PT UP WITH ASSIST AND CANE, VSS, REAL ESTATE AGENCY PRINCIPAL TRACING SINUS RHYTHM WITH PVC AND PACS.
[2018-10-13] VITALS: BP 127/54
[2018-10-13 04:00] VITALS: BP 114/55
--- NOTE | 2018-10-13 05:34 | NUR ---
ASSSUMED CARE OF PT AFTER REPORT AT 1930. PT A&OX2. FORGETFUL & CONFUSED AT TIMES. REORIENTATION GIVEN. VSS. PHYSICAL ASSESSMENT COMPLETED AND CHARTED. PT ON RA/ TRILOGY AT NIGHT WITH 95% O2 SAT. PT TRACING AFIB ON TELE. PT UP STANDBY TO RESTROOM. PT C/O OF GENERALIZED BODY PAIN-PAIN MEDS GIVEN PER OCT. CALL LIGHT WITHIN REACH.
[2018-10-13 08:00] VITALS: BP 103/66
--- NOTE | 2018-10-13 08:00 | NUR ---
RECEIVED REPORT FROM NEAL AND ASSUMED CARE OF PT @ 8403.PT IS A/O X2, CONFUSED AND FORGETFUL.PT BLOOD PRESSURE LIGHTLY LOW @ 90'S/50'S.IV PATENT AND SALINE LOCKED.PT IS CALM AND COOPERATIVE WITH C/O PAIN IN SHOULDERS-MEDICATIONS AND LIDOCAINE PATCHES GIVEN.PT IS UP WITH ONE ASSIST TO THE CHAIR WITH WALKER.PHYSICAL THERAPY WORKED WITH PT.PT LEFT RESTING IN RECLINER WITH CALL LIGHT AND FALL PRECAUTIONS IN PLACE.WILL CONTINUE TO MONITOR.
--- NOTE | 2018-10-13 10:38 | NUR ---
CM spoke with Pt's son, plan for Pt to dc to [facility] at dc. Faxed referral. Pt working with therapy, will f/u with Pt later to confirm disposition. Awaiting decision to accept from [facility].
[2018-10-13 10:39] LABS: PROTIME 16.7 Seconds (9.20-11.50)
[2018-10-13 10:40] LABS: INR 1.6
[2018-10-13 10:52] LABS: CALCIUM 9.9 mg/dL (8.5-10.1); MAGNESIUM 1.8 mg/dL (1.8-2.4); POTASSIUM 3.3 mmol/L (3.5-5.1)
[2018-10-13 16:49] VITALS: BP 105/59
--- NOTE | 2018-10-13 18:19 | NUR ---
VSS.MED-SURG STATUS.PT REMAINS ON ROOM AIR WITH TRILOGY WHILE SLEEPING.PT REMAINS CONFUSED.FAMILY AT BEDSIDE.PAIN MANAGED WELL WITH PO MEDICATIONS.IV PATENT AND SALINE LOCKED.Q2 HOUR POSITION CHANGES COMPELTED.PT WORKED WITH PHYSICAL THERAPY.HOURLY ROUNDING COMPELTED FOR PT SAFETY.CALL LIGHT AND FALL PRECAUTIONS IN PLACE.WILL CONTINUE TO MONITOR FOR DURATION OF SHIFT.
[2018-10-13 20:00] VITALS: BP 111/45
--- NOTE | 2018-10-13 20:01 | NUR ---
ASSUMED CARE OF PT AFTER REPORT AT 1915. PT A&0X2-3. FORGETFUL & CONFUSED AT TIMES. VSS. GAVE REPORT TO ANKIT HUTTON. PT TRANSFERRED TO 304 VIA BED WITH BELONGINGS.
--- NOTE | 2018-10-14 01:30 | NUR ---
PT TRANSFERED TO ROOM 304 AT 1999. PT RESTLESS AND CONFUSED. PT ATTEMPTING TO CLIMB OUT OF BED FROM 2100 TO 2230 AFTER RECIEVING HS MEDS AND PRN NORCO AND ULTRAM. PT'S SISTER AT BEDSIDE ASSISTING WITH CARE. PT ON TRILOGY WHILE SLEEPING TO MAINTAIN AIRWAY AND O2 SAT > 94%.
[2018-10-14 04:20] LABS: HEMATOCRIT 37.6 % (42.0-52.0); HEMOGLOBIN 13.1 gm/dL (14.0-18.0); MCHC 34.9 g/dL (28.0-37.0); MCV 88.8 fL (80.0-100.0); MPV 7.9 fl. (7.2-11.1); RBC 4.23 mil/uL (4.50-6.00); RDW-CV 18.7 % (10.5-14.5); WBC 6.4 thou/uL (4.0-11.0)
[2018-10-14 04:36] LABS: INR 1.6; PROTIME 16.1 Seconds (9.20-11.50)
[2018-10-14 04:37] LABS: CALCIUM 9.9 mg/dL (8.5-10.1); MAGNESIUM 1.8 mg/dL (1.8-2.4); POTASSIUM 3.5 mmol/L (3.5-5.1)
--- NOTE | 2018-10-14 05:49 | NUR ---
PT NOT PROGRESSING TOWARD GOALS. PT ORIENTED TO PERSON ONLY. PT RESTLESS, IMPULSIVE. DOES NOT FOLLOW COMMANDS, DOES NOT REMEMBER COMMANDS. PT'S SISTER HAS STAYED AT BEDSIDE THE ENTIRE SHIFT ATTEMPTING TO REDIRECT, REORIENT AND CONVINCE PT TO COMPLY WITH INSTRUCTIONS TO STAY IN BED. ALL ATTEMPTS TO KEEP PT FROM CLIMBING OUT OF BED HAVE BEEN UNSUCCESSFUL. RECIEVED ORDER FOR ONE TO ONE SITTER AT BEDSIDE TO MAINTAIN PT'S SAFETY AND PREVENT HIM FROM CLIMBING OUT OF BED AND FALLING.
[2018-10-14 15:01] VITALS: BP 129/67
[2018-10-14 16:00] VITALS: BP 102/59
--- NOTE | 2018-10-14 19:05 | NUR ---
VSS-AFEBRILE. ORIENTED TO PERSON ONLY. RESTLESS, NEEDS TO CHANGE POSITION FREQUENTLY DUE TO BACK AND SHOULDER PAIN. PARTIAL RELIEF NOTED WITH PRESCRIBED PAIN MEDICATION. ADEQUATE INTAKE WITH MEALS AND FLUIDS. MULTIPLE EPISODES OF URINARY INCONTINENCE. SPENT MOST OF SHIFT IN CHAIR WITH FEET ELEVATED. NEEDS CONSTANT ORIENTATION, REMAINS IMPULSIVE. 1:1 SITTER AT BEDSIDE.
[2018-10-14 19:25] VITALS: BP 153/68
--- NOTE | 2018-10-15 01:24 | NUR ---
INITAL ASSESMENT COMPLETED AT 1924. PT SITTING IN RECLINER AT THAT TIME. ONE TO ONE SITTER AT BEDSIDE FOR SAFETY, TO PREVENT FALL OR INJURY. PT IMPULSIVE. DOES NOT REMEMBER OR FOLLOW INSTRUCTIONS. PT RESISTANT TO TAKING HS MEDS. PT'S SISTER HELPED ENCOURAGE PT TO COMPLY. PT PLACED ON O2 AT 4 LITERS AT START OF SHIFT TO MAINTAIN O2 SAT >94% WHILE AWAKE. PT PLACE ON TRILOGY PER RESPIRATORY THERAPY AFETER HS MEDS TAKEN AND PT BECAME SOMULANT. PT AROUSES INTERMITTENTLY AND ATTEMPTS TO GET UP. SITTER PREVENTING FALL.
[2018-10-15 03:30] VITALS: BP 144/61
[2018-10-15 04:20] LABS: HEMATOCRIT 40.3 % (42.0-52.0); HEMOGLOBIN 13.6 gm/dL (14.0-18.0); MCH 30.4 pg (26.0-34.0); MCHC 33.7 g/dL (28.0-37.0); MCV 90.3 fL (80.0-100.0); MPV 7.9 fl. (7.2-11.1); RBC 4.47 mil/uL (4.50-6.00); RDW-CV 18.7 % (10.5-14.5); WBC 9.9 thou/uL (4.0-11.0)
[2018-10-15 04:23] LABS: INR 1.8; PROTIME 18.7 Seconds (9.20-11.50)
[2018-10-15 04:24] LABS: CALCIUM 10.3 mg/dL (8.5-10.1); CREATININE 1.2 mg/dL (0.6-1.3); MAGNESIUM 1.9 mg/dL (1.8-2.4); POTASSIUM 3.8 mmol/L (3.5-5.1)
[2018-10-15 08:30] VITALS: BP 146/88
--- NOTE | 2018-10-15 11:33 | NUR ---
CLAUDIA received message from Elvis at [facility] requesting update on dc plan for pt. CLAUDIA called Elvsi back and updated pt status remaining in hospital pending delirium improving. Elvis said she would be unable to accept pt over the weekend but to keep her updated on pt status and she would continue to hold a bed for pt to dc to [facility] when ready. SW to continue to follow to assist with safe dc planning.
--- NOTE | 2018-10-15 16:50 | NUR ---
PATIENT SITTING UP IN CHAIR ALL SHIFT, REPOSITIONED. [address]. PATIENT ALERT BUT SLEEPING MOST OF SHIFT. PATIENT HARD TO KEEP AWAKE. 1:1 SITTER ASSISTED PATIENT WITH MEALS, TOOK PILLS CRUSHED IN OATMEAL WITH BREAKFAST. INSULIN GIVEN WITH MEALS DEPENDING ON HOW MUCH PATIENT WAS EATING. IV REMAINS SL. PRN TRAMADOL GIVEN X 1 FOR PAIN. PATIENT TAKING IN ICE CHIPS, VOIDING PER URINAL. CXR THIS EVENING, NEGATIVE.
[2018-10-15 20:00] VITALS: BP 134/59
[2018-10-16 03:54] VITALS: BP 133/69
--- NOTE | 2018-10-16 04:29 | NUR ---
PATIENT RESTED IN BED WITH SITTER AT BED SIDE. PATIENT HAD HEAVY FATIGUE. CALL LIGHT WITHIN REACH, HOURLY ROUNDING OBSERVED.
[2018-10-16 08:00] VITALS: BP 134/65
--- NOTE | 2018-10-16 09:53 | NUR ---
SW continuing to follow for pt safe dc planning. SW called to update Elvis CERVANTES at [facility] that pt to remain in hospital until possibly beginning of next week due to continued delirium. SW to provide update on Friday to assist with safe dc planning when needed.
[2018-10-16 16:00] VITALS: BP 112/52
--- NOTE | 2018-10-16 19:04 | NUR ---
PATIENT ALERT AND ORIENTED THIS SHIFT. UP TO BSC WITH GAIT BELT AND WALKER. TRAMADOL GIVEN X 2 FOR SHOULDER PAIN. 02 3L NC IN REMAINS IN PLACE. INSULIN GIVEN WITH MEALS WHEN REQUIRED. 1:1 SITTER DC'D. NO IV ACCESS, IV SITE/HAND SWOLLEN.
[2018-10-17] VITALS: BP 112/53
--- NOTE | 2018-10-17 05:36 | NUR ---
PATIENT IN RECLINER WATCHING TV AT BEGINNING OF SHIFT. PT UP TO BSC X2 TO VOID. PT USES CALL LIGHT APPROPRIATELY TO MAKE NEEDS KNOWN. SISTER IS AT BEDSIDE. PT WITH O2 @ 3 LITERS PER NC THEN ON TRILOGY AT NIGHT. PT SLEEPING IN BED DURING THE NIGHT. PT REQUESTED PAIN MEDICATION X1 AND RECEIVED TRAMODAL. PT HAS NO IV ACCESS. PT WITH BLOOD SUGAR AT 2100 = 151; HUMALOG 3 UNITS AND LANTUS 40 UNITS GIVEN. PT DENIES NEEDS AT THIS TIME. FREQUENTLY USED ITEMS AND CALL LIGHT WITHIN REACH. SIDERAILS UP X2 AND BED ALARM ON. WILL CONTINUE TO MONITOR.
[2018-10-17 08:00] VITALS: BP 120/61
[2018-10-17 16:00] VITALS: BP 141/71
--- NOTE | 2018-10-17 16:03 | NUR ---
SHIFT NOTE - PT UP IN CHAIR FOR MOST OF THE SHIFT. SISTER AT BEDSIDE FOR ALL OF THIS SHIFT. A+OX4 BUT FORGETFUL. PT UP TO BSC WITH X 1 ASSIST WITH LARGE BM. WILL CONTINUE TO MONITOR.
[2018-10-18] VITALS: BP 141/83
--- NOTE | 2018-10-18 05:46 | NUR ---
PATIENT SITTING IN RECLINER AT BEGINNING OF SHIFT; SISTER AT BEDSIDE. PT GOT TO BED WITH STANDBY ASSIST. PT ON O2 @ 3 LITERS PER NC AND TRILOGY WHILE SLEEPING. PT UP TO BSC WITH ASSIST TO VOID. PT VOIDS DARK YELLOW URINE. PT ABLE TO TAKE PILLS WITH NO PROBLEMS. PT REQUESTED ULTRAM AT HS FOR PAIN. FREQUENTLY USED ITEMS AND CALL LIGHT WITHIN REACH. SIDERAILS UPX2 AND BED ALARM ON. WILL CONTINUE TO MONITOR.
[2018-10-18 08:00] VITALS: BP 160/55
[2018-10-18 16:08] VITALS: BP 133/66
--- NOTE | 2018-10-18 17:14 | NUR ---
SHIFT NOTE - SISTER AT BEDSIDE FOR ENTIRE SHIFT. PT UP IN CHAIR FOR MOST OF CHAIR. PT ABLE TO AMBULATE WITH TO BR WITH CANE (FAIR). HAD LARGE BM. WILL CONTINUE TO MONITOR.
[2018-10-19] VITALS: BP 117/61
--- NOTE | 2018-10-19 00:20 | NUR ---
2100-PATIENT'S SISTER HAS BEEN AT BEDSIDE THIS HOSPITAL STAY. PT IS DOING VERY WELL AND IS OFF OXYGEN. PT TRANSFERS FROM CHAIR TO BED WITH STANDBY. PT'S SON AND GRANDDAUGHTER WAS PRESENT EARLY IN EVENING BUT SON LEFT. PT'S SISTER IS VOMITING AND HAS DIARRHEA. PT ASKED IF SHE WAS GOING TO GO HOME SINCE SHE IS ILL BUT SAID SHE LIVES IN [place]. OFFER MADE TO TAKE PT TO ER VIA W/CHAIR BUT SHE REFUSED. PT'S GRANDDAUGHTER IS PRESENT AND ENCOURAGED TO TAKE PT'S SISTER WHEN SHE LEAVES BUT SAID SHE WAS GOING TO GO TO [facility] AND GET HER SOMETHING FOR DIARRHEA/VOMITING BUT HAD NO PLANS ON TAKING HER WHEN SHE LEFT. PT'S SISTER IS NOW SLEEPING IN RECLINER AND PT IS ASLEEP IN THE BED. ELECTRIC METER REPAIRER NOTIFIED. WILL CONTINUE TO MONITOR.
--- NOTE | 2018-10-19 06:37 | NUR ---
PATIENT SLEPT WELL DURING THIS SHIFT. PT IN RECLINER WATCHING TV AT BEGINNING OF SHIFT BUT ABLE TO GET INTO BED WITH STANDBY ASSIST. PT ON ROOM AIR BUT WEARS TRILOGY AT NIGHT. PT REQUESTED PAIN MEDICATION FOR GENERALIZED PAIN AT HS AND RECEIVED TRAMADOL. PT WITH BLOOD SUGAR AT 2100 OF 110; LANTUS GIVEN PRESCRIBED BUT HUMALOG HELD. FREQUENTLY USED ITEMS AND CALL LIGHT WITHIN REACH. SIDERAILS UPX3 AND BED ALARM ON. WILL CONTINUE TO MONITOR.
[2018-10-19 07:45] VITALS: BP 118/64
[2018-10-19] MEDS ORDERED: NAMENDA 5 MG TAB5 M1 PO (09:42)
[2018-10-19] MEDS ORDERED: NORCO 7.5-3251 EACH PO (09:42)
[2018-10-19] MEDS ORDERED: TRAMADOL 50 MG50 MG PO (09:42)
[2018-10-19] MEDS ORDERED: LASIX 40 MG TAB40 M1 PO (09:42)
[2018-10-19] MEDS ORDERED: IPRAT-ALBUT 0.5-3 ML INH (09:44)
[2018-10-19 10:26] VITALS: BP 118/64
--- NOTE | 2018-10-19 10:53 | NUR ---
MANPOWER DEVELOPMENT ADVISOR SPOKE TO THE PATIENT AND HIS SON JOSELYN TO DISCUSS DISCHARGE PLANNING NEEDS FOR THE PATIENT, AND HIS RETURN TO [facility] TODAY. PATIENT AND SON IN AGREEMENT WITH D/C. D/C [employer] SOKE TO ELIE WITH [facility] TO INFORM OF PATIENT'S D/C, AND FAXED THE PATIENT'S D/C ORDERS. D/C [employer] ARRANGED TRANSPORT FOR THE PATIENT TO [facility] WITH [facility] AT [phone]. D/C [employer] INFORMED THE RN IN-CHARGE OF THE PATIENT OF THE PATIENT'S TIME OF TRANSPORT AND WHERE TO CALL REPORT. CM WILL REMAIN AVIALABLE TO ASSIST AND FOLLOW NEEDED.
--- NOTE | 2018-10-19 12:10 | NUR ---
PATIENT UP IN CHAIR ALL MORNING. INSULIN GIVEN WITH BREAKFAST. PRN TRAMADOL GIVEN FOR SHOULDER PAIN. PATIENT TO DISCHARGE TO [facility]. REPORT CALLED TO ANNI DELGADILLO. NO IV ACCESS. A CAB CALLED FOR PATIENTS SISTER. PATIENT LEFT VIA WHEELCHAIR VAN WITH ALL BELONGINGS AND HOME TRILOGY.
== END 2018-10-19 11:50 | DRG 682 ==
LOC: M.ERS 01:38 → M.2W 03:32 → M.TBA-ER 03:32 → M.2W 03:32 → M.3W 10-13 10:03
PROVIDERS: Internal Medicine; Personal Emergency Response Attendant; ADMIT Internal Medicine
PROC: 5A09357 Assistance with Respiratory Ventilation, Less than 24 Consecutive Hours, Continuous Positive Airway Pressure (ICD-10-PCS; principal; 2018-10-14)
DX: N17.9 Acute kidney failure, unspecified (principal); G92 Toxic encephalopathy; J96.12 Chronic respiratory failure with hypercapnia; J96.11 Chronic respiratory failure with hypoxia; I50.32 Chronic diastolic (congestive) heart failure; I13.0 Hypertensive heart and chronic kidney disease with heart failure and stage 1 through stage 4 chronic kidney disease, or unspecified chronic kidney disease; E78.5 Hyperlipidemia, unspecified; J44.9 Chronic obstructive pulmonary disease, unspecified; E11.22 Type 2 diabetes mellitus with diabetic chronic kidney disease; M10.9 Gout, unspecified; G47.33 Obstructive sleep apnea (adult) (pediatric); N18.3 Chronic kidney disease, stage 3 (moderate); F03.90 Unspecified dementia, unspecified severity, without behavioral disturbance, psychotic disturbance, mood disturbance, and anxiety; I48.91 Unspecified atrial fibrillation; M19.90 Unspecified osteoarthritis, unspecified site; Z98.42 Cataract extraction status, left eye; Z98.41 Cataract extraction status, right eye; Z88.6 Allergy status to analgesic agent; Z88.2 Allergy status to sulfonamides; Z88.8 Allergy status to other drugs, medicaments and biological substances; Z87.891 Personal history of nicotine dependence; Z82.49 Family history of ischemic heart disease and other diseases of the circulatory system; Z83.3 Family history of diabetes mellitus; Z95.2 Presence of prosthetic heart valve

== ENCOUNTER → 2019-05-17 | Day surgery (SDC) | payer MEDICARE, OTHER ==
[~2019-05-17] MED LIST changes: +DIGOXIN125 MCG PO; +IPRAT-ALBUT 0.5-3 ML INH; +LASIX 40 MG TAB40 M1 PO; +NAMENDA 5 MG TAB5 M1 PO
--- NOTE | ~2019-05-17 | PROC ---
[facility] [address] [place] [address] PROCEDURE REPORT Name: ELLIOTT VALERA Room: [facility].#: [id number] Admission: 05/17/19 Attend Phys: Ivan Chu MD Discharge: Date of : 36 Report #: [id number] THIS REPORT FOR: //name// For GI report, please see the Provation report in Perceptive 7 content. By: 0636Medical Records Staff EMILI /JIM
--- NOTE | 2019-05-17 10:37 | EKG ---
[place] [address] ELECTROCARDIOGRAM REPORT Name: ELLIOTT VALERA Room: [facility]#: [id number] Admission: 05/17/19 Attend Phys: Ivan Chu MD Discharge: Date of : 36 Report #: [id number] THIS REPORT FOR: //name// [facility] Test Date: 2019-05-17 Test Time: 10:14:57 Pat Name: ELLIOTT VALERA Department: Room: Gender: M Outside Event Sales Specialist: RT : 1940 Requested By: Ivan Chu Order Number: [id number] MD: Sancho Branch Measurements Intervals [place] Rate: 86 P: [place]: QRS: -39 QRSD: 98 T: 103 QT: 346 QTc: 414 Interpretive Statements sinus rhythm with first degree av block Inferior infarct, old Probable anteroseptal infarct, recent Compared to ECG 10/12/2018 02:09:10 atrial fibrillation no longer noted Ventricular premature complex(es) no longer present Prolonged QT interval no longer present Myocardial infarct finding still present Electronically Signed On 05-17-2019 10:37:43 CDT by Sancho Branch [email or web address] <ELECTRONICALLY SIGNED> By: Sancho Branch MD, FAC 05/17/19 1037 1014 1014 Sancho Branch MD, [facility] /EPI
[2019-05-17 10:41] LABS: HEMATOCRIT 43.3 % (42.0-52.0); HEMOGLOBIN 14.8 gm/dL (14.0-18.0); MCH 30.6 pg (26.0-34.0); MCHC 34.1 g/dL (28.0-37.0); MPV 7.6 fl. (7.2-11.1); RBC 4.81 mil/uL (4.50-6.00); RDW-CV 16.4 % (10.5-14.5); WBC 7.6 thou/uL (4.0-11.0)
[2019-05-17 10:51] LABS: CALCIUM 9.2 mg/dL (8.5-10.1); CREATININE 0.9 mg/dL (0.6-1.3); POTASSIUM 3.5 mmol/L (3.5-5.1)
[2019-05-17 10:55] LABS: ALBUMIN 3.5 g/dL (3.4-5.0); TOTAL BILIRUBIN 0.8 mg/dL (<0.1-1.0); TOTAL PROTEIN 7.1 g/dL (6.4-8.2)
--- NOTE | 2019-05-19 12:06 | PATH ---
[facility] [address] [place] [address] PATHOLOGY RPT PROCEDURE Name: CARL VALERA Room: [facility]#: [id number] Admission: 05/17/19 Date of : 36 Discharge: Report #: [id number] Path Case #: [id number] [facility] Accession Number: [id number] . 01 Material submitted: . PART A: colon - DESCENDING COLON WITH POLYP AT 1150. Modifiers: descending PART B: colon - DESCENDING COLON WITH POLYP AT 1150. Modifiers: descending PART C: colon - TRANSVERSE COLON WITH POLYP AT 1150. Modifiers: transverse PART D: colon - TRANSVERSE COLON WITH POLYP AT 1151. Modifiers: transverse PART E: colon - DESCENDING COLON WITH POLYP AT 1151. Modifiers: descending PART F: colon - DESCENDING COLON WITH POLYP AT 1153. Modifiers: descending PART G: colon - DESCENDING COLON WITH POLYP AT 1154. Modifiers: descending . 01 Clinical history: . Pre-OP DX: History of polyps Post-OP DX: Colon polyps . 02 Diagnosis: A. Descending colon with polyp at 1150: - Tubular adenoma, negative for high-grade dysplasia. . B. Descending colon with polyp at 1150: - Tubular adenoma, negative for high-grade dysplasia. . C. Transverse colon with polyp at 1150: - Tubular adenoma, negative for high-grade dysplasia. . D. Transverse colon with polyp at 1151: - Hyperplastic polyp. . E. Descending colon with polyp at 1151: - Tubular adenoma, negative for high-grade dysplasia. . F. Descending colon with polyp at 1153: - Tubular adenoma, negative for high-grade dysplasia. . G. Descending colon with polyp at 1154: - Tubular adenoma and suggestion of separate hyperplastic polyp, negative for high-grade dysplasia. . (URSULA:ewelina; 05/18/2019) MBR 05/18/2019 1222 Local . 02 Electronically signed: . Fabian Montenegro MD, Pathologist NPI- [id number] . 01 Gross description: [place] [address] PATHOLOGY RPT PROCEDURE Name: CARL VALERA Room: [facility].#: [id number] Admission: 05/17/19 Date of : 36 Discharge: Report #: [id number] Path Case #: [id number] A. Received in formalin labeled "Carl Valera, descending colon," and additionally labeled on the requisition as "with polyp," is a 0.8 x 0.7 x 0.6 cm polypoid piece of nicole soft tissue. The margin is inked and the tissue is sectioned perpendicular to the margin and submitted entirely in cassette A1 and A2. . B. Received in formalin labeled "Carl Valera, descending colon polyp," are is a single segment of nicole soft tissue measuring 0.5 cm in maximum dimension. The specimen is submitted entirely in cassette B1. . C. Received in formalin labeled "Carl Valera, transverse colon polyp," is a single segment of nicole soft tissue measuring 0.3 cm in maximum dimension. The specimen is entirely submitted in cassette C1. . D. Received in formalin labeled "Carl Valera, transverse colon polyp," is a 0.5 x 0.4 x 0.4 cm polypoid piece of nicole soft tissue. The margin is inked and the tissue is sectioned perpendicular to the margin and submitted entirely in cassette D1. . E. Received in formalin labeled "Carl Valera, descending colon polyp," is a single segment of nicole soft tissue measuring 0.5 cm in maximum dimension. The specimen is entirely submitted in cassette E1. . F. Received in formalin labeled "Carl Valera, descending colon polyp," is a single segment of nicole soft tissue measuring 0.7 cm in maximum dimension. The specimen is entirely submitted in cassette F1. . G. Received in formalin labeled "Carl Valera, descending colon polyp," are 4 segments of nicole soft tissue measuring 1.5 x 1.0 x 0.5 cm in aggregate dimensions and ranging from 0.5 to 0.6 cm in maximum dimension. The specimen is submitted entirely in cassette G1. (TSD; 05/17/2019) TOB/TOB 05/17/2019 [facility] Local . 02 Pathologist provided ICD-10: D12.4, D12.3, K63.5, Z86.010 . 02 CPT . 618941, 502423, 235476, 061033, 306425, 786688, 572068 Specimen Comment: A courtesy copy of this report has been sent to Specimen Comment: [phone], . Specimen Comment: Report sent to / DR CARLSON Specimen Comment: A duplicate report has been generated due to demographic updates. Performed at: 01 [facility] [address], [place], [place] [id number] MD Lui Mercer MD Phone: [phone] Performed at: 02 [facility] [address] [place] [address] PATHOLOGY RPT PROCEDURE Name: CARL VALERA Room: [facility].#: [id number] Admission: 05/17/19 Date of : 36 Discharge: Report #: [id number] Path Case #: [id number] [facility] [address] [facility] [address] [place] [id number] MD Fabian Montenegro MD Phone: [phone]
== END | disposition home or self-care (01) ==
LOC: M.SUR 09:48
PROVIDERS: Internal Medicine Gastroenterology
DX: Z12.11 Encounter for screening for malignant neoplasm of colon (principal); Z86.010 Personal history of colon polyps; D12.4 Benign neoplasm of descending colon; D12.3 Benign neoplasm of transverse colon; K63.5 Polyp of colon; K57.30 Diverticulosis of large intestine without perforation or abscess without bleeding; K64.4 Residual hemorrhoidal skin tags; I48.91 Unspecified atrial fibrillation; E11.9 Type 2 diabetes mellitus without complications; I50.9 Heart failure, unspecified; M10.9 Gout, unspecified; J44.9 Chronic obstructive pulmonary disease, unspecified; M19.90 Unspecified osteoarthritis, unspecified site; E78.00 Pure hypercholesterolemia, unspecified; G47.33 Obstructive sleep apnea (adult) (pediatric); Z79.899 Other long term (current) drug therapy; Z88.2 Allergy status to sulfonamides; Z87.440 Personal history of urinary (tract) infections; Z88.8 Allergy status to other drugs, medicaments and biological substances; Z79.82 Long term (current) use of aspirin; Z98.890 Other specified postprocedural states; Z79.01 Long term (current) use of anticoagulants

== ENCOUNTER 2019-05-18 04:07 | Inpatient (IN) | payer MEDICARE, OTHER ==
[~2019-05-18] VITALS: Ht 170.2 cm; Wt 96.2 kg
[2019-05-18 04:15] VITALS: BP 122/64
[2019-05-18 05:08] LABS: HEMATOCRIT 42.1 % (42.0-52.0); HEMOGLOBIN 14.4 gm/dL (14.0-18.0); MCH 30.9 pg (26.0-34.0); MCHC 34.3 g/dL (28.0-37.0); MCV 90.2 fL (80.0-100.0); MPV 7.2 fl. (7.2-11.1); NUCLEATED RBCS 0 /100WBC; PLATELET COUNT* 306 thou/uL (150-400); RBC 4.66 mil/uL (4.50-6.00); RDW-CV 16.1 % (10.5-14.5); WBC 18.6 thou/uL (4.0-11.0)
[2019-05-18 05:24] LABS: ANION GAP 10 mmol/L (7-16); BUN 20 mg/dL (7-18); CALCIUM 9.2 mg/dL (8.5-10.1); CHLORIDE 96 mmol/L (98-107); CO2 29 mmol/L (21-32); CREATININE 0.9 mg/dL (0.6-1.3); GLUCOSE 131 mg/dL (70-99); POTASSIUM 3.5 mmol/L (3.5-5.1); SODIUM 135 mmol/L (136-145)
[2019-05-18 05:29] LABS: ALBUMIN 3.4 g/dL (3.4-5.0); ALKALINE PHOSPHATASE 101 U/L (46-116); INR 1.1; PROTIME 11.1 Seconds (9.20-11.50); SGOT 28 U/L (15-37); SGPT 26 U/L (30-65); TOTAL BILIRUBIN 0.9 mg/dL (<0.1-1.0); TOTAL PROTEIN 6.8 g/dL (6.4-8.2)
[2019-05-18 05:29] LABS: URINE BILIRUBIN NEGATIVE (Negative); URINE BLOOD 1+ (Negative); URINE CLARITY CLEAR; URINE COLOR YELLOW; URINE GLUCOSE-RANDOM NEGATIVE (Negative); URINE KETONES NEGATIVE (Negative); URINE LEUKOCYTES-REFLEX 1+ (Negative); URINE NITRITE-REFLEX NEGATIVE (Negative); URINE PROTEIN 1+ (Negative); URINE SPECIFIC GRAVITY 1.015 (1.005-1.030); URINE UROBILINOGEN 0.2 E.U./dl (0.2-1.0)
[2019-05-18 05:41] LABS: BACTERIA-REFLEX >30 Many /HPF (None Seen); CASTS None Seen /LPF (None Seen); CRYSTALS None Seen /LPF (None Seen); MUCUS 0-3 Light strn/LPF (None Seen); SQUAMOUS 0-3 Few /LPF (0-3); URINE RBC 3-10 Few /HPF (0-2); URINE WBC-REFLEX 6-15 Few /HPF (0-5)
[2019-05-18 05:44] LABS: TROPONIN-I LEVEL <0.06 ng/mL (<0.06)
[2019-05-18 06:52] LABS: ABSOLUTE LYMPHOCYTES 0.7 thou/uL (0.8-5.3); ABSOLUTE MONOCYTES 0.2 thou/uL (0.0-1.2); ABSOLUTE NEUTROPHILS 17.7 thou/uL (1.6-8.1); PLATELET ESTIMATE ADEQUATE
[2019-05-18 07:55] VITALS: BP 127/66
[2019-05-18 10:56] VITALS: BP 105/55
--- NOTE | 2019-05-18 15:50 | NUR ---
ASSESSMENT COMPLETE. PT ALERT AND ORIENTED X4. PT ADMITTED WITH UTI AND WEAKNESS. IV ABX AND FLUIDS GIVEN IN ER. HOME MEDICATIONS STARTED UPON ADMISSION TO UNIT. CT OF ABDOMEN AND RENAL US COMPLETE, SEE REPORTS. PT IS ACCU CHECK ACHS. PT USES URINAL NEEDED. PT TOLD NOT TO TAKE COUMADIN FOR 2 DAYS POST COLONOSCOPY 05/17, WILL NOT GIVE TONIGHT. PT SKIN W/D/I. PT IS ON ROOM AIR, VSS. PT HAS IV IN LEFT AC, SALINE LOCKED. PT IS UP ONE ASSIST WITH CANE AND GAIT BELT. PT GIVEN PRN TRAMADOL THIS MORNING FOR PAIN IN BACK AND SHOULDERS, LIDOCAINE PATCHES APPLIED TO SHOULDERS. PT IS RESTING AND HAS NO OTHER CONCERNS AT THIS TIME. SEE ASSESSMENT AND VITALS FOR OTHER DETAILS. CALL LIGHT WITHIN REACH, WILL CONTINUE PLAN OF CARE
[2019-05-18 15:52] VITALS: BP 110/48
--- NOTE | 2019-05-18 17:21 | EKG ---
[place] [address] ELECTROCARDIOGRAM REPORT Name: ELLIOTT VALERA Room: [address] ADM IN M.R.#: [id number] Admission: 05/18/19 Attend Phys: Amish Desouza MD Discharge: Date of : 36 Report #: [id number] THIS REPORT FOR: //name// [facility] ED Test Date: 2019-05-18 Test Time: 04:16:20 Pat Name: ELLIOTT VALERA Department: Room: [facility] Gender: M Nurse Ortho: : 1940 Requested By: Portia Starr Order Number: [id number] MD: Jam Cosby Measurements Intervals [place] Rate: 84 P: [place]: QRS: -27 QRSD: 100 T: 131 QT: 334 QTc: 395 Interpretive Statements Atrial fibrillation Anterior infarct, old Minimal ST depression, lateral leads Compared to ECG 05/17/2019 10:14:57 ST (T wave) deviation now present Sinus rhythm no longer present First degree AV block no longer present Myocardial infarct finding still present Electronically Signed On 05-18-2019 17:21:22 CDT by Jam Cosby [email or web address] <ELECTRONICALLY SIGNED> By: Jam Cosby MD, FAC 05/18/19 1721 0416 0416 Jam Cosby MD, FAC /EPI
[2019-05-18 20:33] VITALS: BP 99/53
[2019-05-19 04:22] LABS: HEMATOCRIT 38.7 % (42.0-52.0); HEMOGLOBIN 13.2 gm/dL (14.0-18.0); MCH 30.6 pg (26.0-34.0); MCHC 34.2 g/dL (28.0-37.0); MCV 89.6 fL (80.0-100.0); MPV 6.9 fl. (7.2-11.1); RBC 4.32 mil/uL (4.50-6.00); RDW-CV 16.6 % (10.5-14.5); WBC 9.2 thou/uL (4.0-11.0)
[2019-05-19 04:33] LABS: CALCIUM 9.3 mg/dL (8.5-10.1); CREATININE 0.9 mg/dL (0.6-1.3); MAGNESIUM 1.8 mg/dL (1.8-2.4); POTASSIUM 4.2 mmol/L (3.5-5.1)
[2019-05-19 04:36] LABS: INR 1.1; PROTIME 10.9 Seconds (9.20-11.50)
--- NOTE | 2019-05-19 05:40 | NUR ---
PATIENT DID NOT WANT ANY PAIN MEDS. HE WAS ABLE TO REST THROUGOUT THE SHIFT. RECEIVED HIS BREATHING TREATMENTS FROM RESPIRATORY. WAS UP WITH ASSISTANCE TO COMMODE. WILL CONTINUE TO MONITOR.
[2019-05-19 09:20] VITALS: BP 128/54
--- NOTE | 2019-05-19 15:33 | NUR ---
PT.IN BED. ALERT AND ORIETNED. SISTER,MAY,AT BEDSIDE. SHE MOVED UP HERE TO HELP CARE FOR PT.,ONE YEAR AGO. SHE LIVES AT HIS HOUSE,ALONG WITH PT.'S SON,JOSELYN. PT.HAS A CANE,WALKER AND TRILOGY WITH O2 AT HOME. HE SAID HE IS FAIRLY INDEPENDENT. DRIVES,ABLE TO BATHE AND DRESS HIMSELF. WAS AT [facility] IN OCT. HAS ALSO BEEN TO [facility] HERE.
[2019-05-19 16:00] VITALS: BP 105/38
[2019-05-19] MEDS ORDERED: NORCO 7.5-3251 EACH PO (18:21)
--- NOTE | 2019-05-19 19:13 | NUR ---
PATIENT IN BED. ALL SAFETY MEASURES MAINTAINED. PATIENT AMBULATING WITH ASSISTANCE, CANE, AND GAIT BELT THROUGHOUT SHIFT. PATIENT DENIES FURTHER NEEDS AT THIS TIME.
[2019-05-19 20:00] VITALS: BP 143/76
[2019-05-20 04:53] LABS: PROTIME 10.7 Seconds (9.20-11.50)
--- NOTE | 2019-05-20 06:40 | NUR ---
PT ALERT AND ORIENTED. VITALS STABLE WITH 2L O2 BY NC. CPAP APPLIED HS. MEDS GIVEN ORDERED. PAIN CONTROLLED WITH TRAMADOL AND HYDROCODONE. TOLERATED BREATHING TREATMENT WELL. AT BEDSIDE. WILL CONTINUE TO MONITOR.
[2019-05-20 07:40] VITALS: BP 132/93
[2019-05-20 16:00] VITALS: BP 108/78
--- NOTE | 2019-05-20 17:36 | NUR ---
PATIENT AWAKE SITTING UP IN BED WITH FAMILY AT BEDSIDE. ALL SAFETY MEASURES MAINTAINED. PATIENT AMBULATING WITH ASSISTANCE, CANE, AND GAIT BELT THROUGHOUT SHIFT. PATIENT DENIES FURTHER NEEDS AT THIS TIME.
[2019-05-20 18:51] VITALS: BP 135/65
[2019-05-20 18:57] VITALS: BP 140/65
[2019-05-20 19:06] LABS: BE 4.4 mmol/L (-2 to +3); PCO2 42.9 mmHg (35.0-45.0); pH 7.448 (7.340-7.450)
--- NOTE | 2019-05-20 19:41 | NUR ---
DECREASED LOC OBSERVED. AGENCY DEVELOPMENT MANAGER NOTIFIED. RAPID RESPONSE INTIATIED. ORDERS PER NURSING WEB ANALYTICS SPECIALIST COMPLETED. PHYSICIAN NOTIFIED. PATIENT IS ALERT AND ORIENTED AT THIS TIME.
[2019-05-20 20:02] LABS: ABSOLUTE BASOPHILS 0.1 thou/uL (0.0-0.2); ABSOLUTE EOSINOPHILS 0.3 thou/uL (0.0-0.7); ABSOLUTE LYMPHOCYTES 1.2 thou/uL (0.8-5.3); ABSOLUTE MONOCYTES 0.5 thou/uL (0.0-1.2); ABSOLUTE NEUTROPHILS 5.3 thou/uL (1.6-8.1); BASOPHILS 0.9 %; EOSINOPHILS 3.7 %; HEMATOCRIT 41.3 % (42.0-52.0); HEMOGLOBIN 14.6 gm/dL (14.0-18.0); LYMPHOCYTES 16.1 %; MCH 31.5 pg (26.0-34.0); MCHC 35.5 g/dL (28.0-37.0); MCV 88.9 fL (80.0-100.0); MONOCYTES 6.9 %; MPV 7.6 fl. (7.2-11.1); NUCLEATED RBCS 0 /100WBC; PLATELET COUNT* 308 thou/uL (150-400); POLYS 72.4 %; RBC 4.64 mil/uL (4.50-6.00); RDW-CV 16.4 % (10.5-14.5); WBC 7.3 thou/uL (4.0-11.0)
[2019-05-20 20:15] VITALS: BP 134/91
[2019-05-20 20:50] VITALS: BP 134/66
[2019-05-21] VITALS: BP 119/67
[2019-05-21 04:20] VITALS: BP 141/67
[2019-05-21 04:20] LABS: INR 1.1; PROTIME 10.8 Seconds (9.20-11.50)
--- NOTE | 2019-05-21 05:12 | NUR ---
VITALS STABLE. MEDS GIVEN ORDERED. PT ON 3L O2 BY NC, HOME BIPAP APPLIED HS. BUT PT DIDNT KEEP IT ON, IT WAS OFF ON EVERY HOURLY ROUNDINGS. BED ALARM ON FOR SAFETY. FAMILY AT BEDSIDE. WILL CONTINUE TO MONITOR.
[2019-05-21 07:51] VITALS: BP 138/75
[2019-05-21 11:30] LABS: URINE BILIRUBIN NEGATIVE (Negative); URINE BLOOD NEGATIVE (Negative); URINE CLARITY CLEAR; URINE COLOR YELLOW; URINE GLUCOSE-RANDOM NEGATIVE (Negative); URINE KETONES NEGATIVE (Negative); URINE LEUKOCYTES-REFLEX NEGATIVE (Negative); URINE NITRITE-REFLEX NEGATIVE (Negative); URINE PROTEIN TRACE (Negative); URINE SPECIFIC GRAVITY 1.015 (1.005-1.030); URINE UROBILINOGEN 0.2 E.U./dl (0.2-1.0)
--- NOTE | 2019-05-21 16:40 | NUR ---
ASSESSMENT COMPLETE. PT SLEEPING MOST OF THE DAY. RESPONDS TO VOICE. ALERT AND ORIENTED X4. CT OF ABDOMEN DONE THIS MORNING, SEE RESULTS. PT REFUSED TO EAT MEALS. USES URINAL NEEDED. ACCU CHECK ACHS. UA SENT THIS MORNING. PT ENCOURAGED TO EAT AND INCREASE ACTIVITY, PT REFUSED. PT IS FALL RISK, BED ALARM IN PLACE. SEE ASSESSMENT AND VITALS FOR OTHER DETAILS. CALL LIGHT WITHIN REACH, WILL CONTINUE PLAN OF CARE
[2019-05-21 16:56] VITALS: BP 103/63
[2019-05-21 20:30] VITALS: BP 136/56
[2019-05-22 04:14] LABS: INR 1.1; PROTIME 11.4 Seconds (9.20-11.50)
--- NOTE | 2019-05-22 06:55 | NUR ---
PATIENT SLEPT PART OF THE NIGHT. PATIENT REFUSED TO TAKE HIS MEDS LAST NIGHT BUT DID TAKE HIS MEDS THIS MORNING. WHEN LAB WENT IN THIS MORNING IV WAS OUT. PATIENT GOT UPSET WHEN TRYING TO TAKE THE TAPE OF HIS IV SITE AND WAS YELLING. PATIENT WAS AGITATED SO NO ATTEMPT TO RESTART HIS IV WAS MADE. WILL CONTINUE TO MONITOR.
[2019-05-22 09:30] VITALS: BP 125/76
--- NOTE | 2019-05-22 19:00 | NUR ---
PATIENT NOT EATING WELL DURING SHIFT, NO GREATER THAN 50% OF MEALS. PATIENT C/O GENERALIZED "HURT ALL OVER" PAIN, UNABLE TO DESCRIBE. SEE MAR. SISTER PRESENT IN DURING SHIFT. PATIENT CHANGED TO PO ANTIBX, PATIENT EDUCATED ON THIS POC. PATIENT STATES VERBALLY OF UNDERSTANDING. USING URINAL FOR VOIDING. NO BM THIS SHIFT, PATIENT REFUSED MIRALAX THIS AM. PATIENT INSTRUCTED ON INCREASING MVMT AND DRINKING FLUIDS. PATIENT STATES VERBALLY OF UNDERSTANDING. STATES THAT HE EATS "LOTS OF ICE". CALL LIGHT IN REACH. HRLY ROUNDS DONE. ~TJRN
[2019-05-22 21:00] VITALS: BP 113/78
[2019-05-23 04:12] LABS: INR 1.1; PROTIME 11.5 Seconds (9.20-11.50)
--- NOTE | 2019-05-23 05:41 | NUR ---
PATIENT SLEPT MOST OF THE NIGHT. PATIENT WAS GIVEN PAIN MEDICINE ONCE FOR PAIN. PATIENT IS POSSIBLY GOING HOME TODAY. WILL CONTINUE TO MONITOR.
[2019-05-23 09:25] VITALS: BP 148/80
[2019-05-23 15:40] VITALS: BP 131/77
--- NOTE | 2019-05-23 17:57 | NUR ---
ASSUMED CARE OF PATIENT AT 1300. REPORT RECEIVED FROM ANNI FERRARI. PATIENT ALERT AND ORIENTED X4. PATIENT VERY ANGRY THAT HE HAS NOT GOTTEN HIS HYDROCODONE EXACTLY EVERY 6 HOURS WHEN I TOLD HIM HE HAD LAST GOTTEN IT AT APPROX 0300, HE SAID THAT HE HAD GOTTEN IT AROUND 0900 AND HE SHOULD HAVE GOTTEN IT AT 1500. I EXPLAINED TO THE PATIENT THAT THE CHARTING DID NOT SHOW A DOSE GIVEN AFTER 0300 AND THAT I WAS NOT HERE AT 0900, WHEN I CAME IN AT 1300 I TOLD THE PATIENT THAT I HAD JUST GOTTEN HERE AND WAS RELIEVING HIS MORNING NURSE WHO HAD GONE HOME SICK. HIS FAMILY MEMEBER THAT WAS SITTING AT BEDSIDE GAVE ME A HOME MEDICATION LIST THAT SHOWED THE PATIENT TAKES GABAPENTING THREE TIMES A DAY, WHICH WAS NOT ON HIS HOME MED LIST HERE OR BEING GIVEN TO HIM. I EXPLAINED TO THE PATIENT THAT HIS HYDROCODONE IS ORDERED PRN, NOT SCHEDULED, SO HE WOULD HAVE TO BE CALLING US FOR IT. I ALSO TOLD HIM THAT I WOULD PAGE THE DOCTOR TO SEE IF WE COULD FIX THE HOME MEDICATIONS THAT WERE NOT RECONCILED AND BEING GIVEN HERE. DR GRAY PAGED AND STATED THAT I COULD RECONCILE HIS HOME MEDS AND RESTART ANYTHING THAT HE IS NOT GETTING HERE. PATIENT UP STAND BY ASSIST. FALL PRECAUTIONS IN PLACE WHEN PATIENT ALLOWS IT, HE DOES NOT LIKE HIS BED ALARM SET AND REFUSES TO CALL FOR ASSISTANCE TO GET UP. EDUCATED ON RISKS FOR FALLING AND REASON WHY WE USE THE FALL PRECAUTIONS FOR PATIENT SAFETY, PATIENT VOICED UNDERSTANDING BUT REMAINS NON COMPLIANT. CALL LIGHT PLACED IN REACH. HOURLY ROUNDS COMPLETED. WILL CONTINUE TO MONITOR.
[2019-05-23] MEDS ORDERED: ULTRAM50 MG PO (18:31)
[2019-05-23] MEDS ORDERED: NEURONTIN600 MG PO (18:31)
[2019-05-24 04:15] LABS: INR 1.2
--- NOTE | 2019-05-24 06:11 | NUR ---
PATIENT SLEPT MOST OF THE NIGHT. PATIENT WAS GIVEN PAIN MEDICINE TWICE THIS SHIFT. PATIENT HAS BEEN MUCH MORE PLEASANT AND COOPERATIVE THIS SHIFT. PATIENT IS POSSIBLY DISCHARGING TODAY. WILL CONTINUE TO MONITOR.
[2019-05-24 07:59] VITALS: BP 98/65
[2019-05-24 13:29] VITALS: BP 98/65
[2019-05-24] MEDS ORDERED: CIPRO500 MG PO (14:03)
--- NOTE | 2019-05-24 14:14 | NUR ---
PT.TO BE DISCHARGED TODAY WITH HOME HEALTH PT/OT. HE HAS USED [facility] IN THE PAST AND WANTS TO USE THEM AGAIN. FAXED ORDERS AND MED LIST TO [facility] [phone] AND SPOKE WITH INTAKE. HE IS AWARE THEY WILL CALL HIM TO SET UP APPT. [facility] SAW PT.PRIOR TO DISCHARGE. HE IS WAITING ON HIS RIDE AT THIS TIME.
--- NOTE | 2019-05-24 15:59 | NUR ---
PT DISCHARGED TO HOME WITH HOME HEALTH BY WHEELCHAIR WITH NURSING STAFF, SISTER AND SON AT 1558. NO IV. PT STABLE UPON DISCHARGE. CIPRO SCRIPT CALLED INTO [facility]. PERSONAL ITEMS SENT WITH PT.
== END 2019-05-24 15:58 | disposition home health service (06) | DRG 689 ==
LOC: M.ERS 04:07 → M.TBA-ER 06:19 → M.ORTHSURG 06:19
PROVIDERS: Emergency Medicine; Internal Medicine; ADMIT Family Medicine
DX: N30.00 Acute cystitis without hematuria (principal); R65.11 Systemic inflammatory response syndrome (SIRS) of non-infectious origin with acute organ dysfunction; G93.40 Encephalopathy, unspecified; E78.5 Hyperlipidemia, unspecified; M19.90 Unspecified osteoarthritis, unspecified site; Z96.653 Presence of artificial knee joint, bilateral; J44.9 Chronic obstructive pulmonary disease, unspecified; I48.91 Unspecified atrial fibrillation; E11.9 Type 2 diabetes mellitus without complications; M10.9 Gout, unspecified; M79.10 Myalgia, unspecified site; K43.9 Ventral hernia without obstruction or gangrene; N28.1 Cyst of kidney, acquired; B96.1 Klebsiella pneumoniae [K. pneumoniae] as the cause of diseases classified elsewhere; I11.0 Hypertensive heart disease with heart failure; I50.9 Heart failure, unspecified; G47.33 Obstructive sleep apnea (adult) (pediatric); Z87.440 Personal history of urinary (tract) infections; Z87.01 Personal history of pneumonia (recurrent); Z79.899 Other long term (current) drug therapy; Z79.4 Long term (current) use of insulin; Z79.82 Long term (current) use of aspirin; Z79.01 Long term (current) use of anticoagulants; Z88.2 Allergy status to sulfonamides; Z88.8 Allergy status to other drugs, medicaments and biological substances; Z88.6 Allergy status to analgesic agent; Z82.49 Family history of ischemic heart disease and other diseases of the circulatory system; Z83.3 Family history of diabetes mellitus

== ENCOUNTER 2020-02-28 09:17 | Inpatient (IN) | payer MEDICARE, OTHER ==
[~2020-02-28] VITALS: Ht 172.7 cm; Wt 94.8 kg
--- NOTE | ~2020-02-28 | PROC ---
[facility] [address] [place] [address] PROCEDURE REPORT Name: ELLIOTT VALERA Room: [address] ADM IN M.R.#: [id number] Admission: 02/28/20 Attend Phys: Arlen price [place] Discharge: Date of : 36 Report #: [id number] THIS REPORT FOR: //name// cc: Wiliam Mcneill Reuel M. DO ~ THIS REPORT FOR: //name// For GI report, please see the Provation report in Perceptive 7 content. By: [facility] HospitalMedical Records Staff [facility] /JIM
--- NOTE | ~2020-02-28 | CON ---
[address] [address] CONSULTATION Name: ELLIOTT VALERA Room: [address] IN M.R.#: [id number] Admission: 02/28/20 Attend Phys: Arlen Elaine Discharge: Date of : 36 Report #: [id number] THIS REPORT FOR: //name// cc: Wiliam Mcneill Reuel M. DO ~ THIS REPORT FOR: //name// CC: Arlen Benavides DATE OF SERVICE: 02/29/2020 GASTROENTEROLOGY CONSULTATION INDICATION FOR CONSULTATION: GI bleed. HISTORY OF PRESENT ILLNESS: This is an 79-year-old male with history of AFib, who is on warfarin and is on O2 for his COPD. The patient reports that he had couple of days of bloody stool, which prompted him to come to the ER. During his ER visit, he noticed that he had some blood in his underpants. Since admission, he has not experienced any other bloody stools and his hemoglobin has been stable. He denies any upper GI symptoms as he denies nausea, vomiting, or hematemesis. PAST MEDICAL HISTORY: Significant for history of COPD, diverticulosis, diverticular perforation in , status post surgery, peritonitis, renal failure, gout, pneumonia, hypertension, GERD, hypothyroidism, chronic anticoagulation therapy, and diabetes. ALLERGIES: SIGNIFICANT TO EDIE INHIBITORS, SULFA AND MORPHINE. MEDICATIONS: Please refer to MAR. SOCIAL HISTORY: The patient lives at home. He has history of tobaccoism, but quit more than a year ago. He occasionally may have alcoholic beverage. FAMILY HISTORY: Noncontributory. PHYSICAL EXAMINATION: VITAL SIGNS: Reveals blood pressure of 130/55, respiration is 20, pulse 62, and temperature 98.5. LUNGS: Clear. CARDIOVASCULAR: Regular. ABDOMEN: Soft, nontender, and nondistended. Bowel sounds are positive. NEUROLOGIC: The patient is alert and oriented x 3[place] [address] CONSULTATION Name: ELLIOTT VALERA Room: [address]#: [id number] Admission: 02/28/20 Attend Phys: Arlen Elaine Discharge: Date of : 38 Report #: [id number] LABORATORY DATA: Labs reveal sodium of 137, potassium 3.5, BUN is 32, and creatinine 1.0. Lipase is 89, total bilirubin is 0.6, direct bilirubin is 0.1, ALT is 23, and AST is 26. WBC is 5.6, hemoglobin 13.5, and platelets 331. IMAGING: CT of abdomen and pelvis was obtained on admission. There was no evidence of bleeding per CT. There is evidence of large left lower lobe pulmonary embolism, which is old. There is no evidence of small or large bowel obstruction. There are multiple renal cysts noted in this study. ASSESSMENT AND PLAN: The patient with history of colonoscopy within the last 2 years, who has had multiple polyps removed at that point. He also has history of diverticular perforation back in . His hemoglobin is stable, but he has had rectal bleeding. He initially reports that his rectal bleeding has melanotic. His BUN and creatinine ratio was fine, but we will go ahead and perform an upper endoscopy and make further recommendation. By: [id number] Larsen MD /nt
[~2020-02-28 09:17] MED LIST changes: +ULTRAM50 MG PO
[2020-02-28 09:27] VITALS: BP 126/71
[2020-02-28 10:07] LABS: ABSOLUTE BASOPHILS 0.1 thou/uL (0.0-0.2); ABSOLUTE EOSINOPHILS 0.2 thou/uL (0.0-0.7); ABSOLUTE LYMPHOCYTES 0.9 thou/uL (0.8-5.3); ABSOLUTE MONOCYTES 0.7 thou/uL (0.0-1.2); ABSOLUTE NEUTROPHILS 5.8 thou/uL (1.6-8.1); BASOPHILS 1.1 %; EOSINOPHILS 2.6 %; HEMATOCRIT 38.6 % (42.0-52.0); HEMOGLOBIN 13.3 gm/dL (14.0-18.0); LYMPHOCYTES 12.1 %; MCH 30.5 pg (26.0-34.0); MCHC 34.5 g/dL (28.0-37.0); MCV 88.3 fL (80.0-100.0); MONOCYTES 8.9 %; MPV 7.3 fl. (7.2-11.1); NUCLEATED RBCS 0 /100WBC; PLATELET COUNT* 353 thou/uL (150-400); POLYS 75.3 %; RBC 4.37 mil/uL (4.50-6.00); WBC 7.6 thou/uL (4.0-11.0)
[2020-02-28 10:22] LABS: ALBUMIN 3.2 g/dL (3.4-5.0); CALCIUM 8.8 mg/dL (8.5-10.1); CREATININE 1.1 mg/dL (0.6-1.3); POTASSIUM 3.5 mmol/L (3.5-5.1); TOTAL BILIRUBIN 0.6 mg/dL (<0.1-1.0); TOTAL PROTEIN 7.1 g/dL (6.4-8.2)
[2020-02-28 11:22] LABS: URINE BILIRUBIN NEGATIVE (Negative); URINE BLOOD 1+ (Negative); URINE CLARITY CLEAR; URINE COLOR YELLOW; URINE GLUCOSE-RANDOM NEGATIVE (Negative); URINE KETONES NEGATIVE (Negative); URINE LEUKOCYTES-REFLEX NEGATIVE (Negative); URINE NITRITE-REFLEX NEGATIVE (Negative); URINE PROTEIN 2+ (Negative); URINE SPECIFIC GRAVITY 1.015 (1.005-1.030); URINE UROBILINOGEN 0.2 E.U./dl (0.2-1.0)
[2020-02-28 11:41] LABS: BACTERIA-REFLEX 1-9 Few /HPF (None Seen); CASTS None Seen /LPF (None Seen); SQUAMOUS 0-3 Few /LPF (0-3); URINE RBC 0-2 Rare /HPF (0-2); URINE WBC-REFLEX 0-5 Rare /HPF (0-5)
[2020-02-28 11:42] LABS: CRYSTALS None Seen /LPF (None Seen)
[2020-02-28 17:00] VITALS: BP 130/45
[2020-02-28 20:19] VITALS: BP 157/66
[2020-02-28 20:30] VITALS: BP 138/77
[2020-02-29] VITALS: BP 131/56
[2020-02-29 04:02] VITALS: BP 142/61
[2020-02-29 05:07] LABS: HEMATOCRIT 39.3 % (42.0-52.0); HEMOGLOBIN 13.5 gm/dL (14.0-18.0); MCH 30.4 pg (26.0-34.0); MCHC 34.3 g/dL (28.0-37.0); MCV 88.4 fL (80.0-100.0); RBC 4.45 mil/uL (4.50-6.00); RDW-CV 17.4 % (10.5-14.5); WBC 5.6 thou/uL (4.0-11.0)
[2020-02-29 05:26] LABS: ALBUMIN 2.9 g/dL (3.4-5.0); CALCIUM 8.8 mg/dL (8.5-10.1); MAGNESIUM 1.9 mg/dL (1.8-2.4); PHOSPHORUS* 2.9 mg/dL (2.5-4.9); POTASSIUM 3.5 mmol/L (3.5-5.1)
[2020-02-29 08:25] VITALS: BP 132/56
--- NOTE | 2020-02-29 09:10 | EKG ---
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 : 1940 Requested By: Ez Mcbride Order Number: [id number] MD: Jam Cosby Measurements Intervals [place] Rate: 58 P: NE: QRS: -33 QRSD: 110 T: 70 QT: 384 QTc: 378 Interpretive Statements Atrial fibrillation Anterior infarct, old Minimal ST depression, lateral leads Compared to ECG 11/02/2019 23:59:06 ST (T wave) deviation now present Myocardial infarct finding still present Electronically Signed On 02-29-2020 9:10:04 CDT by Jam Cosby [email or web address] <ELECTRONICALLY SIGNED> By: Jam Cosby MD, FACC 02/29/20 0910 1014 1014 Jam Cosby MD, FAC /EPI
[2020-02-29 12:28] VITALS: BP 130/55
[2020-02-29] MEDS ORDERED: ASA81BEC PO (18:07)
[2020-02-29] MEDS ORDERED: ARTIFICIAL TEAR1510 OPHTHALMIC (18:09)
[2020-02-29] MEDS ORDERED: GLIPIZIDE 10 MG10 MG PO (18:16)
[2020-02-29] MEDS ORDERED: PREVACID30 MG PO (18:18)
[2020-02-29] MEDS ORDERED: MACRODANTIN100 MG PO (18:20)
[2020-02-29] MEDS ORDERED: SAW PALMETTO160 MG PO (18:23)
[2020-02-29] MEDS ORDERED: TRAMADOL 50 MG50 MG PO (18:24)
[2020-02-29] MEDS ORDERED: COUMADIN 5 MG TA5 M1 PO (18:25)
[2020-02-29] MEDS ORDERED: ZOFRAN 4 MG ORAL4 MG PO (18:26)
[2020-02-29] MEDS ORDERED: IRON325 M1 PO (18:32)
[2020-02-29] MEDS ORDERED: CRANBERRY200 MG PO (18:36)
[2020-02-29 19:55] VITALS: BP 101/49
[2020-03-01] VITALS (7 sets, daily range): BP systolic 140–196; BP diastolic 47–83
[2020-03-01] MEDS ORDERED: PANTOPRAZOLE SO40 M1 PO (15:40)
[2020-03-02 04:00] VITALS: BP 103/76
[2020-03-02 04:48] LABS: HEMATOCRIT 41.2 % (42.0-52.0); MCH 30.3 pg (26.0-34.0); MCV 89.2 fL (80.0-100.0); RBC 4.62 mil/uL (4.50-6.00); RDW-CV 17.1 % (10.5-14.5); WBC 7.8 thou/uL (4.0-11.0)
[2020-03-02 05:03] LABS: ALBUMIN 3.5 g/dL (3.4-5.0); CALCIUM 9.5 mg/dL (8.5-10.1); CREATININE 0.8 mg/dL (0.6-1.3); MAGNESIUM 1.7 mg/dL (1.8-2.4); POTASSIUM 3.3 mmol/L (3.5-5.1)
[2020-03-02 08:00] VITALS: BP 186/86
[2020-03-02 12:01] VITALS: BP 134/49
[2020-03-02] MEDS ORDERED: NAMENDA 5 MG TAB5 M1 PO (13:12)
[2020-03-02 13:59] LABS: ALBUMIN 3.4 g/dL (3.4-5.0); CALCIUM 9.2 mg/dL (8.5-10.1); CREATININE 0.9 mg/dL (0.6-1.3); MAGNESIUM 1.5 mg/dL (1.8-2.4); POTASSIUM 3.5 mmol/L (3.5-5.1)
[2020-03-02 14:51] VITALS: BP 134/49
--- NOTE | 2020-03-02 17:07 | PATH ---
[facility] [address] [place] [address] PATHOLOGY RPT PROCEDURE Name: CARL VALERA Room: [address] IN M.R.#: [id number] Admission: 02/28/20 Date of : 36 Discharge: Report #: [id number] Path Case #: [id number] [facility] Accession Number: [id number] . 01 Material submitted: . stomach - ANTRAL BIOPSY FOR H. PYLORI . 01 Clinician provided ICD-10: K92.2 I50.32 . 02 Diagnosis: Antral biopsy (for H. pylori): - Mild nonspecific chronic gastritis, negative for Helicobacter pylori organisms and dysplasia. (URSULA:yulissa; 03/02/2020) . Special stain: H. pylori immuno QMS 03/02/2020 1126 Local . 02 Electronically signed: . Fabian Montenegro MD, Pathologist NPI- [id number] . 01 Gross description: . The specimen is received in formalin, labeled "Carl Valera, antral biopsy for H. pylori" and consists of multiple fragments of nicole tissue measuring 0.8 x 0.3 x 0.2 cm in aggregate which are entirely submitted in A1. ([facility]; 03/01/2020) JFQ/JFQ 03/02/2020 1125 Local . 02 Pathologist provided ICD-10: K29.50 . 02 CPT . 006176, [id number] Specimen Comment: A courtesy copy of this report has been sent to [phone] Specimen Comment: [phone] Specimen Comment: Report sent to / DR SHEIKH Performed at: [address] [id number] MD Lui Mercer MD Phone: [phone] Performed at: [address] [id number] [place] [address] PATHOLOGY RPT PROCEDURE Name: CARL VALERA Room: [address] IN [facility]#: [id number] Admission: 02/28/20 Date of : 38 Discharge: Report #: [id number] Path Case #: [id number] MD Fabian Montenegro MD Phone: [phone]
== END 2020-03-02 17:19 | disposition home or self-care (01) | DRG 378 ==
LOC: M.ERS 09:17 → M.TBA-ER 12:50 → M.2W 12:50
PROVIDERS: Emergency Medicine; ADMIT Family Medicine; ATTEND Family Medicine
PROC: 5A09357 Assistance with Respiratory Ventilation, Less than 24 Consecutive Hours, Continuous Positive Airway Pressure (ICD-10-PCS; principal; 2020-02-28)
PROC: 5A09357 Assistance with Respiratory Ventilation, Less than 24 Consecutive Hours, Continuous Positive Airway Pressure (ICD-10-PCS; 2020-02-29)
PROC: 0DB68ZX Excision of Stomach, Via Natural or Artificial Opening Endoscopic, Diagnostic (ICD-10-PCS; 2020-03-01)
DX: K92.2 Gastrointestinal hemorrhage, unspecified (principal); I50.32 Chronic diastolic (congestive) heart failure; D68.59 Other primary thrombophilia; J96.10 Chronic respiratory failure, unspecified whether with hypoxia or hypercapnia; E44.0 Moderate protein-calorie malnutrition; I13.0 Hypertensive heart and chronic kidney disease with heart failure and stage 1 through stage 4 chronic kidney disease, or unspecified chronic kidney disease; E78.5 Hyperlipidemia, unspecified; M19.90 Unspecified osteoarthritis, unspecified site; J44.9 Chronic obstructive pulmonary disease, unspecified; I48.91 Unspecified atrial fibrillation; M10.9 Gout, unspecified; K29.70 Gastritis, unspecified, without bleeding; G47.33 Obstructive sleep apnea (adult) (pediatric); E03.9 Hypothyroidism, unspecified; N18.3 Chronic kidney disease, stage 3 (moderate); K57.90 Diverticulosis of intestine, part unspecified, without perforation or abscess without bleeding; F03.90 Unspecified dementia, unspecified severity, without behavioral disturbance, psychotic disturbance, mood disturbance, and anxiety; K21.0 Gastro-esophageal reflux disease with esophagitis; E11.22 Type 2 diabetes mellitus with diabetic chronic kidney disease; K44.9 Diaphragmatic hernia without obstruction or gangrene; Z88.6 Allergy status to analgesic agent; Z88.2 Allergy status to sulfonamides; Z88.8 Allergy status to other drugs, medicaments and biological substances; Z79.82 Long term (current) use of aspirin; Z87.891 Personal history of nicotine dependence; Z83.3 Family history of diabetes mellitus; Z82.49 Family history of ischemic heart disease and other diseases of the circulatory system; Z83.6 Family history of other diseases of the respiratory system; Z79.01 Long term (current) use of anticoagulants; Z68.31 Body mass index [BMI] 31.0-31.9, adult; Z79.899 Other long term (current) drug therapy

== ENCOUNTER → 2020-06-15 | Outpatient (CLI) | payer MEDICARE, OTHER ==
[~2020-06-15] MED LIST changes: +ARTIFICIAL TEAR1510 OPHTHALMIC; +ASA81BEC PO; +CRANBERRY200 MG PO; +DULOXETINE HCL30 MG PO; +GABAPENTIN600 M1 PO; +GLIPIZIDE 10 MG10 MG PO; +HYDROCODONE-AP1 EA11 PO; +IRON325 M1 PO; +MACRODANTIN100 MG PO; +PANTOPRAZOLE SO40 M1 PO; +PREVACID30 MG PO; +ZOFRAN 4 MG ORAL4 MG PO
--- NOTE | 2020-07-04 14:36 | H ---
[address] [address] HISTORY AND PHYSICAL Name: ELLIOTT VALERA Room: [facility] EpiNicolasa#: [id number] Admission: 06/15/20 Attend Phys: Berny Hernandez MD Discharge: Date of : 38 Report #: [id number] THIS REPORT FOR: //name// cc: Magali Newman Kathleen M. DO ~ CC: Magali Hernandez DATE OF SERVICE: 06/15/2020 CHIEF COMPLAINT: Bilateral hand pain with rheumatoid arthritis. HISTORY: The patient is an 80-year-old gentleman who has been referred to the Pain Clinic for pain control. The patient has had pain and discomfort for quite a number of years. Pain is somewhat global. States that he has pain of all kinds at all different places. He is not receiving pain medications. Pain meds in the past have been helpful. Describes his discomfort as constant, burning, shooting, aching, sharp and stabbing. He rates his pain as 7/7 at this point. Pain involves both left and right shoulders. Also, has pain involving his left and right hands. Pain in the mid and low back area, pain involving left and right lower extremities. He has neuropathic pain. His pain involving his hips. He has tried tramadol in the past. Has used gabapentin. The patient states that he was receiving medications from his physician, Dr. Mcneill. States that Dr. Mcneill no longer is seeing patients. ALLERGIES: EDIE INHIBITORS, LISINOPRIL, AND MORPHINE. CURRENT MEDICATIONS: Albuterol nebulization, allopurinol 300 mg, insulin, artificial tears, aspirin 81 mg, budesonide nebulizer once daily, calcium 600 mg D3, calcium 800 units, digoxin 250 mcg, diltiazem 240 mg, duloxetine 30 mg delayed release, fish oil 1000 mg, Flomax 0.4 mg, Lasix 40 mg, gabapentin 600 mg, gemfibrozil 600 mg, glyburide 10 mg, glucosamine 500 mg, hydrocodone 7.5 mg q 6 hours p.r.n., lansoprazole 15 mg, levothyroxine 125 mcg, Macrobid 100 mg, magnesium, metolazone 5 mg, Montelukast 10 mg, Mucinex 600 mg, multivitamin, potassium 20 mEq, probiotic, Saw [place] 160 mg, and warfarin 2.5 mg/5 mg, and Zofran 4 mg. PAST MEDICAL HISTORY: 1. Aortic valve disease with replacement 07/2017. 2. Atrial fibrillation. 3. Benign hypertension with chronic kidney disease. 4. Cataracts. 5. Chronic kidney disease stage 3. 6. Moderate chronic low back pain. 7. Chronic obstructive pulmonary disease. 8. Chronic respiratory failure [place] [address] HISTORY AND PHYSICAL Name: ELLIOTT VALERA Room: [facility]#: [id number] Admission: 06/15/20 Attend Phys: Berny Hernandez MD Discharge: Date of : 38 Report #: [id number] 9. Degenerative lumbar intervertebral disk disease. 10. Elevated cholesterol. 11. Hiatal hernia. 12. History of tobacco use. 13. Hypothyroidism due to acquired atrophy of thyroid joint pain. 14. Obstructive sleep apnea, oxygen dependence. 15. Peripheral neuropathy. 16. Primary osteoarthritis involving multiple joints. 17. Pseudogout of the ankle, left. 18. Squamous cell carcinoma. 19. Strangulated hiatal hernia. 20. Tubular adenoma of the colon. 21. Type 2 diabetes with polyneuropathy. 22. Chronic pain. PAST SURGICAL HISTORY: 1. Aortic valve replacement, 07/01/2017. 2. Arthroscopy of the shoulder. 3. Bowel surgery. 4. Cataract surgery. 5. Cholecystectomy. 6. Colon surgery. 7. Hernia repair. 8. Left knee replacement. 9. Right knee replacement. 10. Rotator cuff surgery x 3. REVIEW OF SYSTEMS: Cataract removal, hearing aids and thyroid disease. PAIN CLINIC ASSESSMENT/PQRS: 1. Height 5 feet 8 inches, weight 211 pounds, BMI is 32. 2. Vital signs: Blood pressure 125/95, heart rate 78, respiratory rate 16, room air saturation 93%, and temperature 99.1. 2. Pain intensity 7/10. 3. Fall history: The patient has not fallen in the last month. 4. Blood thinner. The patient is on a blood thinning medication. 5. Hypertension. The patient is being treated for hypertension. 6. Opioids greater than 6 weeks. The patient receives medications from his primary. 7. Risk assessment tool, low for opioid use. 8. Functional assessment tool reviewed. 9. Recreational drug use: The patient denies. 10. Tobacco: The patient has a history of use of tobacco. 11. Alcohol. The patient denies frequent use of alcoholic beverages. PHYSICAL EXAMINATION: [facility] [address] [place] [address] HISTORY AND PHYSICAL Name: ELLIOTT VALERA Room: [facility]#: [id number] Admission: 06/15/20 Attend Phys: Berny Hernandez MD Discharge: Date of : 38 Report #: [id number] GENERAL: The patient is a well-developed, well-nourished male, appears his stated age. He is alert and oriented x 3. His affect is appropriate. Speech is fluent. HEENT: The patient has nasal cannula, receiving oxygen. Has a facial covering in place. HEART: History of aortic valve replacement. LUNGS: Generally clear and distant. ABDOMEN: Nontender. MUSCULOSKELETAL: The patient complains of pain in his left and right shoulder. He has pain and discomfort in the mid back area. Has pain in his hands bilaterally. Has pain from the knees down into both feet. Complains of pain in his hands. Walks with use of a cane. Has some problems with balance. IMPRESSION: Chronic pain with diabetic neuropathy. RECOMMENDATIONS: We discussed treatment options with the patient. He states that he has been using hydrocodone 7.5 mg for quite some time. At this juncture, his physician is no longer able to supply. He is aware that opioid medications can become less effective as time goes on. We will provide the patient with a renewal of his medication. A script for hydrocodone 7.5 mg 1 p.o. q.i.d., total of 120 tablets has been provided for the next month. He will call us if he has any concerns. We would like to thank you for letting us participate in his care. We hope he continues to improve. <ELECTRONICALLY SIGNED> By: Berny Hernandez MD 07/04/20 1436 2331 0030N. MD margarita Courtney
== END ==
LOC: M.PC 06-13 13:00
PROVIDERS: ATTEND Anesthesiology Pain Medicine
DX: M79.641 Pain in right hand (principal); M79.642 Pain in left hand; M06.9 Rheumatoid arthritis, unspecified; I48.91 Unspecified atrial fibrillation; J44.9 Chronic obstructive pulmonary disease, unspecified; I12.9 Hypertensive chronic kidney disease with stage 1 through stage 4 chronic kidney disease, or unspecified chronic kidney disease; N18.30 Chronic kidney disease, stage 3 unspecified; G89.29 Other chronic pain

== ENCOUNTER → 2020-07-13 | Outpatient (CLI) | payer MEDICARE, OTHER ==
--- NOTE | 2020-08-03 14:42 | PAINCON ---
[address] [address] PAIN MANAGEMENT CONSULTATION Name: ELLIOTT VALERA Room: [facility] Epi#: [id number] Admission: 07/13/20 Attend Phys: Berny Hernandez MD Discharge: Date of : 38 Report #: [id number] THIS REPORT FOR: //name// cc: Magali Newman Kathleen M. DO ~ CC: Magali Hernandez DATE OF SERVICE: 07/13/2020 CHIEF COMPLAINT: Low back pain and chronic hand pain. HISTORY: The patient is an 80-year-old gentleman who is referred to the pain clinic for pain control. The patient has had pain for many years. Also, complains of pain, which is somewhat global in nature. He describes the pain as constant, burning, shooting, aching, and stabbing. Rates the pain overall as a 6/10 involving the low back area. He has pain in his left and right shoulders. He has neuropathic pain. He has tried tramadol in the past. He does use gabapentin. He has returned today for renewal of his medications. ALLERGIES: EDIE INHIBITORS, LISINOPRIL, MORPHINE. CURRENT MEDICATIONS: Albuterol nebulizer, allopurinol 300 mg, insulin, artificial tears, aspirin 81 mg, budesonide nebulizer once daily, calcium 600 mg, D3, calcium 800 units, doxepin 250 mcg, diltiazem 240 mg, duloxetine 30 mg delayed release, fish oil 1000 mg, Flomax 0.4 mg, Lasix 40 mg, gabapentin 600 mg, gemfibrozil 600 mg, glyburide 10 mg, glucosamine 500 mg, hydrocodone 7.5 mg, lansoprazole 15 mg, levothyroxine 125 mcg, Macrobid 100 mg, magnesium, metolazone 5 mg, montelukast 10 mg, Mucinex 600 mg, multivitamins, potassium 20 mEq, probiotic, saw palmetto 160 mg, warfarin 2.5 mg, Zofran 4 mg. PAIN CLINIC ASSESSMENT AND PQRS: 1. Height 5 feet 8 inches, weight 211 pounds, BMI is 32. 2. Vital signs: Blood pressure 119/53, heart rate 78, respiratory rate 16, room air saturation is 94, temperature 99. 3. Pain intensity is 6/10. 4. Fall history: The patient has not fallen in the last 3 months. 5. Blood thinner. The patient is not on a blood thinning medication. 6. Hypertension. The patient is being treated for hypertension. 7. Opioids greater than 6 weeks. The patient receives medication from the pain clinic. 8. Risk assessment tool, low for opioid use. 9. Functional assessment tool reviewed. 10. Recreational drug use: The patient denies. 11. Tobacco: The patient has a history of tobacco use. 12. Alcohol. The patient denies frequent [place] [address] PAIN MANAGEMENT CONSULTATION Name: ELLIOTT VALERA [facility] [id number] Admission: 07/13/20 Attend Phys: Berny Hernandez MD Discharge: Date of : 38 Report #: [id number] PHYSICAL EXAMINATION: GENERAL: The patient is a well-developed, well-nourished white male. Appears his stated age. He is alert and oriented x 3. His affect is appropriate. Speech is fluent. HEENT: Normocephalic. The patient has nasal cannula, receiving oxygen. Has a facial covering in place. HEART: History of aortic valve replacement. LUNGS: Generally clear, distant. ABDOMEN: Nontender. MUSCULOSKELETAL: The patient complains of pain in his left and right shoulder. He has complained of pain and discomfort in his low and mid back area. He has pain in his hands bilaterally. He has pain in his knees down into his feet. Complains of pain and walks with a cane. He has some problems with balance. IMPRESSION: Chronic pain with diabetic neuropathy. RECOMMENDATIONS: We discussed treatment options with the patient. At this juncture, we will continue with his use of hydrocodone 7.5 mg. The patient will continue to take the medication as prescribed. We have discussed the risk and benefits of opioid use. The patient feels that these medications are able to help him with a more productive way of life. A total of 120 tablets have been provided for this month. He will follow us up if he has any concerns. We explained to the patient that the opioid medications can become less effective as time goes on because of development of tolerance. The patient will also continue with gabapentin 300 mg t.i.d. We would like to thank you for letting us participate in his care. Hope he continues to improve. <ELECTRONICALLY SIGNED> By: Berny Hernandez MD 08/03/20 1442 1839 [id number]. Allen Hernandez MD /patrizia
== END ==
LOC: M.PC 11:50
PROVIDERS: ATTEND Anesthesiology Pain Medicine
DX: M54.5 Low back pain (principal); G89.29 Other chronic pain; I10 Essential (primary) hypertension; Z79.899 Other long term (current) drug therapy